=== PATIENT | male | born 1955 | race Caucasian/White ===

== ENCOUNTER → 2023-12-21 09:35 | Outpatient (REF) | payer MEDICARE, OTHER, SELFPAY ==
[2023-12-21 10:53] LABS: Blood Urea Nitrogen 24 mg/dl (9-20); Calcium 9.3 mg/dl (8.4-10.2); Carbon Dioxide 26 mmol/L (22-30); Chloride 97 mmol/L (98-107); Glucose 142 mg/dl (70-99); Potassium 4.5 mmol/L (3.5-5.1); Sodium 134 mmol/L (135-145); eGFR > 60.00
== END ==
LOC: REG 09:35
PROVIDERS: ATTENDING PHYSICIAN Physician Assistant; FAMILY PHYSICIAN Family Medicine
DX: I71.40 Abdominal aortic aneurysm, without rupture, unspecified (principal)
CPT/HCPCS: 36415; 80048

== ENCOUNTER → 2024-01-17 07:45 | Outpatient (REF) | payer MEDICARE, OTHER, SELFPAY | LOC: RAD 07:45 | PROVIDERS: ATTENDING PHYSICIAN Physician Assistant; FAMILY PHYSICIAN Family Medicine | DX: I71.40 Abdominal aortic aneurysm, without rupture, unspecified (principal) | CPT/HCPCS: 74174; Q9967 ==

== ENCOUNTER → 2025-02-13 10:25 | Outpatient (REF) | payer MEDICARE, OTHER, SELFPAY ==
[2025-02-13 11:44] LABS: Blood Urea Nitrogen 31 mg/dl (9-20); Calcium 9.3 mg/dl (8.4-10.2); Carbon Dioxide 24 mmol/L (22-30); Chloride 104 mmol/L (98-107); Glucose 151 mg/dl (70-99); Potassium 4.5 mmol/L (3.5-5.1); Sodium 139 mmol/L (135-145); eGFR > 60.00
== END ==
LOC: REG 10:25
PROVIDERS: ATTENDING PHYSICIAN Surgery Vascular Surgery; FAMILY PHYSICIAN Family Medicine
DX: I71.40 Abdominal aortic aneurysm, without rupture, unspecified (principal)
CPT/HCPCS: 36415; 80048

== ENCOUNTER → 2025-02-17 12:52 | Outpatient (REF) | payer MEDICARE, OTHER, SELFPAY | LOC: RAD 12:52 | PROVIDERS: ATTENDING PHYSICIAN Surgery Vascular Surgery; FAMILY PHYSICIAN Family Medicine | DX: I71.43 Infrarenal abdominal aortic aneurysm, without rupture (principal); I71.40 Abdominal aortic aneurysm, without rupture, unspecified | CPT/HCPCS: 74174; Q9967 ==

== ENCOUNTER 2025-02-18 22:55 | Inpatient (IN) | payer MEDICARE, OTHER, SELFPAY ==
[2025-02-18 19:53] VITALS: BMI 24.2
[2025-02-18 19:54] VITALS: BP 126/42
--- NOTE | 2025-02-18 20:24 | ED.GENMED ---
History of Present Illness
General
Chief Complaint: Breathing Problem
Source: patient and ambulance crew
Exam Limitations: none
Time Seen by Provider: 02/18/25 20:01
Nursing documentation reviewed up to this point in time: agreed with
History of Present Illness
History of Present Illness:
70-year-old male presents to the emergency department complaining of shortness of breath that is chronic, but he is concerned it may get worse when he goes to sleep. He denies any chest pain. He had a CAT scan at [facility] today for a AAA.
Past History
Past History
ED Past Medical History: Arrthythmia, CAD, NIDDM and Other (AAA, anemia, cancer of larynx)
ED Past Surgical History: Cardiac (Cardiac stent) and Other (Aorta repair)
Social History
Tobacco: Former smoker
Alcohol: None
Drug: None
Review of Systems
Review of Systems
Allergies reviewed?: Yes
All Other Systems: Not applicable
Constitutional: Reports no symptoms
EENT: Reports no symptoms
Respiratory: Reports cough and trouble breathing
Cardiac: Reports no symptoms
ABD/GI: Reports no symptoms
: Reports no symptoms
Musculoskeletal: Reports no symptoms
Skin: Reports no symptoms
Neurological: Reports no symptoms
Endocrine: Reports no symptoms
Hematologic/Lymphatic: Reports no symptoms
Psychiatric: Reports no symptoms
Phy Exam
Physical Exam
Physical Exam:
Physical Exam
General: no apparent distress, not acutely ill
Neck: supple. no meningeal signs. normal posterior pharynx
Heart: s1/s2 regular rate and rhythm, no murmur. equal radial
pulses.
HEENT: Pupils equal round reactive to light, EOMI
Lungs: no acute respiratory distress. clear bilaterally
Abdomen: normal bowel sounds. not tender. no CVAT
Neuro: alert and oriented. no focal neurological deficits cranial nerves II through XII intact
Skin: no rash
Psychiatric: well kept. interactive and cooperative
Extremities: no edema. no calf tenderness. negative homans. good distal pulses
Scores
Heart Failure Risk
Heart Failure Risk Score: Yes
History of Stroke or TIA: No
History of intubation for respiratory distress: No
Heart rate on ED arrival >/= 110: No
SaO2 <90% on arrival on room air: No
HR >/=110 during 3min walk test (or too ill to perform test): Yes
ECG has acute ischemic changes: No
Urea >/=12mmol/L (BUN 33.6mg/dL): Yes
Serum CO2>/=35mmol/L: No
Troponin I or T elevated to [place] Level (0.4mg/dL): No
NT-proBNP >/=5,000ng/L (5,000pg/ml): Yes
HF Risk Score: 4
Admission Status: HIGH RISK 26.1% Consider SNF treatment or admission to hospital
Course
Orders/Labs/Results
Orders:
Orders
02/18/25 20:06
EKG [Electrocardiogram (*1)] Urgent
Reason for Study: Shortness of Breath
EKG- Treatment ONCE
02/18/25 20:23
Cardiac Monitoring- Treatment ONCE
IV Insert/Care/Rem.- Treatment PRN
CR Chest - 2 Views Urgent
Comment:
Reason For Exam: shortness of breath
Pulse Ox/cont/shift [RESP] Stat
Quantity: 1
02/18/25 20:27
Complete Blood Count/With Diff Urgent
Prothrombin Time Urgent
02/18/25 20:59
Comprehensive Metabolic Panel Urgent
NT-proBNP Urgent
Troponin I Urgent
02/18/25 21:40
Furosemide [Lasix] 40 mg IV NOW STA
Abnormal Lab Results
02/18/25 02/18/25
20:27 20:59
WBC 4.3 L 10^3/uL
(4.8-10.8)
RBC 2.85 L 10^6/uL
(4.70-6.10)
Hgb 9.4 L g/dL
(13.0-18.0)
Hct 29.7 L %
(39.0-52.0)
MCV 104.2 H fL
(80.0-94.0)
MCH 33.0 H pg
(27.0-31.0)
MCHC 31.6 L g/dL
(33.0-37.0)
RDW 15.7 H %
(11.5-14.5)
MPV 10.5 H fL
(7.4-10.4)
Absolute Lymphs (auto) 0.8 L 10^3/uL
(1.2-3.4)
Absolute Monos (auto) 0.7 H 10^3/uL
(0.1-0.6)
Lymphocytes % 18.8 L %
(20.5-51.1)
Monocytes % 15.3 H %
(1.7-9.3)
Eosinophils % 6.1 H %
(0-6)
PT 20.7 H Sec
(11.4-14.6)
BUN 38 H mg/dl
(9-20)
Glucose 120 H mg/dl
(70-99)
Total Bilirubin 1.9 H mg/dl
(0.2-1.3)
Troponin I 0.069 H* ng/ml
Total Protein 6.1 L g/dl
(6.3-8.2)
02/18/25 20:27
02/18/25 20:59
Vital Signs
Initial and Last Documented VS:
Initial Vital Signs
Temp Pulse Resp BP Pulse Ox
98.2 F 82 18 126/42 98
02/18/25 19:54 02/18/25 19:54 02/18/25 19:54 02/18/25 19:54 02/18/25 19:54
Last Documented Vital Signs
Temp Pulse Resp BP Pulse Ox
98.2 F 71 23 128/47 98
02/18/25 19:54 02/18/25 21:30 02/18/25 21:30 02/18/25 21:00 02/18/25 21:30
MDM/Problems Addressed
Differential Diagnosis Includes:
Pneumonia, CHF exacerbation
MDM/Problems Addressed:
70-year-old male with CHF exacerbation, difficulty walking without shortness of breath. Admit for diuresis and further evaluation.
Chronic conditions affecting care: Cardiomyopathy and Arrhythmia
Acute Exacerbation and/or Progression of Chronic Illness: Cardiomyopathy and Arrhythmia
*Radiology
Radiology exam reviewed: radiology read reviewed (Chest x-ray shows bilateral pulm edema)
*Pulse Oximetry
Patient hypoxic: no
*EKG
Interpreted by ED Provider?: Yes
EKG Intrepretation Date: 02/18/25
EKG Intrepretation Time: 20:11
Interpretation: abnormal
Comparison EKG: no changes
Heart Rate: 65
Rate: normal
Rhythm: a-fib
[place]: normal axis
Interval: normal interval
QRS Pattern: normal QRS
Ischemia: no ischemia
*Plasterer Rough Interpretation
Rate: normal
Interpretation: abnormal
Heart Rate: 76
Rhythm: a-fib
*Critical Care Note
Total Time (30-74mins, 75-104mins- exclusive of procedures): Not Applicable
Data Reviewed
Review of Other/Old Records Reveals: Testing (Echocardiogram from 12/04/2023 shows EF 60 to 65% with mild concentric left ventricular hypertrophy)
Source: records
Patient Management
Social determinants of health affecting care: Living situation and Strong social support
Discussion with other providers: Hospitalist
Escalation/DeEscalation of care consider admission/obs:
Admission indicated
ED Attending Note
-
Portions of this chart may have been created with voice recognition software.� Occasional wrong word or��sound alike� substitutions may have occurred due to the inherent limitations of voice recognition software.
Discharge Plan
Departure
Patient Disposition: Admit
Date of Disposition: 02/18/25
Time of Disposition: 21:41
Admit to: Telemetry
Presentation/result/management discussed w/ accepting MD/DO: Hospitalist
Patient with high blood pressure during this ER visit?: Yes
Condition: Fair
Discharge Problem:
Acute exacerbation of CHF (congestive heart failure), AAA (abdominal aortic aneurysm)
Prescriptions:
No Action
atorvastatin 20 mg Tablet
20 mg PO HS
allopurinol 100 mg Tablet
100 mg PO BID
tramadol 50 mg Tablet
50 mg PO BID PRN (Reason: pain)
alprazolam 0.5 mg Tablet
0.5 mg PO PRN PRN (Reason: anxiety)
lisinopril 10 mg Tablet
10 mg PO DAILY
magnesium oxide 500 mg Tablet
500 mg PO HS
furosemide 20 mg Tablet
40 mg PO DAILY
metoprolol succinate 25 mg Capsule,Sprinkle,Er 24hr
25 mg PO DAILY
rivaroxaban 20 mg Tablet
20 mg PO DAILY
Medical Marijuana
1 dose PO PRN PRN (Reason: sleep)
Referrals:
oJsefina Nguyen MD [Family Provider] -
Interventions
Interventions:
*Risk Screen - Suicide Last Done: 02/18/25 19:54
*General Assessment Last Done: 02/18/25 19:54
*Neglect/Abuse Screening Last Done: 02/18/25 19:54
*ED- Fall Risk Assessment Last Done: 02/18/25 19:54
*ED COVID-19 Vaccine History Last Done: 02/18/25 19:54
ED- Cardiac Assessment Last Done: 02/18/25 20:20
ED- Pulmonary Assessment Last Done: 02/18/25 20:20
Discharge Date and Time
Print Language: ETHIOPIAN
[2025-02-18 20:42] LABS: INR 1.73; PT 20.7 Sec (11.4-14.6)
[2025-02-18 21:00] VITALS: BP 128/47
[2025-02-18 21:03] LABS: % Basophils 0.7 % (0-2); % Eosinophils 6.1 % (0-6); % Immature Granulocytes 0.2 % (0-0.5); % Lymphocytes 18.8 % (20.5-51.1); % Monocytes 15.3 % (1.7-9.3); % Neutrophils 58.9 % (42.2-75.2); Absolute Eosinophils 0.3 10^3/uL (0-0.7); Absolute Lymphocytes 0.8 10^3/uL (1.2-3.4); Absolute Monocytes 0.7 10^3/uL (0.1-0.6); Absolute Neutrophils 2.5 10^3/uL (1.4-6.5); Hematocrit 29.7 % (39.0-52.0); Hemoglobin 9.4 g/dL (13.0-18.0); Mean Corp Hgb Conc. 31.6 g/dL (33.0-37.0); Mean Corpuscular Volume 104.2 fL (80.0-94.0); Mean Platelet Volume 10.5 fL (7.4-10.4); Nucleated Red Blood Cells % 0 % (-); Platelet Count 173 10^3/uL (130-400); Red Blood Cell Count 2.85 10^6/uL (4.70-6.10); Red Cell Dist. Width 15.7 % (11.5-14.5); White Blood Cell Count 4.3 10^3/uL (4.8-10.8)
[2025-02-18 21:30] LABS: ALT (SGPT) 14 U/L (0-50); AST (SGOT) 20 U/L (17-59); Albumin 3.7 g/dl (3.5-5.0); Alkaline Phosphatase 125 U/L (38-126); Blood Urea Nitrogen 38 mg/dl (9-20); Calcium 9.2 mg/dl (8.4-10.2); Carbon Dioxide 25 mmol/L (22-30); Chloride 104 mmol/L (98-107); Estimated Creatinine Clearance 63 ml/min; Glucose 120 mg/dl (70-99); Potassium 4.6 mmol/L (3.5-5.1); Sodium 140 mmol/L (135-145); Total Bilirubin 1.9 mg/dl (0.2-1.3); Total Protein 6.1 g/dl (6.3-8.2); eGFR > 60.00
[2025-02-18 21:35] LABS: NT-proBNP 13200 pg/ml; Troponin I 0.069 ng/ml
[2025-02-18] MEDS: LASIX 40 MG IV (21:46)
[2025-02-18 22:00] VITALS: BP 89/74
[2025-02-18 22:01] VITALS: BP 124/51
--- NOTE | 2025-02-18 22:11 | HPS.HSE ---
Family Physician
-
Family Physician: Josefina Nguyen
Chief Complaint
-
Shortness of breath
History of Present Illness
This is a 70-year-old with complex medical history including history of CAD status post stenting in 2009, congestive heart failure, history of mitral regurgitation, history of laryngeal cancer status post resection, history of AAA status post
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
antibiotics and currently living at home who presents to the emergency department with approximately 2 days of dyspnea on exertion.
Patient stated that since his discharge from the hospital he has lost weight and his weight has not increased. He reports that his lower extremity history edema has remained low and it has not increased. He denies having any recent fevers or
chills. He denies having any chest pain. He reported that 2 days ago started having dyspnea on exertion. He is also unable to walk from his bed into his bathroom. He denies having palpitations. He denies feeling dizzy or lightheaded. He denies
any rash. He denies any abdominal pain. Patient reports compliant with his medications. Denies any cough
On arrival in the emergency department suction saturation was 98% on room air, he was afebrile with a temp of 98.2 blood pressure was stable at 130/50 with a pulse of 71. ECG shows a atrial fibrillation at a rate of 65. His troponin was 0.069, BNP
was elevated at 1300. Chest x-ray shows cardiomegaly with moderate pulmonary edema. CBC was unremarkable without leukocytosis hemoglobin 9 and platelet 133, electrolytes BUN/creatinine were stable and the abnormal glucose.
Medical History
Past Medical History
Past Medical History: Reports Other
Additional Past Medical History:
CHF
Permanent atrial fibrillation
AAA
CAD status post stenting
Hyperlipidemia
Gout
Mitral regurgitation
History of laryngeal cancer
Diabetes
Past Surgical History: Reports Other (EVAR 11/2023 )
Social History
Tobacco: Non-smoker
Alcohol: None
Drug: None
Personal:
Living: With Family
Employment: Retired
Family History
Family History: Not pertinent
Allergies / Home Medications
Allergies reflects when Allergies were last updated in [facility].
Home Medications with original date entered in [facility]
Allergy/Medication List:
Allergies
Allergy/AdvReac Type Severity Reaction Status Date / Time
No Known Allergies Allergy Unverified 11/26/23 09:34
Home Medications
allopurinol 100 mg tablet 100 mg PO BID Gout 11/26/23
alprazolam 0.5 mg tablet 0.5 mg PO HSPRN PRN anxiety 11/26/23
lisinopril 10 mg tablet 10 mg PO DAILY Blood Pressure 11/26/23
magnesium oxide 500 mg PO HS Electrolyte Repletion 11/26/23
rivaroxaban 20 mg tablet 20 mg PO HS Blood Clot Prevention/Tx 11/26/23
acetaminophen 325 mg tablet (Tylenol) 650 mg PO DAILY 02/18/25
amoxicillin 500 mg capsule 500 mg PO TID 02/18/25
atorvastatin 40 mg tablet 40 mg PO HS 02/18/25
benzonatate 100 mg capsule 100 mg PO TIDPRN PRN cough 02/18/25
cholecalciferol (vitamin D3) 50 mcg (2,000 unit) tablet (Vitamin D3) 50 mcg PO DAILY 02/18/25
cyanocobalamin (vitamin B-12) 1,000 mcg tablet 1,000 mcg PO DAILY 02/18/25
famotidine 20 mg tablet 20 mg PO DAILY 02/18/25
ferrous sulfate 325 mg (65 mg iron) tablet 325 mg PO DAILY 02/18/25
folic acid 1 mg tablet 1 mg PO DAILY 02/18/25
furosemide 40 mg tablet 40 mg PO BID 02/18/25
glycopyrrolate 1 mg tablet 1 mg PO BID 02/18/25
magnesium hydroxide 400 mg/5 mL oral suspension (Milk of Magnesia) 30 ml PO DAILYPRN PRN constipation 02/18/25
metoprolol succinate 50 mg tablet,extended release 24 hr 50 mg PO DAILY 02/18/25
vitamin B complex 1 tab PO DAILY 02/18/25
Review of Systems
-
History Source: Patient
Constitutional: Reports No Symptoms
EENT: Reports No Symptoms
Respiratory: Reports Trouble Breathing
Cardiac: Reports No Symptoms
Abdomen/GI: Reports No Symptoms
: Reports No Symptoms
Musculoskeletal: Reports No Symptoms
Skin: Reports No Symptoms
Neurological: Reports No Symptoms
Endocrine: Reports No Symptoms
Hematologic/Lymphatic: Reports No Symptoms
Psych: Reports No Symptoms
Physical Exam
Vital Signs
Vital Signs
Temp Pulse Resp BP Pulse Ox
98.2 F 71 23 128/47 98
02/18/25 19:54 02/18/25 21:30 02/18/25 21:30 02/18/25 21:00 02/18/25 21:30
Physical Exam
General: Well Developed, Well Nourished, No Apparent Distress and Comfortable
HEENT: NormoCephalic, Anicteric, Moist mucous membranes and Atraumatic
Respiratory: Clear
Cardiac: S1/S2, Irregular Rhythm, Murmur (Apical systolic murmur appreciated) and JVD; No Rub, Gallop or Peripheral Edema
Breast: Deferred by me
GI: Soft, Non Tender, Non Distended and Normal Bowel Sounds
Rectal: Deferred by Provider
Genito-urinary: Deferred by me
Musculoskeletal: No Clubbing, No Cyanosis and No Edema
Skin: Warm
Neuro: AO x 3 and Nonfocal/grossly intact
Hematologic/Lymphatic: No Lymphadenopathy
Psych: Calm
Laboratory Results
-
02/18/25 20:27
02/18/25 20:59
Laboratory Results
PT 20.7 Sec (11.4-14.6) H 02/18/25 20:27
INR 1.73 02/18/25 20:27
Total Bilirubin 1.9 mg/dl (0.2-1.3) H 02/18/25 20:59
AST 20 U/L (17-59) 02/18/25 20:59
ALT 14 U/L (0-50) 02/18/25 20:59
Alkaline Phosphatase 125 U/L (38-126) 02/18/25 20:59
Troponin I 0.069 ng/ml H* 02/18/25 20:59
Data Reviewed
-
Diagnostic Radiology: Image Personally Visualized and interpreted and Report Reviewed by me
Medical Tests (Nuc Med, Echo, EKG etc): Image Personally Visualized and interpreted
Lab Data: Labs Reviewed by me
Old Records: Reviewed
Impression/Plan
-
IMPRESSION:
70-year-old with past medical history significant for CHF, mitral regurgitation, subacute endocarditis status post antibiotics and now on suppressive amoxicillin, AAA status post endovascular repair, presents to the emergency department with mostly
subacute dyspnea on exertion over the last 3 days. He denies any chest pain. Found to have a troponin of 0.069 and a BNP of greater than 13,000. On examination he has very faint crackles bilaterally but no JVD and no lower extremity edema. He
denies having any chest pain. Been compliant with his medications including his anticoagulation and diuretic regimen and reports no weight gain and no recent increases in his edema. He denies any cough. He has not had any fevers or chills.
Picture is consistent with acute CHF exacerbation possibly triggered by a ischemic episode versus valve insufficiency. Patient was recently treated for influenza and he has completed the course and is currently asymptomatic from that perspective.
PLAN:
1. CHF exacerbation�appears to be acute and not due to noncompliance, or volume overload. Concern remains for ischemia or valvular insufficiency. No signs of acute infection.
-Admit to telemetry at this time
-Cycle cardiac enzymes, if troponin increases will start on heparin but otherwise we will continue Xarelto
-Will give aspirin 324 x 1
-Lasix 40 mg given IV in the ED, will continue Lasix 40 mg IV twice daily
-Echocardiogram to evaluate EF and valve
-Cardiology consultation
-Continue his metoprolol and lisinopril
�Check COVID
2. AFIB
- continue metoprolol
- continue AC, if flat trop will continue Xarelto, otherwise heparin gtt
3. subacute endocarditis
- continue suppressive amoxicillin indefinitely
- echo in am
DVT prophylaxis on anticoagulation
CODE STATUS full code
[2025-02-18 23:00] VITALS: BP 121/45
[2025-02-18] MEDS: LOW STRENGTH ASPIRIN 324 MG PO (23:03)
[2025-02-18 23:48] LABS: COVID-19 Antigen Negative (Negative)
[2025-02-19] VITALS (8 sets, daily range): BP systolic 109–136; BP diastolic 34–55; BMI 24.2; BMI 23.4
[2025-02-19] LABS: Troponin I 0.072 ng/ml
--- NOTE | 2025-02-19 01:58 | PTCARENOTE ---
Pt admitted into 2248- ambulated to the bedside as a x1 assist. On RA 100% SPO2. Afib on the monitor. plan of care discussed. call shaw within reach. Afib and chf booklet provided.
[2025-02-19 02:25] LABS: Blood Urea Nitrogen 38 mg/dl (9-20); Calcium 9.1 mg/dl (8.4-10.2); Carbon Dioxide 24 mmol/L (22-30); Chloride 106 mmol/L (98-107); Estimated Creatinine Clearance 63 ml/min; Glucose 127 mg/dl (70-99); HDL Cholesterol 37 mg/dl; LDL Cholesterol, Calculated 64 mg/dl; Potassium 4.4 mmol/L (3.5-5.1); Sodium 140 mmol/L (135-145); Total Cholesterol 116 mg/dl (50-199); Triglyceride 79 mg/dl (10-149); Very Low Density Lipoprotein 15 mg/dl (0-30); eGFR > 60.00
[2025-02-19 02:50] LABS: Troponin I 0.076 ng/ml
[2025-02-19 05:58] LABS: Troponin I 0.065 ng/ml
--- NOTE | 2025-02-19 06:45 | PTCARENOTE ---
Pt provided a printed med list that he states is the most current list he has been following at home but compared to our pharmacy updated list Meds and doses are very different. will pass on to day shift RN.
[2025-02-19] MEDS: TOPROL XL 50 MG PO (08:50)
[2025-02-19] MEDS: AMOXIL 500 MG PO (08:50)
[2025-02-19] MEDS: ROBINUL 1 MG PO ×2 (08:50→20:12)
[2025-02-19] MEDS: ZESTRIL 10 MG PO (08:50)
[2025-02-19] MEDS: LASIX 40 MG IV ×2 (08:51→16:05)
[2025-02-19] MEDS: FEOSOL 325 MG PO (08:51)
[2025-02-19] MEDS: FOLVITE 1 MG PO (08:51)
[2025-02-19] MEDS: ZYLOPRIM 100 MG PO ×2 (08:51→20:13)
[2025-02-19] MEDS: TYLENOL 650 MG PO (08:51)
--- NOTE | 2025-02-19 09:33 | W.PN.HOSP.TC ---
Today's Communication/Plan
-
Past medical history information is taken from cardiology service, appreciate input
Continue with diuretic therapy,
Will need repeat blood culture
Follow-up with echocardiogram
Assessment / Plan
Assessment / Plan
Physical Exam
General: Well Developed, Well Nourished, No Apparent Distress and Comfortable
HEENT: NormoCephalic, Anicteric, Moist mucous membranes and Atraumatic
Respiratory: Clear
Cardiac: S1/S2, Irregular Rhythm, Murmur (Apical systolic murmur appreciated) and JVD; No Rub, Gallop or Peripheral Edema
Breast: Deferred by me
GI: Soft, Non Tender, Non Distended and Normal Bowel Sounds
Rectal: Deferred by Provider
Genito-urinary: Deferred by me
Musculoskeletal: No Clubbing, No Cyanosis and No Edema
Skin: Warm
Neuro: AO x 3 and Nonfocal/grossly intact
Hematologic/Lymphatic: No Lymphadenopathy
Psych: Calm
# Acute on chronic HFrEF
LV dysfunction 38% (12/2024)
No sob at present
continue Lasix 40 mg IV twice daily
-Echocardiogram to evaluate EF and valve
-Continue his metoprolol and lisinopril
Negative COVID
#Positive troponin: non-ischemic myocardial injury in setting of CHF exacerbation
# Anemia of chronic disease
Check iron panel
# history of Infrarenal AAA s/p Stent on 11/[address] Alfred
No abdominal pain
#Permanent AFIB
- continue metoprolol
- On Xarelto, now on heparin gtt
#subacute endocarditis
E faecalis bacteremia
- continue suppressive amoxicillin indefinitely
Blood culture is ordered.
DVT prophylaxis on anticoagulation
CODE STATUS full code
Total time spent to see the patient, examine the patient, review data and lab results, discuss treatment plan with patient, nursing staff, consultants around 55 minutes
Anticipated Discharge: > 48 hours
Subjective/Interval History
-
Date of Service: February 19, 2025
No chest pain
Objective Data
-
Labs:
Laboratory Results
02/19/25
01:44
Sodium 140
Potassium 4.4
Chloride 106
Carbon Dioxide 24
BUN 38 H
Creatinine 1.2
Glucose 127 H
Calcium 9.1
Vital Signs:
Vital Signs
Temp Pulse Resp BP Pulse Ox
97.9 F 75 18 125/51 94
02/19/25 07:55 02/19/25 08:00 02/19/25 07:55 02/19/25 08:50 02/19/25 08:45
I&O
02/18/25 02/19/25 02/20/25
06:59 06:59 06:59
Intake Total 240 / 240
Output Total 550 / 550 200 / 200
Balance -310 / -310 -200 / -200
--- NOTE | 2025-02-19 09:55 | CON.CAR ---
Addendum entered and electronically signed by Sridhar Foreman MD 02/19/25 14:20:
70 yo male with diagnosis of endocarditis in Nov 2024 and has been treated medically, permanent A fib on xarelto, CAD s/p BMS OM2011, AAA repair is admitted with SOB. Exam with irregular rhythm, III/ systolic murmur at apex, no edema, elevated
JVP.
Echo shows EF 50%, vegetations on aortic, mitral, and likely tricuspid valves; with severe AR, severe MR, moderate TR. The AV vegetation is most significant.
Discussed with CT surgery. Will start surgical evaluation with LORETA tomorrow and CT cors. No cath at this time due to AV vegetation. He appears to be a high risk patient.
ID consult for Abx management.
Vascular surgery consult as recent CT suggested endoleak of AAA repair.
Will use heparin drip for AC for A fib.
Original Note:
Consultation
Consultation Request
Date/Time Consultation Requested: 02/19/253
Date/Time Consultation Performed: 02/19/25 0956
Requesting Provider: Dr. Del Toro
Performing Provider: Kyleigh MCCALL for Dr. Foreman
Reason for Consultation: CHF
Medical History
-
Chief Complaint: SOB
History of Present Illness:
70 y/o male (patient of Dr. Mckeon) with permanent AFIB (on Xarelto), CAD with BMS to OM2011, hx laryngeal cancer, severe MR, hx AAA repair (Dr. 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
dysfunction 38% (12/2024). 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 He had recent hospitalizations at [facility] including about a month ago for flu A and acute CHF.
He is here for two days of SOB and an episode of PND. He is in no distress at the time of my assessment.
Past Medical History
Past Medical History: Arrhythmias, CAD, Cancer and Valvular Disease
Social History
Tobacco: Non-Smoker
Drug: None
Family History
Family History: Other (thinks cardiac disease runs in family, but no more details than that)
Allergies / Home Medications
Allergy/AdvReac Type Severity Reaction Status Date / Time
No Known Allergies Allergy Unverified 11/26/23 09:34
�Medication �Instructions �Recorded �Confirmed �Type
allopurinol 100 mg tablet 100 mg PO BID Gout 11/26/23 02/18/25 History
alprazolam 0.5 mg tablet 0.5 mg PO HSPRN PRN anxiety 11/26/23 02/18/25 History
lisinopril 10 mg tablet 10 mg PO DAILY Blood Pressure 11/26/23 02/18/25 History
magnesium oxide 500 mg PO HS Electrolyte Repletion 11/26/23 02/18/25 History
rivaroxaban 20 mg tablet 20 mg PO HS Blood Clot 11/26/23 02/18/25 History
Prevention/Tx
acetaminophen 325 mg tablet 650 mg PO DAILY 02/18/25 02/18/25 History
(Tylenol)
amoxicillin 500 mg capsule 500 mg PO TID 02/18/25 02/18/25 History
atorvastatin 40 mg tablet 40 mg PO HS 02/18/25 02/18/25 History
benzonatate 100 mg capsule 100 mg PO TIDPRN PRN cough 02/18/25 02/18/25 History
cholecalciferol (vitamin D3) 50 50 mcg PO DAILY 02/18/25 02/18/25 History
mcg (2,000 unit) tablet (Vitamin
D3)
cyanocobalamin (vitamin B-12) 1,000 mcg PO DAILY 02/18/25 02/18/25 History
1,000 mcg tablet
famotidine 20 mg tablet 20 mg PO DAILY 02/18/25 02/18/25 History
ferrous sulfate 325 mg (65 mg 325 mg PO DAILY 02/18/25 02/18/25 History
iron) tablet
folic acid 1 mg tablet 1 mg PO DAILY 02/18/25 02/18/25 History
furosemide 40 mg tablet 40 mg PO BID 02/18/25 02/18/25 History
glycopyrrolate 1 mg tablet 1 mg PO BID 02/18/25 02/18/25 History
magnesium hydroxide 400 mg/5 mL 30 ml PO DAILYPRN PRN constipation 02/18/25 02/18/25 History
oral suspension (Milk of Magnesia)
metoprolol succinate 50 mg 50 mg PO DAILY 02/18/25 02/18/25 History
tablet,extended release 24 hr
vitamin B complex 1 tab PO DAILY 02/18/25 02/18/25 History
Review of Systems
-
History Source: Patient
All other systems: Negative unless noted
Respiratory: Trouble Breathing
Physical Exam
Vital Signs
Temp Pulse Resp BP Pulse Ox
97.9 F 75 18 125/51 94
02/19/25 07:55 02/19/25 08:00 02/19/25 07:55 02/19/25 08:50 02/19/25 08:45
Lab Results
02/18/25 20:27
02/19/25 01:44
Troponin I Cancelled 02/19/25 22:00
Hxl-Z-Fklngkbfifi Pept 94182 pg/ml 02/18/25 20:59
Physical Exam
General: Well Developed and No Apparent Distress
HEENT: Normocephalic and Anicteric
Respiratory: Crackles (left base)
Cardiac: Irregular Rhythm and Murmur (IV/ systolic and diastolic murmurs)
Musculoskeletal: Edema (mild BLE edema)
Skin: Warm and Dry
Neuro: AO x 3
Psych: Calm
Impression / Plan
-
Epcam-us-rleqwqk HF (reduced EF? based on last echo as below):
-BNP 61972, imaging with pulmonary edema, rales to L base, mild BLE edema
-updated echo is pending
-agree with IV lasix, which requires intensive monitoring
-on BB/ACEI- OP lasix dose is 40 mg PO BID
Endocarditis:
-Echo report summary 01/15/25: 0.75 mm mass attached to aortic valve, EF 38%, increased LV size, RV moderately dilated and with moderately decreased systolic function, severely dilated atria, severe AR, two areas of vegetation on anterior mitral
valve leaflet, severe MR, severe TR (aortic vegetation bigger from previous and now two areas on MV noted).
-this condition is threat to life
-updated echo pending
-OP notes reviewed and he was treated with IV abx, now on PO abx. He had E faecalis bacteremia. Septic knee back in Fall apparently.
-CTS consult, ID c/s
PAD:
-sounds to be extensive
-testing as below
-vascular consult
CAD with hx stenting:
-stable without CP
-on Xarelto, statin, BB
Abnormal troponin:
-acute, non-ischemic myocardial injury in setting of CHF exacerbation
-no angina or acute EKG changes
Permanent AFIB:
-stable, rate-controlled
-continue BB and Xarelto
Data:
Abd/pelv CT: AORTOBIILIAC ENDOGRAFT in place with interval enlargement of the shinnecock aneurysm sac around the endograft and a 1.9 cm focal outpouching of rim-enhancing fluid along the left posterolateral side of the proximal graft attachment
suggesting an ENDOLEAK (possibly a TYPE Ia PROXIMAL ENDOLEAK). 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 Severe stenosis (greater than 70% diameter) in the proximal right superficial femoral artery. Mild chronic
bilateral renal disease. Cholelithiasis. MODERATE ACUTE INTERSTITIAL and ALVEOLAR CARDIOGENIC PULMONARY EDEMA. Moderate to severe cardiomegaly with right heart dysfunction. Minimal bilateral pleural effusions. Severe multilevel lumbar discogenic
degenerative disease. Large right scrotal hydrocele.
Data Reviewed
-
EKG: Tracing Personally Visualized and interpreted (AFIB 80 BPM, nonspecific ST and T abnormalities)
Radiology: Report Reviewed by me (CXR: Cardiomegaly with moderate pulmonary edema. Likely trace bilateral pleural effusions.)
Medical Tests (Nuc Med, Echo etc): Report Reviewed by me (echo report summary as noted)
Labs: Labs Reviewed by me
--- NOTE | 2025-02-19 11:57 | CM ---
spoke to pt in room, he is prev indep, lives with his in a 2 story home with 3 steps to enter. he has a cane and a walker that he uses. he is for CT surgery eval today, dc plan undermined at this time. cm following.
[2025-02-19] MEDS: HEPARIN 4000 UNITS IV (12:46)
[2025-02-19] MEDS: HEPARIN 25000 UNITS/250 ML IV (12:56)
[2025-02-19 13:05] LABS: Hematocrit 26.9 % (39.0-52.0); Hemoglobin 8.8 g/dL (13.0-18.0); Mean Corp Hgb Conc. 32.7 g/dL (33.0-37.0); Mean Corpuscular Hgb 34.2 pg (27.0-31.0); Mean Corpuscular Volume 104.7 fL (80.0-94.0); Mean Platelet Volume 10.7 fL (7.4-10.4); Platelet Count 159 10^3/uL (130-400); Red Blood Cell Count 2.57 10^6/uL (4.70-6.10); Red Cell Dist. Width 15.5 % (11.5-14.5); White Blood Cell Count 3.1 10^3/uL (4.8-10.8)
[2025-02-19 13:19] LABS: APTT 41.5 Sec (23.4-35.0)
--- NOTE | 2025-02-19 13:31 | CON.VAS ---
Documented by User: STEFANY Santamaria 02/19/25 15:30
Consultation
Consultation Request
Date/Time Consultation Performed: 02/19/25
Requesting Provider: Hospitalist
Performing Provider: Melanie Aragon, CHUCK-C for Jn Bustamante MD
Reason for Consultation: EVAR stent graft endoleak
Medical History
-
Chief Complaint: Shortness of breath
History of Present Illness:
This is a 70-year-old male with significant past medical history for atrial fibrillation, CAD, laryngeal cancer, CHF, diabetes, mitral regurgitation, and gout who presented to outside hospital on 02/18/2025 with reports of roughly 2 days of worsening
malaise and dyspnea on exertion. He was recently hospitalized at [facility] for decompensated heart failure which led to diagnosis of subacute endocarditis, he was discharged on antibiotics.
Past Medical History
Past Medical History: Arrhythmias (From atrial fibrillation), CAD, Cancer (Laryngeal cancer), CHF, NIDDM, Valvular Disease (Mitral regurgitation) and Other (AAA, gout, left knee septic arthritis, idiopathic anemia, endocarditis, L2/L3 OM/discitis)
Past Surgical History: Other (EVAR 12/12)
Social History
Tobacco: Non-Smoker
Alcohol: None
Drug: None
Personal:
Living: With Family
Allergies / Home Medications
Allergy/AdvReac Type Severity Reaction Status Date / Time
No Known Allergies Allergy Unverified 11/26/23 09:34
�Medication �Instructions �Recorded �Confirmed �Type
allopurinol 100 mg tablet 100 mg PO BID Gout 11/26/23 02/18/25 History
alprazolam 0.5 mg tablet 0.5 mg PO HSPRN PRN anxiety 11/26/23 02/18/25 History
lisinopril 10 mg tablet 10 mg PO DAILY Blood Pressure 11/26/23 02/18/25 History
magnesium oxide 500 mg PO HS Electrolyte Repletion 11/26/23 02/18/25 History
rivaroxaban 20 mg tablet 20 mg PO HS Blood Clot 11/26/23 02/18/25 History
Prevention/Tx
acetaminophen 325 mg tablet 650 mg PO DAILY 02/18/25 02/18/25 History
(Tylenol)
amoxicillin 500 mg capsule 500 mg PO TID 02/18/25 02/18/25 History
atorvastatin 40 mg tablet 40 mg PO HS 02/18/25 02/18/25 History
benzonatate 100 mg capsule 100 mg PO TIDPRN PRN cough 02/18/25 02/18/25 History
cholecalciferol (vitamin D3) 50 50 mcg PO DAILY 02/18/25 02/18/25 History
mcg (2,000 unit) tablet (Vitamin
D3)
cyanocobalamin (vitamin B-12) 1,000 mcg PO DAILY 02/18/25 02/18/25 History
1,000 mcg tablet
famotidine 20 mg tablet 20 mg PO DAILY 02/18/25 02/18/25 History
ferrous sulfate 325 mg (65 mg 325 mg PO DAILY 02/18/25 02/18/25 History
iron) tablet
folic acid 1 mg tablet 1 mg PO DAILY 02/18/25 02/18/25 History
furosemide 40 mg tablet 40 mg PO BID 02/18/25 02/18/25 History
glycopyrrolate 1 mg tablet 1 mg PO BID 02/18/25 02/18/25 History
magnesium hydroxide 400 mg/5 mL 30 ml PO DAILYPRN PRN constipation 02/18/25 02/18/25 History
oral suspension (Milk of Magnesia)
metoprolol succinate 50 mg 50 mg PO DAILY 02/18/25 02/18/25 History
tablet,extended release 24 hr
vitamin B complex 1 tab PO DAILY 02/18/25 02/18/25 History
Physical Exam
Vital Signs
Temp Pulse Resp BP Pulse Ox
97.6 F 79 18 126/54 99
02/19/25 11:13 02/19/25 11:05 02/19/25 11:13 02/19/25 11:05 02/19/25 11:49
Lab Results
02/19/25 12:41
02/19/25 01:44
Troponin I Cancelled 02/19/25 22:00
Vxc-Q-Nwfflrcixlc Pept 10985 pg/ml 02/18/25 20:59

Documented by User: STEFANY Cole 02/19/25 16:55
Medical History
-
History of Present Illness:
This is a 70-year-old male with complex medical history including history of laryngeal cancer he notes he was taken to the operating room with [facility] and told that this was nonresectable. He underwent trach and PEG at that time.
Subsequently had endovascular repair of abdominal aortic aneurysm in November 2023 here at [place] ([facility]). Other PMH atrial fibrillation, CAD, laryngeal cancer, CHF, diabetes, mitral regurgitation, and gout who presented to outside hospital on
02/18/2025 with reports of roughly 2 days of worsening malaise and dyspnea on exertion. He was recently hospitalized at [facility] for decompensated heart failure which led to diagnosis of subacute endocarditis, he was discharged on
antibiotics. Patient notes that starting in February 2024 so he started to have generalized systemic type symptoms. Started to have some tiredness/weight loss. Per his sister at the bedside she notes that he is lost 60 pounds since August 2024. In
April 2024 he had a syncopal type episode. At some point along the way he was diagnosed with a left knee infection (no prosthetic in his knee but a primary infection) and had drainage of infected fluid. Now he presents here with continued malaise
and shortness of breath. He denies any abdominal pain. No pain in his back. He never had any of those symptoms.
On exam/he is in no acute distress. His breathing is unlabored. His abdomen is soft, nondistended, nontender. He does have a ventral hernia from his PEG site insertion. But it is easily reducible. He has no tenderness to deep palpation.
CT scan reviewed completed 02/17/2025. He has a CT scan from [place] dated 11/21/2024. I compared these to. I also reviewed his prior scan that he had in our system from December 2023. The aneurysm sac has increased in size slightly from the
December 2023 scan about 1 to 2 mm in both AP and transverse dimension. In addition the infrarenal neck of the aorta is slightly dilated compared to that time. I do not see a definitive type Ia endoleak as potentially suggested by the radiologist.
There is some contrast that can be seen posterior to one of the iliac limbs on the scan from 11/21/2024 (image 48 of series 4 on that scan). I do not see that is well on the current scan. He does however have some stranding around the aorta
especially on the prior scan it seems to be a little bit better on the more recent scan but there is also a collection posterior left side of the aorta. It appears to be distinct from the aorta in the retroperitoneum (not a site of rupture). But
appears rim-enhancing on the current scan.
Review of Systems
-
History Source: Patient and Family
All other systems: Negative unless noted
Constitutional: Reports Weight Loss and Fatigue
Respiratory: Reports Other (SOB)
Vascular: Denies Leg Pain / Claudication
Abdomen/GI: Reports No Symptoms (Denies pain)
: Reports No Symptoms
Musculoskeletal: Reports No Symptoms
Skin: Reports No Symptoms
Neurological: Reports No Symptoms
Physical Exam
Physical Exam
General: No Apparent Distress
Respiratory: Clear and Non Labored Respirations
Cardiac: Negative JVD
GI: Soft, Non Tender and Non Distended
Musculoskeletal: No Clubbing, No Cyanosis and Edema
Skin: Warm
Neuro: Awake, Alert and Oriented
Psych: Calm
Assessment / Plan
-
Plan/infective endocarditis with valvular vegetations. Possible infected aortic endograft. I am not 100% sure the endograft is definitively infected. I am not even 100% certain that he is a type Ia endoleak. The proximal neck does appear to be
sealed. However there is this atypical rim-enhancing collection seen on the more recent scans from 2 days ago and also from November of this year 3 months ago. However overall this has not changed much since November of this year and therefore that
would suggest that this is a relatively or somewhat less immediately concerning process. I cannot say with definitive certainty that the aorta is not infected, but I think his vegetative issues and the heart valves and endocarditis would take
precedence at this point given stability over the course of the last 3 months in terms of the scans. Would continue IV antibiotics. Would continue with plan/workup for management of the infective endocarditis/vegetations of the valve. 1
consideration could be percutaneous drainage of the rim-enhancing collection to see if purulent drainage is noted. I think it would be reasonable to ask interventional radiology to sample this fluid. We will continue to follow along with you.
Data Reviewed
-
CT Scan: Discussed with Patient
Labs: Labs Reviewed by me
--- NOTE | 2025-02-19 13:43 | CONSULT.CT ---
Consultation
-
Date/Time Consultation Requested: 02/19/25
Date/Time Consultation Performed: 02/19/25
Requesting Provider: Sridhar Foreman
Performing Provider: Lucia Riddle for Dr. Sharma
Reason for Consultation: aortic, mitral and tricuspid valve endocarditis
Patient History
Physicians
Family Physician: Josefina Nguyen
Outpatient Bead Maker: Saba Mckeon
Inpatient Bead Maker: Sridhar Foreman
History of Present Illness
70 y/o male with complex medical history including permanent AFIB (on Xarelto), CAD with BMS to OM1 2011, hx laryngeal cancer (2015) s/p surgery, chemotherapy and radiation & requiring tracheostomy/feeding tube x 7 months, severe MR, hx
infra-renal AAA w/B/L iliac endovascular repair 2023 (Dr. Alfred), Diagnosed with left knee septic joint (per patient-[place] per aspirate) and tulalip AV endocarditis (diagnosed 11/2024-Dr. Fox ID) on IV antibiotic x 4 weeks, followed by oral
Amocicillin which is current. RUE PICC removed 12/2024. Recent hospitalization at [facility] for Influenza A/acute CHF. LV dysfunction 38% (12/2024). Presented to [facility] emergency room on 02/18/25 with SOB and an episode of PND. Negative COVID.
Elevated troponin I (max 0.076) consistent with non-ischemic myocardial injury in setting of CHF exacerbation. Treated with diuretics. TTE today reported vegetations on aortic, mitral and likely tricuspid valves. No fevers, chills reported. No
leukocytosis noted.
Pertinent negatives: Denies CVA/TIA, asthma/COPD, bowel/bladder issues, DVT/PE
Past Medical History
Past Medical History: Atrial Fib (Chronic, diagnosed 2011-on Xarelto), CAD ( nonischemic cardiomyopathy/HFrEF ), Cancer (Laryngeal status post surgery, chemotherapy, radiation (2015) with tracheostomy and feeding tube x 7 months), Valvular Disease
(mitral regurgitation; tulalip aortic valve endocarditis) and Other (Infrarenal AAA status post endovascular repair 2023 (Dr. Alfred); septic joint left knee; Lyme disease)
Past Surgical History
Past Surgical History: PCI/Stent (MARQUISE-OM1 2011)
Dental History
6 months ago
Family History
Mother: N/A
Father: N/A
Social History
Alcohol: None
Drug: None
Tobacco: Former Smoker (Quit in his 20s)
Personal:
Living: With Spouse
Employment: Retired ([employer])
Allergies
Allergy/AdvReac Type Severity Reaction Status Date / Time
No Known Allergies Allergy Unverified 11/26/23 09:34
Home Medications
�Medication �Instructions �Recorded �Confirmed �Type
allopurinol 100 mg tablet 100 mg PO BID Gout 11/26/23 02/18/25 History
alprazolam 0.5 mg tablet 0.5 mg PO HSPRN PRN anxiety 11/26/23 02/18/25 History
lisinopril 10 mg tablet 10 mg PO DAILY Blood Pressure 11/26/23 02/18/25 History
magnesium oxide 500 mg PO HS Electrolyte Repletion 11/26/23 02/18/25 History
rivaroxaban 20 mg tablet 20 mg PO HS Blood Clot 11/26/23 02/18/25 History
Prevention/Tx
acetaminophen 325 mg tablet 650 mg PO DAILY 02/18/25 02/18/25 History
(Tylenol)
amoxicillin 500 mg capsule 500 mg PO TID 02/18/25 02/18/25 History
atorvastatin 40 mg tablet 40 mg PO HS 02/18/25 02/18/25 History
benzonatate 100 mg capsule 100 mg PO TIDPRN PRN cough 02/18/25 02/18/25 History
cholecalciferol (vitamin D3) 50 50 mcg PO DAILY 02/18/25 02/18/25 History
mcg (2,000 unit) tablet (Vitamin
D3)
cyanocobalamin (vitamin B-12) 1,000 mcg PO DAILY 02/18/25 02/18/25 History
1,000 mcg tablet
famotidine 20 mg tablet 20 mg PO DAILY 02/18/25 02/18/25 History
ferrous sulfate 325 mg (65 mg 325 mg PO DAILY 02/18/25 02/18/25 History
iron) tablet
folic acid 1 mg tablet 1 mg PO DAILY 02/18/25 02/18/25 History
furosemide 40 mg tablet 40 mg PO BID 02/18/25 02/18/25 History
glycopyrrolate 1 mg tablet 1 mg PO BID 02/18/25 02/18/25 History
magnesium hydroxide 400 mg/5 mL 30 ml PO DAILYPRN PRN constipation 02/18/25 02/18/25 History
oral suspension (Milk of Magnesia)
metoprolol succinate 50 mg 50 mg PO DAILY 02/18/25 02/18/25 History
tablet,extended release 24 hr
vitamin B complex 1 tab PO DAILY 02/18/25 02/18/25 History
Review of Systems
-
History Source: Patient
General: Reports No Symptoms
HEENT: Reports Hoarseness (Chronic status post laryngeal cancer)
Respiratory: Reports SOB (On admission) and PND (On admission)
Cardiac: Reports No Symptoms
Abdomen/GI: Reports No Symptoms and Other (Prior feeding tube)
: Reports No Symptoms
Musculoskeletal: Reports No Symptoms
Skin: Reports No Symptoms
Neurological: Reports No Symptoms
Vascular: Reports No Symptoms
Physical Exam
Vital Signs
Temp 97.6 F 02/19/25 11:13
Temp route: Oral 02/19/25 11:13
Pulse 79 02/19/25 11:05
Rhythm: Atrial fibrillation 02/19/25 08:45
Resp Rate 18 02/19/25 11:13
Blood pressure 126/54 02/19/25 11:05
Blood pressure extremity used: Right upper arm 02/19/25 11:13
Position: Sitting 02/19/25 11:13
MAP (cuff-Tessa Monitor) 75 02/19/25 11:05
SaO2 99 02/19/25 11:49
Oxygen Mode of Delivery Room air 02/19/25 11:49
Acceptable pain level during hospitalization? 2 02/18/25 19:54
Can the patient verbally communicate their pain? Yes 02/19/25 08:45
Actual Weight 78.1 kg 02/19/25 04:45
Body Mass Index (BMI) 23.4 02/19/25 04:45
Labs
02/19/25 12:41
02/19/25 01:44
PT 20.7 Sec (11.4-14.6) H 02/18/25 20:27
APTT 41.5 Sec (23.4-35.0) H 02/19/25 12:41
Troponin I Cancelled 02/19/25 22:00
Gop-A-Vdarkwnalmv Pept 14654 pg/ml 02/18/25 20:59
Diagnostic Studies
TTE /:
LVEF 50-55%. Mitral valve with 1.5 cm x 0.7 cm echodensity on anterior leaflet. Severe, eccentric mitral regurgitation.
Trileaflet aortic valve. Highly mobile 2.5 cm x 0.6 cm echodensity visualized, dhara at [facility]. Severe eccentric aortic regurgitation.
Enlarged right ventricular size. Normal right ventricular systolic function.
Tricupsid valve: In limited view 59, there is evidence of mobile echodensity. Moderate tricuspid regurgitation.
Exam
General: Other (Chronically ill-appearing)
HEENT: Normocephalic, Moist Mucous Membranes, Atraumatic and PERRLA
Neck: Trachea Midline
Cardiac: S1/S2, Irregular Rhythm and Murmur (II/ HSM LSB 5th ICS>axillae; I/ LUANNE 2nd ICS RSB)
GI: Soft, Non Tender, Non Distended and Normal Bowel Sounds
Rectal: Deferred by Provider
Skin: Warm and Dry
Neuro: AO x 3 and Other (Chronic coarseness)
Extremities: Pulses (+2/4 DP pulses B/L)
Lymph: No Lymphadenopathy
Psych: Calm
Assessment / Plan
-
70 year old male with recently treated tulalip aortic valve endocarditis/left knee septic joint (11/2024) with IV antibiotics at [facility]. Now presents with shortness of breath and vegetations of mitral, aortic, and possible tricuspid valve
consistent with endocarditis. Endo leak of EVAR graft
-Case discussed with Drs. Foreman and Zachary
-Plan for LORETA and CT cors 02/20
-No cath at this time due to AV vegetation
-ID and vascular surgery consults pending
-Remainder of care per primary team
-STS risk score not applicable due to need for multi-valve surgery
-Transitioned today from Xarelto to IV heparin
Data Reviewed
-
EKG: Report Reviewed by me and Discussed with Physician
Echo: Report Reviewed by me and Discussed with Physician
Radiology: Report Reviewed by me and Discussed with Physician
Labs: Labs Reviewed by me and Discussed with Physician
--- NOTE | 2025-02-19 14:08 | CON.ID ---
Consultation
-
Date/Time Consultation Requested: 02/19/25 11:52
Date/Time Consultation Performed: 02/20/24 14:08
Requesting Provider: Carmel WOODS
Performing Provider: Dr Purcell
Reason for Consultation: endocarditis
Chief Complaint / Past History
Chief Complaint
Shortness of breath
History of Present Illness
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
the knee due to enterococcus. He completed a 6 week course of ampicillin/ceftriaxone (through 01/05) and then was maintained on suppressive amoxicillin. His Vascular Surgeon Dr Alfred (affilated here at ) and ID doctor Dr Fox ([facility]) repeatedly
counseled him to get CTA for further workup of the EVAR mass however he was not compliant with this recommendation. He has recently had idiopathic anemia being worked up at [facility], in this context repeat blood cultures were obtained 01/15, 01/16 and
which were all negative. When last seen by ID at [facility] in Dec 2024 his weight was stable. History also notable for CHF, laryngeal cancer s/p resection, DM2 not on treatment. Now presenting here for weight loss and a two day history of dyspnea
on exertion. No fevers, chills, palpitations, dizziness, abdominal pain, rash. No new joint pains. No pain in the L knee or lumbar spine. No pain over the SC joints or sacral joints. No changes in his vision. Reports compliance with
medications and tells me specifically that he was taking the amoxicillin TID.
Since arrival here he has been afebrile, bp stable, wbc coutn 4.3, hgb 9.4, plt 173, no L shift is noted, eosinophils are present without absolute eosinophilia, Na 140, cr 1.2 (baseline could be as low as 0.8), bnp [id number], CXR today: moderate
pulmonary edema, CTA 02/17: endograft with interval enlargement 1.9 cm of rim enhancing fluid suggesting endoleak, pulmonary edema, severe lumbar DJD, current on amoxicillin, blood cultures were obtained this afternoon and are in progress, TTE today:
MV leaflet 1.5 cm x 0.7 cm vegetation with severe MR, AV mobile 2.5 x 0.6 cm lesion with severe AR, TV with mobile echodensity and moderate TR. ID is consulted for assistance with management.
Past History
Additional Past Medical History:
CHF
Permanent atrial fibrillation
AAA
CAD status post stenting
Hyperlipidemia
Gout
Mitral regurgitation
History of laryngeal cancer
Diabetes
Additional Past Surgical History:
EVAR 11/2023
Allergy History:
No Known Allergies Allergy (Unverified 11/26/23 09:34)
Medications Reviewed: Yes
Social History
Tobacco: Non-Smoker
Alcohol: None
Drug: None
Family History
Family History: Not Pertinent
Review of Systems
Review of Systems
General: Negative Fever or Chills
All systems: All other systems were reviewed and were negative
Vital Signs
Temp Pulse Resp BP Pulse Ox
97.6 F 79 18 126/54 99
02/19/25 11:13 02/19/25 11:05 02/19/25 11:13 02/19/25 11:05 02/19/25 11:49
Physical Exam
Physical Exam
Constitutional: No Acute Distress and Chronically Ill
Cardiovascular: Regular Rate and S1/S2; Negative Murmur or Rub
Pulmonary: Clear and Symmetric; Negative Wheezes, Rales or Rhonchi
Gastrointestinal: Soft, Non Tender (throughout the abdomen), Non Distended and Normal Bowel Sounds
Extremities: Other (no osler nodes); Negative Splinter Hemorrhage or Janeway Lesions
Musculoskeletal: Other (SC joints without swelling or tenderness; L knee without swelling); Negative Spinal Tenderness (with firm percussion)
Skin: Warm and Dry; Negative Rash or Jaundice
Neurological: Awake
Lab / Diagnostic Study Results
02/19/25 12:41
02/19/25 01:44
Abs Immat Gran (auto) 0.0 10^3/uL (0-0.05) 02/18/25 20:27
Absolute Neuts (auto) 2.5 10^3/uL (1.4-6.5) 02/18/25 20:27
Absolute Lymphs (auto) 0.8 10^3/uL (1.2-3.4) L 02/18/25 20:27
Absolute Monos (auto) 0.7 10^3/uL (0.1-0.6) H 02/18/25 20:27
Absolute Basos (auto) 0.0 10^3/uL (0-0.2) 02/18/25 20:27
Immature Gran % 0.2 % (0-0.5) 02/18/25 20:27
Neutrophils % 58.9 % (42.2-75.2) 02/18/25 20:27
Lymphocytes % 18.8 % (20.5-51.1) L 02/18/25 20:27
Monocytes % 15.3 % (1.7-9.3) H 02/18/25 20:27
Eosinophils % 6.1 % (0-6) H 02/18/25 20:27
Basophils % 0.7 % (0-2) 02/18/25 20:27
PT 20.7 Sec (11.4-14.6) H 02/18/25 20:27
INR 1.73 02/18/25 20:27
Microbiology Results
Micro:
02/19/25 12:40 Blood Culture - Pending
Blood/Venous
02/19/25 13:22 Blood Culture - Pending
Blood/Venous
Assessment / Plan
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
H/o Septic arthritis of the Knee 07/2024 due to Enterococcus - completed course of treatment
DM2 not on treatment
H/o noncompliance with imaging studies, though reportedly compliant with medications
- blood cultures x2 from different draws are in progress
- if taken for valve replacement or endograft resection please send tissue cultures for aerobic and anaerobic culture
- check a1c, favor tight glucose control
- start daptomycin 10 mg/kg
- hold atorvastatin while on daptomycin
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
- anticipate a repeat course of IV antibiotics at home
- appreciate vascular surgery, CT surgery and cardiology input
- patient is known to Dr Raman Fox [facility] ID and is established with vascular surgery Dr Alfred here
Care Review
Plan reviewed with: Physician (Dr Sharma - history from [facility])
[2025-02-19] MEDS: CUBICIN 15.6 MG IV (16:05)
--- NOTE | 2025-02-19 16:49 | W.PN.UPDATE ---
Update Note
Progress Note Update
Seen and evaluated with UTILITY AIRCREWMAN's. Full consultation to follow. 70-year-old male with complex medical history including history of laryngeal cancer he notes he was taken to the operating room with [facility] and told that this was
nonresectable. He underwent trach and PEG at that time. Subsequently had endovascular repair of abdominal aortic aneurysm in November 2023 here at [facility] ([place]). Patient notes that starting in February 2024 so he started to have generalized
systemic type symptoms. Started to have some tiredness/weight loss. Per his sister at the bedside she notes that he is lost 60 pounds since August 2024. In April 2024 he had a syncopal type episode. At some point along the way he was diagnosed
with a left knee infection (no prosthetic in his knee but a primary infection) and had drainage of infected fluid. Now he presents here with continued malaise and shortness of breath. He denies any abdominal pain. No pain in his back. He never
had any of those symptoms.
On exam/he is in no acute distress. His breathing is unlabored. His abdomen is soft, nondistended, nontender. He does have a ventral hernia from his PEG site insertion. But it is easily reducible. He has no tenderness to deep palpation.
CT scan reviewed completed 02/17/2025. He has a CT scan from [place] dated 11/21/2024. I compared these to. I also reviewed his prior scan that he had in our system from December 2023. The aneurysm sac has increased in size slightly from the
December 2023 scan about 1 to 2 mm in both AP and transverse dimension. In addition the infrarenal neck of the aorta is slightly dilated compared to that time. I do not see a definitive type Ia endoleak as potentially suggested by the radiologist.
There is some contrast that can be seen posterior to one of the iliac limbs on the scan from 11/21/2024 (image 48 of series 4 on that scan). I do not see that is well on the current scan. He does however have some stranding around the aorta
especially on the prior scan it seems to be a little bit better on the more recent scan but there is also a collection posterior left side of the aorta. It appears to be distinct from the aorta in the retroperitoneum (not a site of rupture). But
appears rim-enhancing on the current scan.
Plan/infective endocarditis with valvular vegetations. Possible infected aortic endograft. I am not 100% sure the endograft is definitively infected. I am not even 100% certain that he is a type Ia endoleak. The proximal neck does appear to be
sealed. However there is this atypical rim-enhancing collection seen on the more recent scans from 2 days ago and also from November of this year 3 months ago. However overall this has not changed much since November of this year and therefore that
would suggest that this is a relatively or somewhat less immediately concerning process. I cannot say with definitive certainty that the aorta is not infected, but I think his vegetative issues and the heart valves and endocarditis would take
precedence at this point given stability over the course of the last 3 months in terms of the scans. Would continue IV antibiotics. Would continue with plan/workup for management of the infective endocarditis/vegetations of the valve. 1
consideration could be percutaneous drainage of the rim-enhancing collection to see if purulent drainage is noted. I think it would be reasonable to ask interventional radiology to sample this fluid. We will continue to follow along with you.
--- NOTE | 2025-02-19 19:34 | PTCARENOTE ---
Pt denied any discomfort. Telemetry shows atrial fib with occasional PVC's at rate of 60's when resting and up to 120's with activity. Pt had an Echo done and was seen by multiple Physicians consulting on his endocarditis. Pt states good
understanding of plan of care, he will be NPO for LORETA and CT angio of his chest on 02/20. Heparin infusion and IV antibiotics started.
--- NOTE | 2025-02-19 19:58 | PTCARENOTE ---
Pt noted to have a skin tear on his left wrist which pt stated occurred with removal of an ambulance IV site prior to admission. Wound cleaned with saline, adaptic , gauze and maritza wrap applied. WOC notified, will redress as needed.
[2025-02-19 20:38] LABS: APTT 56.8 Sec (23.4-35.0)
--- NOTE | 2025-02-19 23:15 | PTCARENOTE ---
Assumed care for patient overnight, received report from barbara RN. Pt AAOx3, very pleasant. Pt well educated and motivated about POC. Pt aware of NPO status at midnight for LORETA and CT Angio tomorrow. Pt A-fib on the monitor. Pt remains on RA SpO2
95%. Fine crackles at the bases of the lungs otherwise diminished. Heparin gtt cont titrating as per order. Pt voiding using the urinal. L wrist skin tear dressing clean dry and intact. Pt rings the call shaw appropriately, call shaw within reach.
[2025-02-20] VITALS (8 sets, daily range): BP systolic 100–128; BP diastolic 38–47; BMI 23.4
[2025-02-20 04:14] LABS: Blood Urea Nitrogen 37 mg/dl (9-20); Calcium 8.7 mg/dl (8.4-10.2); Carbon Dioxide 26 mmol/L (22-30); Chloride 105 mmol/L (98-107); Creatine Phosphokinase < 20 U/L (55-170); Estimated Creatinine Clearance 69 ml/min; Glucose 107 mg/dl (70-99); Iron 60 ug/dl (49-181); Potassium 4.1 mmol/L (3.5-5.1); Sodium 137 mmol/L (135-145); eGFR > 60.00
[2025-02-20 04:39] LABS: Hemoglobin 8.1 g/dL (13.0-18.0); Mean Corp Hgb Conc. 33.8 g/dL (33.0-37.0); Mean Corpuscular Hgb 34.3 pg (27.0-31.0); Mean Corpuscular Volume 101.7 fL (80.0-94.0); Mean Platelet Volume 10.7 fL (7.4-10.4); Platelet Count 145 10^3/uL (130-400); Red Blood Cell Count 2.36 10^6/uL (4.70-6.10); Red Cell Dist. Width 15.5 % (11.5-14.5); White Blood Cell Count 2.8 10^3/uL (4.8-10.8)
[2025-02-20 04:46] LABS: APTT 60.4 Sec (23.4-35.0)
[2025-02-20] MEDS: TOPROL XL 50 MG PO (07:51)
[2025-02-20] MEDS: LASIX IV (08:00)
--- NOTE | 2025-02-20 08:26 | W.PN.HOSP.TC ---
Addendum entered and electronically signed by Enrico Boateng MD 02/20/25 10:09:
Addendum
I spoke to Dr. Michele.
Patient was treated with remission of stage IV head and neck cancer. He had chemoradiation for extended time. Patient has had history of anemia requiring blood transfusions when he was treated in [facility]. Anemia was thought to be
related to the infection.
Oncology will follow and see.
End
Original Note:
Today's Communication/Plan
-
CTA
LORETA today
On IV Lasix
IV Daptomycin
Assessment / Plan
Assessment / Plan
Physical Exam
General: Well Developed, Well Nourished, No Apparent Distress and Comfortable
HEENT: Normocephalic, Anicteric, Moist mucous membranes and Atraumatic
Respiratory: Clear
Cardiac: S1/S2, + murmur
GI: Soft, Non Tender, Non Distended and Normal Bowel Sounds
Rectal: no bleeding
Genito-urinary: NO Alfred
Musculoskeletal: No Clubbing, No Cyanosis and No Edema
Skin: Warm
Neuro: AO x 3 and Nonfocal/grossly intact
Psych: Calm
#subacute endocarditis, multiple valves involve
E faecalis bacteremia per records.
Stopped oral amoxicillin
Now on Daptomycin
Blood culture is ordered.
Plan for CT evaluation. LORETA is planned. Pt is NPO
d/w cardiology.
# Acute on chronic HFrEF
LV dysfunction 38% (12/2024)
No sob at present
continue Lasix 40 mg IV twice daily
-Echocardiogram 02/19 showed LVEF 50 to 55%, stage II diastolic dysfunction, severe mitral regurgitation, severe aortic regurgitation, enlarged RV with normal function, moderate TR, severely elevated PASP, estimated 70 mmHg. Evidence of mobile
echodensities seen on tricuspid, aortic and mitral valves.
-Continue his metoprolol and lisinopril
Negative COVID
#Positive troponin: non-ischemic myocardial injury in setting of CHF exacerbation
# Anemia with leukopenia, seems chronic
Per OP records, known to have anemia. Related to previous chemo Tx?
His oncologist is Dr Michele, will d/w oncology
Will monitor Could be medication side effect, Now on Daptomycin
No black stool or GI problems.
Normal iron panel
# history of Infrarenal AAA s/p Stent on 11/[address] Alfred
No abdominal pain
Plan for CT angio
#Permanent AFIB
- continue metoprolol
- On Xarelto, now on heparin gtt
DVT prophylaxis on anticoagulation
CODE STATUS full code
Total time spent to see the patient, examine the patient, review data and lab results, discuss treatment plan with patient, nursing staff, consultants around 55 minutes
Anticipated Discharge: > 48 hours
Subjective/Interval History
-
Date of Service: February 20, 2025
No chest pain
No sob
No fevers
Objective Data
-
Labs:
Laboratory Results
02/19/25 02/20/25 02/20/25
20:08 03:38 11:20
WBC 2.8 L
Hgb 8.1 L
Hct 24.0 L
Plt Count 145
APTT 56.8 H 60.4 H Pending
Sodium 137
Potassium 4.1
Chloride 105
Carbon Dioxide 26
BUN 37 H
Creatinine 1.1
Glucose 107 H
Calcium 8.7
Vital Signs:
Vital Signs
Temp Pulse Resp BP Pulse Ox
98.3 F 72 24 128/47 97
02/20/25 07:49 02/20/25 07:46 02/20/25 07:49 02/20/25 07:46 02/20/25 07:55
I&O
02/19/25 02/20/25 02/21/25
06:59 06:59 06:59
Intake Total 240 / 240 960 / 960
Output Total 550 / 550 1080 / 1080
Balance -310 / -310 -120 / -120
[2025-02-20] MEDS: HEPARIN 25000 UNITS/250 ML IV (09:28)
[2025-02-20 09:30] LABS: Glycohemoglobin (HgbA1c) 5.1 % (4.0-5.6)
--- NOTE | 2025-02-20 10:04 | W.PN.ID1 ---
Date of Service
Date of Service: February 20, 2025
Today's Communication
Continue daptomycin.
Assessment / Plan
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
H/o Septic arthritis of the Knee 07/2024 due to Enterococcus - completed course of treatment
DM2 not on treatment
H/o noncompliance with imaging studies, though reportedly compliant with medications
- blood cultures x2 from different draws are in progress
- if taken for valve replacement or endograft resection please send tissue cultures for aerobic and anaerobic culture
- a1c 5.1
- Continue daptomycin 10 mg/kg
- Follow weekly CK while on daptomycin
- hold atorvastatin while on daptomycin
- hold REPAIR TECHNICIAN suppressive amoxicillin
- anticipate a repeat course of IV antibiotics at home
- appreciate vascular surgery, CT surgery and cardiology input
- patient is known to Dr Raman Fox [facility] ID and is established with vascular surgery Dr Alfred here
Chief Complaint
-: Other (endocarditis)
Subjective / Review of Systems
Feels OK. No knee pain. SOB better. No new complaints.
Vital Signs / Physical Exam
Vital Signs
Vital Signs
Temp Pulse Resp BP Pulse Ox
98.3 F 72 24 128/47 97
02/20/25 07:49 02/20/25 07:46 02/20/25 07:49 02/20/25 07:46 02/20/25 07:55
Physical Exam
Constitutional: No Acute Distress and Comfortable
Cardiovascular: Regular Rate, S1/S2 and Murmur (2/3 )
Pulmonary: Rales (bibase)
Gastrointestinal: Soft, Non Tender, Non Distended and Normal Bowel Sounds
Extremities: Edema
Musculoskeletal: Negative Joint Effusion (left knee)
Neurological: AO x 3
Objective Data
Lab Data
Lab Results
02/20/25 03:38
02/20/25 03:38
PT 20.7 Sec (11.4-14.6) H 02/18/25 20:27
INR 1.73 02/18/25 20:27
APTT 60.4 Sec (23.4-35.0) H 02/20/25 03:38
Estimated Creat Clear 69 ml/min 02/20/25 03:38
Total Bilirubin 1.9 mg/dl (0.2-1.3) H 02/18/25 20:59
AST 20 U/L (17-59) 02/18/25 20:59
ALT 14 U/L (0-50) 02/18/25 20:59
Alkaline Phosphatase 125 U/L (38-126) 02/18/25 20:59
Most recent labs reviewed.
Micro Results:
02/19/25 12:40 Blood Culture - Pending
Blood/Venous
02/19/25 13:22 Blood Culture - Pending
Blood/Venous
--- NOTE | 2025-02-20 10:48 | PN.CDI ---
Addendum entered and electronically signed by Enrico Boateng MD 02/20/25 11:07:
Acute on chronic combined diastolic/systolic CHF
Original Note:
CDI
- -
CDI:
Physician Documentation Request
Admit Date: 02/18/25 22:55
Dear Doctor Tasneem,
Please review the following and provide your response in the progress notes.
Clinical Indicators:
- / PN 'Acute on chronic HFrEF'
- 'LV dysfunction 38% (12/2024)'
- 'Echocardiogram 02/19 showed LVEF 50 to 55%'
Please provide further specificity regarding the most likely type and acuity of CHF you are evaluating, treating or monitoring.
Acute on chronic HFrecEF
Acute on chronic HFpEF
Acute on chronic combined diastolic/systolic CHF
Other (please specify)
Use of terms such as suspected, likely, concern for, or probable (associated with a specific diagnosis that is being evaluated, monitored, or treated as if it exists) are acceptable and can be coded in the inpatient setting, when documented at the
time of discharge.
Thank you,
Linda Hu RN
CDI Specialist
Please use your independent medical judgment in providing your response.
--- NOTE | 2025-02-20 11:11 | W.PN.CD ---
Today's Communication / Plan
-
LORETA with MV/AV/TV endocarditis
CT surgery consulted
Continue abx per ID
Continue Lasix for HFpEF
CTA today for coronary evaluation
Impression / Plan
-
Endocarditis of MV, AV, and TV:
-TTE 02/19/25: LVEF 50-55%, MV with 1.5 cm x 0.7 cm veg on anterior leaflet. Severe, eccentric mitral regurgitation. AV with highly mobile 2.5 cm x 0.6 cm veg on NCC. Severe eccentric aortic regurgitation. Possible TV veg with mod TR, PASP 72
-Echo report summary 01/15/25: 0.75 mm mass attached to aortic valve, EF 38%, increased LV size, RV moderately dilated and with moderately decreased systolic function, severely dilated atria, severe AR, two areas of vegetation on anterior mitral
valve leaflet, severe MR, severe TR (aortic vegetation bigger from previous and now two areas on MV noted).
-this condition is threat to life
-OP notes reviewed and he was treated with IV abx, now on PO abx. He had E faecalis bacteremia. Septic knee back in Fall apparently.
-Vascular thinks aortic endograft could be infected but it has been stable for at least 3 mos. Deal with endocarditis first. Possible sampling by IR.
-LORETA done today. Formal report pending
-CTS consult, ID c/s. Surgery would be complex given 3 valve involvement. Will need multidisciplinary discussion with CTS and ID
-CTA today for coronary evaluation
Hpyiq-[id number] HFpEF:
-BNP 72158, imaging with pulmonary edema, rales to L base, mild BLE edema
-agree with IV lasix, which requires intensive monitoring
-on BB/ACEI- OP lasix dose is 40 mg PO BID
PAD:
-sounds to be extensive
-vascular consult as above
CAD with hx stenting:
-stable without CP
-on Xarelto, statin, BB OP. Heparin here
Abnormal troponin:
-acute, non-ischemic myocardial injury in setting of CHF exacerbation
-no angina or acute EKG changes
Permanent AFIB:
-stable, rate-controlled
-continue BB and heparin drip
Subjective: Sleepy after LORETA. Spoke to Dr. Gamez. LORETA with large aortic and mitral vegetations.
Physical Exam
Vital Signs/Labs
Vital Signs
Temp Pulse Resp BP Pulse Ox
98.3 F 72 24 128/47 97
02/20/25 07:49 02/20/25 07:46 02/20/25 07:49 02/20/25 07:46 02/20/25 07:55
02/19/25 02/20/25 02/21/25
06:59 06:59 06:59
Actual Weight 78.1 kg 78.2 kg
02/20/25 03:38
02/20/25 03:38
PT 20.7 Sec (11.4-14.6) H 02/18/25 20:27
INR 1.73 02/18/25 20:27
APTT 60.4 Sec (23.4-35.0) H 02/20/25 03:38
Magnesium 2.0 mg/dl (1.6-2.3) 02/19/25 01:44
Triglycerides 79 mg/dl (10-149) 02/19/25 01:44
LDL Cholesterol, Calc 64 mg/dl 02/19/25 01:44
VLDL Cholesterol, Calc 15 mg/dl (0-30) 02/19/25 01:44
HDL Cholesterol 37 mg/dl 02/19/25 01:44
02/18/25 02/18/25
20:27 20:59
Jrg-D-Tiqjfpyzoev Pept Cancelled [id number]
LAB Results
02/18/25 02/18/25 02/18/25
20:27 20:59 23:06
Troponin I Cancelled 0.069 H* 0.072 H*
02/19/25 02/19/25 02/19/25
01:44 05:02 10:00
Troponin I 0.076 H* 0.065 H* Cancelled
02/19/25 02/19/25 02/19/25
14:00 18:00 22:00
Troponin I Cancelled Cancelled Cancelled
Physical Exam
Constitutional: No acute distress
Cardiovascular: Rhythm/rate is irregular, Pedal edema present, Systolic murmur present and Diastolic murmur present
Respiratory: Respiratory effort normal and Lungs clear to auscul.
Data Reviewed
-
Date of Service: February 20, 2025
Medical Decision Making: Reviewed Test Results, Independent Historian Assessment, Test Interpretation and Review of Case with other Provider
EKG: Tracing Personally Visualized and interpreted
Echo: Tracing Personally Visualized and interpreted
X-Ray/CT/US/MRI/NUC/PET: Report Reviewed by me
Labs: Labs Reviewed by me
--- NOTE | 2025-02-20 11:44 | PTCARENOTE ---
Pt went for LORETA at 09:54 returning at 11:23. Pt denies nay discomfort, vital signs at his baseline. Pt to CT angio of chest at 11:45.
[2025-02-20 11:50] LABS: APTT 95.2 Sec (23.4-35.0)
--- NOTE | 2025-02-20 13:08 | CON.ONC ---
Impression
Impression
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
afib
anemia
leukopenia
h/o head and neck cancer - tx
Plan
Plan
1. Anemia/ leukopenia - the patient has had variable cytopenias in the context of chronic bacteremia/ endocarditis on antibiotics for the past several months. WBC as outpt in December was normal at 5600 and hemoglobin had improved to the 8-9g/dl
range. In the context of active infection/ antibiotics earlier in 2024 and in fall 2023, his hemoglobin did intermittently drift into the 7g/dl range, requiring occasional transfusional support. Progression of acute infection w/ now tx w/ daptomycin
is likely adversely impacting blood counts.
Will check B12/folic acid and iron studies. Would continue to monitor CBCs and transfuse PRN.
Will continue to follow with you.
Patient History
History of Present Illness
70y/o male seen in consultation today regarding h/o head and neck cancer tx 2012 - 2018, currently w/ AGNIESZKA, and more recently anemia and leukopenia in the setting of endocarditis on antibiotics.
The patient was hospitalized at [facility] several times in 2023 and 2024 for issues w/ endocarditis - E faecalis, on multiple courses of antibiotics, now admitted to [facility] w/ endocarditis involving multiple valves - MV/AV/TV on LORETA,
was well as possible seeding of aortic vascular graft.
CBCs throughout the past few months, have demonstrated variable cytopenias in the context of chronic infection.
Clinically, today, he is feeling tired. No fevers or chills. No SOB at rest or chest pain.
Past-Medical/Surgical History
PMH:
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
afib
CAD
AAA - s/p repair - Dr. Alfred
endocarditis
septic knee
discitis
HTN
hyperlipidemia
gout
Social History
Tobacco: Non-Smoker
ETOH: denies significant ETOH use
Family History
Family History: non-contributory
Allergies: NKDA
Patient Medication
�Medication �Instructions �Recorded �Confirmed �Last Taken �Type
allopurinol 100 mg tablet 100 mg PO BID Gout 11/26/23 02/18/25 12/04/23 04:30 History
alprazolam 0.5 mg tablet 0.5 mg PO HSPRN PRN anxiety 11/26/23 02/18/25 11/27/23 History
lisinopril 10 mg tablet 10 mg PO DAILY Blood Pressure 11/26/23 02/18/25 12/03/23 08:00 History
magnesium oxide 500 mg PO HS Electrolyte Repletion 11/26/23 02/18/25 12/03/23 08:00 History
rivaroxaban 20 mg tablet 20 mg PO HS Blood Clot 11/26/23 02/18/25 12/02/23 12:00 History
Prevention/Tx
acetaminophen 325 mg tablet 650 mg PO DAILY 02/18/25 02/18/25 Unknown History
(Tylenol)
amoxicillin 500 mg capsule 500 mg PO TID 02/18/25 02/18/25 Unknown History
atorvastatin 40 mg tablet 40 mg PO HS 02/18/25 02/18/25 Unknown History
benzonatate 100 mg capsule 100 mg PO TIDPRN PRN cough 02/18/25 02/18/25 Unknown History
cholecalciferol (vitamin D3) 50 50 mcg PO DAILY 02/18/25 02/18/25 Unknown History
mcg (2,000 unit) tablet (Vitamin
D3)
cyanocobalamin (vitamin B-12) 1,000 mcg PO DAILY 02/18/25 02/18/25 Unknown History
1,000 mcg tablet
famotidine 20 mg tablet 20 mg PO DAILY 02/18/25 02/18/25 Unknown History
ferrous sulfate 325 mg (65 mg 325 mg PO DAILY 02/18/25 02/18/25 Unknown History
iron) tablet
folic acid 1 mg tablet 1 mg PO DAILY 02/18/25 02/18/25 Unknown History
furosemide 40 mg tablet 40 mg PO BID 02/18/25 02/18/25 Unknown History
glycopyrrolate 1 mg tablet 1 mg PO BID 02/18/25 02/18/25 Unknown History
magnesium hydroxide 400 mg/5 mL 30 ml PO DAILYPRN PRN constipation 02/18/25 02/18/25 Unknown History
oral suspension (Milk of Magnesia)
metoprolol succinate 50 mg 50 mg PO DAILY 02/18/25 02/18/25 Unknown History
tablet,extended release 24 hr
vitamin B complex 1 tab PO DAILY 02/18/25 02/18/25 Unknown History
Active Medications
Generic Name Dose Route Start Last Admin
Trade Name Freq PRN Reason Stop Dose Admin
Acetaminophen 650 mg 02/19/25 08:00 02/19/25 08:51
Acetaminophen 325 Mg Tablet PO 03/19/25 07:59 650 mg
DAILY FANNY Administration
Allopurinol 100 mg 02/19/25 08:00 02/19/25 20:13
Allopurinol 100 Mg Tablet PO 03/19/25 07:59 100 mg
BID FANNY Administration
Alprazolam 0.5 mg 02/19/25 01:23
Alprazolam 0.5 Mg Tablet PO 03/19/25 01:22
HSPRN PRN
anxiety
Benzonatate 100 mg 02/19/25 01:23
Benzonatate 100 Mg Capsule PO 03/19/25 01:22
TIDPRN PRN
cough
Ferrous Sulfate 325 mg 02/19/25 08:00 02/19/25 08:51
Ferrous Sulfate 325 Mg Tablet PO 03/19/25 07:59 325 mg
DAILY FANNY Administration
Folic Acid 1 mg 02/19/25 08:00 02/19/25 08:51
Folic Acid 1 Mg Tablet PO 03/19/25 07:59 1 mg
DAILY FANNY Administration
Furosemide 40 mg 02/19/25 08:00 02/19/25 16:05
Furosemide 40 Mg (10 Mg/Ml) 4 Ml Vial IV 03/19/25 07:59 40 mg
BID AT 0800,1600 FANNY Administration
Glycopyrrolate 1 mg 02/19/25 08:00 02/19/25 20:12
Glycopyrrolate 1 Mg Tablet PO 03/19/25 07:59 1 mg
BID FANNY Administration
Heparin Sodium 25,000 units in 250 mls @ 0 mls/hr 02/19/25 12:15 02/20/25 09:28
Heparin 77336 Units/250 Ml IV 250 mls
PER PROTOCOL FANNY Administration
Protocol
Per Protocol
Daptomycin 780 mg/ Device 15.6 mls @ 0 mls/hr 02/19/25 15:00 02/19/25 16:05
IV 15.6 mls
Q24H FANNY Administration
As Directed
Lisinopril 10 mg 02/19/25 08:00 02/19/25 08:50
Lisinopril 10 Mg Tablet PO 03/19/25 07:59 10 mg
DAILY FANNY Administration
Magnesium Hydroxide 30 ml 02/19/25 01:23
Milk Of Magnesia 30 Ml Cup PO 03/19/25 01:22
DAILYPRN PRN
constipation
Metoprolol Succinate 50 mg 02/19/25 08:00 02/20/25 07:51
Metoprolol 50 Mg Extended Release Tablet PO 03/19/25 07:59 50 mg
DAILY FANNY Administration
Ondansetron HCl 4 mg 02/19/25 01:23
Ondansetron 4 Mg/2 Ml Vial IV 03/19/25 01:22
Q6HPRN PRN
NAUSEA/VOMITING
Sodium Chloride 0 flush 02/19/25 03:00
Sodium Chloride 0.9% (Flush) Syringe IV 03/19/25 02:59
PER PROTOCOL FANNY
Review of Systems
-
A ROS was performed w/ pertinent findings as per HPI.
Physical Exam
-
General: Well Developed and No Apparent Distress
Cardiology: Murmur
Pulmonary: Clear
GI: Soft and Normal Bowel Sounds
Neurology: Non Focal
Labs
Lab Results
WBC 2.8 10^3/uL (4.8-10.8) L 02/20/25 03:38
RBC 2.36 10^6/uL (4.70-6.10) L 02/20/25 03:38
Hgb 8.1 g/dL (13.0-18.0) L 02/20/25 03:38
Hct 24.0 % (39.0-52.0) L 02/20/25 03:38
MCV 101.7 fL (80.0-94.0) H 02/20/25 03:38
MCH 34.3 pg (27.0-31.0) H 02/20/25 03:38
MCHC 33.8 g/dL (33.0-37.0) 02/20/25 03:38
RDW 15.5 % (11.5-14.5) H 02/20/25 03:38
Plt Count 145 10^3/uL (130-400) 02/20/25 03:38
MPV 10.7 fL (7.4-10.4) H 02/20/25 03:38
Abs Immat Gran (auto) 0.0 10^3/uL (0-0.05) 02/18/25 20:27
Absolute Neuts (auto) 2.5 10^3/uL (1.4-6.5) 02/18/25 20:27
Absolute Lymphs (auto) 0.8 10^3/uL (1.2-3.4) L 02/18/25 20:27
Absolute Monos (auto) 0.7 10^3/uL (0.1-0.6) H 02/18/25 20:27
Absolute Eos (auto) 0.3 10^3/uL (0-0.7) 02/18/25 20:27
Absolute Basos (auto) 0.0 10^3/uL (0-0.2) 02/18/25 20:27
Immature Gran % 0.2 % (0-0.5) 02/18/25 20:27
Neutrophils % 58.9 % (42.2-75.2) 02/18/25 20:
Lymphocytes % 18.8 % (20.5-51.1) L 02/18/25 20:27
Monocytes % 15.3 % (1.7-9.3) H 02/18/25 20:27
Eosinophils % 6.1 % (0-6) H 02/18/25 20:
Basophils % 0.7 % (0-2) 02/18/25 20:27
Creatinine 1.1 mg/dL (0.7-1.3) 02/20/25 03:38
Vital Signs
Vital Signs
Temp Pulse Resp BP Pulse Ox
97.4 F 60 18 111/44 93
02/20/25 11:23 02/20/25 11:23 02/20/25 11:23 02/20/25 11:23 02/20/25 11:23
[2025-02-20] MEDS: FEOSOL 325 MG PO (15:14)
[2025-02-20] MEDS: FOLVITE 1 MG PO (15:14)
[2025-02-20] MEDS: ZYLOPRIM 100 MG PO ×2 (15:15→20:49)
[2025-02-20] MEDS: TYLENOL 650 MG PO (15:16)
[2025-02-20] MEDS: LASIX 40 MG IV (15:16)
[2025-02-20] MEDS: ROBINUL 1 MG PO ×2 (15:16→20:50)
[2025-02-20] MEDS: CUBICIN 15.6 MG IV (15:17)
[2025-02-20] MEDS: ZESTRIL PO (15:17)
[2025-02-20] MEDS: ANESTHETIC LOZENGE 1 LOZENGE PO ×2 (15:35→21:06)
--- NOTE | 2025-02-20 18:06 | PTCARENOTE ---
Pt had LORETA and Coronary angio CT. Pt recovered from both procedures without problem except for a mild sore throat relieved with benzocaine lozenge.
Pt denied any discomfort. Small skin tear now present on left arm after tape was removed, wound dressed with adaptic and gauze , trying to avoid tape on his fragile dry skin. Heparin infusion continues. Telemetry shows atrial fib with rates of 60-70
at rest and briefly up to 150's with activity , pt states feeling SOB with high rate.
[2025-02-20 18:18] LABS: APTT 87.6 Sec (23.4-35.0)
[2025-02-20 20:39] LABS: Folate 19.2 ng/ml (2.76-20); Vitamin B12 > 1000 pg/ml (239-931)
--- NOTE | 2025-02-20 22:11 | PTCARENOTE ---
Rec'd pt at change of shift. Pt AAO*3, VSS, and Afib on TELE monitor with HR in the 60's. Pt denies any pain or discomfort. Wound care complete. Plan of care updated with pt. Heparin infusing as ordered. Pt resting with call shaw in reach and
plan of care ongoing. See MAR and flowchart for full pt care and assessment.
[2025-02-20] MEDS: XANAX 0.5 MG PO (22:18)
[2025-02-21] VITALS (9 sets, daily range): BP systolic 93–117; BP diastolic 36–65; BMI 23.7
[2025-02-21] MEDS: HEPARIN 25000 UNITS/250 ML IV ×2 (03:55→23:05)
[2025-02-21 04:15] LABS: Hematocrit 25.8 % (39.0-52.0); Hemoglobin 8.4 g/dL (13.0-18.0); Mean Corp Hgb Conc. 32.6 g/dL (33.0-37.0); Mean Corpuscular Hgb 33.5 pg (27.0-31.0); Mean Corpuscular Volume 102.8 fL (80.0-94.0); Mean Platelet Volume 10.1 fL (7.4-10.4); Platelet Count 148 10^3/uL (130-400); Red Blood Cell Count 2.51 10^6/uL (4.70-6.10); Red Cell Dist. Width 15.9 % (11.5-14.5)
[2025-02-21 04:30] LABS: APTT 85.4 Sec (23.4-35.0)
[2025-02-21 04:39] LABS: Blood Urea Nitrogen 37 mg/dl (9-20); Calcium 8.8 mg/dl (8.4-10.2); Carbon Dioxide 23 mmol/L (22-30); Chloride 104 mmol/L (98-107); Estimated Creatinine Clearance 63 ml/min; Glucose 104 mg/dl (70-99); Potassium 4.3 mmol/L (3.5-5.1); Sodium 137 mmol/L (135-145); eGFR > 60.00
--- NOTE | 2025-02-21 09:11 | W.PN.HOSP.TC ---
Today's Communication/Plan
-
Exertional arrhythmias noted
c/w BB, MT, Lasix
Goal of HGB >8
Assessment / Plan
Assessment / Plan
Physical Exam
General: Well Developed, Well Nourished, No Apparent Distress and Comfortable
HEENT: Normocephalic, Anicteric, Moist mucous membranes and Atraumatic
Respiratory: Clear
Cardiac: S1/S2, + murmur
GI: Soft, Non Tender, Non Distended and Normal Bowel Sounds
Rectal: no bleeding
Genito-urinary: NO Alfred
Musculoskeletal: No Clubbing, No Cyanosis and No Edema
Skin: Warm
Neuro: AO x 3 and Nonfocal/grossly intact
Psych: Calm
#subacute endocarditis, multiple valves involve
E faecalis bacteremia per records.
Stopped oral amoxicillin
Now on Daptomycin
Blood culture is nGTD
Coronary angiography, result pending. LORETA as noted and confirmed endocarditis
d/w cardiology.
# Exertional arrhythmias
He seems to go into sinus tachycardia/ Atrial tachycardia on exertion
# Acute on chronic HFrEF
LV dysfunction 38% (12/2024)
No sob at present
continue Lasix 40 mg IV twice daily
-Echocardiogram 02/19 showed LVEF 50 to 55%, stage II diastolic dysfunction, severe mitral regurgitation, severe aortic regurgitation, enlarged RV with normal function, moderate TR, severely elevated PASP, estimated 70 mmHg. Evidence of mobile
echodensities seen on tricuspid, aortic and mitral valves.
-Continue metoprolol and lisinopril
Negative COVID
#Positive troponin: non-ischemic myocardial injury in setting of CHF exacerbation
# Anemia with leukopenia, seems chronic
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
Discussed with the primary oncologist is Dr Michele,
Transfuse as needed. Pancytopenia/anemia thought to be secondary to ongoing infection
No black stool or GI problems.
Normal iron panel
# history of Infrarenal AAA s/p Stent on 11/[address] Alfred
No abdominal pain
#Permanent AFIB
- continue metoprolol
- On Xarelto, now on heparin gtt
# gout
On allopurinol
DVT prophylaxis on anticoagulation
CODE STATUS full code
Total time spent to see the patient, examine the patient, review data and lab results, discuss treatment plan with patient, nursing staff, consultants around 55 minutes
Anticipated Discharge: > 48 hours
Subjective/Interval History
-
Date of Service: February 21, 2025
No chest pain
Less sore throat
Objective Data
-
Labs:
Laboratory Results
02/21/25
03:51
WBC 3.0 L
Hgb 8.4 L
Hct 25.8 L
Plt Count 148
APTT 85.4 H
Sodium 137
Potassium 4.3
Chloride 104
Carbon Dioxide 23
BUN 37 H
Creatinine 1.2
Glucose 104 H
Calcium 8.8
Vital Signs:
Vital Signs
Temp Pulse Resp BP Pulse Ox
97.8 F 71 16 112/52 97
02/21/25 07:57 02/21/25 03:44 02/21/25 07:57 02/21/25 03:44 02/21/25 07:57
I&O
02/20/25 02/21/25 02/22/25
06:59 06:59 06:59
Intake Total 960 / 960 480 / 480
Output Total 1080 / 1080 700 / 700
Balance -120 / -120 -220 / -220
--- NOTE | 2025-02-21 09:16 | W.PN.UPDATE ---
Update Note
Progress Note Update
Brief CTS Note
Patient seen and evaluated alongside Dr. Llanos
Patient has significant aortic insufficiency, mitral valve insufficiency and tricuspid insufficiency secondary to endocarditis.
Given his congestive heart failure he will require valve replacements.
Plan for medical optimization and Bio AVR, Bio MVR, Tricuspid repair on Sunday, Dr. Sharma.
Perioperative expectations discussed, risk-benefit described, questions answered.
Patient will think about his options and discuss with his family. He seemed amenable to operative intervention at this time.
Vascular following and evaluating whether or not eventual intervention on his endograft will be required. Valve replacement & recovery would precede any intervention regardless.
Antibiotics per ID.
Continue medical management/optimization per primary team and cardiology. Will follow.
[2025-02-21] MEDS: FEOSOL 325 MG PO (09:50)
[2025-02-21] MEDS: LASIX 40 MG IV (09:51)
[2025-02-21] MEDS: TYLENOL 650 MG PO ×2 (09:51→23:04)
[2025-02-21] MEDS: FOLVITE 1 MG PO (09:51)
[2025-02-21] MEDS: ZYLOPRIM 100 MG PO ×2 (09:51→19:51)
[2025-02-21] MEDS: ROBINUL 1 MG PO ×2 (09:52→19:51)
[2025-02-21] MEDS: ZESTRIL PO (09:52)
[2025-02-21] MEDS: TOPROL XL 50 MG PO (09:52)
--- NOTE | 2025-02-21 10:31 | W.PN.ID1 ---
Date of Service
Date of Service: February 21, 2025
Today's Communication
Continue abx.
Assessment / Plan
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
H/o Septic arthritis of the Knee 07/2024 due to Enterococcus - completed course of treatment
DM2; not on treatment
H/o noncompliance with imaging studies, though reportedly compliant with medications
- blood cultures x2 from different draws are in progress
- if taken for valve replacement or endograft resection please send tissue cultures for aerobic and anaerobic culture
- a1c 5.1
- Continue daptomycin
- Follow weekly CK while on daptomycin
- hold atorvastatin while on daptomycin
- hold [employer]IVET[employer] suppressive amoxicillin
- anticipate a repeat course of IV antibiotics at home
- await potential CT surgery
- patient is known to Dr Raman Fox [facility] and is established with vascular surgery Dr Alfred here
Chief Complaint
-: Other (endocarditis)
Subjective / Review of Systems
Review of Systems: No Fever and No Chills
Vital Signs / Physical Exam
Vital Signs
Vital Signs
Temp Pulse Resp BP Pulse Ox
97.8 F 77 16 106/60 97
02/21/25 07:57 02/21/25 09:51 02/21/25 07:57 02/21/25 09:52 02/21/25 07:57
Physical Exam
Constitutional: No Acute Distress and Comfortable
Cardiovascular: Regular Rate, S1/S2 and Murmur (III/); Negative S3/S4
Pulmonary: Rales (bibase) and Non Labored
Gastrointestinal: Soft, Non Tender, Non Distended and Normal Bowel Sounds
Extremities: Edema; Negative Splinter Hemorrhage
Musculoskeletal: Negative Joint Effusion (left knee)
Neurological: AO x 3
Objective Data
Lab Data
Lab Results
02/21/25 03:51
02/21/25 03:51
PT 20.7 Sec (11.4-14.6) H 02/18/25 20:27
INR 1.73 02/18/25 20:27
APTT 85.4 Sec (23.4-35.0) H 02/21/25 03:51
Estimated Creat Clear 63 ml/min 02/21/25 03:51
Total Bilirubin 1.9 mg/dl (0.2-1.3) H 02/18/25 20:59
AST 20 U/L (17-59) 02/18/25 20:59
ALT 14 U/L (0-50) 02/18/25 20:59
Alkaline Phosphatase 125 U/L (38-126) 02/18/25 20:59
Most recent labs reviewed.
Micro Results:
02/19/25 13:22 Blood Culture - Preliminary
Blood/Venous No Growth in 24 hours- Final report to follow
02/19/25 12:40 Blood Culture - Preliminary
Blood/Venous No Growth in 24 hours- Final report to follow
[2025-02-21] MEDS: CUBICIN 15.6 MG IV (15:33)
[2025-02-21] MEDS: LASIX IV (17:03)
--- NOTE | 2025-02-21 21:15 | PTCARENOTE ---
Pt rec'd at change of shift awake,alert sitting on side of bed eating 'not much appetite' per pt.
Lungs diminished, no cough or sob per pt. Afib on telemetry, rates in 70's.
[2025-02-21] MEDS: XANAX 0.5 MG PO (23:05)
--- NOTE | 2025-02-21 23:29 | PTCARENOTE ---
Pt medicated with Tylenol for knee pain and Xanax for anxiety. Left arm elbow tear bleeding small amt. area cleansed with nss and new adaptic and 4x4 placed-wrapped with maritza
[2025-02-22 04:20] VITALS: BP 111/43
[2025-02-22 05:28] LABS: APTT 121.8 Sec (23.4-35.0)
[2025-02-22 08:07] VITALS: BP 117/47
[2025-02-22 08:51] VITALS: BMI 23.9
[2025-02-22] MEDS: TOPROL XL 50 MG PO (08:52)
[2025-02-22] MEDS: ROBINUL 1 MG PO ×2 (08:52→19:40)
[2025-02-22] MEDS: FEOSOL 325 MG PO (08:52)
[2025-02-22] MEDS: FOLVITE 1 MG PO (08:52)
[2025-02-22] MEDS: ZYLOPRIM 100 MG PO ×2 (08:53→19:40)
[2025-02-22] MEDS: ZESTRIL 10 MG PO (08:53)
[2025-02-22] MEDS: TYLENOL 650 MG PO ×2 (08:53→23:17)
[2025-02-22] MEDS: LASIX 40 MG IV ×2 (08:54→15:01)
[2025-02-22] MEDS: FLUSH (NSS) 1 FLUSH IV (08:54)
--- NOTE | 2025-02-22 10:15 | PTCARENOTE ---
Received patient this morning resting in bed. Assisted to the bathroom with the rolling walker. Patient denies any TRINH, crackles auscultated bilaterally, given IV lasix as ordered and reminded to use the urinal for accurate I&O. IV heparin infusing
at 1250 units/hr as per protocol. Call shaw in reach.
--- NOTE | 2025-02-22 10:41 | W.PN.ID1 ---
Date of Service
Date of Service: February 22, 2025
Today's Communication
Continue daptomycin.
Assessment / Plan
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
H/o Septic arthritis of the Knee 07/2024 due to Enterococcus - completed course of treatment
DM2; not on treatment
H/o noncompliance with imaging studies, though reportedly compliant with medications
- blood cultures x2 from different draws are in progress; no growth to date.
- if taken for valve replacement or endograft resection please send tissue cultures for aerobic and anaerobic culture
- HbA1c = 5.1
- Continue daptomycin
- Follow weekly CK while on daptomycin
- hold atorvastatin while on daptomycin
- hold RN TRANSITIONAL suppressive amoxicillin
- anticipate a repeat course of IV antibiotics at home
- await potential CT surgery
- patient is known to Dr Raman Fox [facility] and is established with vascular surgery Dr Alfred here
����������������������������������������������������������
Chief Complaint
-: Other (endocarditis)
Subjective / Review of Systems
Patient seen and examined. Reports no difficulty with antibiotics.
Review of Systems: No Fever and No Chills
Vital Signs / Physical Exam
Vital Signs
Vital Signs
Temp Pulse Resp BP Pulse Ox
97.5 F 68 16 117/47 98
02/22/25 08:07 02/22/25 08:53 02/22/25 08:07 02/22/25 08:53 02/22/25 08:07
Physical Exam
Constitutional: No Acute Distress, Comfortable and Non-toxic
Eyes: No Conjunctival Hemorrhage and Sclera Anicteric
Cardiovascular: S1/S2; Negative S3/S4
Pulmonary: Non Labored
Extremities: Negative Splinter Hemorrhage or [place]ay Lesions
Neurological: Awake and Alert
Psychological: Calm
Objective Data
Lab Data
Lab Results
02/21/25 03:51
02/21/25 03:51
PT 20.7 Sec (11.4-14.6) H 02/18/25 20:27
INR 1.73 02/18/25 20:27
APTT 121.8 Sec (23.4-35.0) H 02/22/25 04:56
Estimated Creat Clear 63 ml/min 02/21/25 03:51
Total Bilirubin 1.9 mg/dl (0.2-1.3) H 02/18/25 20:59
AST 20 U/L (17-59) 02/18/25 20:59
ALT 14 U/L (0-50) 02/18/25 20:59
Alkaline Phosphatase 125 U/L (38-126) 02/18/25 20:59
Most recent labs reviewed.
Micro Results:
02/19/25 13:22 Blood Culture - Preliminary
Blood/Venous No Growth in 48 hours- Final report to follow
02/19/25 12:40 Blood Culture - Preliminary
Blood/Venous No Growth in 48 hours- Final report to follow
[2025-02-22 11:14] VITALS: BP 101/38
--- NOTE | 2025-02-22 11:34 | W.PN.HOSP.TC ---
Today's Communication/Plan
-
BMP in AM
On IV Lasix
IV daptomycin
Assessment / Plan
Assessment / Plan
Physical Exam
General: Well Developed, Well Nourished, No Apparent Distress and Comfortable
HEENT: Normocephalic, Anicteric, Moist mucous membranes and Atraumatic
Respiratory: Clear
Cardiac: S1/S2, + murmur
GI: Soft, Non Tender, Non Distended and Normal Bowel Sounds
Rectal: no bleeding
Genito-urinary: NO Alfred
Musculoskeletal: No Clubbing, No Cyanosis and No Edema
Skin: Warm
Neuro: AO x 3 and Nonfocal/grossly intact
Psych: Calm
#subacute endocarditis, multiple valves involve
E faecalis bacteremia per records.
Stopped oral amoxicillin
Now on Daptomycin, hold statin, monitor CPK while on TX.
Blood culture is NGTD
Coronary angiography, result pending. LORETA as noted and confirmed endocarditis
d/w cardiology.
# Exertional arrhythmias
He seems to go into sinus tachycardia/ Atrial tachycardia on exertion
# Acute on chronic HFrEF
LV dysfunction 38% (12/2024)
No sob at present
continue Lasix 40 mg IV twice daily
-Echocardiogram 02/19 showed LVEF 50 to 55%, stage II diastolic dysfunction, severe mitral regurgitation, severe aortic regurgitation, enlarged RV with normal function, moderate TR, severely elevated PASP, estimated 70 mmHg. Evidence of mobile
echodensities seen on tricuspid, aortic and mitral valves.
-Continue metoprolol and lisinopril
Negative COVID
#Positive troponin: non-ischemic myocardial injury in setting of CHF exacerbation
# Anemia with leukopenia, seems chronic
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
Discussed with the primary oncologist is Dr Michele,
Transfuse as needed. Pancytopenia/anemia thought to be secondary to ongoing infection
No black stool or GI problems.
Normal iron panel
# history of Infrarenal AAA s/p Stent on 11/[address] Alfred
No abdominal pain
#Permanent AFIB
- continue metoprolol
- On Xarelto, now on heparin gtt
# gout
On allopurinol
DVT prophylaxis on anticoagulation
CODE STATUS full code
Total time spent to see the patient, examine the patient, review data and lab results, discuss treatment plan with patient, nursing staff, consultants around 55 minutes
Anticipated Discharge: > 48 hours
Subjective/Interval History
-
Date of Service: February 22, 2025
No chest pain
No sob
Objective Data
-
Labs:
Laboratory Results
02/22/25 02/22/25
04:56 11:45
APTT 121.8 H Pending
Vital Signs:
Vital Signs
Temp Pulse Resp BP Pulse Ox
97.4 F 66 18 101/38 98
02/22/25 11:17 02/22/25 11:14 02/22/25 11:17 02/22/25 11:14 02/22/25 11:17
I&O
02/21/25 02/22/25 02/23/25
06:59 06:59 06:59
Intake Total 480 / 480 720 / 720
Output Total 700 / 700 150 / 150 225 / 225
Balance -220 / -220 -150 / -150 495 / 495
[2025-02-22 12:15] LABS: APTT 77.6 Sec (23.4-35.0)
[2025-02-22] MEDS: CUBICIN 15.6 MG IV (14:57)
[2025-02-22 15:00] VITALS: BP 108/41
[2025-02-22] MEDS: ANESTHETIC LOZENGE 1 LOZENGE PO (15:00)
[2025-02-22 18:32] LABS: APTT 47.8 Sec (23.4-35.0)
[2025-02-22 18:51] VITALS: BP 103/56
[2025-02-22] MEDS: HEPARIN 25000 UNITS/250 ML IV (19:11)
[2025-02-22 22:58] VITALS: BP 104/53
[2025-02-22] MEDS: XANAX 0.5 MG PO (23:04)
[2025-02-23] VITALS (14 sets, daily range): BP systolic 102–120; BP diastolic 36–95; BMI 24.2
[2025-02-23 01:39] LABS: APTT 83.3 Sec (23.4-35.0)
[2025-02-23 07:16] LABS: Hematocrit 22.6 % (39.0-52.0); Hemoglobin 7.5 g/dL (13.0-18.0); Mean Corp Hgb Conc. 33.2 g/dL (33.0-37.0); Mean Corpuscular Hgb 34.2 pg (27.0-31.0); Mean Corpuscular Volume 103.2 fL (80.0-94.0); Platelet Count 132 10^3/uL (130-400); Red Blood Cell Count 2.19 10^6/uL (4.70-6.10); Red Cell Dist. Width 15.9 % (11.5-14.5); White Blood Cell Count 2.5 10^3/uL (4.8-10.8)
[2025-02-23] MEDS: FOLVITE 1 MG PO (08:23)
[2025-02-23] MEDS: ROBINUL 1 MG PO ×2 (08:24→21:49)
[2025-02-23] MEDS: ZYLOPRIM 100 MG PO ×2 (08:24→21:49)
[2025-02-23] MEDS: FEOSOL 325 MG PO (08:24)
[2025-02-23] MEDS: LASIX 40 MG IV (08:25)
[2025-02-23 08:26] LABS: Blood Urea Nitrogen 44 mg/dl (9-20); Calcium 8.6 mg/dl (8.4-10.2); Carbon Dioxide 25 mmol/L (22-30); Chloride 105 mmol/L (98-107); Estimated Creatinine Clearance 47 ml/min; Glucose 103 mg/dl (70-99); Potassium 4.4 mmol/L (3.5-5.1); Sodium 134 mmol/L (135-145); eGFR 46.06
[2025-02-23] MEDS: ZESTRIL PO (08:29)
--- NOTE | 2025-02-23 10:17 | W.PN.CD ---
Today's Communication / Plan
-
Transfusion for hemoglobin 7.7
Hold Lasix
CT surgery on Sunday
Continue antibiotics
Impression / Plan
-
Endocarditis of MV, AV, and TV:
-LORETA 02/20/2025: L the EF 55-60%, biatrial enlargement, MV echodensity with severe MR, AV echodensity with mod/severe AR, TV echodensity with mod TR
-TTE 02/19/25: LVEF 50-55%, MV with 1.5 cm x 0.7 cm veg on anterior leaflet. Severe, eccentric mitral regurgitation. AV with highly mobile 2.5 cm x 0.6 cm veg on NCC. Severe eccentric aortic regurgitation. Possible TV veg with mod TR, PASP 72
-Echo report summary 01/15/25: 0.75 mm mass attached to aortic valve, EF 38%, increased LV size, RV moderately dilated and with moderately decreased systolic function, severely dilated atria, severe AR, two areas of vegetation on anterior mitral
valve leaflet, severe MR, severe TR (aortic vegetation bigger from previous and now two areas on MV noted).
-this condition is threat to life
-OP notes reviewed and he was treated with IV abx, now on PO abx. He had E faecalis bacteremia. Septic knee back in Fall apparently.
-Vascular thinks aortic endograft could be infected but it has been stable for at least 3 mos. Deal with endocarditis first. Possible sampling by IR.
-Continue antibiotics per ID
-Tentative plan for CT surgery on Sunday
-Follow-up CTA for coronary evaluation
Anemia
-No signs/symptoms of acute bleeding
-He tells me this has been worked up over the past�3 months with colonoscopy, EGD and no etiology found
-Recommend PRBCs today which may help with CHELA
[id number] HFpEF:
-BNP 88734, imaging with pulmonary edema, rales to L base, mild BLE edema. Now improving
-Hold Lasix for CHELA
-on BB/ACEI- OP lasix dose is 40 mg PO BID
PAD:
-sounds to be extensive
-vascular consult as above
CAD with hx stenting:
-stable without CP
-on Xarelto, statin, BB OP. Heparin here
Abnormal troponin:
-acute, non-ischemic myocardial injury in setting of CHF exacerbation
-no angina or acute EKG changes
Permanent AFIB:
-stable, rate-controlled
-continue BB and heparin drip
Subjective: Feels well. Swelling is best it has been in awhile. No signs/symptoms of bleeding
Physical Exam
Vital Signs/Labs
Vital Signs
Temp Pulse Resp BP Pulse Ox
97.7 F 74 20 104/41 97
02/23/25 07:47 02/23/25 08:29 02/23/25 07:47 02/23/25 08:29 02/23/25 07:47
02/22/25 02/23/25 02/24/25
06:59 06:59 06:59
Actual Weight 178 lb 2.136 oz
02/23/25 07:06
02/23/25 07:06
PT 20.7 Sec (11.4-14.6) H 02/18/25 20:27
INR 1.73 02/18/25 20:27
APTT 121.0 Sec (23.4-35.0) H 02/23/25 07:06
Magnesium 2.0 mg/dl (1.6-2.3) 02/19/25 01:44
Triglycerides 79 mg/dl (10-149) 02/19/25 01:44
LDL Cholesterol, Calc 64 mg/dl 02/19/25 01:44
VLDL Cholesterol, Calc 15 mg/dl (0-30) 02/19/25 01:44
HDL Cholesterol 37 mg/dl 02/19/25 01:44
02/18/25 02/18/25
20:27 20:59
[id number] Pept Cancelled [id number]
Physical Exam
Constitutional: No acute distress and Comfortable
Cardiovascular: Rhythm/rate is irregular and Pedal edema present (trace)
Respiratory: Respiratory effort normal and Lungs clear to auscul.
Neuro/Psych: AO x 3
Data Reviewed
-
Date of Service: February 23, 2025
Medical Decision Making: Reviewed Test Results, Independent Historian Assessment, Test Interpretation and Review of Case with other Provider
EKG: Tracing Personally Visualized and interpreted
Echo: Report Reviewed by me
Labs: Labs Reviewed by me
--- NOTE | 2025-02-23 10:20 | W.PN.ID1 ---
Date of Service
Date of Service: February 23, 2025
Today's Communication
c/w daptomycin
inquired if sampling of fluid around endograft is possible with IR
tentatively for the OR for valve replacements sunday
Assessment / Plan
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
H/o Septic arthritis of the Knee 07/2024 due to Enterococcus - completed course of treatment
DM2; not on treatment
Leukopenia - present on arrival, possibly related to chronic infection
H/o noncompliance with imaging studies, though reportedly compliant with medications
- blood cultures x2 from different draws are in progress; no growth to date.
- if taken for valve replacement or endograft resection please send tissue cultures for aerobic and anaerobic culture
- Continue daptomycin
- Follow weekly CK while on daptomycin - next draw tomorrow
- hold atorvastatin while on daptomycin
- hold IMMUNOCHEMIST suppressive amoxicillin
- anticipate a repeat course of IV antibiotics at home
- await potential CT surgery
- message sent via tiger text to Dr Estrada to inquire if sampling of the fluid around the endograft is feasible
- patient is known to Dr Raman Fox [facility] and is established with vascular surgery Dr Alfred here
����������������������������������������������������������
Chief Complaint
-: Other (endocarditis)
Subjective / Review of Systems
afebrile
bp stable
no events reported overnight
less shortness of breath
Vital Signs / Physical Exam
Vital Signs
Vital Signs
Temp Pulse Resp BP Pulse Ox
97.7 F 74 20 104/41 97
02/23/25 07:47 02/23/25 08:29 02/23/25 07:47 02/23/25 08:29 02/23/25 07:47
Physical Exam
Constitutional: No Acute Distress and Chronically Ill
Cardiovascular: Regular Rate and S1/S2; Negative Murmur or Rub
Pulmonary: Clear and Symmetric; Negative Wheezes or Rales
Gastrointestinal: Soft, Non Tender, Non Distended and Normal Bowel Sounds
Skin: Warm and Dry; Negative Rash or Jaundice
Objective Data
Lab Data
Lab Results
02/23/25 07:06
02/23/25 07:06
PT 20.7 Sec (11.4-14.6) H 02/18/25 20:27
INR 1.73 02/18/25 20:27
APTT 121.0 Sec (23.4-35.0) H 02/23/25 07:06
Estimated Creat Clear 47 ml/min 02/23/25 07:06
Total Bilirubin 1.9 mg/dl (0.2-1.3) H 02/18/25 20:59
AST 20 U/L (17-59) 02/18/25 20:59
ALT 14 U/L (0-50) 02/18/25 20:59
Alkaline Phosphatase 125 U/L (38-126) 02/18/25 20:59
Most recent labs reviewed.
Micro Results:
02/19/25 13:22 Blood Culture - Preliminary
Blood/Venous No Growth in 72 hours- Final report to follow
02/19/25 12:40 Blood Culture - Preliminary
Blood/Venous No Growth in 72 hours- Final report to follow
[2025-02-23] MEDS: TOPROL XL PO (10:27)
--- NOTE | 2025-02-23 12:55 | W.PN.HOSP.TC ---
Today's Communication/Plan
-
Monitor vitals
see plan
Monitor renal function
Give 1 unit PRBC
Monitor hemoglobin
Iron studies
Check CK
Assessment / Plan
Assessment / Plan
Physical Exam
General: Well Developed, Well Nourished, No Apparent Distress and Comfortable
HEENT: Normocephalic, Anicteric, Moist mucous membranes and Atraumatic
Respiratory: Clear
Cardiac: S1/S2, + murmur
GI: Soft, Non Tender, Non Distended and Normal Bowel Sounds
Genito-urinary: NO Alfred
Musculoskeletal: No Edema
Neuro: AO x 3 and Nonfocal/grossly intact
Psych: Calm
#subacute endocarditis, multiple valves involve
E faecalis bacteremia per records.
Stopped oral amoxicillin
Now on Daptomycin, hold statin, monitor CPK while on TX.
Blood culture is NGTD
Coronary angiography, result pending. LORETA as noted and confirmed endocarditis
d/w cardiology.
Await potential CT surgery
ID been talking to IR possible sampling of the fluid around the endograft, if feasible
# Exertional arrhythmias
He seems to go into sinus tachycardia/ Atrial tachycardia on exertion
# Acute on chronic HFrEF
LV dysfunction 38% (12/2024)
No sob at present
continue Lasix 40 mg IV twice daily
-Echocardiogram 02/19 showed LVEF 50 to 55%, stage II diastolic dysfunction, severe mitral regurgitation, severe aortic regurgitation, enlarged RV with normal function, moderate TR, severely elevated PASP, estimated 70 mmHg. Evidence of mobile
echodensities seen on tricuspid, aortic and mitral valves.
-Continue metoprolol and lisinopril
Negative COVID
CHELA
hold lasix
check CK
#Positive troponin: non-ischemic myocardial injury in setting of CHF exacerbation
# Anemia with leukopenia, seems chronic
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
Discussed with the primary oncologist is Dr Michele,
Transfuse as needed. Pancytopenia/anemia thought to be secondary to ongoing infection
No black stool or GI problems.
Hemoglobin now 7.5, discussed with cardiology. Will transfuse 1 unit PRBC 02/23
# history of Infrarenal AAA s/p Stent on 11/[address] Alfred
No abdominal pain
#Permanent AFIB
- continue metoprolol
- On Xarelto, now on heparin gtt
# gout
On allopurinol
DVT prophylaxis on anticoagulation
CODE STATUS full code
Total time spent to see the patient, examine the patient, review data and lab results, discuss treatment plan with patient, nursing staff, consultants around 52 minutes
Anticipated Discharge: > 48 hours
Subjective/Interval History
-
Date of Service: February 23, 2025
denies pain
Objective Data
-
Labs:
Laboratory Results
02/23/25 02/23/25 02/23/25
01:11 07:06 13:45
WBC 2.5 L
Hgb 7.5 L
Hct 22.6 L
Plt Count 132
APTT 83.3 H 121.0 H Pending
Sodium 134 L
Potassium 4.4
Chloride 105
Carbon Dioxide 25
BUN 44 H
Creatinine 1.6 H
Glucose 103 H
Calcium 8.6
Vital Signs:
Vital Signs
Temp Pulse Resp BP Pulse Ox
97.9 F 75 20 111/45 100
02/23/25 11:21 02/23/25 11:21 02/23/25 11:21 02/23/25 11:21 02/23/25 11:21
I&O
02/22/25 02/23/25 02/24/25
06:59 06:59 06:59
Intake Total 1585 / 1585 180 / 180
Output Total 150 / 150 675 / 675
Balance -150 / -150 910 / 910 180 / 180
[2025-02-23 13:14] LABS: Iron 45 ug/dl (49-181)
[2025-02-23 13:23] LABS: Percent Saturation 18 % (20-50); Total Iron Binding Capacity 242 ug/dl (261-462)
--- NOTE | 2025-02-23 13:28 | PTCARENOTE ---
Patient OOb with supervision and walker. Patient washed self and washed hair this am. Patient sitting in chair during the day. Patient has no c/o pain. Blood and heparin infusing. Sister at bedside.
[2025-02-23] MEDS: HEPARIN 25000 UNITS/250 ML IV (13:50)
[2025-02-23 15:11] LABS: APTT 62.8 Sec (23.4-35.0)
[2025-02-23 15:22] LABS: Creatine Phosphokinase < 20 U/L (55-170)
--- NOTE | 2025-02-23 15:31 | W.PN.ONC ---
Today's Communication / Plan
-
Receiving additional unit of blood today. My sense is that he may have a slow GI ooze. Continue to monitor. Will send off hemolysis labs.
Impression
Impression
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
afib
anemia
leukopenia
h/o head and neck cancer - tx
Plan
Plan
1. Anemia/ leukopenia - the patient has had variable cytopenias in the context of chronic bacteremia/ endocarditis on antibiotics for the past several months. WBC as outpt in December was normal at 5600 and hemoglobin had improved to the 8-9g/dl
range. In the context of active infection/ antibiotics earlier in 2024 and in fall 2023, his hemoglobin did intermittently drift into the 7g/dl range, requiring occasional transfusional support. Progression of acute infection w/ now tx w/ daptomycin
is likely adversely impacting blood counts.
Will check B12/folic acid and iron studies. Would continue to monitor CBCs and transfuse PRN.
Will continue to follow with you.
Subjective/Objective
Subjective/Objective
He is feeling about the same. He offers no new complaints. Examination is unchanged.
Vital Signs:
Vital Signs
Temp Pulse Resp BP Pulse Ox
97.7 F 73 18 109/36 100
02/23/25 14:25 02/23/25 14:25 02/23/25 14:25 02/23/25 14:25 02/23/25 11:21
Lab Results:
Laboratory Data
WBC 2.5 10^3/uL (4.8-10.8) L 02/23/25 07:06
Hgb 7.5 g/dL (13.0-18.0) L 02/23/25 07:06
Plt Count 132 10^3/uL (130-400) 02/23/25 07:06
PT 20.7 Sec (11.4-14.6) H 02/18/25 20:27
INR 1.73 02/18/25 20:27
APTT 62.8 Sec (23.4-35.0) H 02/23/25 14:33
eGFR 46.06 02/23/25 07:06
[2025-02-23 16:22] LABS: Folate 14.5 ng/ml (2.76-20); Vitamin B12 > 1000 pg/ml (239-931)
[2025-02-23] MEDS: CUBICIN 15.6 MG IV (16:27)
[2025-02-23 23:06] LABS: APTT 128.8 Sec (23.4-35.0)
[2025-02-23] MEDS: XANAX 0.5 MG PO (23:06)
[2025-02-24] VITALS (11 sets, daily range): BP systolic 105–118; BP diastolic 35–67; PULSE 75–76; O2SAT 100; BMI 24.2
[2025-02-24] MEDS: HEPARIN 25000 UNITS/250 ML IV ×2 (05:57→23:12)
[2025-02-24 06:25] LABS: APTT 44.7 Sec (23.4-35.0)
[2025-02-24 06:31] LABS: Creatine Phosphokinase < 20 U/L (55-170); LDH 253 U/L (120-246)
--- NOTE | 2025-02-24 07:03 | W.PN.CT ---
Today's Communication / Plan
-
Plan:
-Cont. current medical therapy per primary team
-Ongoing medical optimization
-Cont. Abx per ID
-Received 1u prbc yesterday 02/23 for h/h 7.5/22.6, f/u h/h, Hematology following
-For AVR, MVR, /+/- TV repair, +/- IVONE clip by Dr. Sharma tomorrow, 02/25/25
-Will cont. to closely monitor
Assessment / Plan
-
Assessment:
-AV endocarditis (E faecalis)/Mod-severe AI
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
-Moderate TR
-LVEF 55-60%
-Atrial Fib (Chronic, diagnosed 2011-on Xarelto)
-CAD (nonischemic cardiomyopathy/HFrEF )
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
-Anemia
-AAA S/P endovascular repair [address] Alfred; suspected break through infection despite suppressive amoxicillin
-Septic arthritis of the Knee 07/2024 due to Enterococcus - completed course of treatment
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
-Lyme disease
-S/P PCI/Stent (MARQUISE-OM1 2011)
-T2DM (A1C 5.1, currently on no tx)
-Hx noncompliance with imaging studies, though reportedly compliant with medications
Discussed patient care with: Cardiology, Nursing, Respiratory Therapy and Pharmacy
Subjective
-
Date of Service: February 24, 2025
No issues overnight
Objective Data
-
Lab Results
02/23/25 07:06
02/23/25 07:06
PT 20.7 Sec (11.4-14.6) H 02/18/25 20:27
INR 1.73 02/18/25 20:27
APTT 44.7 Sec (23.4-35.0) H 02/24/25 05:39
Vital Signs
Vital Signs
Temp Pulse Resp BP Pulse Ox
98.6 F 85 20 118/35 94
02/24/25 05:25 02/24/25 05:25 02/24/25 05:25 02/24/25 05:25 02/24/25 05:25
CT Intake/Output/Weight
02/23/25 02/24/25 02/24/25
18:59 06:59 18:59
Intake Total 1040 / 1280 240 / 1280
Output Total 600 / 1100 500 / 1100
Balance 440 / 180 -260 / 180
SaO2: 94 (RA)
Physical Exam
-
General: Awake, Oriented and AOx3
Cardiovascular: Regular rate & rhythm, Murmur (4/6 systolic), No Rub and No Gallop
Sternum: Stable
Incision: Clean, Dry, Intact and Dressing Intact
Extremities: Other (+trace edema)
Data Reviewed
-
Lab Results: Results Reviewed
Medications: Active Meds Reviewed
Chest X-Ray: Report Reviewed and Image Reviewed
ECG: Report Reviewed and Image Reviewed
[2025-02-24] MEDS: FEOSOL 325 MG PO (08:14)
[2025-02-24] MEDS: ZYLOPRIM 100 MG PO ×2 (08:14→20:37)
[2025-02-24] MEDS: ROBINUL 1 MG PO ×2 (08:14→20:36)
[2025-02-24] MEDS: FOLVITE 1 MG PO (08:14)
[2025-02-24] MEDS: TOPROL XL 50 MG PO (08:14)
--- NOTE | 2025-02-24 08:49 | W.PN.CD ---
Today's Communication / Plan
-
-CT Surgery tomorrow.
-Transfused blood as per Hematology/Oncology.
-On Xarelto as OP; currently on heparin drip.
Impression / Plan
-
Endocarditis of MV, AV, and TV:
-LORETA 02/20/2025: L the EF 55-60%, biatrial enlargement, MV echodensity with severe MR, AV echodensity with mod/severe AR, TV echodensity with mod TR
-TTE 02/19/25: LVEF 50-55%, MV with 1.5 cm x 0.7 cm veg on anterior leaflet. Severe, eccentric mitral regurgitation. AV with highly mobile 2.5 cm x 0.6 cm veg on NCC. Severe eccentric aortic regurgitation. Possible TV veg with mod TR, PASP 72
-Echo report summary 01/15/25: 0.75 mm mass attached to aortic valve, EF 38%, increased LV size, RV moderately dilated and with moderately decreased systolic function, severely dilated atria, severe AR, two areas of vegetation on anterior mitral
valve leaflet, severe MR, severe TR (aortic vegetation bigger from previous and now two areas on MV noted).
-this condition is threat to life
-OP notes reviewed and he was treated with IV abx, now on PO abx. He had E faecalis bacteremia. Septic knee back in Fall apparently.
-Vascular thinks aortic endograft could be infected but it has been stable for at least 3 mos. Deal with endocarditis first. Possible sampling by IR.
-Continue antibiotics per ID
-CT Surgery tomorrow.
Anemia
-No signs/symptoms of acute bleeding
-Worked up over the past�3 months with colonoscopy, EGD and no etiology found.
-Transfused blood as per Hematology/Oncology.
Mpywr-cf-qsaysgw HFpEF:
-BNP 66976, imaging with pulmonary edema, rales to L base, mild BLE edema. Now improving
-Continue to hold Lasix and ACEi for CHELA.
-Continue Toprol-XL.
PAD:
-sounds to be extensive
- Recommendations as per Vascular Surgery.
CAD with hx stenting:
-stable without CP
-On Xarelto as OP; currently on heparin drip.
Abnormal troponin:
-acute, non-ischemic myocardial injury in setting of CHF exacerbation
-no angina or acute EKG changes
Permanent AFIB:
-stable, rate-controlled
-continue BB and heparin drip
Physical Exam
Vital Signs/Labs
Vital Signs
Temp Pulse Resp BP Pulse Ox
98.2 F 80 20 117/53 96
02/24/25 07:41 02/24/25 07:41 02/24/25 07:41 02/24/25 07:41 02/24/25 07:41
02/23/25 02/24/25 02/25/25
06:59 06:59 06:59
Actual Weight 80.8 kg 81 kg
PT 20.7 Sec (11.4-14.6) H 02/18/25 20:27
INR 1.73 02/18/25 20:27
APTT 44.7 Sec (23.4-35.0) H 02/24/25 05:39
Magnesium 2.0 mg/dl (1.6-2.3) 02/19/25 01:44
Triglycerides 79 mg/dl (10-149) 02/19/25 01:44
LDL Cholesterol, Calc 64 mg/dl 02/19/25 01:44
VLDL Cholesterol, Calc 15 mg/dl (0-30) 02/19/25 01:44
HDL Cholesterol 37 mg/dl 02/19/25 01:44
02/18/25 02/18/25
20:27 20:59
Kzc-G-Uignlrydvmr Pept Cancelled [id number]
Physical Exam
Constitutional: No acute distress and Comfortable
EENT: Anicteric
Cardiovascular: Rhythm/rate is irregular, Pedal edema present (trace), Systolic murmur present (11/24) and S1S2 is normal
Respiratory: Respiratory effort normal and Lungs clear to auscul.
GI: Soft and Non tender
Neuro/Psych: AO x 3
Other: Skin (warm, dry)
Data Reviewed
-
Date of Service: February 24, 2025
EKG: Tracing Personally Visualized and interpreted (Telemetry: A-fib)
Labs: Labs Reviewed by me
--- NOTE | 2025-02-24 09:00 | W.PN.ID1 ---
Date of Service
Date of Service: February 24, 2025
Today's Communication
- if taken for valve replacement or endograft resection please send tissue cultures for aerobic and anaerobic culture
- Continue daptomycin
- possible sampling of fluid around endograft with IR today
Assessment / Plan
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
H/o Septic arthritis of the Knee 07/2024 due to Enterococcus - completed course of treatment
DM2; not on treatment
Leukopenia - present on arrival, possibly related to chronic infection
H/o noncompliance with imaging studies, though reportedly compliant with medications
- blood cultures x2 from different draws are in progress; no growth to date.
- if taken for valve replacement or endograft resection please send tissue cultures for aerobic and anaerobic culture
- Continue daptomycin
- Follow weekly CK while on daptomycin - WNL this week, repeat on mondays
- hold atorvastatin while on daptomycin
- anticipate a repeat course of 6 weeks of IV antibiotics at home, followed by suppression
- await potential CT surgery
- possible sampling of fluid around endograft with IR today
- patient is known to Dr Raman Fox [facility] and is established with vascular surgery Dr Alfred here
����������������������������������������������������������
Chief Complaint
-: Other (endocarditis)
Subjective / Review of Systems
remains afebrile
bp stable
labs pending today
for CT surgery tomorrow
Vital Signs / Physical Exam
Vital Signs
Vital Signs
Temp Pulse Resp BP Pulse Ox
98.2 F 80 20 117/53 96
02/24/25 07:41 02/24/25 07:41 02/24/25 07:41 02/24/25 07:41 02/24/25 07:41
Physical Exam
Constitutional: No Acute Distress and Chronically Ill
Cardiovascular: Regular Rate and S1/S2; Negative Murmur or Rub
Pulmonary: Clear and Symmetric; Negative Wheezes or Rales
Gastrointestinal: Soft, Non Tender, Non Distended and Normal Bowel Sounds
Skin: Warm and Dry; Negative Rash or Jaundice
Objective Data
Lab Data
PT 20.7 Sec (11.4-14.6) H 02/18/25 20:27
INR 1.73 02/18/25 20:27
APTT 44.7 Sec (23.4-35.0) H 02/24/25 05:39
Estimated Creat Clear 47 ml/min 02/23/25 07:06
Total Bilirubin 1.9 mg/dl (0.2-1.3) H 02/18/25 20:59
AST 20 U/L (17-59) 02/18/25 20:59
ALT 14 U/L (0-50) 02/18/25 20:59
Alkaline Phosphatase 125 U/L (38-126) 02/18/25 20:59
Most recent labs reviewed.
Micro Results:
02/19/25 13:22 Blood Culture - Preliminary
Blood/Venous No Growth in 4 days- Final report to follow
02/19/25 12:40 Blood Culture - Preliminary
Blood/Venous No Growth in 4 days- Final report to follow
[2025-02-24 12:47] LABS: Hematocrit 30.3 % (39.0-52.0); Hemoglobin 9.6 g/dL (13.0-18.0); Mean Corp Hgb Conc. 31.7 g/dL (33.0-37.0); Mean Corpuscular Hgb 33.3 pg (27.0-31.0); Mean Corpuscular Volume 105.2 fL (80.0-94.0); Platelet Count 144 10^3/uL (130-400); Red Blood Cell Count 2.88 10^6/uL (4.70-6.10); Red Cell Dist. Width 17.2 % (11.5-14.5); White Blood Cell Count 3.2 10^3/uL (4.8-10.8)
[2025-02-24 12:50] LABS: APTT 144.9 Sec (23.4-35.0)
[2025-02-24 12:59] LABS: % Basophils 0.9 % (0-2); % Eosinophils 5.7 % (0-6); % Immature Granulocytes 0.3 % (0-0.5); % Lymphocytes 14.5 % (20.5-51.1); % Monocytes 13.8 % (1.7-9.3); % Neutrophils 64.8 % (42.2-75.2); Absolute Eosinophils 0.2 10^3/uL (0-0.7); Absolute Lymphocytes 0.5 10^3/uL (1.2-3.4); Absolute Monocytes 0.4 10^3/uL (0.1-0.6); Absolute Neutrophils 2.1 10^3/uL (1.4-6.5); Nucleated Red Blood Cells % 0 % (-)
--- NOTE | 2025-02-24 13:07 | W.PN.HOSP.TC ---
Today's Communication/Plan
-
Monitor vital signs see plan
Monitor hemoglobin
Monitor renal function
Plan for CT surgery tomorrow
Assessment / Plan
Assessment / Plan
Physical Exam
General: Well Developed, Well Nourished, No Apparent Distress and Comfortable
HEENT: Normocephalic, Anicteric, Moist mucous membranes and Atraumatic
Respiratory: Clear
Cardiac: S1/S2, + murmur
GI: Soft, Non Tender, Non Distended and Normal Bowel Sounds
Genito-urinary: NO Alfred
Musculoskeletal: No Edema
Neuro: AO x 3 and Nonfocal/grossly intact
Psych: Calm
#subacute endocarditis, multiple valves involve
E faecalis bacteremia per records.
Stopped oral amoxicillin
Now on Daptomycin, hold statin, monitor CPK while on TX.
Blood culture is NGTD
Coronary angiography, result pending. LORETA as noted and confirmed endocarditis
d/w cardiology.
CT surgery 02/25
ID been talking to IR possible sampling of the fluid around the endograft, if feasible
# Exertional arrhythmias
He seems to go into sinus tachycardia/ Atrial tachycardia on exertion
# Acute on chronic HFrEF
LV dysfunction 38% (12/2024)
No sob at present
Lasix now on hold given CHELA
-Echocardiogram 02/19 showed LVEF 50 to 55%, stage II diastolic dysfunction, severe mitral regurgitation, severe aortic regurgitation, enlarged RV with normal function, moderate TR, severely elevated PASP, estimated 70 mmHg. Evidence of mobile
echodensities seen on tricuspid, aortic and mitral valves.
-Continue metoprolol and lisinopril
Negative COVID
CHELA
hold lasix
CK wnl
repeat BMP pending today
#Positive troponin: non-ischemic myocardial injury in setting of CHF exacerbation
# Anemia with leukopenia, seems chronic
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
Discussed with the primary oncologist is Dr Michele,
Transfuse as needed. Pancytopenia/anemia thought to be secondary to ongoing infection
No black stool or GI problems.
Hemoglobin 7.5 on 4.7, s/p 1 unit prbc; now improving
# history of Infrarenal AAA s/p Stent on 11/[address] Alfred
No abdominal pain
#Permanent AFIB
- continue metoprolol
- On Xarelto, now on heparin gtt
# gout
On allopurinol
DVT prophylaxis on anticoagulation
CODE STATUS full code
Total time spent to see the patient, examine the patient, review data and lab results, discuss treatment plan with patient, nursing staff, consultants around 51 minutes
Anticipated Discharge: > 48 hours
Subjective/Interval History
-
Date of Service: February 24, 2025
denies pain
Objective Data
-
Labs:
Laboratory Results
02/24/25 02/24/25
05:39 12:26
WBC 3.2 L
Hgb 9.6 L D
Hct 30.3 L
Plt Count 144
APTT 44.7 H 144.9 H
Sodium Pending
Potassium Pending
Chloride Pending
Carbon Dioxide Pending
BUN Pending
Creatinine Pending
Glucose Pending
Calcium Pending
Vital Signs:
Vital Signs
Temp Pulse Resp BP Pulse Ox
98 F 74 20 113/41 98
02/24/25 12:18 02/24/25 12:19 02/24/25 12:18 02/24/25 12:19 02/24/25 12:18
I&O
02/23/25 02/24/25 02/25/25
06:59 06:59 06:59
Intake Total 1585 / 1585 1280 / 1280
Output Total 675 / 675 1100 / 1100
Balance 910 / 910 180 / 180
[2025-02-24 13:20] LABS: Blood Urea Nitrogen 39 mg/dl (9-20); Calcium 9.7 mg/dl (8.4-10.2); Carbon Dioxide 25 mmol/L (22-30); Chloride 103 mmol/L (98-107); Estimated Creatinine Clearance 50 ml/min; Glucose 128 mg/dl (70-99); Sodium 137 mmol/L (135-145); eGFR 49.77
[2025-02-24] MEDS: CUBICIN 15.6 MG IV (15:48)
--- NOTE | 2025-02-24 16:54 | CM ---
spoke to pt , and sister in room, we discussed preop teaching including sternal and driving restrictions. he is prev indep, lives with his in a 2 story home with 3 steps to enter. he asked that his sister Kyleigh Newsome (RN at [employer]) be
his point person. he denies any dme's. he is open to rehab should he need it (1- [facility], 2- [facility], 3- [facility]) he has the ct surgery educ book. he is agreeable to a f/u appt with the ct transitional care nurses after dc. plan is for ct
surgery tomorrow. cm to follow.
[2025-02-24 21:38] LABS: APTT 78.6 Sec (23.4-35.0)
--- NOTE | 2025-02-24 23:00 | PTCARENOTE ---
Assumed care of pt from prev nsg shift; pt AAOx3 w/no c/o CP or SOB. Pt's VSS w/HR in the 80's & BP 117/58 at beginning of shift. Pt is Afib on telemetry monitoring. Pt w/IV Heparin infusing through patent IV line as ordered. Surgical prep completed
w/pt including clip, complete bed bath, & complete bed CHG bath. Emotional support provided to pt re: upcoming surgery. Pt requesting PRN Xanax before bed; administered as ordered. Pt w/call shaw within reach.
[2025-02-24] MEDS: XANAX 0.5 MG PO (23:15)
[2025-02-25] VITALS (12 sets, daily range): BP systolic 87–120; BP diastolic 43–76; BMI 24.2
--- NOTE | 2025-02-25 00:17 | W.PN.CT ---
Today's Communication / Plan
-
Valve replacement or endograft resection please send tissue cultures for aerobic and anaerobic culture�
Cont. daptomycin�per ID�
AVR, MVR, /+/- TV repair, +/- IVONE clip by Dr. Sharma today 02/25/25�
Assessment / Plan
-
Assessment:
-AV endocarditis (E faecalis)/Mod-severe AI
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
-Moderate TR
-LVEF 55-60%
-Atrial Fib (Chronic, diagnosed 2011-on Xarelto)
-CAD (nonischemic cardiomyopathy/HFrEF )
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
-Anemia
-AAA S/P endovascular repair [address] Alfred; suspected break through infection despite suppressive amoxicillin
-Septic arthritis of the Knee 07/2024 due to Enterococcus - completed course of treatment
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
-Lyme disease
-S/P PCI/Stent (MARQUISE-OM1 2011)
-T2DM (A1C 5.1, currently on no tx)
-Hx noncompliance with imaging studies, though reportedly compliant with medications
Subjective
-
Date of Service: February 25, 2025
Objective Data
-
PT 20.7 Sec (11.4-14.6) H 02/18/25 20:27
INR 1.73 02/18/25 20:27
APTT 78.6 Sec (23.4-35.0) H 02/24/25 20:35
Vital Signs
Vital Signs
Temp Pulse Resp BP Pulse Ox
97.8 F 95 16 105/67 100
02/24/25 23:16 02/24/25 23:18 02/24/25 23:16 02/24/25 23:18 02/24/25 23:16
CT Intake/Output/Weight
02/24/25 02/24/25 02/25/25
06:59 18:59 06:59
Intake Total 240 / 1280
Output Total 500 / 1100
Balance -260 / 180
SaO2: 100
Physical Exam
-
General: AOx3
Cardiovascular: Regular rate & rhythm
Respiratory: Clear
Extremities: No Edema
[2025-02-25 03:39] LABS: Hematocrit 25.3 % (39.0-52.0); Hemoglobin 8.4 g/dL (13.0-18.0); Mean Corp Hgb Conc. 33.2 g/dL (33.0-37.0); Mean Corpuscular Hgb 34.3 pg (27.0-31.0); Mean Corpuscular Volume 103.3 fL (80.0-94.0); Mean Platelet Volume 10.1 fL (7.4-10.4); Platelet Count 133 10^3/uL (130-400); Red Blood Cell Count 2.45 10^6/uL (4.70-6.10); Red Cell Dist. Width 16.9 % (11.5-14.5); White Blood Cell Count 3.2 10^3/uL (4.8-10.8)
[2025-02-25 03:50] LABS: APTT 76.9 Sec (23.4-35.0)
[2025-02-25 03:58] LABS: Blood Urea Nitrogen 36 mg/dl (9-20); Carbon Dioxide 22 mmol/L (22-30); Chloride 106 mmol/L (98-107); Estimated Creatinine Clearance 63 ml/min; Glucose 116 mg/dl (70-99); Potassium 4.6 mmol/L (3.5-5.1); Sodium 134 mmol/L (135-145); eGFR > 60.00
[2025-02-25] MEDS: BACTROBAN 2% OINTMENT 1 APPLIC NASAL ×2 (06:01→20:42)
[2025-02-25] MEDS: PROTONIX 40 MG PO (06:02)
[2025-02-25] MEDS: LOPRESSOR 25 MG PO (06:02)
[2025-02-25] MEDS: MAGNESIUM OXIDE 500 MG PO (06:02)
--- NOTE | 2025-02-25 06:17 | W.CVOR.SURPR ---
CVOR Surgeon Immed Pre Op
-
I have examined this patient prior to performance of the scheduled procedure.
The patient's condition is unchanged from the time of the dictated/written History and
Physical and the patient is able to undergo the scheduled procedure.
It is my pleasure to meet with Mr. Weston Taylor on numerous occasions. He is an extremely pleasant 70-year-old gentleman with multivalve endocarditis resulting in severe aortic insufficiency, severe mitral insufficiency and moderate to severe
tricuspid insufficiency. He has profoundly calcified coronary arteries on CT assessment, but formal cath is not possible given his highly mobile, large aortic valve vegetation. In addition his prior aortobifem endovascular graft is likely
infected. Despite the high risk nature of surgical intervention, this patient requires intervention on his aortic, mitral, and tricuspid valves.
I have reviewed the planned operative interventions, discussed the periprocedural risks (including, but not limited to, , stroke, TN, arrhythmia, PPM requirement, PNA, CHELA/F, bleeding, infection, and potential early prosthetic valve
reinfection), discussed the expected in-hospital postprocedural course, and reviewed the outpatient recovery with Mr. Taylor and his family. All questions were answered to the best of my ability. The patient is agreeable to proceed, and informed
consent has been obtained.
I will proceed to the operating room today.
--- NOTE | 2025-02-25 07:00 | PTCARENOTE ---
2nd CHG bed bath completed & CHG wipes done shortly after. Pre-meds administered as ordered. Pt & sister in to see pt. Pt transported to OR at 0650. Heparin IV drip stopped prior to transport.
[2025-02-25 08:02] LABS: ACT+ - POC 90 Seconds (82-134)
[2025-02-25 08:14] LABS: Urine Albumin 2+ (Neg - Trace); Urine Bilirubin Negative (Negative); Urine Character Clear (Clear); Urine Color Yellow; Urine Glucose Negative (Negative); Urine Ketone Negative (Negative); Urine Leukocyte Negative (Negative); Urine Nitrite Negative (Negative); Urine Occult Blood Negative (Negative); Urine Urobilinogen Negative (Neg - 1+); Urine pH 6.5 (5.0-9.0)
[2025-02-25 09:09] LABS: Urine Amorphous Seen
[2025-02-25 09:10] LABS: Urine Red Blood Cell 0-2 /HPF (0-2); Urine White Cell 0-2 /HPF (0-5)
[2025-02-25 09:21] LABS: ACT+ - POC 444 Seconds (82-134)
[2025-02-25 09:32] LABS: ACT+ - POC 492 Seconds (82-134)
[2025-02-25 10:04] LABS: Glucose - POC 83 mg/dl (70-99); HCO3 - POC 23 mmol/L (21-28); Hematocrit - POC 26 % PCV (42-52); Hemodilution- POC No; Hemoglobin Calculated - POC 8.7; Ionized Calcium - POC 1.19 mmol/L (1.15-1.33); Lactate - POC 0.41 mmol/L (0.36-0.75); O2 Saturation %Calculated-POC 99.8 % (94-98); PCO2 - POC 36 mmHg (35-48); PO2 - POC 227 mmHg (83-108); POC Comment PRE; Potassium - POC 4.2 mmol/L (3.5-5.1); Sodium - POC 139 mmol/L (136-145); Specimen Type - POC Arterial
[2025-02-25 10:18] LABS: ACT+ - POC 597 Seconds (82-134)
[2025-02-25 10:51] LABS: ACT+ - POC 514 Seconds (82-134)
[2025-02-25 11:07] LABS: ACT+ - POC 660 Seconds (82-134)
--- NOTE | 2025-02-25 11:14 | W.PN.UPDATE ---
Update Note
Progress Note Update
Patient currently in the OR
Chart reviewed
No events overnight and labs only notable in that renal function has been improving - no dose adjustment indicated.
Acknowledge CM note that daptomycin out of pocket cost is high for patient.
Was initially planned for drainage with IR yesterday 02/24 per conversation on tiger text with Dr Estrada on 02/23.
I was not notified that the procedure was canceled, in conversation with Dr Philip () he was not notified either.
Will re-attempt IR consultation when feasible - doubt he will be stable for the procedure for several days.
Will follow up cultures from the OR today.
AW
--- NOTE | 2025-02-25 11:16 | CM ---
CM following for DC planning needs.
Patient in OR today for CT Surgery.
Reviewed initial assessment. Pt. resides w/ spouse in a private, 2 st home w/ 3 ZANA.
Functionally, patient is indep. prior to admission w/ ADLs, mobility without the use of any assisted device. He resides w/ spouse.
Goal is for DC to home versus SNF placement (preference is [facility], [facility]).
Will follow.
[2025-02-25 11:17] LABS: B.E. - POC -0.8 mmol/L; Glucose - POC 182 mg/dl (70-99); HCO3 - POC 24 mmol/L (21-28); Hematocrit - POC 27 % PCV (42-52); Hemodilution- POC Yes; Hemoglobin Calculated - POC 9.2; Ionized Calcium - POC 1.12 mmol/L (1.15-1.33); Lactate - POC 0.55 mmol/L (0.36-0.75); PCO2 - POC 38 mmHg (35-48); PO2 - POC 454 mmHg (83-108); POC Comment CPB; Potassium - POC 5.2 mmol/L (3.5-5.1); Sodium - POC 136 mmol/L (136-145); Specimen Type - POC Arterial; pH - POC 7.41 (7.35-7.45)
[2025-02-25 11:31] LABS: ACT+ - POC 633 Seconds (82-134)
[2025-02-25 11:52] LABS: B.E. - POC -2.2 mmol/L; Glucose - POC 179 mg/dl (70-99); HCO3 - POC 25 mmol/L (21-28); Hematocrit - POC 31 % PCV (42-52); Hemodilution- POC Yes; Hemoglobin Calculated - POC 10.6; Ionized Calcium - POC 1.14 mmol/L (1.15-1.33); Lactate - POC 1.82 mmol/L (0.36-0.75); O2 Saturation %Calculated-POC 99.9 % (94-98); PCO2 - POC 50 mmHg (35-48); PO2 - POC 317 mmHg (83-108); POC Comment CPB; Potassium - POC 5.1 mmol/L (3.5-5.1); Sodium - POC 136 mmol/L (136-145); Specimen Type - POC Arterial
[2025-02-25 12:07] LABS: ACT+ - POC 538 Seconds (82-134)
[2025-02-25 12:25] LABS: ACT+ - POC 517 Seconds (82-134)
[2025-02-25 12:37] LABS: B.E. - POC -2.7 mmol/L; Glucose - POC 164 mg/dl (70-99); HCO3 - POC 23 mmol/L (21-28); Hematocrit - POC 27 % PCV (42-52); Hemodilution- POC Yes; Hemoglobin Calculated - POC 9.2; Ionized Calcium - POC 1.14 mmol/L (1.15-1.33); Lactate - POC 2.78 mmol/L (0.36-0.75); PCO2 - POC 40 mmHg (35-48); PO2 - POC 401 mmHg (83-108); POC Comment CPB; Potassium - POC 4.9 mmol/L (3.5-5.1); Sodium - POC 136 mmol/L (136-145); Specimen Type - POC Arterial; pH - POC 7.36 (7.35-7.45)
[2025-02-25 12:51] LABS: ACT+ - POC 559 Seconds (82-134)
[2025-02-25 12:54] LABS: B.E. - POC -3.4 mmol/L; Glucose - POC 152 mg/dl (70-99); HCO3 - POC 24 mmol/L (21-28); Hematocrit - POC 27 % PCV (42-52); Hemodilution- POC Yes; Hemoglobin Calculated - POC 9.1; Ionized Calcium - POC 1.16 mmol/L (1.15-1.33); Lactate - POC 4.27 mmol/L (0.36-0.75); O2 Saturation %Calculated-POC 99.8 % (94-98); PCO2 - POC 52 mmHg (35-48); PO2 - POC 259 mmHg (83-108); POC Comment WARM; Sodium - POC 138 mmol/L (136-145); Specimen Type - POC Arterial; pH - POC 7.27 (7.35-7.45)
[2025-02-25 13:10] LABS: B.E. - POC -0.7 mmol/L; Glucose - POC 152 mg/dl (70-99); HCO3 - POC 24 mmol/L (21-28); Hematocrit - POC 29 % PCV (42-52); Hemodilution- POC Yes; Hemoglobin Calculated - POC 9.9; Ionized Calcium - POC 1.08 mmol/L (1.15-1.33); Lactate - POC < 0.30 mmol/L (0.36-0.75); PCO2 - POC 41 mmHg (35-48); PO2 - POC 546 mmHg (83-108); POC Comment CPB; Sodium - POC 136 mmol/L (136-145); Specimen Type - POC Arterial; pH - POC 7.39 (7.35-7.45)
[2025-02-25 13:17] LABS: ACT+ - POC 511 Seconds (82-134)
--- NOTE | 2025-02-25 13:19 | W.PN.UPDATE ---
Update Note
Progress Note Update
Patient has been in OR. Discussed with CT surgery and patient will be on their service postop. Medicine will sign off. Please call us if any questions.
[2025-02-25 13:59] LABS: ACT+ - POC 134 Seconds (82-134)
--- NOTE | 2025-02-25 14:32 | W.IMMPOSTOP ---
Addendum entered and electronically signed by Josiah Sharma MD 02/25/25 15:55:
[id number]
Original Note:
Surgical Immed Post Op Note
-
CARDIAC SURGERY OPERATIVE NOTE:
Preoperative Dx:
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
Chronic atrial fibrillation
L knee septic arthritis following lymes disease
Hx of AAA s/p aortobiiliac endovascular repair (2023) w likely infected endovascular stent graft
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
Postoperative Dx:
Same
Procedures:
1) Median sternotomy
2) AVR (#27 Inspiris RESILIA)
3) MVR (#31 Mitris RESILIA)
4) TVRp w/ 34mm Conner Tricuspid Band
5) ELAA w/ 50mm AtriClip
Surgeon:
Josiah Sharma M.D.
Assistants:
Jorgito Frias P.A.-C.; personalized living assistant throughout
Erasmo Ortiz P.A.-C.; [id number] closure
Anesthesia:
Conrad Delgadillo M.D. and Maggi Jones.N.A.
Perfusion:
Jorge AdlerC.P.; CPB: 222min, XC: 178min
Findings:
Trileaflet AV w/ large vegetation attached to the ventricular surface fo the NCC near the NCC-RCC junction. This vegetation was highly mobile and moved from the LVOT into the aorta w/ each ejection. It was attached w/ an extremely thin band of
tissue. There was also a leaflet perforation of the RCC. There were no significant valvular calcifications. AVR w/ #27 secured w/ 17 interrupted, pledgetted german sutures and CorKnots - well seated AVR w/o PVL/AI, mean gradient 8mmHg
Anterior leaflet of MV w/ smaller vegetations at A1/A2 more adherent to leaflet. Large LA (10cm). Anterior leaflet and subvalvular chordae resected down to the anterolateral papillary muscle. Neochord x 1 placed to head of papillary muscle and
secured at level of annulus. MVR w/ #31 secured w/ 16 interrupted, pledgetted valve sutures and CorKnots - well seated MVR w/o PVL or MR, mean gradient 2mmHg - mobile/attached chordae visible on LORETA.
TV annulus was profoundly dilated w/ a huge RA. TV leaflet tissue was normal in appearance w/o evidence of endocarditis/vegetation. #34 TV annuloplasty band placed w/ 10 interrupted sutures, hand-tied. Resolution of TR w/ mean gradient 1mmHg
Large IVONE w/ windsock morphology - secured at base w/ 50mm AtriClip - confirmed excluded on postoperative LORETA.
Post-LORETA: LVEF 50-55% pre/post, mildly dilated LV
Implants:
[employer]; MITRIS RESILIA, 31mm, Model [id number]; SN: [id number]
[employer]; INSPIRIS RESILIA, 27mm, Model [id number], SN: [id number]
Medtronic Tri-Ad 2.0 Conner Tricuspid Band, 34mm, SN: [id number]
AtriCure AtriClip, ACHV50, LOT: [id number]
Epicardial Bipolar V-wires x 2
CT x 4 (B/L pleural, inferior mediastinal, superior mediastinal)
Sternal wires x 10
Condition:
GTTS: levophed 10, dobutamine 8, precedex 0.5, insulin 1
86 AF (-0.7/-0.5), 102/44, 49/18, CVP 16; CO/CI: 5.2/2.5, 95%
Guarded to CVICU
--- NOTE | 2025-02-25 14:48 | CON.INTV ---
Consultation
Consultation Request
Date/Time Consultation Requested: 02/25/25
Date/Time Consultation Performed: 02/25/25
Performing Provider: Keegan
Reason for Consultation: CVICU
Medical History
-
History of Present Illness:
Patient is a 70-year-old male with previous history of CAD status post stent, heart failure, mitral regurgitation, history of laryngeal cancer, AAA presenting to ER with 2 days of dyspnea on exertion. Admitted to [facility] on 02/18/25, chest
x-ray demonstrating moderate pulmonary edema. 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
preceding left knee septic arthritis due to Enterococcus. Underwent repeat CT TA demonstrating endograft with interval enlargement of 1.9 cm rim-enhancing fluid suggesting endoleak, pulmonary edema; repeat TTE demonstrating 1.5 cm x 0.7 cm
vegetation with severe MR, AV mobile 2.5 x 0.6 lesion with severe AR, TV with mobile echodensity and moderate TR. CTS consulted for multivalve intervention. Underwent AVR/MVR/TVR 02/25/25 and postoperatively transferred to CVICU. He is currently
satting 92% on 100% FiO2 and PEEP of 10. CXR showing new L sided infiltrate.
Past Medical History
Past Medical History: Other (see list below)
Social History
Tobacco: Former Smoker
Alcohol: None
Drug: None
Family History
Family History: Unable to Obtain
Allergies / Home Medications
Allergies
Allergy/AdvReac Type Severity Reaction Status Date / Time
No Known Allergies Allergy Unverified 11/26/23 09:34
Home Medications
�Medication �Instructions �Recorded �Confirmed �Last Taken �Type
allopurinol 100 mg tablet 100 mg PO BID Gout 11/26/23 02/18/25 12/04/23 04:30 History
alprazolam 0.5 mg tablet 0.5 mg PO HSPRN PRN anxiety 11/26/23 02/18/25 11/27/23 History
lisinopril 10 mg tablet 10 mg PO DAILY Blood Pressure 11/26/23 02/18/25 12/03/23 08:00 History
magnesium oxide 500 mg PO HS Electrolyte Repletion 11/26/23 02/18/25 12/03/23 08:00 History
rivaroxaban 20 mg tablet 20 mg PO HS Blood Clot 11/26/23 02/18/25 12/02/23 12:00 History
Prevention/Tx
acetaminophen 325 mg tablet 650 mg PO DAILY Pain 02/18/25 02/18/25 Unknown History
(Tylenol)
amoxicillin 500 mg capsule 500 mg PO TID Mitral valve 02/18/25 02/18/25 Unknown History
vegetation
atorvastatin 40 mg tablet 40 mg PO HS cholesterol 02/18/25 02/18/25 Unknown History
benzonatate 100 mg capsule 100 mg PO TIDPRN PRN cough 02/18/25 02/18/25 Unknown History
cholecalciferol (vitamin D3) 50 50 mcg PO DAILY Supplement 02/18/25 02/18/25 Unknown History
mcg (2,000 unit) tablet (Vitamin
D3)
cyanocobalamin (vitamin B-12) 1,000 mcg PO DAILY Supplement 02/18/25 02/18/25 Unknown History
1,000 mcg tablet
famotidine 20 mg tablet 20 mg PO DAILY Gastrointestinal 02/18/25 02/18/25 Unknown History
Issue
ferrous sulfate 325 mg (65 mg 325 mg PO DAILY Supplement 02/18/25 02/18/25 Unknown History
iron) tablet
folic acid 1 mg tablet 1 mg PO DAILY Supplement 02/18/25 02/18/25 Unknown History
furosemide 40 mg tablet 40 mg PO BID Fluid 02/18/25 02/18/25 Unknown History
Retention/Swelling
glycopyrrolate 1 mg tablet 1 mg PO BID 02/18/25 02/18/25 Unknown History
magnesium hydroxide 400 mg/5 mL 30 ml PO DAILYPRN PRN constipation 02/18/25 02/18/25 Unknown History
oral suspension (Milk of [place]i)
metoprolol succinate 50 mg 50 mg PO DAILY Abnormal Heart Rate 02/18/25 02/18/25 Unknown History
tablet,extended release 24 hr
vitamin B complex 1 tab PO DAILY Supplement 02/18/25 02/18/25 Unknown History
Review of Systems
-
Unable to Obtain full review of systems at this time due to: Patient Intubation
Vitals / Labs / Diagnostic Testing
Vital Signs
Temp Pulse Resp BP Pulse Ox
98.2 F 75 18 119/44 95
02/25/25 07:32 02/25/25 06:00 02/25/25 07:32 02/25/25 05:31 02/25/25 07:32
Laboratory Results
02/24/25 02/25/25
20:35 03:08
APTT 78.6 H 76.9 H
Microbiology
02/19/25 13:22 Blood/Venous Blood Culture - Final
No Growth - Final Report
02/19/25 12:40 Blood/Venous Blood Culture - Final
No Growth - Final Report
Diagnostic Testing:
Physical Exam
-
HEENT: Normocephalic, Anicteric, Other (temporal wasting) and Other (dry MM, poor dentition)
Cardiovascular: S1/S2 and Regular Rhythm
Respiratory: Rales (L > R), Non-Labored Respirations and Other (ETT/chest tube)
GI: Soft, Non Distended and Non Tender
Neurology: Other (sedated/intubated)
Skin: Warm, Dry and Other (Bony protrusions on LEs)
General: Other (chronically ill appearing, intubated)
Assessment
-
Patient is a 70-year-old male with previous history of CAD status post stent, heart failure, mitral regurgitation, history of laryngeal cancer, AAA presenting to ER with 2 days of dyspnea on exertion. Admitted to [facility] on 02/18/25, chest
x-ray demonstrating moderate pulmonary edema. 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
preceding left knee septic arthritis due to Enterococcus. Underwent repeat CT TA demonstrating endograft with interval enlargement of 1.9 cm rim-enhancing fluid suggesting endoleak, pulmonary edema; repeat TTE demonstrating 1.5 cm x 0.7 cm
vegetation with severe MR, AV mobile 2.5 x 0.6 lesion with severe AR, TV with mobile echodensity and moderate TR. CTS consulted for multivalve intervention. Underwent AVR/MVR/TVR 02/25/25 and postoperatively transferred to CVICU. He is currently
satting 92% on 100% FiO2 and PEEP of 10. CXR showing new L sided infiltrate.
Subacute multivalvular endocarditis, c/b severe multi-VHD -- recently adm to [facility] for IV abx
Maintained on suppressive Amox, failure of medical treatment
s/p Median sternotomy/AVR/MVR/TVR, ELAA 02/25/25
Perioperative MV
Acute hypoxemic respiratory failure, unknown if on O2 at baseline
Suspect new ARDS, possible related to transfusion/overload/sepsis
Hx of AAA s/p aortobiiliac endovascular repair with suspected infected endovascular stent graft (enlarging rim-enhancing fluid on CT)
Conditions present prior admission:
[facility]-history of endocarditis due to E faecalis 08/2024 complicated by L2/L3 OM/discitis and a mass 2x3 cm (suspected infection) next to EVAR
completed a 6 week course of ampicillin/ceftriaxone (through 01/05); maintained on suppressive amoxicillin
History of L knee septic arthritis of the knee due to enterococcus
Abdominal aortic aneurysm status post endovascular repair of infrarenal abdominal aortic aneurysm by Dr. Alfred 12/04/2023
Severe calcific CAD w/o angina or ACS, Hx of BMS to OM1 in 2011
Hx of laryngeal cancer in 2016 s/p resection, chemoradiation - required tracheostomy & feeding tube x 7 months
History of atrial fibrillation on Xarelto
Prior history of obstructive sleep apnea, likely resolved with weight loss
Peripheral neuropathy due to chemotherapy
Anxiety
Hypertension
CHF
Gout
Hyperlipidemia
Type 2 diabetes
Anemia
Former smoker, quit reportedly in his 20s
Plan
S/p multi-valvular intervention POD #0
Titrate off pressors per protocol--dobutamine/levophed
ECHO reviewed with low-normal function EF 50-55%, severe VHD
PA catheter readings reviewed
Management of chest tubes per primary service
Intubated/sedated, initiate SAT when able
Pain control
RASS goal of 0 to -1
Intubated for procedure, recommend SBT trials on hold today
Current vent settings: SIMV 600/14/100/10+
ABG(s) reviewed-paO2 69 (meets severe lung injury, PF ratio <100)
CXR with L sided patchy opacity throughout, ETT in good position
Repeat testing to re-evaluate, trial diuresis reviewed
If remains present, worsening-can consider diagnostic evaluation
Would hold off extubation x 24 hours, until able to wean O2 requirements down
Maintain supplement oxygen as needed, repeat ABGs as indicated
No prior history of pulmonary disease, but was a former smoker, did not carry diagnosis of COPD, not known to be on home O2
Had trach in past, history of laryngeal cancer
No prior PFTs for review
CT reviewed showing possible underlying chronic ILD, traction bronchiectasis
Aspiration precautions
Keep NPO
DHT placement if prolonged on vent
GI prophylaxis if indicated for mechanical ventilation >48 hours
Monitor critical I/O's
Alfred/chest tube output
Hb/platelets postoperatively stable
Trend CBC for now
Can transfuse if indicated for Hb <7, plt <50 in surgical patients
DVT prophylaxis including SCDs
Insulin protocol initiated and ongoing
Transition to SQ/off as indicated per team
Critically ill, prognosis guarded---he is full code
Patient may have had poor functional status prior to case
He is full code, reviewed case with care team
We will follow
Diagnostic Data
Chest X-Ray: 02/18/25- Cardiomegaly with moderate pulmonary edema. Likely trace bilateral pleural effusions.
12/04/23- No active cardiopulmonary disease.
CT Scan: Angio 02/20/25- Small bilateral pleural effusions are present. Increased interstitial and ground-glass opacities throughout both lungs with Kyle B lines, findings suggesting a pulmonary edema pattern.
There are enlarged mediastinal lymph nodes, most likely reactive lymph nodes, often seen in association with congestive heart failure. Calcification of the thoracic aorta with no thoracic aortic aneurysm.
Dense coronary artery calcifications are present. Mild aortic valvular calcification. No significant abnormality in the visualized upper abdomen. In the thoracic spine, endplate irregularity suggestive of sequela of previous mild to moderate
Scheuermann's disease. The visualized vertebral bodies have maintained their height with no evidence for fracture.
AP 02/17/25- 1. AORTOBIILIAC ENDOGRAFT in place with interval enlargement of the [place] aneurysm sac around the endograft and a 1.9 cm focal outpouching of rim-enhancing fluid along the left posterolateral side of the proximal graft attachment
suggesting an ENDOLEAK (possibly a TYPE Ia PROXIMAL ENDOLEAK).
2. 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
3. Severe stenosis (greater than 70% diameter) in the proximal right superficial femoral artery.
4. Mild chronic bilateral renal disease.
5. Cholelithiasis.
6. MODERATE ACUTE INTERSTITIAL and ALVEOLAR CARDIOGENIC PULMONARY EDEMA.
7. Moderate to severe cardiomegaly with right heart dysfunction.
8. Minimal bilateral pleural effusions.
9. Severe multilevel lumbar discogenic degenerative disease.
10. Large right scrotal hydrocele.
Echo: 02/19/25- Left ventricle is moderately dilated. Normal left ventricular systolic function. Left ventricular ejection fraction is 50-55%. Thickened mitral valve leaflets. 1.5 cm x 0.7 cm echodensity associated with anterior leaflet. Severe,
eccentric mitral regurgitation. Trileaflet aortic valve. Highly mobile 2.5 cm x 0.6 cm echodensity visualized, likely at NCC. Severe eccentric aortic regurgitation. Enlarged right ventricular size. Normal right ventricular systolic function.
Tricuspid valve: In limited view 59, there is evidence of mobile echodensity. Moderate tricuspid regurgitation. Severely elevated PASP. Estimated pulmonary artery pressure of 72 mmHg. Assuming a right atrial pressure of 15 mmHg. Findings
consistent with endocarditis. No prior study available for comparison.
PFT's:
Reports and relevant images were personally reviewed.
Critical Care time 75 mins -- The patient is admitted for acute critical illness for the treatment of vital organ failure and/or prevention of further life-threatening conditions. Total care includes time spent in review of history, physical exam,
medications, hemodynamic/ventilator parameters, laboratory data, imaging and discussion with house staff, pharmacy, respiratory therapy, data examination clerk, and nursing. Extensive review of records.
[2025-02-25 15:17] LABS: Glucose - Point of Care 133 mg/dl (70-99)
[2025-02-25 15:20] LABS: B.E. - POC -4.1 mmol/L; Glucose - POC 154 mg/dl (70-99); HCO3 - POC 21 mmol/L (21-28); Hematocrit - POC 29 % PCV (42-52); Hemodilution- POC Yes; Hemoglobin Calculated - POC 9.8; Ionized Calcium - POC 1.07 mmol/L (1.15-1.33); Lactate - POC 3.87 mmol/L (0.36-0.75); O2 Saturation %Calculated-POC 99.9 % (94-98); PCO2 - POC 37 mmHg (35-48); PO2 - POC 348 mmHg (83-108); POC Comment WARM; Potassium - POC 5.4 mmol/L (3.5-5.1); Sodium - POC 137 mmol/L (136-145); Specimen Type - POC Arterial; pH - POC 7.36 (7.35-7.45)
[2025-02-25 15:20] LABS: B.E. - POC -3.8 mmol/L; Glucose - POC 130 mg/dl (70-99); HCO3 - POC 23 mmol/L (21-28); Hematocrit - POC 27 % PCV (42-52); Hemodilution- POC Yes; Hemoglobin Calculated - POC 9.2; Ionized Calcium - POC 1.21 mmol/L (1.15-1.33); Lactate - POC 3.94 mmol/L (0.36-0.75); O2 Saturation %Calculated-POC 89.3 % (94-98); PCO2 - POC 47 mmHg (35-48); PO2 - POC 64 mmHg (83-108); Potassium - POC 4.1 mmol/L (3.5-5.1); Sodium - POC 140 mmol/L (136-145); Specimen Type - POC Arterial; pH - POC 7.29 (7.35-7.45)
[2025-02-25 15:23] LABS: B.E. -2.2 mmol/L; HCO3 24.2 mmol/L (21-28); Ionized Calcium 1.18 mMOL/L (1.15-1.33); O2 Saturation % 96.4 % (94-98); PCO2 48 mmHg (35-48); PO2 69 mmHg (83-108); Potassium 4.5 mMOL/L (3.5-5.1); Sodium 134 mMOL/L (136-145); pH 7.31 (7.35-7.45)
[2025-02-25 15:25] LABS: Mixed Venous O2 Saturation 73.5 %
[2025-02-25] MEDS: LR 250 ML IV ×4 (15:30→19:05)
[2025-02-25 15:35] LABS: INR 1.72; PT 20.7 Sec (11.4-14.6)
[2025-02-25 15:37] LABS: APTT 45.1 Sec (23.4-35.0)
[2025-02-25 15:45] LABS: Blood Urea Nitrogen 32 mg/dl (9-20); Estimated Creatinine Clearance 69 ml/min; Glucose 128 mg/dl (70-99); Magnesium 2.9 mg/dl (1.6-2.3)
[2025-02-25] MEDS: NSS 500 IV (15:45)
[2025-02-25] MEDS: ZYLOPRIM PO (15:46)
[2025-02-25] MEDS: FEOSOL PO (15:46)
[2025-02-25] MEDS: FOLVITE PO (15:46)
[2025-02-25] MEDS: ANCEF 10 IV ×2 (15:46)
[2025-02-25] MEDS: ROBINUL PO ×2 (15:46→20:42)
[2025-02-25] MEDS: TOPROL XL PO (15:49)
[2025-02-25 15:53] LABS: Hematocrit 27.9 % (39.0-52.0); Hemoglobin 9.3 g/dL (13.0-18.0); Platelet Count 84 10^3/uL (130-400)
[2025-02-25 16:04] LABS: Glucose - Point of Care 134 mg/dl (70-99)
--- NOTE | 2025-02-25 16:04 | W.PN.ID1 ---
Date of Service
Date of Service: February 25, 2025
Today's Communication
- Continue daptomycin
- Follow weekly CK while on daptomycin - WNL this week, repeat on mondays
- hold atorvastatin while on daptomycin
- anticipate a repeat course of 6 weeks of IV antibiotics at home, followed by suppression
Assessment / Plan
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
H/o Septic arthritis of the Knee 07/2024 due to Enterococcus - completed course of treatment
DM2; not on treatment
Leukopenia - present on arrival, possibly related to chronic infection
H/o noncompliance with imaging studies, though reportedly compliant with medications
- blood cultures x2 from different draws are in progress; no growth to date.
- will follow up valve cultures
- will reconsult IR when patient stabilized
- Continue daptomycin
- Follow weekly CK while on daptomycin - WNL this week, repeat on mondays
- hold atorvastatin while on daptomycin
- anticipate a repeat course of 6 weeks of IV antibiotics at home, followed by suppression
- patient is known to Dr Raman Fox [facility] and is established with vascular surgery Dr Medina here
patient is critically ill, ventilated on pressors
����������������������������������������������������������
Chief Complaint
-: Other (endocarditis)
Subjective / Review of Systems
afebrile
hypotensive on pressors post operatively
intubated and sedated
Vital Signs / Physical Exam
Vital Signs
Vital Signs
Temp Pulse Resp BP Pulse Ox
98.3 F 88 16 92/53 92
02/25/25 16:00 02/25/25 15:30 02/25/25 16:00 02/25/25 15:24 02/25/25 16:00
Physical Exam
Constitutional: No Acute Distress
Cardiovascular: Regular Rate and S1/S2; Negative Murmur or Rub
Pulmonary: Clear and Symmetric; Negative Wheezes or Rales
Gastrointestinal: Soft, Non Tender, Non Distended and Normal Bowel Sounds
Skin: Warm and Dry; Negative Rash or Jaundice
Lines: Other (Cordis, swan, azucena, chest tubes x4, PIVs, medina - clean, dry, intact)
Objective Data
Lab Data
Lab Results
02/25/25 15:14
PT 20.7 Sec (11.4-14.6) H 02/25/25 15:14
INR 1.72 02/25/25 15:14
APTT 45.1 Sec (23.4-35.0) H 02/25/25 15:14
Estimated Creat Clear 69 ml/min 02/25/25 15:14
Total Bilirubin 1.9 mg/dl (0.2-1.3) H 02/18/25 20:59
AST 20 U/L (17-59) 02/18/25 20:59
ALT 14 U/L (0-50) 02/18/25 20:59
Alkaline Phosphatase 125 U/L (38-126) 02/18/25 20:59
Most recent labs reviewed.
Micro Results:
02/25/25 10:34 Fungal Culture - Preliminary
Valve Culture in progress.
Positive cultures are reported as soon as detected.
Final report to follow in four to five weeks.
02/25/25 10:09 Fungal Culture - Preliminary
Valve Culture in progress.
Positive cultures are reported as soon as detected.
Final report to follow in four to five weeks.
02/25/25 10:34 Anaerobic Culture - Pending
Valve
02/25/25 10:34 Tissue Culture - Pending
Valve Gram Stain - Pending
02/25/25 10:09 Anaerobic Culture - Pending
Valve
02/25/25 10:09 Tissue Culture - Pending
Valve Gram Stain - Pending
02/19/25 13:22 Blood Culture - Final
Blood/Venous No Growth - Final Report
02/19/25 12:40 Blood Culture - Final
Blood/Venous No Growth - Final Report
[2025-02-25] MEDS: LEVOPHED 258 MG IV (16:15)
--- NOTE | 2025-02-25 16:15 | PTCARENOTE ---
pt received from [facility] @~1515, sedated on Precedex gtt, RASS -5. pt core temp 95.3F, bear hugger applied. Afib w/ PVCs on the monitor, HR 60-90s. V wires(x2) in place, VVI 30/10. SBP 80-90s, Levophed gtt titrated as ordered. LR IVF given as ordered.
PAP 30s/10s, CVP ~8, CI >2. Dobutamine gtt running as ordered. weakly palpable pulses. pt mechanically ventilated, ETT #7.3, 23cm@lip. SIMV 14, TV 600, PEEP 8, FIO2 70%. POX 90%. lungs coarse, suctioned for thick secretions. POX dropped to 70s,
manually bagged briefly and Albuterol tx given by respiratory therapist. RADIO INTERFERENCE SUPERVISOR Molly at bedside. Vent settings adjusted per RADIO INTERFERENCE SUPERVISOR. CTx4, no air leak or crepitus, RADIO INTERFERENCE SUPERVISOR aware of CT output. pt abdomen soft, hypoactive BS. Alfred in place, clear yellow urine.
sternal aquacel intact. chest tube site c/d/i. R groin puncture intact. RIJ cordis/swan maintained. L brachial Renu flushed, zeroed, and calibrated. PIV x2. insulin gtt running as ordered. lab work drawn, EKG performed, CXR completed. see worklist
for VS, I&O, and assessment.
[2025-02-25] MEDS: PITRESSIN 100 IV (16:30)
[2025-02-25 16:50] LABS: B.E. - POC -3.7 mmol/L; Blood Urea Nitrogen - POC 37 mg/dl (3-120); Chloride - POC 105 mmol/L (96-111); Creatinine - POC 1.17 mg/dl (0.3-1.0); Glucose - POC 134 mg/dl (70-99); HCO3 - POC 22 mmol/L (21-28); Hematocrit - POC 31 % PCV (42-52); Hemodilution- POC Yes; Hemoglobin Calculated - POC 10.6; Lactate - POC 2.63 mmol/L (0.36-0.75); O2 Saturation %Calculated-POC 85.6 % (94-98); PCO2 - POC 39 mmHg (35-48); PO2 - POC 53 mmHg (83-108); Potassium - POC 4.6 mmol/L (3.5-5.1); Sodium - POC 141 mmol/L (136-145); Specimen Type - POC Arterial; pH - POC 7.35 (7.35-7.45)
--- NOTE | 2025-02-25 17:10 | W.PN.UPDATE ---
Update Note
Progress Note Update
Re-eval Note
Called by CTS team for possible diagnostic bronchoscopy at bedside, sats 85% on 100% on 10+. High risk procedure given tenuous respiratory status. Would wait to bronch if sats improve in next 12 hours, repeat CXR in AM.
Can trial Veletri for now to improve oxygenation.
On 3 pressors, too unstable to diurese
Will re-eval if clinical condition changes, reviewed with care team at bedside
[2025-02-25 17:13] LABS: Glucose - Point of Care 135 mg/dl (70-99)
[2025-02-25 17:25] LABS: Transferrin 173 mg/dL (200-360)
[2025-02-25] MEDS: VELETRI 50 MCG INH ×2 (17:26→22:30)
[2025-02-25] MEDS: VELETRI 50 ML INH ×2 (17:26→22:30)
[2025-02-25 17:31] LABS: B.E. -2.9 mmol/L; HCO3 22.7 mmol/L (21-28); Ionized Calcium 1.17 mMOL/L (1.15-1.33); O2 Saturation % 95.1 % (94-98); PCO2 42 mmHg (35-48); PO2 65 mmHg (83-108); Potassium 4.2 mMOL/L (3.5-5.1); pH 7.34 (7.35-7.45)
--- NOTE | 2025-02-25 17:44 | W.PN.CD ---
Today's Communication / Plan
-
trial of Veletri
continue maximal supportive measures
critically ill
Care at the bedside with Dr Allsion and Dr Sharma
[id number]
Impression / Plan
-
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
AVR (#27 Inspiris RESILIA)
MVR (#31 Mitris RESILIA)
TVRp w/ 34mm Conner Tricuspid Band
ELAA w/ 50mm AtriClip
Currently hd unstable requiring 3 vasopressors for support and MAP is ~62
ABX with ID following
Acute hypoxic Respiratory failure:
Immediately post op he is requiring 100% Fi02 with PEEP 12 and oxygen still low, plateau pressures high plan is for a trial of Veletri Dr Allison following.
May need diuresis but bp will not support currently
Intraop LORETA with normal RV size and function, severe biatrial enlargement, ALVEF 50-55%
Anemia
-No signs/symptoms of acute bleeding
-Worked up over the past�3 months with colonoscopy, EGD and no etiology found.
-Transfused blood as per Hematology/Oncology.
-in OR 1 unit prbc and plt.
Oreun-lo-sgqngdh HFpEF:
-will likely need diuresis once stablizes
-GDMT when indicated
PAD:
-sounds to be extensive
- Recommendations as per Vascular Surgery.
CAD with hx stenting:
-stable without CP
-On Xarelto as OP; currently on hold due to post op/thrombocytopenia.
A
Permanent AFIB:
-stable, rate-controlled
-continue BB and heparin drip
Data:
-LORETA 02/20/2025: L the EF 55-60%, biatrial enlargement, MV echodensity with severe MR, AV echodensity with mod/severe AR, TV echodensity with mod TR
-TTE 02/19/25: LVEF 50-55%, MV with 1.5 cm x 0.7 cm veg on anterior leaflet. Severe, eccentric mitral regurgitation. AV with highly mobile 2.5 cm x 0.6 cm veg on NCC. Severe eccentric aortic regurgitation. Possible TV veg with mod TR, PASP 72
-Echo report summary 01/15/25: 0.75 mm mass attached to aortic valve, EF 38%, increased LV size, RV moderately dilated and with moderately decreased systolic function, severely dilated atria, severe AR, two areas of vegetation on anterior mitral
valve leaflet, severe MR, severe TR (aortic vegetation bigger from previous and now two areas on MV noted).
Physical Exam
Vital Signs/Labs
Vital Signs
Temp Pulse Resp BP Pulse Ox
96 F L 97 28 103/60 88
02/25/25 17:00 02/25/25 17:15 02/25/25 17:15 02/25/25 17:00 02/25/25 17:15
02/24/25 02/25/25 02/26/25
06:59 06:59 06:59
Actual Weight 81 kg 80.7 kg
02/25/25 15:14
PT 20.7 Sec (11.4-14.6) H 02/25/25 15:14
INR 1.72 02/25/25 15:14
APTT 45.1 Sec (23.4-35.0) H 02/25/25 15:14
Magnesium 2.9 mg/dl (1.6-2.3) H 02/25/25 15:14
Triglycerides 79 mg/dl (10-149) 02/19/25 01:44
LDL Cholesterol, Calc 64 mg/dl 02/19/25 01:44
VLDL Cholesterol, Calc 15 mg/dl (0-30) 02/19/25 01:44
HDL Cholesterol 37 mg/dl 02/19/25 01:44
02/18/25 02/18/25
20:27 20:59
Zwb-Y-Slrxgjdqvkh Pept Cancelled [id number]
Physical Exam
Constitutional: Other (sedated)
Cardiovascular: Systolic murmur absent, Diastolic murmur absent and Rhythm/rate is irregular
Respiratory: Respiratory effort normal and Other (ventilator )
Neuro/Psych: AO x 3
Data Reviewed
-
Date of Service: February 25, 2025
Medical Decision Making: Review of Case with other Provider (Dr Allison and Zachary at the bedside)
EKG: Tracing Personally Visualized and interpreted (af with ns stwave changes)
[2025-02-25] MEDS: DIPRIVAN 100 IV (18:00)
--- NOTE | 2025-02-25 18:05 | PTCARENOTE ---
POX sustaining in 80s, Dr. Sharma at bedside. vent settings adjusted per MD. SBP 80s, LR bolus given. Vasopressin gtt started, double concentrated Levophed gtt running as ordered. Plt transfused as ordered. FFP x2 transfused as ordered. CXR
completed. ABG drawn. Flolan started by respiratory therapist. pt able to nod head and move b/l toes, Dr. Sharma at bedside and aware. Precedex off, propofol gtt started as ordered.
[2025-02-25] MEDS: CALCIUM GLUCONATE 100 IV (18:13)
[2025-02-25 18:28] LABS: Glucose - Point of Care 116 mg/dl (70-99)
[2025-02-25 18:49] LABS: B.E. 0 mmol/L; HCO3 24.8 mmol/L (21-28); Ionized Calcium 1.21 mMOL/L (1.15-1.33); O2 Saturation % 98.9 % (94-98); PCO2 40 mmHg (35-48); PO2 92 mmHg (83-108); Potassium 4.4 mMOL/L (3.5-5.1); Sodium 135 mMOL/L (136-145)
[2025-02-25 19:01] LABS: INR 1.37; PT 17.4 Sec (11.4-14.6)
--- NOTE | 2025-02-25 19:10 | PTCARENOTE ---
Addendum entered by Salty Gleason RN 02/25/25 20:40:
2 sets of V-wires. 1 plugged in set to /08/20.
Original Note:
Patient received from RN @1900. Patient lying in bed intubated and sedated. On Propofol 20, Vaso 0.02, Levo 12, Dobut 7, Insulin 0.4, and Flolan managed by respiratory. Neuro Intact. PERRLA. Chronic A. Fib BP 98/44 HR 90. Radial and pedal
pulses present but weak on palpation. No edema noted. ETT 7.5 and 26 @ the lip. Ventilator settings 550/16/10/100. POX 98%. Lungs course anterior bilaterally. Thick clear secretions upon oral suction. CT x4 - 2x mediastinal and R/L pleural
set to0 -20 wall suction draining red fluid WNL. No crepitus, tidaling or air leaks noted. CT clotting noted. Bowel sounds hypoactive w/ round soft belly. Alfred draining clear yellow urine WNL. Sternal dressing dry and intact. R groin dressing
dry and intact. RIJ cordis w/ swan @ 59 PAP 38/20 CVP 9. Left brachial A-line intact. All lines zeroed and leveled. Right AC PIV patent and intact. Right forearm PIV patent and intact. [address] [facility] Molly.
[2025-02-25 19:15] LABS: Glucose - Point of Care 85 mg/dl (70-99)
[2025-02-25 19:15] LABS: Blood Urea Nitrogen 32 mg/dl (9-20); Calcium 8.7 mg/dl (8.4-10.2); Carbon Dioxide 24 mmol/L (22-30); Chloride 105 mmol/L (98-107); Estimated Creatinine Clearance 69 ml/min; Glucose 89 mg/dl (70-99); Potassium 4.5 mmol/L (3.5-5.1); Sodium 138 mmol/L (135-145); Triglycerides 51 mg/dl (10-149); eGFR > 60.00
[2025-02-25 19:27] LABS: Hematocrit 26.1 % (39.0-52.0); Hemoglobin 8.7 g/dL (13.0-18.0); Mean Corp Hgb Conc. 33.3 g/dL (33.0-37.0); Mean Corpuscular Hgb 32.6 pg (27.0-31.0); Mean Corpuscular Volume 97.8 fL (80.0-94.0); Platelet Count 95 10^3/uL (130-400); Red Blood Cell Count 2.67 10^6/uL (4.70-6.10); Red Cell Dist. Width 18.9 % (11.5-14.5); White Blood Cell Count 7.5 10^3/uL (4.8-10.8)
[2025-02-25] MEDS: SUBLIMAZE 100 IV (19:27)
[2025-02-25] MEDS: CUBICIN 15.6 MG IV (19:31)
--- NOTE | 2025-02-25 20:15 | PTCARENOTE ---
Fentanyl Drip ordered and started. CI 2.67 CO 5.42
--- NOTE | 2025-02-25 20:22 | PTCARENOTE ---
Patient received from RN @1900. Patient lying in bed intubated and sedated. On Propofol 20, Vaso 0.02, Levo 12, Dobut 7, Insulin 0.4, and Flolan managed by respiratory. Neuro Intact. PERRLA. Chronic A. Fib BP 98/44 HR 90. Radial and pedal
pulses present but weak on palpation. No edema noted. ETT 7.5 and 26 @ the lip. Ventilator settings 550/16/10/100. POX 98%. Lungs course anterior bilaterally. Thick clear secretions upon oral suction. CT x4 - 2x mediastinal and R/L pleural
set to0 -20 wall suction draining red fluid WNL. No crepitus, tidaling or air leaks noted. CT clotting noted. Bowel sounds hypoactive w/ round soft belly. Alfred draining clear yellow urine WNL. Sternal dressing dry and intact. R groin dressing
dry and intact. RIJ cordis w/ swan @ 59 PAP 38/20 CVP 9. Left brachial A-line intact. All lines zeroed and leveled. Right AC PIV patent and intact. Right forearm PIV patent and intact. [address] PEDIATRIC OPHTHALMOLOGIST Molly.
[2025-02-25] MEDS: SENOKOT-S PO (20:42)
[2025-02-25] MEDS: ASPIRIN 300 MG RECTAL (20:45)
[2025-02-25 21:06] LABS: Glucose - Point of Care 93 mg/dl (70-99)
[2025-02-25] MEDS: ANCEF 5 IV (22:39)
[2025-02-25] MEDS: SUBLIMAZE 50 MCG IV (22:39)
[2025-02-25 23:01] LABS: Glucose - Point of Care 123 mg/dl (70-99)
--- NOTE | 2025-02-25 23:02 | PTCARENOTE ---
RASS score of 0. Fentanyl bolus given and fentanyl drip increased per protocol. See MAR and worklist for details.
[2025-02-26] VITALS (31 sets, daily range): BP systolic 84–124; BP diastolic 47–84; BMI 25.3
--- NOTE | 2025-02-26 | PTCARENOTE ---
Assessment unchanged. A-Fib BP 106/49 HR 93. CI 2.23 CO 4.53. POX 100% SIMV. Labs drawn.
[2025-02-26 00:20] LABS: B.E. 0.4 mmol/L; HCO3 24.6 mmol/L (21-28); Ionized Calcium 1.24 mMOL/L (1.15-1.33); PCO2 37 mmHg (35-48); PO2 214 mmHg (83-108); Potassium 4.8 mMOL/L (3.5-5.1); Sodium 132 mMOL/L (136-145); pH 7.43 (7.35-7.45)
[2025-02-26 00:37] LABS: Hematocrit 27.4 % (39.0-52.0); Hemoglobin 9.2 g/dL (13.0-18.0); Mean Corp Hgb Conc. 33.6 g/dL (33.0-37.0); Mean Corpuscular Hgb 32.7 pg (27.0-31.0); Mean Corpuscular Volume 97.5 fL (80.0-94.0); Mean Platelet Volume 10.6 fL (7.4-10.4); Platelet Count 112 10^3/uL (130-400); Red Blood Cell Count 2.81 10^6/uL (4.70-6.10); Red Cell Dist. Width 18.7 % (11.5-14.5); White Blood Cell Count 9.9 10^3/uL (4.8-10.8)
[2025-02-26] MEDS: DIPRIVAN 100 IV ×5 (00:38→22:55)
[2025-02-26 00:56] LABS: Blood Urea Nitrogen 34 mg/dl (9-20); Calcium 8.9 mg/dl (8.4-10.2); Carbon Dioxide 25 mmol/L (22-30); Chloride 108 mmol/L (98-107); Estimated Creatinine Clearance 69 ml/min; Glucose 87 mg/dl (70-99); Potassium 4.8 mmol/L (3.5-5.1); Sodium 139 mmol/L (135-145); eGFR > 60.00
[2025-02-26 01:20] LABS: Glucose - Point of Care 78 mg/dl (70-99)
--- NOTE | 2025-02-26 01:21 | PTCARENOTE ---
Labs resulted. CT LARS Baker notified. FIO2 changed to 90% by Respiratory Therapist. 500 LR given.
[2025-02-26] MEDS: LR 500 IV ×2 (01:23→03:50)
[2025-02-26 02:09] LABS: Glucose - Point of Care 90 mg/dl (70-99)
[2025-02-26] MEDS: LEVOPHED 258 MG IV ×2 (02:25→12:32)
[2025-02-26] MEDS: SUBLIMAZE 50 MCG IV ×3 (02:56→14:10)
[2025-02-26 03:18] LABS: Glucose - Point of Care 100 mg/dl (70-99)
--- NOTE | 2025-02-26 03:23 | PTCARENOTE ---
Patient turned and repositioned. Patient RASS score 3. Fentanyl bolus given. Fentanyl drip titrated per protocol. Urine output 25 for hour. SOMMER Baker notified.
[2025-02-26] MEDS: VELETRI 50 ML INH ×2 (03:36→09:53)
[2025-02-26] MEDS: VELETRI 50 MCG INH ×2 (03:36→09:53)
[2025-02-26 04:00] LABS: Glucose - Point of Care 110 mg/dl (70-99)
--- NOTE | 2025-02-26 04:08 | PTCARENOTE ---
assumed care of patient @ 0300. pt waking up in pain, very restless and agitated. prop and fent increased see mar . UO trending down, CTPA ordered additional 500 LR bolus. restraints ordered and applied .
[2025-02-26 05:02] LABS: Glucose - Point of Care 125 mg/dl (70-99)
[2025-02-26 05:21] LABS: B.E. -1.6 mmol/L; HCO3 22.8 mmol/L (21-28); Ionized Calcium 1.21 mMOL/L (1.15-1.33); O2 Saturation % 99.7 % (94-98); PCO2 36 mmHg (35-48); PO2 194 mmHg (83-108); Sodium 135 mMOL/L (136-145); pH 7.41 (7.35-7.45)
[2025-02-26 05:43] LABS: PT 16.7 Sec (11.4-14.6)
[2025-02-26] MEDS: DOBUTREX 500 MG 250 IV (05:52)
[2025-02-26 05:53] LABS: Hematocrit 24.7 % (39.0-52.0); Hemoglobin 8.3 g/dL (13.0-18.0); Mean Corp Hgb Conc. 33.6 g/dL (33.0-37.0); Mean Corpuscular Hgb 32.5 pg (27.0-31.0); Mean Corpuscular Volume 96.9 fL (80.0-94.0); Mean Platelet Volume 9.9 fL (7.4-10.4); Platelet Count 96 10^3/uL (130-400); Red Blood Cell Count 2.55 10^6/uL (4.70-6.10); Red Cell Dist. Width 18.6 % (11.5-14.5); White Blood Cell Count 11.2 10^3/uL (4.8-10.8)
[2025-02-26] MEDS: PITRESSIN 100 IV ×2 (05:53→21:00)
[2025-02-26] MEDS: ANCEF 5 IV ×2 (05:53→14:20)
[2025-02-26 05:55] LABS: ALT (SGPT) 19 U/L (0-50); AST (SGOT) 91 U/L (17-59); Albumin 2.4 g/dl (3.5-5.0); Alkaline Phosphatase 106 U/L (38-126); Blood Urea Nitrogen 33 mg/dl (9-20); Calcium 8.5 mg/dl (8.4-10.2); Carbon Dioxide 23 mmol/L (22-30); Chloride 108 mmol/L (98-107); Direct Bilirubin 0.8 mg/dl (0.0-0.4); Estimated Creatinine Clearance 69 ml/min; Glucose 116 mg/dl (70-99); Magnesium 2.5 mg/dl (1.6-2.3); Sodium 138 mmol/L (135-145); Total Bilirubin 1.4 mg/dl (0.2-1.3); Total Protein 4.6 g/dl (6.3-8.2); eGFR > 60.00
--- NOTE | 2025-02-26 06:19 | W.PN.CT ---
Today's Communication / Plan
-
Plan:
-hemodynamically stable: CI 2.58 on 7, levo 12, vaso 0.02
-consider wean today for goal CI >[address] Sharma
-UOP: 500ml 12hrs, 800ml 24hrs
-CT output: Med 165ml 12hrs, 295ml 24hrs, Pl 115ml 12hrs, 410ml 24hrs
-continue intubation, continue flolan - consider weaning once euvolemic
-standing duonebs
-hyperK 5 - trend
-consider gentle diuresis as tolerates
-PT/OT when appropriate
-appreciate all input
Assessment / Plan
-
s/p AVR (27mm Soliman inspiris Bio valve), MVR (31mm Soliman Mitris Bio valve), TVr (34mm romero band), ELAA 50mm atriclip on 02/25/[address] Sharma - POD #1
-AV endocarditis (E faecalis)/Mod-severe AI
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
-Moderate TR
-LVEF 55-60%
-Atrial Fib (Chronic, diagnosed 2011-on Xarelto)
-CAD (nonischemic cardiomyopathy/HFrEF )
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
-Anemia
-AAA S/P endovascular repair [address] Alfred; suspected break through infection despite suppressive amoxicillin
-Septic arthritis of the Knee 07/2024 due to Enterococcus - completed course of treatment
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
-Lyme disease
-S/P PCI/Stent (MARQUISE-OM1 2011)
-T2DM (A1C 5.1, currently on no tx)
-Hx noncompliance with imaging studies, though reportedly compliant with medications
- acute hypoxic respiratory failure requiring delayed extubation & flolan nebulization
Discussed patient care with: Care Team
Subjective
Procedure
s/p AVR (27mm Soliman inspiris Bio valve), MVR (31mm Soliman Mitris Bio valve), TVr (34mm romero band), ELAA 50mm atriclip on 02/25/[address] Sharma
-
Date of Service: February 26, 2025
Objective Data
-
Lab Results
02/25/25 18:43
02/25/25 18:43
PT 17.4 Sec (11.4-14.6) H 02/25/25 18:43
INR 1.37 02/25/25 18:43
APTT 45.1 Sec (23.4-35.0) H 02/25/25 15:14
Vital Signs
Vital Signs
Temp Pulse Resp BP Pulse Ox
98.6 F 100 16 104/76 100
02/25/25 22:08 02/25/25 22:05 02/25/25 22:08 02/25/25 22:00 02/25/25 22:08
CT Intake/Output/Weight
02/25/25 02/25/25 02/26/25
06:59 18:59 06:59
Intake Total 720 / 720 1292.4 / 1631.5 339.1 / 1631.5
Output Total 400 / 400 725 / 1075 350 / 1075
Balance 320 / 320 567.4 / 556.5 -10.9 / 556.5
SaO2: 100
Physical Exam
-
General: Other (intubated, sedated)
Cardiovascular: Irregular rate & rhythm (rate controlled A fib)
Respiratory: Clear and Equal
Sternum: Stable
Incision: Clean, Dry and Intact
Extremities: Edema +1
Data Reviewed
-
Lab Results: Results Reviewed
Medications: Active Meds Reviewed
Chest X-Ray: Image Reviewed
Vital Signs / Labs
-
Vital Signs and Labs:
Temp Pulse Resp BP Pulse Ox
97.8 F 94 16 119/59 100
02/26/25 05:18 02/26/25 04:05 02/26/25 05:18 02/26/25 04:00 02/26/25 05:18
02/23/25 02/23/25 02/25/25
07:06 11:45 07:30
WBC
RBC
Hgb
Hct
MCV
MCH
RDW
Plt Count
MPV
PT
APTT
pH
pO2
ABG O2 Sat (Measured)
POC ABG O2 Sat (Calc)
Sodium
Chloride
BUN
Glucose
Magnesium
Transferrin 173 L
Total Bilirubin
Direct Bilirubin
AST
Total Protein
Albumin
Urine Albumin (Reflex) 2+ A
POC pH
POC pO2
POC pCO2
POC Glucose
POC Potassium
POC Ionized Calcium
POC Lactate
POC Creatinine
POC ACT+
POC Hematocrit
Crossmatch IS Only See Detail
02/25/25 02/25/25 02/25/25
08:00 09:11 09:24
WBC
RBC
Hgb
Hct
MCV
MCH
RDW
Plt Count
MPV
PT
APTT
pH
pO2
ABG O2 Sat (Measured)
POC ABG O2 Sat (Calc) 99.8 H
Sodium
Chloride
BUN
Glucose
Magnesium
Transferrin
Total Bilirubin
Direct Bilirubin
AST
Total Protein
Albumin
Urine Albumin (Reflex)
POC pH
POC pO2 227 H
POC pCO2
POC Glucose
POC Potassium
POC Ionized Calcium
POC Lactate
POC Creatinine
POC ACT+ 444 H 492 H
POC Hematocrit 26 L
Crossmatch IS Only
02/25/25 02/25/25 02/25/25
10:03 10:09 10:38
WBC
RBC
Hgb
Hct
MCV
MCH
RDW
Plt Count
MPV
PT
APTT
pH
pO2
ABG O2 Sat (Measured)
POC ABG O2 Sat (Calc) 100.0 H 100.0 H
Sodium
Chloride
BUN
Glucose
Magnesium
Transferrin
Total Bilirubin
Direct Bilirubin
AST
Total Protein
Albumin
Urine Albumin (Reflex)
POC pH
POC pO2 546 H 454 H
POC pCO2
POC Glucose 152 H 182 H
POC Potassium 5.2 H
POC Ionized Calcium 1.08 L 1.12 L
POC Lactate < 0.30 L
POC Creatinine
POC ACT+ 597 H
POC Hematocrit 29 L 27 L
Crossmatch IS Only
02/25/25 02/25/25 02/25/25
10:39 10:52 11:16
WBC
RBC
Hgb
Hct
MCV
MCH
RDW
Plt Count
MPV
PT
APTT
pH
pO2
ABG O2 Sat (Measured)
POC ABG O2 Sat (Calc)
Sodium
Chloride
BUN
Glucose
Magnesium
Transferrin
Total Bilirubin
Direct Bilirubin
AST
Total Protein
Albumin
Urine Albumin (Reflex)
POC pH
POC pO2
POC pCO2
POC Glucose
POC Potassium
POC Ionized Calcium
POC Lactate
POC Creatinine
POC ACT+ 514 H 660 H 633 H
POC Hematocrit
Crossmatch IS Only
02/25/25 02/25/25 02/25/25
11:21 11:56 11:57
WBC
RBC
Hgb
Hct
MCV
MCH
RDW
Plt Count
MPV
PT
APTT
pH
pO2
ABG O2 Sat (Measured)
POC ABG O2 Sat (Calc) 99.9 H 100.0 H
Sodium
Chloride
BUN
Glucose
Magnesium
Transferrin
Total Bilirubin
Direct Bilirubin
AST
Total Protein
Albumin
Urine Albumin (Reflex)
POC pH 7.30 L
POC pO2 317 H 401 H
POC pCO2 50 H
POC Glucose 179 H 164 H
POC Potassium
POC Ionized Calcium 1.14 L 1.14 L
POC Lactate 1.82 H 2.78 H
POC Creatinine
POC ACT+ 538 H
POC Hematocrit 31 L 27 L
Crossmatch IS Only
02/25/25 02/25/25 02/25/25
12:15 12:39 12:43
WBC
RBC
Hgb
Hct
MCV
MCH
RDW
Plt Count
MPV
PT
APTT
pH
pO2
ABG O2 Sat (Measured)
POC ABG O2 Sat (Calc) 99.8 H
Sodium
Chloride
BUN
Glucose
Magnesium
Transferrin
Total Bilirubin
Direct Bilirubin
AST
Total Protein
Albumin
Urine Albumin (Reflex)
POC pH 7.27 L
POC pO2 259 H
POC pCO2 52 H
POC Glucose 152 H
POC Potassium
POC Ionized Calcium
POC Lactate 4.27 H
POC Creatinine
POC ACT+ 517 H 559 H
POC Hematocrit 27 L
Crossmatch IS Only
02/25/25 02/25/25 02/25/25
13:06 13:08 13:57
WBC
RBC
Hgb
Hct
MCV
MCH
RDW
Plt Count
MPV
PT
APTT
pH
pO2
ABG O2 Sat (Measured)
POC ABG O2 Sat (Calc) 99.9 H 89.3 L
Sodium
Chloride
BUN
Glucose
Magnesium
Transferrin
Total Bilirubin
Direct Bilirubin
AST
Total Protein
Albumin
Urine Albumin (Reflex)
POC pH 7.29 L
POC pO2 348 H 64 L
POC pCO2
POC Glucose 154 H 130 H
POC Potassium 5.4 H
POC Ionized Calcium 1.07 L
POC Lactate 3.87 H 3.94 H
POC Creatinine
POC ACT+ 511 H
POC Hematocrit 29 L 27 L
Crossmatch IS Only
02/25/25 02/25/25 02/25/25
15:14 16:02 16:35
WBC
RBC
Hgb 9.3 L
Hct 27.9 L
MCV
MCH
RDW
Plt Count 84 L D
MPV
PT 20.7 H
APTT 45.1 H
pH 7.31 L
pO2 69 L
ABG O2 Sat (Measured)
POC ABG O2 Sat (Calc) 85.6 L
Sodium 134 L
Chloride
BUN 32 H
Glucose 128 H
Magnesium 2.9 H
Transferrin
Total Bilirubin
Direct Bilirubin
AST
Total Protein
Albumin
Urine Albumin (Reflex)
POC pH
POC pO2 53 L
POC pCO2
POC Glucose 133 H 134 H 134 H
POC Potassium
POC Ionized Calcium
POC Lactate 2.63 H
POC Creatinine 1.17 H
POC ACT+
POC Hematocrit 31 L
Crossmatch IS Only
02/25/25 02/25/25 02/25/25
17:12 17:25 18:26
WBC
RBC
Hgb
Hct
MCV
MCH
RDW
Plt Count
MPV
PT
APTT
pH 7.34 L
pO2 65 L
ABG O2 Sat (Measured)
POC ABG O2 Sat (Calc)
Sodium
Chloride
BUN
Glucose
Magnesium
Transferrin
Total Bilirubin
Direct Bilirubin
AST
Total Protein
Albumin
Urine Albumin (Reflex)
POC pH
POC pO2
POC pCO2
POC Glucose 135 H 116 H
POC Potassium
POC Ionized Calcium
POC Lactate
POC Creatinine
POC ACT+
POC Hematocrit
Crossmatch IS Only
02/25/25 02/25/25 02/26/25
18:43 22:59 00:14
WBC
RBC 2.67 L 2.81 L
Hgb 8.7 L 9.2 L
Hct 26.1 L 27.4 L
MCV 97.8 H 97.5 H
MCH 32.6 H 32.7 H
RDW 18.9 H 18.7 H
Plt Count 95 L 112 L
MPV 10.6 H
PT 17.4 H
APTT
pH
pO2 214 H
ABG O2 Sat (Measured) 98.9 H 100.0 H
POC ABG O2 Sat (Calc)
Sodium 135 L 132 L
Chloride 108 H
BUN 32 H 34 H
Glucose
Magnesium
Transferrin
Total Bilirubin
Direct Bilirubin
AST
Total Protein
Albumin
Urine Albumin (Reflex)
POC pH
POC pO2
POC pCO2
POC Glucose 123 H
POC Potassium
POC Ionized Calcium
POC Lactate
POC Creatinine
POC ACT+
POC Hematocrit
Crossmatch IS Only
02/26/25 02/26/25 02/26/25
03:17 03:59 05:00
WBC
RBC
Hgb
Hct
MCV
MCH
RDW
Plt Count
MPV
PT
APTT
pH
pO2
ABG O2 Sat (Measured)
POC ABG O2 Sat (Calc)
Sodium
Chloride
BUN
Glucose
Magnesium
Transferrin
Total Bilirubin
Direct Bilirubin
AST
Total Protein
Albumin
Urine Albumin (Reflex)
POC pH
POC pO2
POC pCO2
POC Glucose 100 H 110 H 125 H
POC Potassium
POC Ionized Calcium
POC Lactate
POC Creatinine
POC ACT+
POC Hematocrit
Crossmatch IS Only
02/26/25
05:09
WBC 11.2 H
RBC 2.55 L
Hgb 8.3 L
Hct 24.7 L
MCV 96.9 H
MCH 32.5 H
RDW 18.6 H
Plt Count 96 L
MPV
PT 16.7 H
APTT
pH
pO2 194 H
ABG O2 Sat (Measured) 99.7 H
POC ABG O2 Sat (Calc)
Sodium 135 L
Chloride 108 H
BUN 33 H
Glucose 116 H
Magnesium 2.5 H
Transferrin
Total Bilirubin 1.4 H
Direct Bilirubin 0.8 H
AST 91 H
Total Protein 4.6 L
Albumin 2.4 L
Urine Albumin (Reflex)
POC pH
POC pO2
POC pCO2
POC Glucose
POC Potassium
POC Ionized Calcium
POC Lactate
POC Creatinine
POC ACT+
POC Hematocrit
Crossmatch IS Only
--- NOTE | 2025-02-26 06:19 | PTCARENOTE ---
CTPA notified of AM labs. Dobut dropped from 7 to 6 per CTPA, Fi02 weaned from 80 to 70.
--- NOTE | 2025-02-26 06:56 | W.PN.CD ---
Today's Communication / Plan
-
Continue to wean pressors/inotropes to keep MAP > 65 mmHg, CI > 1.8.
Slow wean of oxygen/epoprostenol. Not ready for extubation this morning.
CXR reviewed. Consider advancing the PA catheter.
Avoid further fluid for BP support if possible as the patient is already up nearly 4 kg.
My not be ready for diuresis.
ABX per ID.
Follow up Cx data from valves.
No role for rate control at this time as HR appears to be controlled. If rate control needed, consider amiodarone vs. digoxin (to avoid myocardial depressive effect).
Impression / Plan
-
Impression/Plan: 70 y/o male with a history of permanent atrial fibrillation, acute on chronic HFpEF, PAD, AAA s/p EVAR (12/04/2023), prior diskitis and septic arthritis and CAD s/p PCI admitted progression of initially medically managed infectious
endocarditis, likely also involving his EVAR graft.
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
-S/P three valve replacement/repair on 02/25/25.
-AVR (#27 INSPIRIS RESILIA Model 25722E, SN: [id number])
-MVR (MITRIS RESILIA, 31mm, Model 31824F; SN: [id number])
-TVrp (#34 Medtronic Tri-Ad 2.0 Conner Tricuspid Band, SN: [id number])
-Post op, the patient was hypoxic on maximum support, now improved on epoprostenol 0.05 mcg/kg/min.
-Maintain pressors/inotropes for a MAP > 65, CI > 1.8 L/min/m2.
-Dobutamine @ 5 mcg/kg/min.
-Norepinephrine @ 14 mcg/kg/min.
-Vasopressin @ 0.02 mcg/kg/min.
-Wean oxygen slowly to extubate.
-ABX management with ID (daptomycin).
-F/U cultures from valve.
#Hypoxic Respiratory failure
-Acute.
-Immediately post op he required 100% Fi02 with PEEP 12.
-Epoprostenol started with improvement of SaO2, FiO2 down to 80%.
-Needs diuresis but bp may not support currently. Caution with any reduction in preload. He is tolerating wean of epoprostenol so no need to apple.
-Intraop LORETA with normal RV size and function, severe biatrial enlargement, LVEF 50-55%.
#AAA
-Chronic.
-S/P EVAR.
-Possibly infected (rim enhancing portion).
-Vascular surgery involved. Possible IR drainage?
#Anemia
-No signs/symptoms of acute bleeding
-Worked up over the past�3 months with colonoscopy, EGD and no etiology found.
#HFpEF
-Acute on chronic.
-Will need diuresis as he stabilizes.
-GDMT when indicated.
#PAD
-Chronic.
-Reportedly extensive.
-Recommendations as per Vascular Surgery.
#CAD with hx or PCI
-Stable without CP.
-On rivaroxaban as OP; currently on hold due to post op/thrombocytopenia.
#Permanent AFIB:
-Chronic, stable.
-Rate controlled without medications at the moment.
-CHADS2-Vasc = 3 (CHF, Age x1, vascular disease).
-S/P LAAE (#50 AtriClip) with Dr. Sharma, 02/25/2025.
-Heparin gtt.
-Transition to DOAC when clinically appropriate.
Critical Care Time = 60 minutes.
Subjective/Interval History:
OR yesterday.
Hypoxic post op, improved on epoprostenol.
Mild hypotension, improved with a bolus of LR.
Weight increased by 3.8 kg.
CI now > 3. Dobutamine decreased to 6 mcg/kg/min.
PADP hovering around 20 mmHg.
SaO2 100% on FiO2 70%, PEEP 8, epoprostenol 0.05 mcg/kg/min.
Data:
-LORETA 02/20/2025: L the EF 55-60%, biatrial enlargement, MV echodensity with severe MR, AV echodensity with mod/severe AR, TV echodensity with mod TR
-TTE 02/19/25: LVEF 50-55%, MV with 1.5 cm x 0.7 cm veg on anterior leaflet. Severe, eccentric mitral regurgitation. AV with highly mobile 2.5 cm x 0.6 cm veg on NCC. Severe eccentric aortic regurgitation. Possible TV veg with mod TR, PASP 72
-Echo report summary 01/15/25: 0.75 mm mass attached to aortic valve, EF 38%, increased LV size, RV moderately dilated and with moderately decreased systolic function, severely dilated atria, severe AR, two areas of vegetation on anterior mitral
valve leaflet, severe MR, severe TR (aortic vegetation bigger from previous and now two areas on MV noted).
Physical Exam
Vital Signs/Labs
Vital Signs
Temp Pulse Resp BP Pulse Ox
36.6 C 84 16 114/67 100
02/26/25 06:09 02/26/25 06:10 02/26/25 06:10 02/26/25 06:00 02/26/25 06:10
02/24/25 02/25/25 02/26/25
11:59 11:59 11:59
Actual Weight 81 kg 80.7 kg 84.5 kg
PT 16.7 Sec (11.4-14.6) H 02/26/25 05:09
INR 1.30 02/26/25 05:09
APTT 45.1 Sec (23.4-35.0) H 02/25/25 15:14
Magnesium 2.5 mg/dl (1.6-2.3) H 02/26/25 05:09
Triglycerides 51 mg/dl (10-149) 02/25/25 18:43
LDL Cholesterol, Calc 64 mg/dl 02/19/25 01:44
VLDL Cholesterol, Calc 15 mg/dl (0-30) 02/19/25 01:44
HDL Cholesterol 37 mg/dl 02/19/25 01:44
02/18/25 02/18/25
20:27 20:59
Bol-N-Npiehxlinzh Pept Cancelled [id number]
Physical Exam
Constitutional: No acute distress and Comfortable
EENT: Anicteric and Moist mucous membranes
Cardiovascular: Rhythm/rate is irregular, Pedal edema present, S1S2 is normal and Murmur/rub/gallop absent
Respiratory: Respiratory effort normal, Wheeze Absent, Crackles Absent and Rhonchi Present (Mild.)
GI: Soft, Distention absent, Flat, Non tender and Normal bowel sounds
Neuro/Psych: Other (Intubated/sedated.)
Other: Cath Site
Data Reviewed
-
Date of Service: February 26, 2025
Medical Decision Making: Reviewed Test Results, Independent Historian Assessment, Test Interpretation and Review of Case with other Provider
EKG: Tracing Personally Visualized and interpreted and Report Reviewed by me
Echo: Report Reviewed by me
X-Ray/CT/US/MRI/NUC/PET: Image Personally Visualized and interpreted and Report Reviewed by me
Medical Tests (PFT, Pathology etc): Report Reviewed by me
Labs: Labs Reviewed by me
Old Records: Reviewed
[2025-02-26 07:05] LABS: Glucose - Point of Care 113 mg/dl (70-99)
--- NOTE | 2025-02-26 07:19 | W.PN.INTV ---
Addendum entered and electronically signed by Fabby Allison, 02/26/25 16:06:
Reviewed results of sputum culture sent
Thus far: Many WBC, No Squamous Epithelial Cells, Rare Gram Positive Cocci, Rare Gram Positive Rods
Likely to be normal ania, await final
Addendum entered and electronically signed by Fabby Allison, 02/26/25 13:50:
Bronchoscopy performed today. See other note.
Additional critical care time 30 mins.
Original Note:
Today's Communication / Plan
Recommendations
Better this AM, vent requirements weaned to 70%/10+
Veletri continued, can likely wean off today
CXR remains the same, trial diuresis today
Diag bronch can be done if needed today (can hold off with diuresis trial as well)
Weaning pressors
Further postop management per team
Assessment
-
Patient is a 70-year-old male with previous history of CAD status post stent, heart failure, mitral regurgitation, history of laryngeal cancer, AAA presenting to ER with 2 days of dyspnea on exertion. Admitted to [place] on 02/18/25, chest
x-ray demonstrating moderate pulmonary edema. He was recently admitted to 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
preceding left knee septic arthritis due to Enterococcus. Underwent repeat CT TA demonstrating endograft with interval enlargement of 1.9 cm rim-enhancing fluid suggesting endoleak, pulmonary edema; repeat TTE demonstrating 1.5 cm x 0.7 cm
vegetation with severe MR, AV mobile 2.5 x 0.6 lesion with severe AR, TV with mobile echodensity and moderate TR. CTS consulted for multivalve intervention. Underwent AVR/MVR/TVR 02/25/25 and postoperatively transferred to CVICU. He is currently
satting 92% on 100% FiO2 and PEEP of 10. CXR showing new L sided infiltrate.
Subacute multivalvular endocarditis, c/b severe multi-VHD -- recently adm to [facility] for IV abx
Maintained on suppressive Amox, failure of medical treatment
s/p Median sternotomy/AVR/MVR/TVR, ELAA 02/25/25
Perioperative MV
Acute hypoxemic respiratory failure, unknown if on O2 at baseline
Suspect new ARDS, possible related to transfusion/overload/sepsis
Hx of AAA s/p aortobiiliac endovascular repair with suspected infected endovascular stent graft (enlarging rim-enhancing fluid on CT)
Conditions present prior admission:
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
completed a 6 week course of ampicillin/ceftriaxone (through 01/05); maintained on suppressive amoxicillin
History of L knee septic arthritis of the knee due to enterococcus
Abdominal aortic aneurysm status post endovascular repair of infrarenal abdominal aortic aneurysm by Dr. Alfrde 12/04/2023
Severe calcific CAD w/o angina or ACS, Hx of BMS to OM1 in 2011
Hx of laryngeal cancer in 2016 s/p resection, chemoradiation - required tracheostomy & feeding tube x 7 months
History of atrial fibrillation on Xarelto
Prior history of obstructive sleep apnea, likely resolved with weight loss
Peripheral neuropathy due to chemotherapy
Anxiety
Hypertension
CHF
Gout
Hyperlipidemia
Type 2 diabetes
Anemia
Former smoker, quit reportedly in his 20s
Plan
S/p multi-valvular intervention POD #1
Titrate off pressors per protocol--dobutamine/levophed--weaning down
ECHO reviewed with low-normal function EF 50-55%, severe VHD
PA catheter readings reviewed
Management of chest tubes per primary service
Intubated/sedated, initiate SAT when able
Pain control
RASS goal of 0 to -1
Intubated for procedure, recommend SBT trials on hold today
Current vent settings: SIMV 600/14/100/10+ doing better today--now on 70%/10+
Veletri added, sats are improved--can consider weaning off today
Agree with diuresis
ABG(s) reviewed-paO2 69 (meets severe lung injury, PF ratio <100)
CXR with L sided patchy opacity throughout, ETT in good position
Repeat testing to re-evaluate, trial diuresis reviewed
If remains present, worsening-can consider diagnostic evaluation--repeat CXR seems persistent but sats are recovering
Would hold off extubation x 24 hours, until able to wean O2 requirements down
Maintain supplement oxygen as needed, repeat ABGs as indicated
No prior history of pulmonary disease, but was a former smoker, did not carry diagnosis of COPD, not known to be on home O2
Had trach in past, history of laryngeal cancer
No prior PFTs for review
CT reviewed showing possible underlying chronic ILD, traction bronchiectasis
Aspiration precautions
Keep NPO
DHT placement if prolonged on vent
GI prophylaxis if indicated for mechanical ventilation >48 hours
Monitor critical I/O's
Alfred/chest tube output
Hb/platelets postoperatively stable
Trend CBC for now
Can transfuse if indicated for Hb <7, plt <50 in surgical patients
DVT prophylaxis including SCDs
Insulin protocol initiated and ongoing
Transition to SQ/off as indicated per team
Critically ill, prognosis guarded---he is full code
Patient may have had poor functional status prior to case
He is full code, reviewed case with care team
We will follow
Diagnostic Data
Chest X-Ray: 02/18/25- Cardiomegaly with moderate pulmonary edema. Likely trace bilateral pleural effusions.
12/04/23- No active cardiopulmonary disease.
CT Scan: Angio 02/20/25- Small bilateral pleural effusions are present. Increased interstitial and ground-glass opacities throughout both lungs with Kyle B lines, findings suggesting a pulmonary edema pattern.
There are enlarged mediastinal lymph nodes, most likely reactive lymph nodes, often seen in association with congestive heart failure. Calcification of the thoracic aorta with no thoracic aortic aneurysm.
Dense coronary artery calcifications are present. Mild aortic valvular calcification. No significant abnormality in the visualized upper abdomen. In the thoracic spine, endplate irregularity suggestive of sequela of previous mild to moderate
Scheuermann's disease. The visualized vertebral bodies have maintained their height with no evidence for fracture.
AP 02/17/25- 1. AORTOBIILIAC ENDOGRAFT in place with interval enlargement of the chehalis aneurysm sac around the endograft and a 1.9 cm focal outpouching of rim-enhancing fluid along the left posterolateral side of the proximal graft attachment
suggesting an ENDOLEAK (possibly a TYPE Ia PROXIMAL ENDOLEAK).
2. 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
3. Severe stenosis (greater than 70% diameter) in the proximal right superficial femoral artery.
4. Mild chronic bilateral renal disease.
5. Cholelithiasis.
6. MODERATE ACUTE INTERSTITIAL and ALVEOLAR CARDIOGENIC PULMONARY EDEMA.
7. Moderate to severe cardiomegaly with right heart dysfunction.
8. Minimal bilateral pleural effusions.
9. Severe multilevel lumbar discogenic degenerative disease.
10. Large right scrotal hydrocele.
Echo: 02/19/25- Left ventricle is moderately dilated. Normal left ventricular systolic function. Left ventricular ejection fraction is 50-55%. Thickened mitral valve leaflets. 1.5 cm x 0.7 cm echodensity associated with anterior leaflet. Severe,
eccentric mitral regurgitation. Trileaflet aortic valve. Highly mobile 2.5 cm x 0.6 cm echodensity visualized, likely at [facility]. Severe eccentric aortic regurgitation. Enlarged right ventricular size. Normal right ventricular systolic function.
Tricuspid valve: In limited view 59, there is evidence of mobile echodensity. Moderate tricuspid regurgitation. Severely elevated PASP. Estimated pulmonary artery pressure of 72 mmHg. Assuming a right atrial pressure of 15 mmHg. Findings
consistent with endocarditis. No prior study available for comparison.
PFT's:
Reports and relevant images were personally reviewed.
Critical Care time 45 mins -- The patient is admitted for acute critical illness for the treatment of vital organ failure and/or prevention of further life-threatening conditions. Total care includes time spent in review of history, physical exam,
medications, hemodynamic/ventilator parameters, laboratory data, imaging and discussion with house staff, pharmacy, respiratory therapy, laborer beam house, and nursing. Extensive review of records.
Subjective Dataa
Subjective Data
Date of Service:
Date of Service: February 26, 2025
Chief Complaint: Chair Upholsterer Follow Up
Subjective:
Doing better today, remains intubated on pressors
Veletri running, sats are improved-vent now weaned to 70%/10+
Objective Data
Data Reviewed
Vital Signs / I&O / Oxygen:
Vital Signs
Temp Pulse Resp BP Pulse Ox
97.9 F 84 16 114/67 100
02/26/25 06:09 02/26/25 06:10 02/26/25 06:10 02/26/25 06:00 02/26/25 06:10
Intake and Output
02/25/25 02/26/25 02/27/25
06:59 06:59 06:59
Intake Total 720 / 720 3444.4 / 3444.4
Output Total 400 / 400 1590 / 1590
Balance 320 / 320 1854.4 / 1854.4
SaO2 [SIMV] 100
SaO2 100
Physical Exam
General: Respiratory Distress (agonal appearing at times) and Other (chronically ill appearing)
HEENT: Normocephalic, Anicteric and Other (dry MM, poor dentition)
Cardiovascular: S1-S2 and Regular Rhythm
Respiratory: Crackles, Non-Labored Respirations, ET Tube and Chest Tube
GI: Soft, Non Distended and Non Tender
Neurology: Lethargic and Non Verbal (sedated/intubated)
Skin: Warm and Dry
Labs/Micro/Reports
Laboratory Results
02/25/25 02/25/25 02/25/25
15:14 17:25 18:43
PT 20.7 H 17.4 H
INR 1.72 1.37
APTT 45.1 H
pH 7.31 L 7.34 L 7.40
pCO2 48 42 40
pO2 69 L 65 L 92
HCO3 24.2 22.7 24.8
O2 Delivery Level
02/26/25 02/26/25
00:14 05:09
PT 16.7 H
INR 1.30
APTT
pH 7.43 7.41
pCO2 37 36
pO2 214 H 194 H
HCO3 24.6 22.8
O2 Delivery Level
Microbiology
02/25/25 10:34 Valve Gram Stain - Preliminary
02/25/25 10:09 Valve Gram Stain - Preliminary
02/25/25 10:34 Valve Fungal Culture - Preliminary
Culture in progress.
Positive cultures are reported as soon as detected.
Final report to follow in four to five weeks.
02/25/25 10:09 Valve Fungal Culture - Preliminary
Culture in progress.
Positive cultures are reported as soon as detected.
Final report to follow in four to five weeks.
02/19/25 13:22 Blood/Venous Blood Culture - Final
No Growth - Final Report
02/19/25 12:40 Blood/Venous Blood Culture - Final
No Growth - Final Report
[2025-02-26] MEDS: DUONEB 3 ML INH ×4 (07:38→19:12)
--- NOTE | 2025-02-26 07:39 | PTCARENOTE ---
Received pt from warehouse supervisor 3rd shift RN; pt intubate and sedated; Puiple 2mm and reactive; A-fib on monitor and VSS; Epicardial V wires x2, V wire set to back up VVI 30//2 and no pacing noted; Second set of V wires insulated; Deven Andrade floated to
59, Left Brachial A-line and PIV x2 all lines leveled and zeroed; Dobutamine, Levo, Insulin, Vaso, Fentanyl and Propofol infusing see flow sheet for details; Lungs diminished and coarse throughout; Vent settings SIMV 16/550/510/60%; Floland infusing
through ventilator; ETT 7.5/ 26 @ lip; CT x4 to -20 wall suction, no air leak and no crepitus noted; hypoactive bowel sounds; Alfred catheter draining yellow urine; Doppler lower extremity pulses present; Positive radial pulses; no edema noted; all
surgical sites C/D/I; see nursing documentation for further details.
R Simba CT EVENTS AND PROMOTIONS ASSISTANT at bedside and Dobutamine decreased to 5 mcg/kg/min
Levo 14 mcg/min
Vaso 0.02 units/min
Fentanyl 75 mcg/hr
Propofol 30 mcg/kg/min
Dobutamine 5 mcg/kg/min
Insulin per Glycemic protocol see flow sheet for details.
[2025-02-26] MEDS: FOLVITE PO (07:57)
[2025-02-26] MEDS: FEOSOL PO (07:57)
[2025-02-26] MEDS: LIDOCAINE 4% PATCH TOPICAL (07:57)
[2025-02-26] MEDS: MIRALAX TUBE (07:58)
[2025-02-26] MEDS: MAGNESIUM OXIDE PO ×2 (07:58→20:45)
[2025-02-26] MEDS: ROBINUL PO ×2 (07:58→20:45)
[2025-02-26] MEDS: SENOKOT-S PO ×2 (07:58→20:45)
[2025-02-26] MEDS: ASPIRIN 300 MG RECTAL (08:04)
[2025-02-26] MEDS: FLEXBUMIN 100 IV (08:04)
[2025-02-26] MEDS: PROTONIX IV 40 MG IV (08:05)
[2025-02-26] MEDS: NSS (PRESERVATIVE FREE) 10 ML IV (08:05)
[2025-02-26] MEDS: LASIX 40 MG IV ×2 (08:05→14:24)
[2025-02-26] MEDS: BACTROBAN 2% OINTMENT 1 APPLIC NASAL ×2 (08:05→20:45)
[2025-02-26 09:04] LABS: Glucose - Point of Care 124 mg/dl (70-99)
--- NOTE | 2025-02-26 09:09 | W.PN.ONC2 ---
Today's Communication / Plan
-
.
Impression
Impression
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
s/p Median sternotomy/AVR/MVR/TVR, ELAA 02/25/25
ARDS
afib
anemia
leukopenia
h/o head and neck cancer - tx
Plan
Plan
1. Anemia/ leukopenia - the patient has had variable cytopenias in the context of chronic bacteremia/ endocarditis on antibiotics for the past several months. WBC as outpt in December was normal at 5600 and hemoglobin had improved to the 8-9g/dl
range. In the context of active infection/ antibiotics earlier in 2024 and in fall 2023, his hemoglobin did intermittently drift into the 7g/dl range, requiring occasional transfusional support. Progression of acute infection w/ now tx w/ daptomycin
is likely adversely impacting blood counts.
Would continue to monitor CBCs and transfuse PRN.
Will continue to follow with you.
Subjective/Objective
Subjective
critically ill
VDRF/sedated
on pressors
Vital Signs:
Vital Signs
Temp Pulse Resp BP Pulse Ox
97.6 F 95 16 117/64 97
02/26/25 08:00 02/26/25 09:00 02/26/25 09:00 02/26/25 09:00 02/26/25 08:55
Lab Results:
Laboratory Data
WBC 11.2 10^3/uL (4.8-10.8) H 02/26/25 05:09
Hgb 8.3 g/dL (13.0-18.0) L 02/26/25 05:09
Plt Count 96 10^3/uL (130-400) L 02/26/25 05:09
PT 16.7 Sec (11.4-14.6) H 02/26/25 05:09
INR 1.30 02/26/25 05:09
APTT 45.1 Sec (23.4-35.0) H 02/25/25 15:14
eGFR > 60.00 02/26/25 05:09
[2025-02-26 09:16] LABS: NT-proBNP 6760 pg/ml
--- NOTE | 2025-02-26 09:17 | W.PN.ID1 ---
Date of Service
Date of Service: February 26, 2025
Today's Communication
- will follow up valve cultures - no growth to date, gram stains not revealing
- will reconsult IR when patient stabilized
- Continue daptomycin - anticipate a transition to vancomcyin when patient stabilizing
Assessment / Plan
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
H/o Septic arthritis of the Knee 07/2024 due to Enterococcus - completed course of treatment
DM2; not on treatment
Leukopenia - present on arrival, possibly related to chronic infection
H/o noncompliance with imaging studies, though reportedly compliant with medications
- blood cultures x2 from different draws are in progress; no growth to date.
- will follow up valve cultures - no growth to date, gram stains not revealing
- will reconsult IR when patient stabilized
- Continue daptomycin - anticipate a transition to vancomcyin when patient stabilizing
- Follow weekly CK while on daptomycin - WNL this week, repeat on mondays
- hold atorvastatin while on daptomycin
- anticipate a repeat course of 6 weeks of IV antibiotics at home, followed by suppression
- patient is known to Dr aRman Fox [facility] and is established with vascular surgery Dr Alfred here
patient is critically ill, ventilated on pressors
����������������������������������������������������������
Chief Complaint
-: Other (endocarditis)
Subjective / Review of Systems
afebrile
remains on 3 pressors
sedated
reviewed course with at the bedside
Vital Signs / Physical Exam
Vital Signs
Vital Signs
Temp Pulse Resp BP Pulse Ox
97.6 F 95 16 117/64 99
02/26/25 08:00 02/26/25 09:00 02/26/25 09:00 02/26/25 09:00 02/26/25 09:10
Physical Exam
Constitutional: No Acute Distress and Chronically Ill
Cardiovascular: Regular Rate and S1/S2; Negative Murmur or Rub
Pulmonary: Clear and Symmetric; Negative Wheezes or Rales
Gastrointestinal: Soft, Non Tender, Non Distended and Normal Bowel Sounds
Skin: Warm and Dry; Negative Rash or Jaundice
Objective Data
Lab Data
PT 16.7 Sec (11.4-14.6) H 02/26/25 05:09
INR 1.30 02/26/25 05:09
APTT 45.1 Sec (23.4-35.0) H 02/25/25 15:14
Estimated Creat Clear 69 ml/min 02/26/25 05:09
Total Bilirubin 1.4 mg/dl (0.2-1.3) H 02/26/25 05:09
AST 91 U/L (17-59) H 02/26/25 05:09
ALT 19 U/L (0-50) 02/26/25 05:09
Alkaline Phosphatase 106 U/L (38-126) 02/26/25 05:09
Most recent labs reviewed.
Micro Results:
02/25/25 10:34 Tissue Culture - Pending
Valve Gram Stain - Preliminary
02/25/25 10:09 Tissue Culture - Pending
Valve Gram Stain - Preliminary
02/25/25 10:34 Fungal Culture - Preliminary
Valve Culture in progress.
Positive cultures are reported as soon as detected.
Final report to follow in four to five weeks.
02/25/25 10:09 Fungal Culture - Preliminary
Valve Culture in progress.
Positive cultures are reported as soon as detected.
Final report to follow in four to five weeks.
02/25/25 10:34 Anaerobic Culture - Pending
Valve
02/25/25 10:09 Anaerobic Culture - Pending
Valve
02/19/25 13:22 Blood Culture - Final
Blood/Venous No Growth - Final Report
02/19/25 12:40 Blood Culture - Final
Blood/Venous No Growth - Final Report
--- NOTE | 2025-02-26 09:49 | PTCARENOTE ---
Respiratory at bedside and Floland starting to wean per respiratory.
[2025-02-26] MEDS: SUBLIMAZE 100 IV (10:20)
[2025-02-26 10:59] LABS: Glucose - Point of Care 117 mg/dl (70-99)
--- NOTE | 2025-02-26 11:49 | PTCARENOTE ---
Assessment unchanged; A-fib on monitor and VSS; Shandra titrated by respiratory; SIMV 16/550/8/50%; Dobutamine, Levo, Insulin, Propofol, Fentanyl and Vaso infusing see flow sheet for details; family at bedside and updated on today's plan; per
[facility] pulmonary will bronch patient around 1300.
[2025-02-26 11:53] LABS: B.E. -0.3 mmol/L; HCO3 23.9 mmol/L (21-28); Hemoglobin 8.1 g/dL (13.0-18.0); Mean Corp Hgb Conc. 33.8 g/dL (33.0-37.0); Mean Corpuscular Hgb 32.9 pg (27.0-31.0); Mean Corpuscular Volume 97.6 fL (80.0-94.0); Mean Platelet Volume 9.9 fL (7.4-10.4); O2 Saturation % 99.7 % (94-98); PCO2 36 mmHg (35-48); PO2 171 mmHg (83-108); Platelet Count 94 10^3/uL (130-400); Red Blood Cell Count 2.46 10^6/uL (4.70-6.10); Red Cell Dist. Width 18.8 % (11.5-14.5); Sodium 134 mMOL/L (136-145); White Blood Cell Count 13.8 10^3/uL (4.8-10.8); pH 7.43 (7.35-7.45)
[2025-02-26 12:08] LABS: O2 Therapy vent
[2025-02-26 12:40] LABS: Blood Urea Nitrogen 35 mg/dl (9-20); Calcium 8.5 mg/dl (8.4-10.2); Carbon Dioxide 23 mmol/L (22-30); Chloride 106 mmol/L (98-107); Estimated Creatinine Clearance 63 ml/min; Glucose 97 mg/dl (70-99); Potassium 5.1 mmol/L (3.5-5.1); Sodium 138 mmol/L (135-145); eGFR > 60.00
--- NOTE | 2025-02-26 12:55 | PTCARENOTE ---
Shandra discontinued at 1230; respiratory and Dr Lunsford at bedside for bronch; A-fib on monitor and VSS.
[2025-02-26 13:13] LABS: Glucose - Point of Care 88 mg/dl (70-99)
--- NOTE | 2025-02-26 13:23 | W.PN.UPDATE ---
Update Note
Progress Note Update
Update
Procedure Note
Procedure: Diagnostic Bronchoscopy
Indication (s): Abnormal CXR, hypoxemia, postop
Postoperative Diagnosis: Mild erythema, mucus
Time In: 13:00PM
Time Out: 13:15PM
Anesthesia: gtts per team
Informed consent obtained and placed in chart. Risks for procedure discussed. consented via telephone.
Findings, Complications, and Other Information: Diagnostic scope placed into ETT, delmar visualized at end of tube. Mild erythema noted throughout on airway inspection. L main stem clear, upper and lower lobe bifurcation clear. R main stem with
blood tinged mucus, non-obstructing. This was irrigated and suctioned with normal saline. Specimen collected for micro. After suctioning, R sided visualization was largely clear as well.
Samples taken: Bronch washing of R main stem
Estimated Blood Loss: None
Patient disposition: Remains in CVICU
Will send for micro. Patient tolerated procedure well. Team updated on results.
--- NOTE | 2025-02-26 14:11 | PTCARENOTE ---
Spontaneous awaken trial completed; R Simba CT PRINTING AND STAMPING SUPERVISOR in room, pt moving all extremities and moving toes on command; Propofol restarted and a Fentanyl bolus given; A-fib on monitor and VSS.
[2025-02-26] MEDS: NSS IV (14:19)
[2025-02-26] MEDS: CUBICIN 15.6 MG IV (14:22)
[2025-02-26 14:56] LABS: Glucose - Point of Care 121 mg/dl (70-99)
--- NOTE | 2025-02-26 15:09 | CM ---
Reviewed chart. Will need to see his functional level when he is able to go for therapy. Awaiting final decision regarding ABX for LT ABX. He will need a PICC. Prior to admission he resides with his spouse in a two story home with three steps to
enter. Prior to admission he was independent with ambulation and adls. Medical work-up in progress. The discharge plan is to return home with IV ABX verses some level of inpatient rehab. when medically stable.
[2025-02-26 16:58] LABS: Glucose - Point of Care 108 mg/dl (70-99)
[2025-02-26] MEDS: NOVOLIN R INSULIN INFUSION 100 IV (17:25)
--- NOTE | 2025-02-26 17:28 | PTCARENOTE ---
Assessment unchanged; A-fib on monitor and VSS; Dobut, Insulin, Levo, Vaso, Propofol and Fentanyl infusing see flow sheet for details; pt turned and repositioned; updated via phone.
[2025-02-26 17:45] LABS: B.E. 1.6 mmol/L; HCO3 25.8 mmol/L (21-28); Ionized Calcium 1.18 mMOL/L (1.15-1.33); PCO2 38 mmHg (35-48); PO2 141 mmHg (83-108); Potassium 5.1 mMOL/L (3.5-5.1); Sodium 135 mMOL/L (136-145); pH 7.44 (7.35-7.45)
[2025-02-26 17:46] LABS: Hematocrit 22.9 % (39.0-52.0); Hemoglobin 7.7 g/dL (13.0-18.0); Mean Corp Hgb Conc. 33.6 g/dL (33.0-37.0); Mean Corpuscular Hgb 32.8 pg (27.0-31.0); Mean Corpuscular Volume 97.4 fL (80.0-94.0); Mean Platelet Volume 10.1 fL (7.4-10.4); Platelet Count 91 10^3/uL (130-400); Red Blood Cell Count 2.35 10^6/uL (4.70-6.10); Red Cell Dist. Width 18.8 % (11.5-14.5); White Blood Cell Count 12.8 10^3/uL (4.8-10.8)
[2025-02-26 17:49] LABS: O2 Therapy 40% FiO2
[2025-02-26 18:01] LABS: Blood Urea Nitrogen 35 mg/dl (9-20); Calcium 8.5 mg/dl (8.4-10.2); Carbon Dioxide 26 mmol/L (22-30); Chloride 106 mmol/L (98-107); Estimated Creatinine Clearance 58 ml/min; Glucose 89 mg/dl (70-99); Potassium 5.2 mmol/L (3.5-5.1); Sodium 138 mmol/L (135-145)
--- NOTE | 2025-02-26 18:49 | PTCARENOTE ---
1 unit of PRBC infusing per CT NEUROPSYCHIATRIST order; A-fib on monitor and VSS.
--- NOTE | 2025-02-26 18:51 | W.PN.ANS.POP ---
Anesthesia Post Operative
- Anesthesia Post Op Note
Vital Signs Stable-See Nursing Note: Yes
Airway Patent: Yes (intubated)
Adequate Pain Control: Yes
Change in Mental Status: No (sedated)
Current Postoperative Nausea & Vomiting: No
Anesthesia Complications: No
General Anesthetic Recall: No
Unplanned Admission: No
Post Op Hydration Adequate: Yes
[2025-02-26 19:02] LABS: Glucose - Point of Care 97 mg/dl (70-99)
--- NOTE | 2025-02-26 20:00 | PTCARENOTE ---
Patient received Intubated/Ventilator/Sedated. Patient became briefly agitated and began attempting to move around in bed. Difficult to calm. Did not follow verbal commands. Heart rate decreased to 40's and Blood pressure decreased SBP 80's. PA
for CT Surgery at bedside - Paced patient - V-Wire 80/10/2.0. Patient now 100% V-Paced. SBP >90. Patient calm. Back to sleep. Assessment as documented.
--- NOTE | 2025-02-26 20:30 | PTCARENOTE ---
Patient received Intubated/Ventilator. Patient arouses to tactile stimulation. Pupils size 3 with sluggish reaction. Does not tract. Moves extremities briefly. Does not follow verbal commands. Fentanyl gtt and Propofol gtt. #7.5 ETT 26cm
Center lip. Ventilator settings: (S)CMV Rate 16 TV 550 PEEP 5 FiO2 40%. SpO2 99%. No s/s of respiratory distress. Four chest tubes - Mediastinal x2 and Right and Left Pleural - Intact and patent - 5-10ml red drainage - No air leak -
Dressing intact. 100% V-Paced - Epicardial - 80/10/2.0. Heart rate 80. Patient continues on Dobutamine, Vasopressin and Levophed gtts. No s/s of chest pain, pressure or discomfort. Abdomen soft, round, nontender. Hypoactive bowel sounds. No
BM. No vomiting. Alfred catheter - Temperature sensing - Light giselle, yellow urine - Outputs as documented. Right [place]. Left brachial arterial line. A-Line, PAP, CVP - Pressure bag/Saline flush - Flush without difficulty - Zeroed and
calibrated - Waveforms within normal limits. C.O. 5.52 C.I. 2.72 SVR 753 PAP 51/23 (33) CVP 13. Sternal dressing intact. Right groin dressing intact. Assessment as documented.
[2025-02-26] MEDS: LASIX 20 MG IV (20:59)
[2025-02-26 21:20] LABS: Glucose - Point of Care 115 mg/dl (70-99)
[2025-02-26 22:25] LABS: B.E. -0.3 mmol/L; Ionized Calcium 1.17 mMOL/L (1.15-1.33); O2 Saturation % 99.1 % (94-98); PCO2 37 mmHg (35-48); PO2 124 mmHg (83-108); pH 7.42 (7.35-7.45)
[2025-02-26 22:29] LABS: Hematocrit 26.1 % (39.0-52.0); Hemoglobin 8.8 g/dL (13.0-18.0); Mean Corp Hgb Conc. 33.7 g/dL (33.0-37.0); Mean Corpuscular Hgb 32.5 pg (27.0-31.0); Mean Corpuscular Volume 96.3 fL (80.0-94.0); Mean Platelet Volume 10.5 fL (7.4-10.4); Platelet Count 90 10^3/uL (130-400); Red Blood Cell Count 2.71 10^6/uL (4.70-6.10); Red Cell Dist. Width 18.7 % (11.5-14.5); White Blood Cell Count 11.7 10^3/uL (4.8-10.8)
[2025-02-26 22:41] LABS: Blood Urea Nitrogen 38 mg/dl (9-20); Calcium 8.3 mg/dl (8.4-10.2); Carbon Dioxide 22 mmol/L (22-30); Chloride 106 mmol/L (98-107); Estimated Creatinine Clearance 54 ml/min; Glucose 105 mg/dl (70-99); Sodium 138 mmol/L (135-145); eGFR 54.07
[2025-02-26] MEDS: CALCIUM GLUCONATE 100 IV (22:50)
--- NOTE | 2025-02-26 23:00 | PTCARENOTE ---
One unit of PRBC's infused without difficulty - No transfusional reaction noted. IV Lasix 20 mg given. Labs ordered, collected and sent. C.O. 5.84 C.I. 2.87 SVR 767 PAP 44/19 (28). CVP 11. Ionized Calcium result 1.17 - Calcium Gluconate
2,000mg/100ml IV over 1hr. clinical transplant coordinator - Atrial Fibrillation - Heart rate 80's - V-Wire reset to 50/10/2.0. Assessment as documented.
[2025-02-26 23:11] LABS: Glucose - Point of Care 104 mg/dl (70-99)
[2025-02-27] VITALS (30 sets, daily range): BP systolic 76–128; BP diastolic 41–67; BMI 25.1
[2025-02-27 01:26] LABS: Glucose - Point of Care 83 mg/dl (70-99)
--- NOTE | 2025-02-27 01:45 | PTCARENOTE ---
Precedex gtt started. Titrate Fentanyl and Propofol. Levophed gtt titrated. Patient began opening eyes and attempting to move around in bed. Patient will open eyes to verbal commands. Encouraged to rest. Briefly agitated now calm. Back to
sleep. Assessment/Interventions as documented.
--- NOTE | 2025-02-27 02:23 | W.PN.CT ---
Today's Communication / Plan
-
-hemodynamically stable: CI 2.85 on 2, levo 3, vaso 0.02 (required VVI pacing at 80 due to transient bradycardia (50's) last evening)
-wean today
-UOP: 840ml 12hrs, 2350ml 24hrs, Cr stable at 1.4
-CT output: Med 100ml 12hrs, 195ml 24hrs, Pl 25ml 12hrs, 60ml 24hrs
-wean propofol, initiate precidex, CPAP trial for possible extubation
-standing duonebs
-continue diuretics as tolerated
-PT/OT when appropriate
Assessment / Plan
-
s/p AVR (27mm Soliman inspiris Bio valve), MVR (31mm Soliman Mitris Bio valve), TVr (34mm romero band), ELAA 50mm atriclip on 02/25/[address] Sharma - POD #2
-AV endocarditis (E faecalis)/Mod-severe AI
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
-Moderate TR
-LVEF 55-60%
-Atrial Fib (Chronic, diagnosed 2011-on Xarelto)
-CAD (nonischemic cardiomyopathy/HFrEF )
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
-Acute on chronic Anemia
-AAA S/P endovascular repair [address] Alfred; suspected break through infection despite suppressive amoxicillin
-Septic arthritis of the Knee 07/2024 due to Enterococcus - completed course of treatment
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
-Lyme disease
-S/P PCI/Stent (MARQUISE-OM1 2011)
-T2DM (A1C 5.1, currently on no tx)
-Hx noncompliance with imaging studies, though reportedly compliant with medications
- acute hypoxic respiratory failure requiring delayed extubation & flolan nebulization
Subjective
Procedure
s/p AVR (27mm Soliman inspiris Bio valve), MVR (31mm Soliman Mitris Bio valve), TVr (34mm romero band), ELAA 50mm atriclip on 02/25/[address] Sharma
-
Date of Service: February 27, 2025
Objective Data
-
Lab Results
02/27/25 04:06
02/27/25 04:06
PT 17.2 Sec (11.4-14.6) H 02/27/25 04:06
INR 1.35 02/27/25 04:06
APTT 45.1 Sec (23.4-35.0) H 02/25/25 15:14
Vital Signs
Vital Signs
Temp Pulse Resp BP Pulse Ox
98.1 F 74 16 107/67 99
02/27/25 01:00 02/27/25 02:12 02/27/25 02:12 02/27/25 02:00 02/27/25 02:12
CT Intake/Output/Weight
02/26/25 02/26/25 02/27/25
06:59 18:59 06:59
Intake Total 2152.0 / 3561.9 1220.3 / 2001.0 780.7 / 2001.0
Output Total 865 / 1670 1640 / 2075 435 / 2074
Balance 1287.0 / 1891.9 -419.7 / -74.0 345.7 / -74.0
SaO2: 99
Physical Exam
-
General: Other (intubated, sedated)
Cardiovascular: Irregular rate & rhythm
Respiratory: Other (coarse BS)
Sternum: Stable
Incision: Dressing Intact
Extremities: No Edema
--- NOTE | 2025-02-27 02:30 | PTCARENOTE ---
C.O. 5.78 C.I. 2.85 SVR 955 PAP 45/19 (28) CVP 10. Patient will open eyes to verbal and tactile stimulation. Will follow simple verbal commands. Assessment/Interventions as documented.
[2025-02-27 03:12] LABS: Glucose - Point of Care 104 mg/dl (70-99)
[2025-02-27] MEDS: DOBUTREX 500 MG 250 IV (03:34)
[2025-02-27] MEDS: LEVOPHED 258 MG IV (03:38)
[2025-02-27] MEDS: NSS 500 IV (03:45)
[2025-02-27 04:24] LABS: Hematocrit 23.3 % (39.0-52.0); Hemoglobin 8.1 g/dL (13.0-18.0); Mean Corp Hgb Conc. 34.8 g/dL (33.0-37.0); Mean Corpuscular Hgb 32.9 pg (27.0-31.0); Mean Corpuscular Volume 94.7 fL (80.0-94.0); Mean Platelet Volume 11.2 fL (7.4-10.4); Platelet Count 72 10^3/uL (130-400); Red Blood Cell Count 2.46 10^6/uL (4.70-6.10)
[2025-02-27 04:28] LABS: INR 1.35; PT 17.2 Sec (11.4-14.6)
--- NOTE | 2025-02-27 04:30 | PTCARENOTE ---
Patient given CHG bath and linens changed. Mouth care provided. Face washed. AM labs collected and sent. Fentanyl and Propofol titrate to off. Precedex gtt 0.8 mcq/kg/hr (16.1 ml/hr). C.O. 5.41 C.I. 2.66 SVR 975 PAP 40/18 (26) CVP 10.
Assessment/Interventions as documented.
[2025-02-27 04:48] LABS: ALT (SGPT) 15 U/L (0-50); AST (SGOT) 61 U/L (17-59); Albumin 2.6 g/dl (3.5-5.0); Alkaline Phosphatase 95 U/L (38-126); Blood Urea Nitrogen 41 mg/dl (9-20); Calcium 8.8 mg/dl (8.4-10.2); Carbon Dioxide 24 mmol/L (22-30); Chloride 107 mmol/L (98-107); Direct Bilirubin 0.7 mg/dl (0.0-0.4); Estimated Creatinine Clearance 54 ml/min; Glucose 78 mg/dl (70-99); Magnesium 2.4 mg/dl (1.6-2.3); Potassium 4.9 mmol/L (3.5-5.1); Sodium 138 mmol/L (135-145); Total Bilirubin 1.3 mg/dl (0.2-1.3); Total Protein 4.8 g/dl (6.3-8.2); eGFR 54.07
[2025-02-27 05:12] LABS: Glucose - Point of Care 72 mg/dl (70-99)
[2025-02-27] MEDS: PRECEDEX 100 IV ×3 (05:45→09:34)
[2025-02-27] MEDS: SUBLIMAZE 50 MCG IV (06:00)
[2025-02-27 06:49] LABS: Glucose - Point of Care 89 mg/dl (70-99)
--- NOTE | 2025-02-27 07:15 | PTCARENOTE ---
Received pt from biogeographer RN; Pt intubated and sedated; pt following commands and moving all extremities; A-fib on monitor and VSS; Epicardial V wire checked new settings VVI 50/7/2 and no pacing noted; Second Epicardial V wire insulated; RIJ
AnderDeven green floated to 59, Left Brachial A-line and PIV x2; all lines leveled and zeroed; Levo, Insulin, Precedex, Dobutamine and Vaso infusing see flow sheet for details; Lungs diminished; Vent settings SIMV 16/550/5/40%; ETT 8 26 @lip; CT x4 to
-20 wall suction no air leak and no crepitus noted; hypoactive bowel sounds; Alfred catheter draining clear yellow urine; palpable pulses throughout; trace lower extremity edema noted; all surgical sites C/D/I; see nursing documentation for further
details.
[2025-02-27] MEDS: DUONEB 3 ML INH (07:22)
--- NOTE | 2025-02-27 07:24 | PTCARENOTE ---
Respiratory at bedside and pt placed on CPAP trial; Precedex titrated per protocol.
[2025-02-27] MEDS: MAGNESIUM OXIDE PO ×2 (07:40→20:18)
[2025-02-27] MEDS: ROBINUL PO ×2 (07:40→20:19)
[2025-02-27] MEDS: FOLVITE PO (07:40)
[2025-02-27] MEDS: MIRALAX TUBE (07:40)
[2025-02-27] MEDS: LIDOCAINE 4% PATCH TOPICAL (07:40)
[2025-02-27] MEDS: SENOKOT-S PO ×2 (07:40→20:19)
[2025-02-27] MEDS: FEOSOL PO (07:40)
[2025-02-27] MEDS: OFIRMEV 100 IV ×3 (07:47→20:25)
--- NOTE | 2025-02-27 07:48 | W.PN.CD ---
Today's Communication / Plan
-
Wean pressors/inotropes.
Maintain pacemaker.
Hold further diuresis.
Impression / Plan
-
Impression/Plan: 70 y/o male with a history of permanent atrial fibrillation, acute on chronic HFpEF, PAD, AAA s/p EVAR (12/04/2023), prior diskitis and septic arthritis and CAD s/p PCI admitted progression of initially medically managed infectious
endocarditis, likely also involving his EVAR graft.
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
-S/P three valve replacement/repair on 02/25/25.
-AVR (#27 INSPIRIS RESILIA Model 61056J, SN: [id number])
-MVR (MITRIS RESILIA, 31mm, Model 95253M; SN: [id number])
-TVrp (#34 Medtronic Tri-Ad 2.0 Conner Tricuspid Band, SN: [id number])
-Post op, the patient was hypoxic on maximum support, improved on epoprostenol 0.05 mcg/kg/min, now off of epo and extubated.
-Maintain pressors/inotropes for a MAP > 65.
-Dobutamine off.
-Norepinephrine @ 2 mcg/kg/min.
-Vasopressin off.
-ABX management with ID (daptomycin, plan to transition to vancomycin).
-F/U cultures from valve.
#Hypoxic Respiratory failure/HFpEF
-Acute.
-Immediately post op he required 100% Fi02 with PEEP 12.
-Intraop LORETA with normal RV size and function, severe biatrial enlargement, LVEF 50-55%.
-Hemodynamics and oxygenation improved with diuresis, epoprostenol.
-Hold further diuresis.
-GDMT when hemodynamics will tolerate.
#AAA
-Chronic.
-S/P EVAR.
-Possibly infected (rim enhancing portion).
-Vascular surgery involved. Possible IR drainage?
#Anemia
-No signs/symptoms of acute bleeding
-Worked up over the past�3 months with colonoscopy, EGD and no etiology found.
#PAD
-Chronic.
-Reportedly extensive.
-Recommendations as per Vascular Surgery.
#CAD with hx or PCI
-Stable without CP.
-On rivaroxaban as OP; currently on hold due to post op/thrombocytopenia.
#Permanent AFIB:
-Chronic, stable.
-Rate controlled without medications at the moment.
-CHADS2-Vasc = 3 (CHF, Age x1, vascular disease).
-S/P LAAE (#50 AtriClip) with Dr. Sharma, 02/25/2025.
-Heparin gtt.
-Transition to DOAC when clinically appropriate.
Critical Care Time = 44 minutes.
Subjective/Interval History:
Bronchoscopy yesterday without obvious mucous plugging.
Responding to furosemide.
Weight down 0.5 kg.
Intermittent hypotension, but generally stable.
FiO2 down to 40%.
Delined.
The patient has lapsed back into AF. Occasional bradycardia with drop in BP with reduction in dobutamine. Now back on norepinephine.
Data:
-LORETA 02/20/2025: L the EF 55-60%, biatrial enlargement, MV echodensity with severe MR, AV echodensity with mod/severe AR, TV echodensity with mod TR
-TTE 02/19/25: LVEF 50-55%, MV with 1.5 cm x 0.7 cm veg on anterior leaflet. Severe, eccentric mitral regurgitation. AV with highly mobile 2.5 cm x 0.6 cm veg on NCC. Severe eccentric aortic regurgitation. Possible TV veg with mod TR, PASP 72
-Echo report summary 01/15/25: 0.75 mm mass attached to aortic valve, EF 38%, increased LV size, RV moderately dilated and with moderately decreased systolic function, severely dilated atria, severe AR, two areas of vegetation on anterior mitral
valve leaflet, severe MR, severe TR (aortic vegetation bigger from previous and now two areas on MV noted).
Physical Exam
Vital Signs/Labs
Vital Signs
Temp Pulse Resp BP Pulse Ox
36.8 C 72 19 119/67 96
02/27/25 07:07 02/27/25 07:27 02/27/25 07:27 02/27/25 07:00 02/27/25 07:27
02/25/25 02/26/25 02/27/25
11:59 11:59 11:59
Actual Weight 80.7 kg 84.5 kg 84 kg
02/27/25 04:06
02/27/25 04:06
PT 17.2 Sec (11.4-14.6) H 02/27/25 04:06
INR 1.35 02/27/25 04:06
APTT 45.1 Sec (23.4-35.0) H 02/25/25 15:14
Magnesium 2.4 mg/dl (1.6-2.3) H 02/27/25 04:06
Triglycerides 51 mg/dl (10-149) 02/25/25 18:43
LDL Cholesterol, Calc 64 mg/dl 02/19/25 01:44
VLDL Cholesterol, Calc 15 mg/dl (0-30) 02/19/25 01:44
HDL Cholesterol 37 mg/dl 02/19/25 01:44
02/18/25 02/18/25 02/26/25
20:27 20:59 00:14
Khu-G-Vnfeqsteexy Pept Cancelled [id number]
Physical Exam
Constitutional: No acute distress and Comfortable
EENT: Anicteric and Moist mucous membranes
Cardiovascular: Rhythm & rate is regular, Pedal edema present, S1S2 is normal and Murmur/rub/gallop absent
Respiratory: Respiratory effort normal, Lungs clear to auscul., Wheeze Absent, Crackles Absent and Rhonchi Absent
GI: Soft, Distention absent, Flat, Non tender and Normal bowel sounds
Neuro/Psych: AO x 3 and Other
Data Reviewed
-
Date of Service: February 27, 2025
Medical Decision Making: Reviewed Test Results, Independent Historian Assessment, Test Interpretation and Review of Case with other Provider
EKG: Tracing Personally Visualized and interpreted and Report Reviewed by me
Echo: Tracing Personally Visualized and interpreted and Report Reviewed by me
X-Ray/CT/US/MRI/NUC/PET: Image Personally Visualized and interpreted and Report Reviewed by me
Medical Tests (PFT, Pathology etc): Report Reviewed by me
Labs: Labs Reviewed by me
Old Records: Reviewed
[2025-02-27] MEDS: LASIX 40 MG IV (07:51)
[2025-02-27 08:29] LABS: B.E. -0.2 mmol/L; HCO3 23.6 mmol/L (21-28); Ionized Calcium 1.21 mMOL/L (1.15-1.33); O2 Saturation % 99.6 % (94-98); PCO2 34 mmHg (35-48); PO2 115 mmHg (83-108); Sodium 136 mMOL/L (136-145); pH 7.45 (7.35-7.45)
--- NOTE | 2025-02-27 08:44 | PTCARENOTE ---
ABGs reviewed with CT PROPERTY ADJUSTER; CT PROPERTY ADJUSTER, RN and respiratory at bedside, Pt extubated at 0840; 6L NC 100%; A-fib on monitor and VSS.; pt resting comfortably, pt turned and repositioned.
[2025-02-27] MEDS: NSS (PRESERVATIVE FREE) 10 ML IV (08:57)
[2025-02-27] MEDS: PROTONIX IV 40 MG IV (08:57)
[2025-02-27] MEDS: BACTROBAN 2% OINTMENT 1 APPLIC NASAL ×2 (08:58→20:21)
[2025-02-27] MEDS: ASPIRIN 300 MG RECTAL (08:58)
[2025-02-27 09:12] LABS: Glucose - Point of Care 107 mg/dl (70-99)
[2025-02-27 11:00] LABS: Glucose - Point of Care 107 mg/dl (70-99)
--- NOTE | 2025-02-27 11:00 | CM ---
Reviewed chart. Met with Mr. Taylor and his sister and nephew regarding discharge plans. Prior to admission he resides with his spouse in a two story home with three steps to enter. Prior to admission he was independent with ambulation and adls.
Will need to see his functional level to see if he will have any skilled care needs. Will also need to brewster his ABX once it is determined what drug and dose. Medical work-up in progress. The discharge plan is to go to some level of inpatient
rehab. Acute verses SNF when medically stable.
--- NOTE | 2025-02-27 11:03 | PTCARENOTE ---
Assessment unchanged; A-fib on monitor and VSS; pt resting comfortably in bed with family at bedside; updates given.
--- NOTE | 2025-02-27 11:07 | W.PN.ID1 ---
Date of Service
Date of Service: February 27, 2025
Today's Communication
- will follow up valve cultures - no growth to date, gram stains not revealing
- pathology with scant area of necrosis/exudate, giant cells are noted - discussed with pathology and will test for Q fever (phase I and phase II serology) however my overall impression remains a partially treated infection due to enterococcus given
his prolonged course
- will reconsult IR when patient stabilized
- transition to vancomycin
Assessment / Plan
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
H/o Septic arthritis of the Knee 07/2024 due to Enterococcus - completed course of treatment
DM2; not on treatment
Leukopenia - present on arrival, possibly related to chronic infection
H/o noncompliance with imaging studies, though reportedly compliant with medications
- blood cultures x2 from different draws are in progress; no growth to date.
- will follow up valve cultures - no growth to date, gram stains not revealing
- pathology with scant area of necrosis/exudate, giant cells are noted - discussed with pathology and will test for Q fever (phase I and phase II serology) however my overall impression remains a partially treated infection due to enterococcus given
his prolonged course
- will reconsult IR when patient stabilized
- transition to vancomycin
- restart atorvastatin
- anticipate a repeat course of 6 weeks of IV antibiotics at home, followed by suppression
- patient is known to Dr Raman Fox [facility] ID and is established with vascular surgery Dr Alfred here
patient is critically ill, on pressors
Required multidisciplinary discussion with pathology, additional serologies based on pathology results, and antibiotic adjustments today
����������������������������������������������������������
Chief Complaint
-: Other (endocarditis)
Subjective / Review of Systems
afebrile
bp stable
extubated
remains on multiple pressors
Vital Signs / Physical Exam
Vital Signs
Vital Signs
Temp Pulse Resp BP Pulse Ox
97.3 F 68 18 104/48 98
02/27/25 10:59 02/27/25 10:55 02/27/25 10:59 02/27/25 10:07 02/27/25 10:59
Physical Exam
Constitutional: No Acute Distress and Chronically Ill
Cardiovascular: Regular Rate and S1/S2; Negative Murmur or Rub
Pulmonary: Clear and Symmetric; Negative Wheezes or Rales
Gastrointestinal: Soft, Non Tender, Non Distended and Normal Bowel Sounds
Skin: Warm and Dry; Negative Rash or Jaundice
Objective Data
Lab Data
Lab Results
02/27/25 04:06
02/27/25 04:06
PT 17.2 Sec (11.4-14.6) H 02/27/25 04:06
INR 1.35 02/27/25 04:06
APTT 45.1 Sec (23.4-35.0) H 02/25/25 15:14
Estimated Creat Clear 54 ml/min 02/27/25 04:06
Total Bilirubin 1.3 mg/dl (0.2-1.3) 02/27/25 04:06
AST 61 U/L (17-59) H 02/27/25 04:06
ALT 15 U/L (0-50) 02/27/25 04:06
Alkaline Phosphatase 95 U/L (38-126) 02/27/25 04:06
Most recent labs reviewed.
Micro Results:
02/26/25 13:07 Respiratory Culture - Preliminary
Bronch Washing Usual Respiratory Brunilda
Gram Stain - Preliminary
02/25/25 10:09 Anaerobic Culture - Preliminary
Valve Culture pending. Anaerobic cultures are examined after 3
days incubation. Additional information to follow.
02/25/25 10:09 Tissue Culture - Preliminary
Valve No Growth After 48 Hours
Gram Stain - Preliminary
02/25/25 10:34 Anaerobic Culture - Preliminary
Valve Culture pending. Anaerobic cultures are examined after 3
days incubation. Additional information to follow.
02/25/25 10:34 Tissue Culture - Preliminary
Valve No Growth After 48 Hours
Gram Stain - Preliminary
02/25/25 10:34 Fungal Culture - Preliminary
Valve Culture in progress.
Positive cultures are reported as soon as detected.
Final report to follow in four to five weeks.
02/25/25 10:09 Fungal Culture - Preliminary
Valve Culture in progress.
Positive cultures are reported as soon as detected.
Final report to follow in four to five weeks.
02/19/25 13:22 Blood Culture - Final
Blood/Venous No Growth - Final Report
02/19/25 12:40 Blood Culture - Final
Blood/Venous No Growth - Final Report
[2025-02-27] MEDS: VANCOCIN 540 MG IV (11:31)
--- NOTE | 2025-02-27 12:20 | PHA.VAN.IN ---
Assessment
- Assessment
Renal Function: Appears elevated from baseline (1.4 (baseline ~1.1))
Concomitant Antimicrobials: Cefazolin, Daptomycin
Plan
- Plan
Initial / Loading Dose: Vanco 2000mg loading administered 02/27/25 1131
Maintenance Regimen: Dose by level
Monitoring: R lvl 02/28/25 0600
Pharmacokinetics Vancomycin I
- -
Patient Age: 70
Patient Sex: Male
Vancomycin Day #: 1
Indication: Endocarditis
Requesting Provider: Jazzy
Pertinent Antimicrobial Allergies:
No Known Drug Allergies
Height / Weight:
Height 6 ft
Actual Weight 84 kg
Pertinent Past Medical History: T2DM, Valve replacement
- Vital Signs / Lab Results
Temp Pulse Resp BP Pulse Ox
97 F 69 21 103/58 98
02/27/25 11:57 02/27/25 11:55 02/27/25 11:57 02/27/25 11:00 02/27/25 11:57
Lab Results - Hematology
02/24/25 02/25/25 02/25/25
12:26 03:08 18:43
WBC 3.2 L 3.2 L 7.5
02/26/25 02/26/25 02/26/25
00:14 05:09 06:01
WBC 9.9 11.2 H Cancelled
02/26/25 02/26/25 02/26/25
11:44 17:36 22:17
WBC 13.8 H 12.8 H 11.7 H
02/27/25
04:06
WBC 9.0
Lab Results - Chemistry
02/24/25 02/25/25 02/25/25
12:26 03:08 15:14
BUN 39 H 36 H 32 H
Creatinine 1.5 H 1.2 1.1
Estimated Creat Clear 50 63 69
Albumin
02/25/25 02/26/25 02/26/25
18:43 00:14 05:09
BUN 32 H 34 H 33 H
Creatinine 1.1 1.1 1.1
Estimated Creat Clear 69 69 69
Albumin 2.4 L
02/26/25 02/26/25 02/26/25
11:44 17:36 22:17
BUN 35 H 35 H 38 H
Creatinine 1.2 1.3 1.4 H
Estimated Creat Clear 63 58 54
Albumin
02/27/25
04:06
BUN 41 H
Creatinine 1.4 H
Estimated Creat Clear 54
Albumin 2.6 L
Lab Results - Urine
02/25/25
07:30
Urine Nitrite (Reflex) Negative
Leukocyte Esterase Rfl Negative
Urine WBC (Reflex) 0-2
Ur Squamous Epith Cells 6-10
Microbiology Results
02/26/25 13:07 Respiratory Culture - Preliminary
Bronch Washing Usual Respiratory Brunilda
Gram Stain - Preliminary
02/25/25 10:09 Anaerobic Culture - Preliminary
Valve Culture pending. Anaerobic cultures are examined after 3
days incubation. Additional information to follow.
02/25/25 10:09 Tissue Culture - Preliminary
Valve No Growth After 48 Hours
Gram Stain - Preliminary
02/25/25 10:34 Anaerobic Culture - Preliminary
Valve Culture pending. Anaerobic cultures are examined after 3
days incubation. Additional information to follow.
02/25/25 10:34 Tissue Culture - Preliminary
Valve No Growth After 48 Hours
Gram Stain - Preliminary
02/25/25 10:34 Fungal Culture - Preliminary
Valve Culture in progress.
Positive cultures are reported as soon as detected.
Final report to follow in four to five weeks.
02/25/25 10:09 Fungal Culture - Preliminary
Valve Culture in progress.
Positive cultures are reported as soon as detected.
Final report to follow in four to five weeks.
--- NOTE | 2025-02-27 12:51 | W.PN.INTV ---
Today's Communication / Plan
Recommendations
Doing relatively well, extubated and tolerated it
Denies history of lung disease, but we will arrange OP FU
Further postop management per team
Assessment
-
Patient is a 70-year-old male with previous history of CAD status post stent, heart failure, mitral regurgitation, history of laryngeal cancer, AAA presenting to ER with 2 days of dyspnea on exertion. Admitted to [place] on 02/18/25, chest
x-ray demonstrating moderate pulmonary edema. 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
preceding left knee septic arthritis due to Enterococcus. Underwent repeat CT TA demonstrating endograft with interval enlargement of 1.9 cm rim-enhancing fluid suggesting endoleak, pulmonary edema; repeat TTE demonstrating 1.5 cm x 0.7 cm
vegetation with severe MR, AV mobile 2.5 x 0.6 lesion with severe AR, TV with mobile echodensity and moderate TR. CTS consulted for multivalve intervention. Underwent AVR/MVR/TVR 02/25/25 and postoperatively transferred to CVICU. He is currently
satting 92% on 100% FiO2 and PEEP of 10. CXR showing new L sided infiltrate.
Subacute multivalvular endocarditis, c/b severe multi-VHD -- recently adm to [facility] for IV abx
Maintained on suppressive Amox, failure of medical treatment
s/p Median sternotomy/AVR/MVR/TVR, ELAA 02/25/25
Perioperative MV
Acute hypoxemic respiratory failure, unknown if on O2 at baseline
Suspect new ARDS, possible related to transfusion/overload/sepsis
Hx of AAA s/p aortobiiliac endovascular repair with suspected infected endovascular stent graft (enlarging rim-enhancing fluid on CT)
Conditions present prior admission:
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
completed a 6 week course of ampicillin/ceftriaxone (through 01/05); maintained on suppressive amoxicillin
History of L knee septic arthritis of the knee due to enterococcus
Abdominal aortic aneurysm status post endovascular repair of infrarenal abdominal aortic aneurysm by Dr. Alfred 12/04/2023
Severe calcific CAD w/o angina or ACS, Hx of BMS to OM1 in 2011
Hx of laryngeal cancer in 2016 s/p resection, chemoradiation - required tracheostomy & feeding tube x 7 months
History of atrial fibrillation on Xarelto
Prior history of obstructive sleep apnea, likely resolved with weight loss
Peripheral neuropathy due to chemotherapy
Anxiety
Hypertension
CHF
Gout
Hyperlipidemia
Type 2 diabetes
Anemia
Former smoker, quit reportedly in his 20s
Plan
S/p multi-valvular intervention POD #2
Titrate off pressors per protocol--dobutamine/levophed--weaning down
ECHO reviewed with low-normal function EF 50-55%, severe VHD
PA catheter readings reviewed
Management of chest tubes per primary service
Pain control
RASS goal of 0 to -1
Intubated for procedure, extubated on day 3
ABG(s) reviewed-paO2 69 (meets severe lung injury, PF ratio <100)
CXR with L sided patchy opacity throughout, ETT in good position
s/p bronch 4/10-normal ania
Maintain supplement oxygen as needed, repeat ABGs as indicated
Denies history of lung disease
No prior history of pulmonary disease, but was a former smoker, did not carry diagnosis of COPD, not known to be on home O2
Had trach in past, history of laryngeal cancer
No prior PFTs for review
We discussed OP FU at discharge
CT reviewed showing possible underlying chronic ILD, traction bronchiectasis
Aspiration precautions
Keep NPO
DHT placement if prolonged on vent
GI prophylaxis if indicated for mechanical ventilation >48 hours
Monitor critical I/O's
Alfred/chest tube output
Hb/platelets postoperatively stable
Trend CBC for now
Can transfuse if indicated for Hb <7, plt <50 in surgical patients
DVT prophylaxis including SCDs
Insulin protocol initiated and ongoing
Transition to SQ/off as indicated per team
Diagnostic Data
Chest X-Ray: 02/18/25- Cardiomegaly with moderate pulmonary edema. Likely trace bilateral pleural effusions.
12/04/23- No active cardiopulmonary disease.
CT Scan: Angio 02/20/25- Small bilateral pleural effusions are present. Increased interstitial and ground-glass opacities throughout both lungs with Kyle B lines, findings suggesting a pulmonary edema pattern.
There are enlarged mediastinal lymph nodes, most likely reactive lymph nodes, often seen in association with congestive heart failure. Calcification of the thoracic aorta with no thoracic aortic aneurysm.
Dense coronary artery calcifications are present. Mild aortic valvular calcification. No significant abnormality in the visualized upper abdomen. In the thoracic spine, endplate irregularity suggestive of sequela of previous mild to moderate
Scheuermann's disease. The visualized vertebral bodies have maintained their height with no evidence for fracture.
AP 02/17/25- 1. AORTOBIILIAC ENDOGRAFT in place with interval enlargement of the pala aneurysm sac around the endograft and a 1.9 cm focal outpouching of rim-enhancing fluid along the left posterolateral side of the proximal graft attachment
suggesting an ENDOLEAK (possibly a TYPE Ia PROXIMAL ENDOLEAK).
2. 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
3. Severe stenosis (greater than 70% diameter) in the proximal right superficial femoral artery.
4. Mild chronic bilateral renal disease.
5. Cholelithiasis.
6. MODERATE ACUTE INTERSTITIAL and ALVEOLAR CARDIOGENIC PULMONARY EDEMA.
7. Moderate to severe cardiomegaly with right heart dysfunction.
8. Minimal bilateral pleural effusions.
9. Severe multilevel lumbar discogenic degenerative disease.
10. Large right scrotal hydrocele.
Echo: 02/19/25- Left ventricle is moderately dilated. Normal left ventricular systolic function. Left ventricular ejection fraction is 50-55%. Thickened mitral valve leaflets. 1.5 cm x 0.7 cm echodensity associated with anterior leaflet. Severe,
eccentric mitral regurgitation. Trileaflet aortic valve. Highly mobile 2.5 cm x 0.6 cm echodensity visualized, likely at NCC. Severe eccentric aortic regurgitation. Enlarged right ventricular size. Normal right ventricular systolic function.
Tricuspid valve: In limited view 59, there is evidence of mobile echodensity. Moderate tricuspid regurgitation. Severely elevated PASP. Estimated pulmonary artery pressure of 72 mmHg. Assuming a right atrial pressure of 15 mmHg. Findings
consistent with endocarditis. No prior study available for comparison.
PFT's:
Reports and relevant images were personally reviewed.
Critical Care time 45 mins -- The patient is admitted for acute critical illness for the treatment of vital organ failure and/or prevention of further life-threatening conditions. Total care includes time spent in review of history, physical exam,
medications, hemodynamic/ventilator parameters, laboratory data, imaging and discussion with house staff, pharmacy, respiratory therapy, spray mixer, and nursing. Extensive review of records.
Subjective Dataa
Subjective Data
Date of Service:
Date of Service: February 27, 2025
Chief Complaint: Language Path Follow Up
Subjective:
Doing well today, extubated and tolerated it
Denies SOB
Denies history of lung disease in past
Objective Data
Data Reviewed
Vital Signs / I&O / Oxygen:
Vital Signs
Temp Pulse Resp BP Pulse Ox
97 F 69 21 103/58 98
02/27/25 11:57 02/27/25 11:55 02/27/25 11:57 02/27/25 11:00 02/27/25 11:57
Intake and Output
02/26/25 02/27/25 02/28/25
06:59 06:59 06:59
Intake Total 3444.4 / 3561.9 2363.3 / 2363.3 965.9 / 965.9
Output Total 1590 / 1670 2995 / 2995 715 / 715
Balance 1854.4 / 1891.9 -631.7 / -631.7 250.9 / 250.9
SaO2 [CPAP] 98
SaO2 [A/C] 97
SaO2 [SIMV] 99
SaO2 98
Nasal Cannula flow liters per 6
minute
Physical Exam
General: Respiratory Distress (agonal appearing at times) and Other (chronically ill appearing, thin)
HEENT: Normocephalic, Anicteric and Other (dry MM, poor dentition)
Cardiovascular: S1-S2 and Regular Rhythm
Respiratory: Clear, Non-Labored Respirations and Chest Tube
GI: Soft, Non Distended and Non Tender
Neurology: Awake, Alert, Oriented, Lethargic and Other (whispers)
Skin: Warm and Dry
Labs/Micro/Reports
Lab Data
02/27/25 04:06
02/27/25 04:06
Laboratory Results
02/26/25 02/26/25 02/27/25
17:36 22:17 04:06
PT 17.2 H
INR 1.35
pH 7.44 7.42
pCO2 38 37
pO2 141 H 124 H
HCO3 25.8 24.0
O2 Delivery Level 40% fio2
02/27/25
08:14
PT
INR
pH 7.45
pCO2 34 L
pO2 115 H
HCO3 23.6
O2 Delivery Level
Microbiology
02/26/25 13:07 Bronch Washing Respiratory Culture - Preliminary
Usual Respiratory Ania
02/26/25 13:07 Bronch Washing Gram Stain - Preliminary
02/25/25 10:09 Valve Anaerobic Culture - Preliminary
Culture pending. Anaerobic cultures are examined after 3
days incubation. Additional information to follow.
02/25/25 10:09 Valve Tissue Culture - Preliminary
No Growth After 48 Hours
02/25/25 10:09 Valve Gram Stain - Preliminary
02/25/25 10:34 Valve Anaerobic Culture - Preliminary
Culture pending. Anaerobic cultures are examined after 3
days incubation. Additional information to follow.
02/25/25 10:34 Valve Tissue Culture - Preliminary
No Growth After 48 Hours
02/25/25 10:34 Valve Gram Stain - Preliminary
02/25/25 10:34 Valve Fungal Culture - Preliminary
Culture in progress.
Positive cultures are reported as soon as detected.
Final report to follow in four to five weeks.
02/25/25 10:09 Valve Fungal Culture - Preliminary
Culture in progress.
Positive cultures are reported as soon as detected.
Final report to follow in four to five weeks.
02/19/25 13:22 Blood/Venous Blood Culture - Final
No Growth - Final Report
02/19/25 12:40 Blood/Venous Blood Culture - Final
No Growth - Final Report
--- NOTE | 2025-02-27 12:52 | PTOTSP ---
Dysphagia Evaluation
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
XRT). Silent aspiration risk elevated and cannot be ruled out bedside.
Instrumental swallowing assessment will be required but unable to be completed at this time given current medical status/lines.
Recommend:
1. NPO
2. Medications - crushed in puree if medically cleared
3. Aspiration Risk Hydration Protocol - sparing ice chips after oral care, with nurse supervision; D/C if any worsened signs of dysphagia/aspiration/respiratory comprise
4. Oral care 3-5x daily with suction toothbrush
5. ACCOUNTS RECEIVABLE EXECUTIVE to f/u to re-evaluate swallowing and determine if/when instrumental swallowing assessment is appropriate
[2025-02-27] MEDS: DEXTROSE 50% SYRINGE 12.5 GRAMS IV (13:07)
[2025-02-27 13:09] LABS: Glucose - Point of Care 65 mg/dl (70-99)
[2025-02-27 13:20] LABS: Glucose - Point of Care 118 mg/dl (70-99)
[2025-02-27 14:11] LABS: Glucose - Point of Care 94 mg/dl (70-99)
[2025-02-27] MEDS: LR 250 ML IV (15:16)
--- NOTE | 2025-02-27 15:24 | PTCARENOTE ---
[place] catheter removed per CT POULTRY HUSBANDMAN order; Dobutamine decreased to2 mcg/kg/min, pt became HR in 30s and hypotensive; CT POULTRY HUSBANDMAN at bedside; Epicardial V wires set to VVI 60/7/2; LR 250 ml bolus infusing; Levo titrated up to 5; pt responding to IVF and
Levo decreased back to 1; HR 60 V-paced on monitor and BP 113/46.
[2025-02-27 15:43] LABS: Glucose - Point of Care 85 mg/dl (70-99)
--- NOTE | 2025-02-27 16:45 | PTCARENOTE ---
A-fib/Paced on monitor and VSS; Levo, Dobutamine and Vaso infusing see flow sheet for details; assessment unchanged and pt resting comfortably.
[2025-02-27] MEDS: PITRESSIN 100 IV (18:04)
[2025-02-27 19:04] LABS: Glucose - Point of Care 101 mg/dl (70-99)
--- NOTE | 2025-02-27 20:30 | PTCARENOTE ---
Patient received resting in bed watching television. Patient A+A+Ox3. No neurological deficits noted. No c/o pain or discomfort. No c/o headache, dizziness or lightheadedness. O2 at 2L via NC. SpO2 98%. Frequent moist cough - Thick tannish
secretions. Patient able to suction secretions. Four chest tubes - Mediastinal x2 and Right and Left Pleural - Intact and patent - 20ml red drainage - No air leak. Chest tube dressing intact. Atrial Fibrillation. Heart rate 50-60's. V-Wire
50// Occasional pacing. Occasional PVC. Patient with no c/o chest pain, pressure or discomfort. Abdomen soft, nontender. Hypoactive to normoactive bowel sounds. No BM. No c/o nausea. No vomiting. Alfred catheter - Temperature sensing -
Light giselle urine - Outputs as documented. Bilateral lower extremity edema. Positive, palpable pulses. Patient with no c/o back or flank pain. Right I.J. Cordis. Patient continues on Dobutamine. Levophed gtt and Vasopressin gtt off. Sternal
dressing intact. Right groin dressing intact. Assessment as documented.
[2025-02-27 21:30] LABS: Mixed Venous O2 Saturation 73.7 %
[2025-02-27 21:33] LABS: Hematocrit 23.6 % (39.0-52.0); Hemoglobin 7.9 g/dL (13.0-18.0); Mean Corp Hgb Conc. 33.5 g/dL (33.0-37.0); Mean Corpuscular Hgb 32.5 pg (27.0-31.0); Mean Corpuscular Volume 97.1 fL (80.0-94.0); Mean Platelet Volume 11.3 fL (7.4-10.4); Platelet Count 62 10^3/uL (130-400); Red Blood Cell Count 2.43 10^6/uL (4.70-6.10); Red Cell Dist. Width 18.6 % (11.5-14.5); White Blood Cell Count 9.2 10^3/uL (4.8-10.8)
[2025-02-27 21:34] LABS: Ionized Calcium 1.19 mMOL/L (1.15-1.33)
[2025-02-27 21:48] LABS: Blood Urea Nitrogen 43 mg/dl (9-20); Calcium 8.4 mg/dl (8.4-10.2); Carbon Dioxide 22 mmol/L (22-30); Chloride 106 mmol/L (98-107); Estimated Creatinine Clearance 50 ml/min; Glucose 94 mg/dl (70-99); Magnesium 2.3 mg/dl (1.6-2.3); Potassium 4.7 mmol/L (3.5-5.1); Sodium 137 mmol/L (135-145); eGFR 49.77
[2025-02-27] MEDS: LIPITOR 40 MG PO (22:56)
[2025-02-27 23:05] LABS: Glucose - Point of Care 112 mg/dl (70-99)
[2025-02-28] VITALS (27 sets, daily range): BP systolic 116–160; BP diastolic 50–94; PULSE 64–67; O2SAT 98–99; BMI 24.7
[2025-02-28] MEDS: LASIX 20 MG IV ×2 (01:10→21:49)
--- NOTE | 2025-02-28 01:15 | PTCARENOTE ---
Patient resting in bed watching movie. Labs sent. One unit PRBC's ordered and infused without difficulty. No transfusional reaction noted. IV Lasix 20mg ordered and given. Dobutamine gtt. Levophed gtt and Vasopressin gtt remain off.
Assessment as documented.
[2025-02-28] MEDS: SODIUM BICARBONATE 50 MEQ IV (01:40)
[2025-02-28] MEDS: DILAUDID 0.25 MG IV ×4 (02:42→18:18)
[2025-02-28 03:07] LABS: Glucose - Point of Care 113 mg/dl (70-99)
[2025-02-28] MEDS: DOBUTREX 500 MG 250 IV (03:10)
--- NOTE | 2025-02-28 03:43 | W.PN.CT ---
Addendum entered and electronically signed by Josiah Sharma MD 02/28/25 09:27:
I saw and examined the patient.
The PA's note was reviewed and I agree with the note.
Comment:
POD#3 s/p AVR, MVR, TVRp, ELAA
No major overnight issues. OFF levophed and vasopressin. Continue dobutamine @ 2
Continue bradycardia into 50s w/ pacing - EP consulted yesterday - pt. w/ perm AF - holding BB; temp pacer to 40 this AM
Hold ASA given thrombocytopenia (PLT 59)
Creat OK at 1.4 - UO ok
Will require PICC for IV ABX
ADAT - w/ 1:1 feeding assistance only eating OOB in chair - if patient coughing etc w/ PO will place DHT as consider TF - will D/W speech.
D/C CTs
Original Note:
Today's Communication / Plan
-
Plan:
-No major issues overnight. Hemodynamically and neurologically intact
-Successfully extubated yesterday 02/27/25 @ 0900
-Weaned of Vasopressin and Levophed overnight. On Dobutamine @ 2 mcg/kg/min, apparently became aristeo off dobutamine
-Currently in a-fib 60's but did require v-pacing with temporary pacer frequently overnight in the 50's
-EP evaluating for possible PPM placement
-Will discuss Heparin gtt with cardiology given a-fib, of note pt did receive a IVONE clip
-Amiodarone and BB on hold
-Placed ASA on hold given thrombocytopenia, 90-> 72-> 62-> 59
-Speech recommend ice chips and crush meds until able to obtain video swallow evaluation given hx of laryngeal ca S/P chemo/XRT/tracheostomy/feeding tube x 7 months
-Consider d/c of chest tubes: 2meds 90/185, R/L pleurals 100/245
-Cont. abx per ID currently on Vancomycin, cultures are without growth thus far
-Encourage use of IS
-OOB into chair/PT/OT/SP f/u
Assessment / Plan
-
s/p AVR (27mm Soliman inspiris Bio valve), MVR (31mm Soliman Mitris Bio valve), TVr (34mm romero band), ELAA 50mm atriclip on 02/25/[address] Sharma - POD #3
-AV endocarditis (E faecalis)/Mod-severe AI
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
-Moderate TR
-LVEF 55-60%
-Atrial Fib (Chronic, diagnosed 2011-on Xarelto)
-CAD (nonischemic cardiomyopathy/HFrEF )
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
-Acute on chronic Anemia
-AAA S/P endovascular repair [address] Alfred; suspected break through infection despite suppressive amoxicillin
-Septic arthritis of the Knee 07/2024 due to Enterococcus - completed course of treatment
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
-Lyme disease
-S/P PCI/Stent (MARQUISE-OM1 2011)
-T2DM (A1C 5.1, currently on no tx)
-Hx noncompliance with imaging studies, though reportedly compliant with medications
- acute hypoxic respiratory failure requiring delayed extubation & flolan nebulization
Discussed patient care with: Cardiology, Nursing, Respiratory Therapy, Pharmacy and Care Team
Subjective
Procedure
s/p AVR (27mm Soliman inspiris Bio valve), MVR (31mm Soliman Mitris Bio valve), TVr (34mm romero band), ELAA 50mm atriclip on 02/25/[address] Sharma
-
Date of Service: February 28, 2025
Pt c/o mild incisional pain, otherwise feels well
Objective Data
-
PT 17.2 Sec (11.4-14.6) H 02/27/25 04:06
INR 1.35 02/27/25 04:06
APTT 45.1 Sec (23.4-35.0) H 02/25/25 15:14
Vital Signs
Vital Signs
Temp Pulse Resp BP Pulse Ox
97.6 F 53 21 123/50 97
02/28/25 00:05 02/28/25 03:10 02/28/25 03:10 02/28/25 03:00 02/28/25 03:10
CT Intake/Output/Weight
02/27/25 02/27/25 02/28/25
06:59 18:59 06:59
Intake Total 1143.0 / 2363.3 1490.2 / 1996.0 505.8 / 1996.0
Output Total 1355 / 2995 1305 / 2320 1015 / 2320
Balance -212.0 / -631.7 185.2 / -324.0 -509.2 / -324.0
SaO2: 97 (2L)
Physical Exam
-
General: Awake, Oriented and AOx3
Cardiovascular: Regular rate & rhythm, No Murmurs, No Rub and No Gallop
Respiratory: Decreased Breath Sounds (at bases, otherwise clear)
Sternum: Stable
Incision: Clean, Dry, Intact and Dressing Intact
Extremities: Other (+trace edema)
Data Reviewed
-
Lab Results: Results Reviewed
Medications: Active Meds Reviewed
Chest X-Ray: Report Reviewed and Image Reviewed
ECG: Report Reviewed and Image Reviewed
[2025-02-28 05:12] LABS: Mixed Venous O2 Saturation 81.9 %
[2025-02-28 05:30] LABS: INR 1.32; PT 16.6 Sec (11.4-14.6)
[2025-02-28 05:32] LABS: Hematocrit 26.9 % (39.0-52.0); Hemoglobin 8.9 g/dL (13.0-18.0); Mean Corp Hgb Conc. 33.1 g/dL (33.0-37.0); Mean Corpuscular Hgb 32.2 pg (27.0-31.0); Mean Corpuscular Volume 97.5 fL (80.0-94.0); Mean Platelet Volume 11.7 fL (7.4-10.4); Platelet Count 59 10^3/uL (130-400); Red Blood Cell Count 2.76 10^6/uL (4.70-6.10); Red Cell Dist. Width 18.2 % (11.5-14.5)
[2025-02-28 05:41] LABS: ALT (SGPT) 13 U/L (0-50); AST (SGOT) 36 U/L (17-59); Albumin 2.7 g/dl (3.5-5.0); Alkaline Phosphatase 98 U/L (38-126); Blood Urea Nitrogen 43 mg/dl (9-20); Calcium 8.7 mg/dl (8.4-10.2); Carbon Dioxide 25 mmol/L (22-30); Chloride 107 mmol/L (98-107); Direct Bilirubin 0.8 mg/dl (0.0-0.4); Estimated Creatinine Clearance 54 ml/min; Glucose 100 mg/dl (70-99); Magnesium 2.3 mg/dl (1.6-2.3); Potassium 4.4 mmol/L (3.5-5.1); Sodium 140 mmol/L (135-145); Total Bilirubin 1.7 mg/dl (0.2-1.3); Total Protein 4.7 g/dl (6.3-8.2); Triglycerides 93 mg/dl (10-149); eGFR 54.07
[2025-02-28 05:44] LABS: Vancomycin Random 14.4 ug/ml
[2025-02-28] MEDS: LEVOPHED 258 MG IV (06:00)
--- NOTE | 2025-02-28 06:15 | PTCARENOTE ---
Patient A+A+Ox3. No neurological deficits noted. Patient given IV Dilaudid 0.25 mg for c/o left shoulder, left upper and left middle back pain - 5-6/10 - Positive relief provided. AM labs collected and sent. Portable CXR completed. Patient given
CHG bath and linens changed. Mouth care provided. Patient tolerating ice chips. Chest tube dressing changed. Dobutamine at 2 mcq/kg/min (4.8 ml/hr). Levophed gtt and Vasopressin gtt remain off. Assessment/Interventions as documented.
--- NOTE | 2025-02-28 07:37 | W.PN.INTV ---
Today's Communication / Plan
Recommendations
Doing well now, stable on RA
Still weaning low dose dobutamine gtt
Sitting in chair, likely to need aggressive rehab
Can likely transfer to [facility] once off pressors/gtts
Assessment
-
Patient is a 70-year-old male with previous history of CAD status post stent, heart failure, mitral regurgitation, history of laryngeal cancer, AAA presenting to ER with 2 days of dyspnea on exertion. Admitted to [place] on 02/18/25, chest
x-ray demonstrating moderate pulmonary edema. 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
preceding left knee septic arthritis due to Enterococcus. Underwent repeat CT TA demonstrating endograft with interval enlargement of 1.9 cm rim-enhancing fluid suggesting endoleak, pulmonary edema; repeat TTE demonstrating 1.5 cm x 0.7 cm
vegetation with severe MR, AV mobile 2.5 x 0.6 lesion with severe AR, TV with mobile echodensity and moderate TR. CTS consulted for multivalve intervention. Underwent AVR/MVR/TVR 02/25/25 and postoperatively transferred to CVICU. He is currently
satting 92% on 100% FiO2 and PEEP of 10. CXR showing new L sided infiltrate.
Subacute multivalvular endocarditis, c/b severe multi-VHD -- recently adm to [facility] for IV abx
Maintained on suppressive Amox, failure of medical treatment
s/p Median sternotomy/AVR/MVR/TVR, ELAA 02/25/25
Perioperative MV
Acute hypoxemic respiratory failure, unknown if on O2 at baseline
Suspect new ARDS, possible related to transfusion/overload/sepsis
Hx of AAA s/p aortobiiliac endovascular repair with suspected infected endovascular stent graft (enlarging rim-enhancing fluid on CT)
Conditions present prior admission:
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
completed a 6 week course of ampicillin/ceftriaxone (through 01/05); maintained on suppressive amoxicillin
History of L knee septic arthritis of the knee due to enterococcus
Abdominal aortic aneurysm status post endovascular repair of infrarenal abdominal aortic aneurysm by Dr. Alfred 12/04/2023
Severe calcific CAD w/o angina or ACS, Hx of BMS to OM1 in 2011
Hx of laryngeal cancer in 2016 s/p resection, chemoradiation - required tracheostomy & feeding tube x 7 months
History of atrial fibrillation on Xarelto
Prior history of obstructive sleep apnea, likely resolved with weight loss
Peripheral neuropathy due to chemotherapy
Anxiety
Hypertension
CHF
Gout
Hyperlipidemia
Type 2 diabetes
Anemia
Former smoker, quit reportedly in his 20s
Plan
S/p multi-valvular intervention POD #3
Titrate off pressors per protocol--dobutamine@2/levophed and vaso off
ECHO reviewed with low-normal function EF 50-55%, severe VHD
PA catheter discontinued
Management of chest tubes per primary service
Pain control
RASS goal of 0 to -1
Intubated for procedure, extubated on day 3
ABG(s) reviewed-paO2 69 (meets severe lung injury, PF ratio <100)
CXR with L sided patchy opacity throughout, ETT in good position
s/p bronch /10-normal ania
Maintain supplement oxygen as needed, repeat ABGs as indicated
Denies history of lung disease
No prior history of pulmonary disease, but was a former smoker, did not carry diagnosis of COPD, not known to be on home O2
Had trach in past, history of laryngeal cancer
No prior PFTs for review
We discussed OP FU at discharge
CT reviewed showing possible underlying chronic ILD, traction bronchiectasis
Aspiration precautions
Keep NPO
DHT placement if prolonged on vent
GI prophylaxis if indicated for mechanical ventilation >48 hours
Monitor critical I/O's
Tima/chest tube output
Hb/platelets postoperatively stable
Trend CBC for now
Can transfuse if indicated for Hb <7, plt <50 in surgical patients
DVT prophylaxis including SCDs
Insulin protocol initiated
Transitioned to SQ/off as indicated per team
Diagnostic Data
Chest X-Ray: 02/18/25- Cardiomegaly with moderate pulmonary edema. Likely trace bilateral pleural effusions.
12/04/23- No active cardiopulmonary disease.
CT Scan: Angio 02/20/25- Small bilateral pleural effusions are present. Increased interstitial and ground-glass opacities throughout both lungs with Kyle B lines, findings suggesting a pulmonary edema pattern.
There are enlarged mediastinal lymph nodes, most likely reactive lymph nodes, often seen in association with congestive heart failure. Calcification of the thoracic aorta with no thoracic aortic aneurysm.
Dense coronary artery calcifications are present. Mild aortic valvular calcification. No significant abnormality in the visualized upper abdomen. In the thoracic spine, endplate irregularity suggestive of sequela of previous mild to moderate
Scheuermann's disease. The visualized vertebral bodies have maintained their height with no evidence for fracture.
AP 02/17/25- 1. AORTOBIILIAC ENDOGRAFT in place with interval enlargement of the [place] aneurysm sac around the endograft and a 1.9 cm focal outpouching of rim-enhancing fluid along the left posterolateral side of the proximal graft attachment
suggesting an ENDOLEAK (possibly a TYPE Ia PROXIMAL ENDOLEAK).
2. 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
3. Severe stenosis (greater than 70% diameter) in the proximal right superficial femoral artery.
4. Mild chronic bilateral renal disease.
5. Cholelithiasis.
6. MODERATE ACUTE INTERSTITIAL and ALVEOLAR CARDIOGENIC PULMONARY EDEMA.
7. Moderate to severe cardiomegaly with right heart dysfunction.
8. Minimal bilateral pleural effusions.
9. Severe multilevel lumbar discogenic degenerative disease.
10. Large right scrotal hydrocele.
Echo: 02/19/25- Left ventricle is moderately dilated. Normal left ventricular systolic function. Left ventricular ejection fraction is 50-55%. Thickened mitral valve leaflets. 1.5 cm x 0.7 cm echodensity associated with anterior leaflet. Severe,
eccentric mitral regurgitation. Trileaflet aortic valve. Highly mobile 2.5 cm x 0.6 cm echodensity visualized, likely at NCC. Severe eccentric aortic regurgitation. Enlarged right ventricular size. Normal right ventricular systolic function.
Tricuspid valve: In limited view 59, there is evidence of mobile echodensity. Moderate tricuspid regurgitation. Severely elevated PASP. Estimated pulmonary artery pressure of 72 mmHg. Assuming a right atrial pressure of 15 mmHg. Findings
consistent with endocarditis. No prior study available for comparison.
PFT's:
Reports and relevant images were personally reviewed.
Critical Care time 35 mins -- The patient is admitted for acute critical illness for the treatment of vital organ failure and/or prevention of further life-threatening conditions. Total care includes time spent in review of history, physical exam,
medications, hemodynamic/ventilator parameters, laboratory data, imaging and discussion with house staff, pharmacy, respiratory therapy, diesel mechanic, and nursing. Extensive review of records.
Subjective Dataa
Subjective Data
Date of Service:
Date of Service: February 28, 2025
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
Subjective:
Doing well, stable on RA
Weaning down on pressors
Feels tired
Objective Data
Data Reviewed
Vital Signs / I&O / Oxygen:
Vital Signs
Temp Pulse Resp BP Pulse Ox
97.8 F 58 18 126/51 99
02/28/25 04:00 02/28/25 06:15 02/28/25 06:15 02/28/25 06:15 02/28/25 06:15
Intake and Output
02/27/25 02/28/25 03/01/25
06:59 06:59 06:59
Intake Total 2363.3 / 2363.3 2040.4 / 2040.4
Output Total 2995 / 2995 2795 / 2795
Balance -631.7 / -631.7 -754.6 / -754.6
SaO2 [CPAP] 98
SaO2 [A/C] 97
SaO2 [SIMV] 99
SaO2 99
Nasal Cannula flow liters per 2
minute
Physical Exam
General: Poor Appetite and Other (chronically ill appearing, thin)
HEENT: Normocephalic, Anicteric and Other (dry MM, poor dentition)
Cardiovascular: S1-S2 and Regular Rhythm
Respiratory: Clear, Non-Labored Respirations and Chest Tube
GI: Soft, Non Distended and Non Tender
Neurology: Awake, Alert, Oriented, Lethargic and Other (whispers)
Skin: Warm and Dry
Labs/Micro/Reports
Lab Data
02/28/25 04:53
02/28/25 04:53
Laboratory Results
02/27/25 02/28/25
08:14 04:53
PT 16.6 H
INR 1.32
pH 7.45
pCO2 34 L
pO2 115 H
HCO3 23.6
O2 Delivery Level
Microbiology
02/26/25 13:07 Bronch Washing Respiratory Culture - Preliminary
Usual Respiratory Ania
02/26/25 13:07 Bronch Washing Gram Stain - Preliminary
02/25/25 10:09 Valve Anaerobic Culture - Preliminary
Culture pending. Anaerobic cultures are examined after 3
days incubation. Additional information to follow.
02/25/25 10:09 Valve Tissue Culture - Preliminary
No Growth After 48 Hours
02/25/25 10:09 Valve Gram Stain - Preliminary
02/25/25 10:34 Valve Anaerobic Culture - Preliminary
Culture pending. Anaerobic cultures are examined after 3
days incubation. Additional information to follow.
02/25/25 10:34 Valve Tissue Culture - Preliminary
No Growth After 48 Hours
02/25/25 10:34 Valve Gram Stain - Preliminary
02/25/25 10:34 Valve Fungal Culture - Preliminary
Culture in progress.
Positive cultures are reported as soon as detected.
Final report to follow in four to five weeks.
02/25/25 10:09 Valve Fungal Culture - Preliminary
Culture in progress.
Positive cultures are reported as soon as detected.
Final report to follow in four to five weeks.
--- NOTE | 2025-02-28 08:15 | W.PN.CD ---
Today's Communication / Plan
-
Check HIT panel.
Wean dobutamine.
Maintain epicardial pacer wires and allow local edema from valve surgery/IE to resolve over the next 24-48 hours.
While the AF with normal HR in the absence of rate control medications implies underlying conduction disease, I would like to avoid implanting more prosthetic material if possible.
If needed, he would be a good candidate for a Micra leadless PPM.
Hold anticoagulation.
Check UA.
Consider transitioning off of daptomycin given dose dependent myelosuppression.
Impression / Plan
-
Impression/Plan: 70 y/o male with a history of permanent atrial fibrillation, acute on chronic HFpEF, PAD, AAA s/p EVAR (12/04/2023), prior diskitis and septic arthritis and CAD s/p PCI admitted progression of initially medically managed infectious
endocarditis, likely also involving his EVAR graft.
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
-S/P three valve replacement/repair on 02/25/25.
-AVR (#27 INSPIRIS RESILIA Model 81979K, SN: [id number])
-MVR (MITRIS RESILIA, 31mm, Model 23515E; SN: [id number])
-TVrp (#34 Medtronic Tri-Ad 2.0 Conner Tricuspid Band, SN: [id number])
-Maintain pressors/inotropes for a MAP > 65.
-Dobutamine @ 2 mcg/kg/min.
-Norepinephrine off.
-Vasopressin off.
-ABX management with ID (daptomycin, plan to transition to vancomycin).
-F/U cultures from valve.
#Hypoxic Respiratory failure/HFpEF
-Acute.
-Immediately post op he required 100% Fi02 with PEEP 12.
-Intraop LORETA with normal RV size and function, severe biatrial enlargement, LVEF 50-55%.
-Hemodynamics and oxygenation improved with diuresis, epoprostenol.
-Hold further diuresis.
-GDMT when hemodynamics will tolerate.
#CHELA
-Acute.
-Cr up to 1.4 (baseline 1.0).
-Multifactorial (hypotension/hypoperfusion, medication, sepsis, IE).
-Recheck UA.
-Alfred catheter in place with good UOP, unlikely obstruction.
-Monitor with diuresis.
#AAA
-Chronic.
-S/P EVAR.
-Possibly infected (rim enhancing portion).
-Vascular surgery involved. Possible IR drainage?
#Heme
-Acute on chronic.
-No signs/symptoms of acute bleeding
-Worked up over the past�3 months with colonoscopy, EGD and no etiology found.
-Thrombocytopenia (144 on 02/24/2025, 59 today).
-Heparin has been off since 02/24/2025.
-DDx includes marrow suppression from sepsis/IE, HIT, medication (daptomycin, cefazolin, allopurinol - not since 02/24).
-Check anti-platelet antibodies and monitor for signs of bleeding.
#PAD
-Chronic.
-Reportedly extensive.
-Recommendations as per Vascular Surgery.
#CAD with hx or PCI
-Stable without CP.
-On rivaroxaban as OP; currently on hold due to post op/thrombocytopenia.
#Permanent AFIB/Bradycardia:
-Chronic, stable.
-HR 50-70 BPM, occasional requiring pacemaker support.
-CHADS2-Vasc = 3 (CHF, Age x1, vascular disease).
-S/P LAAE (#50 AtriClip) with Dr. Sharma, 02/25/2025.
-AF with normal HR in the absence of rate control medications implies underlying conduction disease.
-I would allow the edema of the valve implantations to resolve for the next 24-48 hours before committing to another piece of implantable material (PPM).
-Avoid anticoagulation in the setting of thrombocytopenia, knowing that we have some protection with the LAAE.
Critical Care Time = 48 minutes.
Subjective/Interval History:
Returned to AF yesterday.
Occasional bradycardia with associated hypotension in the setting of removal of dobutamine.
PPM reset to a minimum heart rate to 50 and dobutamine restarted at 2 mcg/kg/min.
No longer requiring norepinephrine/vasopressin.
Furosemide 20 mg IV given overnight.
Weight down 1.5 kg.
HR is 50-70.
SaO2 97% on 2LNC.
Hbg increased to 8.9 <-- 7.9.
Platelets 59k.
Creatinine 1.4 (baseline 1.0).
Data:
-LORETA 02/20/2025: L the EF 55-60%, biatrial enlargement, MV echodensity with severe MR, AV echodensity with mod/severe AR, TV echodensity with mod TR
-TTE 02/19/25: LVEF 50-55%, MV with 1.5 cm x 0.7 cm veg on anterior leaflet. Severe, eccentric mitral regurgitation. AV with highly mobile 2.5 cm x 0.6 cm veg on NCC. Severe eccentric aortic regurgitation. Possible TV veg with mod TR, PASP 72
-Echo report summary 01/15/25: 0.75 mm mass attached to aortic valve, EF 38%, increased LV size, RV moderately dilated and with moderately decreased systolic function, severely dilated atria, severe AR, two areas of vegetation on anterior mitral
valve leaflet, severe MR, severe TR (aortic vegetation bigger from previous and now two areas on MV noted).
Physical Exam
Vital Signs/Labs
Vital Signs
Temp Pulse Resp BP Pulse Ox
36.6 C 61 19 141/58 97
02/28/25 04:00 02/28/25 08:00 02/28/25 08:00 02/28/25 08:00 02/28/25 08:00
02/26/25 02/27/25 02/28/25
11:59 11:59 11:59
Actual Weight 84.5 kg 84 kg 82.5 kg
02/28/25 04:53
02/28/25 04:53
PT 16.6 Sec (11.4-14.6) H 02/28/25 04:53
INR 1.32 02/28/25 04:53
APTT 45.1 Sec (23.4-35.0) H 02/25/25 15:14
Magnesium 2.3 mg/dl (1.6-2.3) 02/28/25 04:53
Triglycerides 93 mg/dl (10-149) 02/28/25 04:53
LDL Cholesterol, Calc 64 mg/dl 02/19/25 01:44
VLDL Cholesterol, Calc 15 mg/dl (0-30) 02/19/25 01:44
HDL Cholesterol 37 mg/dl 02/19/25 01:44
02/18/25 02/18/25 02/26/25
20:27 20:59 00:14
Axi-L-Tnwtetqeslp Pept Cancelled [id number]
Physical Exam
Constitutional: No acute distress and Comfortable
EENT: Anicteric and Moist mucous membranes
Cardiovascular: JVD pressure is normal, Rhythm/rate is irregular, Pedal edema present, S1S2 is normal and Murmur/rub/gallop absent
Respiratory: Respiratory effort normal, Lungs clear to auscul., Wheeze Absent, Crackles Absent and Rhonchi Absent
GI: Soft, Distention absent, Flat, Non tender and Normal bowel sounds
Neuro/Psych: AO x 3
Data Reviewed
-
Date of Service: February 28, 2025
Medical Decision Making: Reviewed Test Results, Independent Historian Assessment and Test Interpretation
EKG: Tracing Personally Visualized and interpreted and Report Reviewed by me
Echo: Report Reviewed by me
X-Ray/CT/US/MRI/NUC/PET: Image Personally Visualized and interpreted and Report Reviewed by me
Medical Tests (PFT, Pathology etc): Report Reviewed by me
Labs: Labs Reviewed by me
--- NOTE | 2025-02-28 08:30 | PTCARENOTE ---
Assumed care of patient at 0700. Pt is awake, alert, and oriented. Pt remains Afib HR 50's-60's. BP 135/46 MAP 75. Epicardial V wire in place set to 50/7/2. Pulses palpable. Pt with +1 LE edema. Pulse oximetry 99% on 2L nasal cannula. Pt continues
to have weak productive cough with thick fraser mucus. Mediastinal chest tubes x 2 and left/right pleural chest tubes in place, no sign of air leak or crepitus, drainage serosanguineous in color. Pt ordered to be NPO. Alfred catheter in place, draining
yellow urine. Alfred care completed. Midsternal incision with post-op dressing in place. Right groin puncture with dressing in place. Right IJ cordis intact with KVO. Left brachial Clive in place. Pt remains on dobutamine at 2mcg/kg/min.
[2025-02-28 08:33] LABS: Glucose - Point of Care 117 mg/dl (70-99)
[2025-02-28] MEDS: LIDOCAINE 4% PATCH 1 PATCH TOPICAL (08:41)
[2025-02-28] MEDS: NSS (PRESERVATIVE FREE) 10 ML IV (08:41)
[2025-02-28] MEDS: PROTONIX IV 40 MG IV (08:42)
[2025-02-28] MEDS: SENOKOT-S 1 TABLET PO ×2 (08:47→21:09)
[2025-02-28] MEDS: FOLVITE 1 MG PO (08:47)
[2025-02-28] MEDS: MIRALAX TUBE (08:47)
[2025-02-28] MEDS: ROBINUL 1 MG PO ×2 (08:47→21:09)
[2025-02-28] MEDS: MAGNESIUM OXIDE 500 MG PO ×2 (08:48→21:08)
[2025-02-28] MEDS: FEOSOL 325 MG PO (08:48)
--- NOTE | 2025-02-28 08:53 | PHA.VAN.FU ---
Vancomycin Assessment / Plan
- Assessment
Renal Function: Stable (INCREASED FROM BASELINE 1.1 MG/DL)
WBC's are: Stable
In the past 24 hrs, patient has been: Afebrile
- Assessment - Therapeutic Drug Monitoring
Random Level: 14.4 DRAWN ~18HR AFTER PREVIOUS DOSE 02/27 VANCO 2000MG @1131
- Dosing Plan
Dosing by Level: Re-dose today (VANCO 1250MG X1)
- Monitoring Plan
Random Level: 03/01 @0600
- Follow Up
Pharmacy will continue to follow.
Vancomycin Follow UP
- -
Patient Age: 70
Patient Sex: Male
Vancomycin Day #: 2
Indication: Endocarditis
Requesting Provider: Jazzy
Pertinent Antimicrobial Allergies:
No Known Drug Allergies
Height / Weight:
Height 6 ft
Actual Weight 82.5 kg
Pertinent Past Medical History: T2DM, Valve replacement
- Vital Signs / Lab Results
Temp Pulse Resp BP Pulse Ox
97 F 61 19 141/58 99
02/28/25 08:00 02/28/25 08:00 02/28/25 08:00 02/28/25 08:00 02/28/25 08:19
Lab Results - Hematology
02/25/25 02/26/25 02/26/25
18:43 00:14 05:09
WBC 7.5 9.9 11.2 H
02/26/25 02/26/25 02/26/25
06:01 11:44 17:36
WBC Cancelled 13.8 H 12.8 H
02/26/25 02/27/25 02/27/25
22:17 04:06 21:04
WBC 11.7 H 9.0 9.2
02/28/25
04:53
WBC 9.0
Lab Results - Chemistry
04/08/1302/25/25 02/26/25
15:14 18:43 00:14
BUN 32 H 32 H 34 H
Creatinine 1.1 1.1 1.1
Estimated Creat Clear 69 69 69
Albumin
02/26/25 02/26/25 02/26/25
05:09 11:44 17:36
BUN 33 H 35 H 35 H
Creatinine 1.1 1.2 1.3
Estimated Creat Clear 69 63 58
Albumin 2.4 L
02/26/25 02/27/25 02/27/25
22:17 04:06 21:04
BUN 38 H 41 H 43 H
Creatinine 1.4 H 1.4 H 1.5 H
Estimated Creat Clear 54 54 50
Albumin 2.6 L
02/28/25
04:53
BUN 43 H
Creatinine 1.4 H
Estimated Creat Clear 54
Albumin 2.7 L
Microbiology Results
02/26/25 13:07 Respiratory Culture - Preliminary
Bronch Washing Usual Respiratory Brunilda
Gram Stain - Preliminary
02/25/25 10:09 Anaerobic Culture - Preliminary
Valve Culture pending. Anaerobic cultures are examined after 3
days incubation. Additional information to follow.
02/25/25 10:09 Tissue Culture - Preliminary
Valve No Growth After 48 Hours
Gram Stain - Preliminary
02/25/25 10:34 Anaerobic Culture - Preliminary
Valve Culture pending. Anaerobic cultures are examined after 3
days incubation. Additional information to follow.
02/25/25 10:34 Tissue Culture - Preliminary
Valve No Growth After 48 Hours
Gram Stain - Preliminary
Therapeutic Drug Monitoring
Random Vancomycin 14.4 ug/ml 02/28/25 04:53
[2025-02-28] MEDS: BACTROBAN 2% OINTMENT 1 APPLIC NASAL ×2 (08:59→21:08)
[2025-02-28] MEDS: VANCOCIN 275 MG IV (09:48)
--- NOTE | 2025-02-28 10:06 | W.PN.ID1 ---
Date of Service
Date of Service: February 28, 2025
Today's Communication
- will reconsult IR when patient stabilized for possible culture/drainage of fluid around the stent
- transitioned to vancomycin 02/27
- restart atorvastatin
- anticipate a repeat course of 6 weeks of IV antibiotics at home, followed by suppression
Assessment / Plan
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
H/o Septic arthritis of the Knee 07/2024 due to Enterococcus - completed course of treatment
DM2; not on treatment
Leukopenia - present on arrival, possibly related to chronic infection
H/o noncompliance with imaging studies, though reportedly compliant with medications
- blood cultures x2 from different draws are in progress; no growth to date.
- will follow up valve cultures - no growth to date, gram stains not revealing
- pathology with scant area of necrosis/exudate, giant cells are noted - discussed with pathology and will test for Q fever (phase I and phase II serology) however my overall impression remains a partially treated infection due to enterococcus given
his prolonged course
- vancomycin level this AM 14.4
- will reconsult IR when patient stabilized for possible culture/drainage of fluid around the stent
- transitioned to vancomycin 02/27
- restart atorvastatin
- anticipate a repeat course of 6 weeks of IV antibiotics at home, followed by suppression
- patient is known to Dr Raman Fox [facility] and is established with vascular surgery Dr Alfred here
patient is critically ill, on pressors
Required close monitoring of antibiotic levels and redosing of vancomycin, review of multiple cultures
����������������������������������������������������������
Chief Complaint
-: Other (endocarditis)
Subjective / Review of Systems
afebrile
bp stable
requiring pacing this AM
leadless pacemaker being considered
Vital Signs / Physical Exam
Vital Signs
Vital Signs
Temp Pulse Resp BP Pulse Ox
97 F 67 22 143/64 97
02/28/25 08:00 02/28/25 09:00 02/28/25 09:00 02/28/25 09:00 02/28/25 09:00
Physical Exam
Constitutional: No Acute Distress
Cardiovascular: Regular Rate and S1/S2; Negative Murmur or Rub
Pulmonary: Clear and Symmetric; Negative Wheezes or Rales
Gastrointestinal: Soft, Non Tender, Non Distended and Normal Bowel Sounds
Skin: Warm and Dry; Negative Rash or Jaundice
Wound: Other (dressing clean, dry, intact)
Objective Data
Lab Data
Lab Results
02/28/25 04:53
02/28/25 04:53
PT 16.6 Sec (11.4-14.6) H 02/28/25 04:53
INR 1.32 02/28/25 04:53
APTT 45.1 Sec (23.4-35.0) H 02/25/25 15:14
Estimated Creat Clear 54 ml/min 02/28/25 04:53
Total Bilirubin 1.7 mg/dl (0.2-1.3) H 02/28/25 04:53
AST 36 U/L (17-59) 02/28/25 04:53
ALT 13 U/L (0-50) 02/28/25 04:53
Alkaline Phosphatase 98 U/L (38-126) 02/28/25 04:53
Most recent labs reviewed.
Micro Results:
02/26/25 13:07 Respiratory Culture - Preliminary
Bronch Washing Usual Respiratory Brunilda
Gram Stain - Preliminary
02/25/25 10:09 Anaerobic Culture - Preliminary
Valve Culture pending. Anaerobic cultures are examined after 3
days incubation. Additional information to follow.
02/25/25 10:09 Tissue Culture - Preliminary
Valve No Growth After 48 Hours
Gram Stain - Preliminary
02/25/25 10:34 Anaerobic Culture - Preliminary
Valve Culture pending. Anaerobic cultures are examined after 3
days incubation. Additional information to follow.
02/25/25 10:34 Tissue Culture - Preliminary
Valve No Growth After 48 Hours
Gram Stain - Preliminary
02/25/25 10:34 Fungal Culture - Preliminary
Valve Culture in progress.
Positive cultures are reported as soon as detected.
Final report to follow in four to five weeks.
02/25/25 10:09 Fungal Culture - Preliminary
Valve Culture in progress.
Positive cultures are reported as soon as detected.
Final report to follow in four to five weeks.
02/19/25 13:22 Blood Culture - Final
Blood/Venous No Growth - Final Report
02/19/25 12:40 Blood Culture - Final
Blood/Venous No Growth - Final Report
[2025-02-28 11:31] LABS: Glucose - Point of Care 133 mg/dl (70-99)
[2025-02-28 11:33] LABS: Urine Albumin 2+ (Neg - Trace); Urine Bilirubin Negative (Negative); Urine Character Clear (Clear); Urine Color Yellow; Urine Glucose Negative (Negative); Urine Ketone Negative (Negative); Urine Leukocyte Negative (Negative); Urine Nitrite Negative (Negative); Urine Occult Blood 1+ (Negative); Urine Urobilinogen Negative (Neg - 1+)
[2025-02-28 11:57] LABS: Urine Squamous Cell 0-2 /LPF (Few)
[2025-02-28 11:58] LABS: Urine Bacteria Moderate (Negative)
--- NOTE | 2025-02-28 12:36 | PTCARENOTE ---
Physical therapy to bedside, pt tolerated well and is now OOB in chair. Pt remains Afib, with occasional V pacing. Epicardial V wire now set to 40/7/2. HR 60's-70's. BP 157/73 MAP 97. Pulse oximetry 99% on room air. Pt ordered cholesterol lowering
diet and nectar thick liquids. Continues to have cough and thick secretions. Alfred catheter remains in place. UA collected and sent to lab. Remains on Dobutamine at 2mcg/kg/min.
[2025-02-28] MEDS: ANESTHETIC LOZENGE 1 LOZENGE PO (14:29)
[2025-02-28] MEDS: NSS IV (15:26)
--- NOTE | 2025-02-28 16:00 | PTCARENOTE ---
Pt OOB in chair for most of the day. Assisted pt back to bed. Chest tubes x4 d/c'd per order without issue. Pt remains Afib with occasional V-pacing and PVCs. HR 68. BP 150/68 MAP 92. Pulse oximetry 100% on room air. Remains on Dobutamine at
2mcg/kg/min.
--- NOTE | 2025-02-28 17:49 | PTCARENOTE ---
Pt OOB in chair eating dinner. Pt reports more difficulty with chopped turkey, having increase in coughing. Tolerating pudding and mashed potatoes. CT CARROLL, Lucia at bedside when assessing tolerance of PO diet.
[2025-02-28] MEDS: ZESTRIL 5 MG PO (18:11)
--- NOTE | 2025-02-28 20:15 | PTCARENOTE ---
Report received from MARGE Kaur. Waking rounds done. Pt drowsy, arouses easily,. Oriented x 4. Speech soft, hoarse. Pt on room iar. Sats 97%. Aspiration precuations followed with intake. Pt is coughing at times after intake. Yet states he feels he
is not aspirating. Also denies dyspnea. Breath sounds with few scattered rhonchi. Decreased to B bases. IS 1000 mls. Flutter valve done. Pt in AF. Controlled rate. Occasional PVCs, vent bigeminy, occasional V paced beats. PA aware. BP elevated.
150-160's systolic. L brachial A-line with pulsatile waveform. Dobut at 2 mcg/kg/min. Lasix 20 mg IV given per order. Pt helped back to bed with heavy 2 RN assist. For pulse and wound assessments, see flowsheets. Belly soft, round, nontender.
Hypoactive bs x 4. Alfred draining nclear, yellow urine. Hourly UO recorded. Ongoing plan of care.
[2025-02-28] MEDS: LIPITOR 40 MG PO (21:09)
[2025-02-28] MEDS: KCL ELIXIR 20 MEQ PO (21:50)
--- NOTE | 2025-02-28 22:30 | PTCARENOTE ---
Pt given CHG bath, face washed, brushed teeth. Remains in AF, frequent PVCs, runs of vent bigeminy, occ V paced beats. BP 140-150's systolic. No c/o pain. Aspiration precautions continued to be followed. Sats 100% on 2L/NC.
[2025-03-01] VITALS (29 sets, daily range): BP systolic 123–166; BP diastolic 44–72; PULSE 40–71; BMI 24.5
--- NOTE | 2025-03-01 02:30 | PTCARENOTE ---
Hourly UO. Ice chips sparingly with HOB elevated. No change incardiac rhtyhm. Sats 100% on 2L/NC.
--- NOTE | 2025-03-01 04:57 | W.PN.CT ---
Addendum entered and electronically signed by Josiah Sharma MD 03/01/25 10:03:
I saw and examined the patient.
The PA's note was reviewed and I agree with the note.
Comment:
POD#4 s/p AVR, MVR, TVRp, ELAA
N: intact; standard pain mgmt plans
P: 2L O2 via NC, minor pulmonary edema, no sig effusions; SpO2 99%
CV: Rate-controlled AF in 40-70s; intermittent bigeminy in 70s; minor pacing overnight; temp set at 40. May require PPM; EP following; Micra ? Sunday; Continue dobutamine at 2 today, no wean; HD stable -
GI: Transition back to NPO, pt. coughing w/ PO attempts. Will check video swallow on Sunday and place DHT/initiate TF if patient fails. OK for ice-chips.
: UO 30-60/hr, creat 1.3 (down from peak of 1.5). Will remove medina tomorrow, continue diuresis today
HEME: Hgb 8.9 (stable), PLT down to 52 this AM - no need for HIT assay - continue to trend
ID: ID following, currently on Vancomycin (dosed by pharmacy) - check vanco level; will require PICC line. D/W IR and vascular surgery ideal mgmt of endovascular stent graft
ENDO: BS controlled (100s-130s)
FEN: Check prealb tomorrow; lytes ok
PROPH: SCDs while in bed, protonix IV
DISPO: ICU, full code
Original Note:
Today's Communication / Plan
-
Plan:
-No major issues overnight. Hemodynamically and neurologically intact
-On dobutamine @ 2 mcg/kg/min
-MVO2 74.6%
-Rate controlled a-fib 40's-70's overnight. Temporary pacer at back up 40 bpm per Cards, paced overnight. Appears to be leaning towards PPM placement
-EP evaluating for possible PPM placement
-Did receive a unit of blood on 02/27/25, h/h stable @ 8.9/26.7
-Placed ASA on hold given thrombocytopenia, 90-> 72-> 62-> 59->52. May consider sending off HIT assay
-Amiodarone and BB on hold
-Speech recommend ice chips and crush meds until able to obtain video swallow evaluation given hx of laryngeal ca S/P chemo/XRT/tracheostomy/feeding tube x 7 months
-Tolerated feeds yesterday
-Cont. abx per ID currently on Vancomycin, cultures are without growth thus far
-Encourage use of IS
-OOB into chair/PT/OT/SP f/u
Assessment / Plan
-
s/p AVR (27mm Soliman inspiris Bio valve), MVR (31mm Soliman Mitris Bio valve), TVr (34mm romero band), ELAA 50mm atriclip on 02/25/[address] Sharma - POD #4
-AV endocarditis (E faecalis)/Mod-severe AI
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
-Moderate TR
-LVEF 55-60%
-Atrial Fib (Chronic, diagnosed 2011-on Xarelto)
-CAD (nonischemic cardiomyopathy/HFrEF )
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
-Acute on chronic Anemia
-AAA S/P endovascular repair [address] Medina; suspected break through infection despite suppressive amoxicillin
-Septic arthritis of the Knee 07/2024 due to Enterococcus - completed course of treatment
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
-Lyme disease
-S/P PCI/Stent (MARQUISE-OM1 2011)
-T2DM (A1C 5.1, currently on no tx)
-Hx noncompliance with imaging studies, though reportedly compliant with medications
- acute hypoxic respiratory failure requiring delayed extubation & flolan nebulization
Discussed patient care with: Cardiology, Nursing, Respiratory Therapy, Pharmacy and Care Team
Subjective
Procedure
s/p AVR (27mm Soliman inspiris Bio valve), MVR (31mm Soliman Mitris Bio valve), TVr (34mm romero band), ELAA 50mm atriclip on 02/25/[address] Sharma
-
Date of Service: March 01, 2025
Pt c/o mild incisional pain, otherwise feels well
Objective Data
-
PT 16.6 Sec (11.4-14.6) H 02/28/25 04:53
INR 1.32 02/28/25 04:53
APTT 45.1 Sec (23.4-35.0) H 02/25/25 15:14
Vital Signs
Vital Signs
Temp Pulse Resp BP Pulse Ox
97.7 F 61 21 141/63 98
03/01/25 00:00 03/01/25 03:00 03/01/25 03:00 03/01/25 03:00 03/01/25 02:45
CT Intake/Output/Weight
02/28/25 02/28/25 03/01/25
06:59 18:59 06:59
Intake Total 550.2 / 2055.2 177.6 / 296.0 118.4 / 296.0
Output Total 1490 / 2920 805 / 1355 550 / 1355
Balance -939.8 / -864.8 -627.4 / -1059.0 -431.6 / -1059.0
SaO2: 98 (2L)
Physical Exam
-
General: Awake, Oriented and AOx3
Cardiovascular: Irregular rate & rhythm, No Murmurs, No Rub and No Gallop
Respiratory: Decreased Breath Sounds (at bases, otherwise clear)
Sternum: Stable
Incision: Clean, Dry, Intact and Dressing Intact
Extremities: Edema +1
Data Reviewed
-
Lab Results: Results Reviewed
Medications: Active Meds Reviewed
Chest X-Ray: Report Reviewed and Image Reviewed
ECG: Report Reviewed and Image Reviewed
[2025-03-01 05:51] LABS: Mixed Venous O2 Saturation 74.6 %
[2025-03-01 06:02] LABS: Hematocrit 26.7 % (39.0-52.0); Hemoglobin 8.9 g/dL (13.0-18.0); Mean Corp Hgb Conc. 33.3 g/dL (33.0-37.0); Mean Corpuscular Hgb 32.5 pg (27.0-31.0); Mean Corpuscular Volume 97.4 fL (80.0-94.0); Mean Platelet Volume 11.5 fL (7.4-10.4); Platelet Count 52 10^3/uL (130-400); Red Blood Cell Count 2.74 10^6/uL (4.70-6.10); Red Cell Dist. Width 17.7 % (11.5-14.5); White Blood Cell Count 9.1 10^3/uL (4.8-10.8)
[2025-03-01 06:06] LABS: Vancomycin Random 17.1 ug/ml
[2025-03-01 06:12] LABS: Blood Urea Nitrogen 41 mg/dl (9-20); Carbon Dioxide 24 mmol/L (22-30); Chloride 111 mmol/L (98-107); Estimated Creatinine Clearance 58 ml/min; Glucose 151 mg/dl (70-99); Magnesium 2.3 mg/dl (1.6-2.3); Sodium 144 mmol/L (135-145)
--- NOTE | 2025-03-01 06:40 | PTCARENOTE ---
Labs drawn and sent. CXR done. Pt helped to chair with 2 RNs. Bed weight done prior to getting OOB to chair.
--- NOTE | 2025-03-01 07:45 | W.PN.INTV ---
Today's Communication / Plan
Recommendations
Dobutamine remains for bradycardia, planning for pacer on 03/03
NPO, speech following-VSE in AM
Encouraged OOB to chair, IS
Doing well otherwise, denies pain
Further postop management per team
Assessment
-
Patient is a 70-year-old male with previous history of CAD status post stent, heart failure, mitral regurgitation, history of laryngeal cancer, AAA presenting to ER with 2 days of dyspnea on exertion. Admitted to [place] on 02/18/25, chest
x-ray demonstrating moderate pulmonary edema. He was recently admitted to [facility] for decompensated heart failure/subacute endocarditis due to E faecalis complicated by L2-L3 OM discitis and a mass 2 x 3 cm next to EVAR and history of
preceding left knee septic arthritis due to Enterococcus. Underwent repeat CT TA demonstrating endograft with interval enlargement of 1.9 cm rim-enhancing fluid suggesting endoleak, pulmonary edema; repeat TTE demonstrating 1.5 cm x 0.7 cm
vegetation with severe MR, AV mobile 2.5 x 0.6 lesion with severe AR, TV with mobile echodensity and moderate TR. CTS consulted for multivalve intervention. Underwent AVR/MVR/TVR 02/25/25 and postoperatively transferred to CVICU. He is currently
satting 92% on 100% FiO2 and PEEP of 10. CXR showing new L sided infiltrate.
Subacute multivalvular endocarditis, c/b severe multi-VHD -- recently adm to [facility] for IV abx
Maintained on suppressive Amox, failure of medical treatment
s/p Median sternotomy/AVR/MVR/TVR, ELAA 02/25/25
Perioperative MV
Acute hypoxemic respiratory failure, unknown if on O2 at baseline
Suspect new ARDS, possible related to transfusion/overload/sepsis
Hx of AAA s/p aortobiiliac endovascular repair with suspected infected endovascular stent graft (enlarging rim-enhancing fluid on CT)
Conditions present prior admission:
[facility]-history of endocarditis due to E faecalis 08/2024 complicated by L2/L3 OM/discitis and a mass 2x3 cm (suspected infection) next to EVAR
completed a 6 week course of ampicillin/ceftriaxone (through 01/05); maintained on suppressive amoxicillin
History of L knee septic arthritis of the knee due to enterococcus
Abdominal aortic aneurysm status post endovascular repair of infrarenal abdominal aortic aneurysm by Dr. Alfred 12/04/2023
Severe calcific CAD w/o angina or ACS, Hx of BMS to OM1 in 2011
Hx of laryngeal cancer in 2016 s/p resection, chemoradiation - required tracheostomy & feeding tube x 7 months
History of atrial fibrillation on Xarelto
Prior history of obstructive sleep apnea, likely resolved with weight loss
Peripheral neuropathy due to chemotherapy
Anxiety
Hypertension
CHF
Gout
Hyperlipidemia
Type 2 diabetes
Anemia
Former smoker, quit reportedly in his 20s
Plan
S/p multi-valvular intervention POD #4
Titrate off pressors per protocol--dobutamine@2 due to bradycardia, planning for pacer Tu03/03
ECHO reviewed with low-normal function EF 50-55%, severe VHD
PA catheter discontinued
Management of chest tubes per primary service
Pain control
RASS goal of 0 to -1
Intubated for procedure, extubated on day 3
ABG(s) reviewed-paO2 69 (meets severe lung injury, PF ratio <100)
CXR with L sided patchy opacity throughout, ETT in good position
s/p bronch 02/26-normal ania
Maintain supplement oxygen as needed, repeat ABGs as indicated
Denies history of lung disease
No prior history of pulmonary disease, but was a former smoker, did not carry diagnosis of COPD, not known to be on home O2
Had trach in past, history of laryngeal cancer
No prior PFTs for review
We discussed OP FU at discharge
CT reviewed showing possible underlying chronic ILD, traction bronchiectasis
Aspiration precautions
Keep NPO, VSE planning Sunday
Speech following, high risk
GI prophylaxis if indicated for mechanical ventilation >48 hours
Monitor critical I/O's
Alfred/chest tube output
Hb/platelets postoperatively stable
Trend CBC for now
Can transfuse if indicated for Hb <7, plt <50 in surgical patients
DVT prophylaxis including SCDs
Insulin protocol initiated
Transitioned to SQ/off as indicated per team
Diagnostic Data
Chest X-Ray: 02/18/25- Cardiomegaly with moderate pulmonary edema. Likely trace bilateral pleural effusions.
12/04/23- No active cardiopulmonary disease.
CT Scan: Angio 02/20/25- Small bilateral pleural effusions are present. Increased interstitial and ground-glass opacities throughout both lungs with Kyle B lines, findings suggesting a pulmonary edema pattern.
There are enlarged mediastinal lymph nodes, most likely reactive lymph nodes, often seen in association with congestive heart failure. Calcification of the thoracic aorta with no thoracic aortic aneurysm.
Dense coronary artery calcifications are present. Mild aortic valvular calcification. No significant abnormality in the visualized upper abdomen. In the thoracic spine, endplate irregularity suggestive of sequela of previous mild to moderate
Scheuermann's disease. The visualized vertebral bodies have maintained their height with no evidence for fracture.
AP 02/17/25- 1. AORTOBIILIAC ENDOGRAFT in place with interval enlargement of the [place] aneurysm sac around the endograft and a 1.9 cm focal outpouching of rim-enhancing fluid along the left posterolateral side of the proximal graft attachment
suggesting an ENDOLEAK (possibly a TYPE Ia PROXIMAL ENDOLEAK).
2. 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
3. Severe stenosis (greater than 70% diameter) in the proximal right superficial femoral artery.
4. Mild chronic bilateral renal disease.
5. Cholelithiasis.
6. MODERATE ACUTE INTERSTITIAL and ALVEOLAR CARDIOGENIC PULMONARY EDEMA.
7. Moderate to severe cardiomegaly with right heart dysfunction.
8. Minimal bilateral pleural effusions.
9. Severe multilevel lumbar discogenic degenerative disease.
10. Large right scrotal hydrocele.
Echo: 02/19/25- Left ventricle is moderately dilated. Normal left ventricular systolic function. Left ventricular ejection fraction is 50-55%. Thickened mitral valve leaflets. 1.5 cm x 0.7 cm echodensity associated with anterior leaflet. Severe,
eccentric mitral regurgitation. Trileaflet aortic valve. Highly mobile 2.5 cm x 0.6 cm echodensity visualized, likely at NCC. Severe eccentric aortic regurgitation. Enlarged right ventricular size. Normal right ventricular systolic function.
Tricuspid valve: In limited view 59, there is evidence of mobile echodensity. Moderate tricuspid regurgitation. Severely elevated PASP. Estimated pulmonary artery pressure of 72 mmHg. Assuming a right atrial pressure of 15 mmHg. Findings
consistent with endocarditis. No prior study available for comparison.
PFT's:
Reports and relevant images were personally reviewed.
Critical Care time 35 mins -- The patient is admitted for acute critical illness for the treatment of vital organ failure and/or prevention of further life-threatening conditions. Total care includes time spent in review of history, physical exam,
medications, hemodynamic/ventilator parameters, laboratory data, imaging and discussion with house staff, pharmacy, respiratory therapy, certified alcohol drug counselor, and nursing. Extensive review of records.
Subjective Dataa
Subjective Data
Date of Service:
Date of Service: March 01, 2025
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
Subjective:
Remains on low dose dobut due to bradycardia
No new complaints
NPO still
Objective Data
Data Reviewed
Vital Signs / I&O / Oxygen:
Vital Signs
Temp Pulse Resp BP Pulse Ox
97.7 F 63 22 150/54 98
03/01/25 04:00 03/01/25 06:15 03/01/25 06:15 03/01/25 06:00 03/01/25 07:02
Intake and Output
02/28/25 03/01/25 03/02/25
06:59 06:59 06:59
Intake Total 2039.4 / 2054.2 355.2 / 355.2
Output Total 2795 / 2920 1580 / 1580
Balance -754.6 / -864.8 -1224.8 / -1224.8
SaO2 [CPAP] 98
SaO2 [A/C] 97
SaO2 [SIMV] 99
SaO2 98
Nasal Cannula flow liters per 2
minute
Physical Exam
General: Poor Appetite and Other (chronically ill appearing, thin)
HEENT: Normocephalic, Anicteric and Other (dry MM, poor dentition)
Cardiovascular: S1-S2 and Regular Rhythm
Respiratory: Clear, Non-Labored Respirations and Chest Tube
GI: Soft, Non Distended and Non Tender
Neurology: Awake, Alert, Oriented, Lethargic and Other (whispers)
Skin: Warm and Dry
Labs/Micro/Reports
Lab Data
03/01/25 05:17
03/01/25 05:17
Microbiology
02/25/25 10:09 Valve Anaerobic Culture - Preliminary
NO ANAEROBES ISOLATED
02/25/25 10:34 Valve Anaerobic Culture - Preliminary
NO ANAEROBES ISOLATED
02/25/25 10:34 Valve Tissue Culture - Preliminary
No Growth After 72 Hours
02/25/25 10:34 Valve Gram Stain - Preliminary
02/25/25 10:09 Valve Tissue Culture - Preliminary
No Growth After 72 Hours
02/25/25 10:09 Valve Gram Stain - Preliminary
02/26/25 13:07 Bronch Washing Respiratory Culture - Final
Usual Respiratory Ania
02/26/25 13:07 Bronch Washing Gram Stain - Final
[2025-03-01] MEDS: MIRALAX TUBE (08:03)
--- NOTE | 2025-03-01 08:09 | PHA.VAN.FU ---
Vancomycin Assessment / Plan
- Assessment
Renal Function: SCR Decreasing
WBC's are: Stable
In the past 24 hrs, patient has been: Afebrile
- Assessment - Therapeutic Drug Monitoring
Random Level: 17.1 DRAWN ~20 HOURS AFTER PREVIOUS DOSE 02/28 @0948 VANCO 1250MG
- Dosing Plan
Dosing by Level: Re-dose today (VANCO 1250MG X1, CONSIDER SCHEDULING DOSE SCR CONTINUES TO TREND DOWN)
- Follow Up
Pharmacy will continue to follow.
Vancomycin Follow UP
- -
Patient Age: 70
Patient Sex: Male
Vancomycin Day #: 3
Indication: Endocarditis
Requesting Provider: Jazzy
Pertinent Antimicrobial Allergies:
No Known Drug Allergies
Height / Weight:
Height 6 ft
Actual Weight 82 kg
Pertinent Past Medical History: T2DM, Valve replacement
- Vital Signs / Lab Results
Temp Pulse Resp BP Pulse Ox
97.7 F 64 21 158/49 98
03/01/25 04:00 03/01/25 08:00 03/01/25 08:00 03/01/25 08:00 03/01/25 07:02
Lab Results - Hematology
02/26/25 02/26/25 02/26/25
06:01 11:44 17:36
WBC Cancelled 13.8 H 12.8 H
02/26/25 02/27/25 02/27/25
22:17 04:06 21:04
WBC 11.7 H 9.0 9.2
02/28/25 03/01/25
04:53 05:17
WBC 9.0 9.1
Lab Results - Chemistry
02/26/25 02/26/25 02/26/25
11:44 17:36 22:17
BUN 35 H 35 H 38 H
Creatinine 1.2 1.3 1.4 H
Estimated Creat Clear 63 58 54
Albumin
02/27/25 02/27/25 02/28/25
04:06 21:04 04:53
BUN 41 H 43 H 43 H
Creatinine 1.4 H 1.5 H 1.4 H
Estimated Creat Clear 54 50 54
Albumin 2.6 L 2.7 L
03/01/25
05:17
BUN 41 H
Creatinine 1.3
Estimated Creat Clear 58
Albumin
Lab Results - Urine
02/28/25
11:22
Urine Nitrite Negative
Ur Leukocyte Esterase Negative
Urine WBC 3-5
Ur Squamous Epith Cells 0-2
Urine Bacteria Moderate A
Microbiology Results
02/25/25 10:09 Anaerobic Culture - Preliminary
Valve NO ANAEROBES ISOLATED
02/25/25 10:34 Anaerobic Culture - Preliminary
Valve NO ANAEROBES ISOLATED
02/25/25 10:34 Tissue Culture - Preliminary
Valve No Growth After 72 Hours
Gram Stain - Preliminary
02/25/25 10:09 Tissue Culture - Preliminary
Valve No Growth After 72 Hours
Gram Stain - Preliminary
02/26/25 13:07 Respiratory Culture - Final
Bronch Washing Usual Respiratory Brunilda
Gram Stain - Final
Therapeutic Drug Monitoring
Random Vancomycin 17.1 ug/ml 03/01/25 05:17
[2025-03-01] MEDS: LIDOCAINE 4% PATCH 1 PATCH TOPICAL (08:19)
[2025-03-01] MEDS: ROBINUL 1 MG PO ×2 (08:19→21:52)
[2025-03-01] MEDS: VANCOCIN 275 MG IV (08:19)
[2025-03-01] MEDS: MAGNESIUM OXIDE 500 MG PO ×2 (08:19→21:50)
[2025-03-01] MEDS: NSS (PRESERVATIVE FREE) 10 ML IV (08:20)
[2025-03-01] MEDS: BUMEX 1 MG IV (08:20)
[2025-03-01] MEDS: FEOSOL 325 MG PO (08:20)
[2025-03-01] MEDS: PROTONIX IV 40 MG IV (08:20)
[2025-03-01] MEDS: ZESTRIL 5 MG PO (08:20)
[2025-03-01] MEDS: SENOKOT-S 1 TABLET PO ×2 (08:20→21:52)
[2025-03-01] MEDS: FOLVITE 1 MG PO (08:20)
[2025-03-01] MEDS: BACTROBAN 2% OINTMENT 1 APPLIC NASAL (08:21)
--- NOTE | 2025-03-01 08:30 | PTCARENOTE ---
Assumed care of patient at 0700. Pt is awake, alert, and oriented. Pt continues to have soft hoarse voice. Pt Afib with PVCs, occasionally V paced. HR 60's-70's. BP 158/49 MAP 79. Epicardial V wire set to 40/7/0.8, pt with secondary epicardial V
wire insulated. Pt with +1 LE edema. Pulse oximetry 99% on room air. Pt with weak productive cough with thick mucus. Pt ordered low cholesterol diet and nectar thick liquids, pt with continued coughing with oral intake. Alfred catheter remains in
place, yellow urine. Midsternal incision with post-op dressing intact. Right IJ cordis in place. Remains on Dobutamine 2mcg/kg/min.
--- NOTE | 2025-03-01 09:38 | W.PN.ID1 ---
Date of Service
Date of Service: March 01, 2025
Today's Communication
- Discussed with Dr Sharma, at this point risks of biopsy of perivascular fluid likely outwiegh benefit
- transitioned to vancomycin 02/27
- anticipate a repeat course of 6 weeks of IV antibiotics at home from the procedure, followed by suppression - possibly empiric
Assessment / Plan
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
H/o Septic arthritis of the Knee 07/2024 due to Enterococcus - completed course of treatment
DM2; not on treatment
Leukopenia - present on arrival, possibly related to chronic infection
H/o noncompliance with imaging studies, though reportedly compliant with medications
- blood cultures x2 from different draws are in progress; no growth to date.
- will follow up valve cultures - asked lab to hold the aerobic cultures to two weeks
- await Q fever serologies phase I and phase II serology) however my overall impression remains a partially treated infection due to enterococcus given his prolonged course
- pending possible leadless pacemaker placement
- Discussed with Dr Sharma, at this point risks of biopsy of perivascular fluid likely outwiegh benefit
- transitioned to vancomycin 02/27
- anticipate a repeat course of 6 weeks of IV antibiotics at home from the procedure, followed by suppression - possibly empiric
- patient is known to Dr Raman Fox [facility] and is established with vascular surgery Dr Alfred here
patient is critically ill, on pressors
Required close monitoring of antibiotic levels and redosing of vancomycin, review of multiple cultures
����������������������������������������������������������
Chief Complaint
-: Other (endocarditis)
Subjective / Review of Systems
afebrile
remains on dobutamine alone for heart rate
chest tubes out
no complaints
Vital Signs / Physical Exam
Vital Signs
Vital Signs
Temp Pulse Resp BP Pulse Ox
97.7 F 76 16 158/49 99
03/01/25 04:00 03/01/25 08:00 03/01/25 08:00 03/01/25 08:00 03/01/25 08:00
Physical Exam
Constitutional: No Acute Distress
Cardiovascular: Regular Rate and S1/S2; Negative Murmur or Rub
Pulmonary: Clear and Symmetric; Negative Wheezes or Rales
Gastrointestinal: Soft, Non Tender, Non Distended and Normal Bowel Sounds
Skin: Warm and Dry; Negative Rash or Jaundice
Objective Data
Lab Data
Lab Results
03/01/25 05:17
03/01/25 05:17
PT 16.6 Sec (11.4-14.6) H 02/28/25 04:53
INR 1.32 02/28/25 04:53
APTT 45.1 Sec (23.4-35.0) H 02/25/25 15:14
Estimated Creat Clear 58 ml/min 03/01/25 05:17
Total Bilirubin 1.7 mg/dl (0.2-1.3) H 02/28/25 04:53
AST 36 U/L (17-59) 02/28/25 04:53
ALT 13 U/L (0-50) 02/28/25 04:53
Alkaline Phosphatase 98 U/L (38-126) 02/28/25 04:53
Most recent labs reviewed.
Micro Results:
02/25/25 10:09 Anaerobic Culture - Preliminary
Valve NO ANAEROBES ISOLATED
02/25/25 10:34 Anaerobic Culture - Preliminary
Valve NO ANAEROBES ISOLATED
02/25/25 10:34 Tissue Culture - Preliminary
Valve No Growth After 72 Hours
Gram Stain - Preliminary
02/25/25 10:09 Tissue Culture - Preliminary
Valve No Growth After 72 Hours
Gram Stain - Preliminary
02/26/25 13:07 Respiratory Culture - Final
Bronch Washing Usual Respiratory Brunilda
Gram Stain - Final
02/25/25 10:34 Fungal Culture - Preliminary
Valve Culture in progress.
Positive cultures are reported as soon as detected.
Final report to follow in four to five weeks.
02/25/25 10:09 Fungal Culture - Preliminary
Valve Culture in progress.
Positive cultures are reported as soon as detected.
Final report to follow in four to five weeks.
02/19/25 13:22 Blood Culture - Final
Blood/Venous No Growth - Final Report
02/19/25 12:40 Blood Culture - Final
Blood/Venous No Growth - Final Report
--- NOTE | 2025-03-01 11:10 | PTOTSP ---
Speech therapy
Per 02/27 CARRIAGE OPERATOR note, patient is extremely high risk for silent and audible aspiration given clinical presentation and extensive medical hx. CARRIAGE OPERATOR recommended NPO with ARHP of ice chips sparingly and VSE when clinically appropriate.
Per chart review, patient was placed on cholesterol lowering diet with nectar thick liquids (02/28) due to patient's request for PO and concern for nutrition. Since, patient has been demonstrating coughing and was placed back on NPO.
Swallowing Function: Patient was seen sitting upright in his chair with a wet cough. Patient was observed with several ice chip presentations in which patient appeared to tolerate but did continue to demonstrate intermittent coughing throughout the
session. CARRIAGE OPERATOR spent time counseling patient on recommendations and the reasoning for NPO at this time given his clinical presentation and extensive hx. Patient verbalized an understanding and agreeed to plan. CARRIAGE OPERATOR will plan for VSE 02/20; order placed.
Recommend:
NPO with VSE and ARHP (ice chips sparingly with supervision)
Plan: CARRIAGE OPERATOR will continue to follow for VSE and clinical monitoring.
--- NOTE | 2025-03-01 11:36 | W.PN.CD ---
Today's Communication / Plan
-
no lasix today
continue to monitor rhythm, tentative plan for MICRA Sunday, will review with Dr Nelson tomorrow.
Evaluate swallowing, supsect aspiration
continue low dose DB gtt for now.
Impression / Plan
-
Impression/Plan: 70 y/o male with a history of permanent atrial fibrillation, acute on chronic HFpEF, PAD, AAA s/p EVAR (12/04/2023), prior diskitis and septic arthritis and CAD s/p PCI admitted progression of initially medically managed infectious
endocarditis, likely also involving his EVAR graft.
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
-S/P three valve replacement/repair on 02/25/25.
-AVR (#27 INSPIRIS RESILIA Model 13742K, SN: [id number])
-MVR (MITRIS RESILIA, 31mm, Model 65758E; SN: [id number])
-TVrp (#34 Medtronic Tri-Ad 2.0 Conner Tricuspid Band, SN: [id number])
-Maintain pressors/inotropes for a MAP > 65.
-Dobutamine @ 2 mcg/kg/min.
-ABX management with ID (daptomycin, plan to transition to vancomycin).
-F/U cultures from valve.
#Permanent AFIB/Bradycardia:
-Chronic, stable.
-HR 50-70 BPM, occasional requiring pacemaker support while on Db gtt, when DB gtt reduced will pace
-will need ppm, given clinical scenario, Micra likely best plan. Will discuss with Dr Nelson tomorrow for tentative placement Sunday.
-CHADS2-Vasc = 3 (CHF, Age x1, vascular disease). On Xaretlo as op.
-S/P LAAE (#50 AtriClip) with Dr. Sharma, 02/25/2025.
-Avoid anticoagulation in the setting of thrombocytopenia, knowing that we have some protection with the LAAE. Can reconsider as clinically improves
#Hypoxic Respiratory failure/HFpEF
-improving
-Immediately post op he required 100% Fi02 with PEEP 12.
-Intraop LORETA with normal RV size and function, severe biatrial enlargement, LVEF 50-55%.
-Hemodynamics and oxygenation improved with diuresis, epoprostenol.
-holding diuretics today as weight down
-holding GDMT as on Db
-currently with diffuse rhonchi b/l and may be aspirating, coughing with any intake--NPO VSE needed
#CHELA
-Acute.
-Cr up to 1.5 now back to 1.3 (baseline 1.0).
-Multifactorial (hypotension/hypoperfusion, medication, sepsis, IE).
-Recheck UA.
-Alfred catheter in place with good UOP, unlikely obstruction.
#AAA
-Chronic.
-S/P EVAR.
-Possibly infected (rim enhancing portion).
-Vascular surgery involved. Possible IR drainage?
#Heme
-Acute on chronic.
-No signs/symptoms of acute bleeding
-Worked up over the past�3 months with colonoscopy, EGD and no etiology found.
-Thrombocytopenia (144 on 02/24/2025, 52 today).
-Heparin has been off since 02/24/2025.
-DDx includes marrow suppression from sepsis/IE, HIT, medication (daptomycin, cefazolin, allopurinol - not since 02/24).
-Check anti-platelet antibodies and monitor for signs of bleeding.
#PAD
-Chronic.
-Reportedly extensive.
-Recommendations as per Vascular Surgery.
#CAD with hx or PCI
-Stable without CP.
-On rivaroxaban as OP; currently on hold due to post op/thrombocytopenia.
Critical Care Time = 35 minutes.
Subjective/Interval History:
Returned to AF yesterday, stil af with PVCs
d/w Dr Sharma and Ruby Ovalle ([facility]) any stopping of DB results in pacing
PPM reset to a minimum heart rate to 50 and dobutamine restarted at 2 mcg/kg/min.
Data:
-LORETA 02/20/2025: L the EF 55-60%, biatrial enlargement, MV echodensity with severe MR, AV echodensity with mod/severe AR, TV echodensity with mod TR
-TTE 02/19/25: LVEF 50-55%, MV with 1.5 cm x 0.7 cm veg on anterior leaflet. Severe, eccentric mitral regurgitation. AV with highly mobile 2.5 cm x 0.6 cm veg on NCC. Severe eccentric aortic regurgitation. Possible TV veg with mod TR, PASP 72
-Echo report summary 01/15/25: 0.75 mm mass attached to aortic valve, EF 38%, increased LV size, RV moderately dilated and with moderately decreased systolic function, severely dilated atria, severe AR, two areas of vegetation on anterior mitral
valve leaflet, severe MR, severe TR (aortic vegetation bigger from previous and now two areas on MV noted).
Physical Exam
Vital Signs/Labs
Vital Signs
Temp Pulse Resp BP Pulse Ox
98.3 F 70 21 154/44 96
03/01/25 08:00 03/01/25 11:00 03/01/25 11:00 03/01/25 11:00 03/01/25 10:45
02/28/25 03/01/25 03/02/25
06:59 06:59 06:59
Actual Weight 181 lb 14.102 oz 180 lb 12.465 oz
03/01/25 05:17
03/01/25 05:17
PT 16.6 Sec (11.4-14.6) H 02/28/25 04:53
INR 1.32 02/28/25 04:53
APTT 45.1 Sec (23.4-35.0) H 02/25/25 15:14
Magnesium 2.3 mg/dl (1.6-2.3) 03/01/25 05:17
Triglycerides 93 mg/dl (10-149) 02/28/25 04:53
LDL Cholesterol, Calc 64 mg/dl 02/19/25 01:44
VLDL Cholesterol, Calc 15 mg/dl (0-30) 02/19/25 01:44
HDL Cholesterol 37 mg/dl 02/19/25 01:44
02/18/25 02/18/25 02/26/25
20:27 20:59 00:14
Uba-M-Wvhoopxqrza Pept Cancelled [id number]
Physical Exam
Constitutional: No acute distress
Cardiovascular: Pedal edema is absent, JVD pressure is normal, Systolic murmur absent, Diastolic murmur absent and Rhythm/rate is irregular
Respiratory: Respiratory effort normal and Rhonchi Present (diffusely)
Neuro/Psych: AO x 3
Data Reviewed
-
Date of Service: March 01, 2025
Medical Decision Making: Review of Case with other Provider (Dr sharma, plan to address rhythm and evaluate swallowing)
--- NOTE | 2025-03-01 11:40 | PTCARENOTE ---
Pt with increased coughing with PO intake, diet changed back to NPO. ATHLETIC DIRECTOR to bedside, recommended NPO with ice chips. Plan for video swallow tomorrow. Pt worked with PT/OT and tolerated well.
[2025-03-01] MEDS: DILAUDID 0.25 MG IV ×3 (12:19→22:10)
[2025-03-01] MEDS: NSS 500 IV (15:24)
--- NOTE | 2025-03-01 16:00 | PTCARENOTE ---
A line SBP 140's-160's. HR 60's-70's. Dobutamine decreased to 1.5mcg/kg/min at 1400. Pt tolerating. HR 40's-60's. Occasionally V paced. Preston SBP 130's-140's. Pt OOB in chair all day, now assisted back to bed.
--- NOTE | 2025-03-01 20:00 | PTCARENOTE ---
Report received from MARGE Kaur. Walking rounds done. Pt supine in bed. Awake. Alert and oriented x 4. Generalized weakness x 4 extremities, yet equal. Speech soft, hoarse. Pt NPO except for meds-crushed in applesauce. Aspiration precautions
followed per speech recommendations. Pt NPO for video swallow study in am. Pt on room air. Sats 96-98%. BBS present. Decreased B bases. No c/o dyspnea. Moist, productive cough (also noted with po intake). Pt expectorating small, thick sputum. CDB,
IS encouraged. Pt in AF. Will have PVCs, at time ventricular bigeminy. V wire x 2 present. One V wire attached to temp PM. Back up rate 40, mA 7, sens 2. Other v wire insulated to chest. L brachial A-line with pulsatile waveform. BP elevated at
times 160-170's. PA aware. Dobutamine gtt at 2 mcg/kg/min through RIJ cordis. Audible heart tones. For pulse and wound assessments, see flowsheets. Belly soft, nontender. Normoactive bs x 4. Poor appetite. No BM yet. Alfred to drain, clear, yellow
urine. Pt with multiple skin tears to B forearms (see wound assessments). Sacral optifoam from CVOR intact. Ongoing plan of care.
[2025-03-01] MEDS: LIPITOR 40 MG PO (21:52)
[2025-03-01] MEDS: LASIX 20 MG IV (22:09)
[2025-03-01] MEDS: KCL ELIXIR 20 MEQ PO (22:41)
[2025-03-02] VITALS (28 sets, daily range): BP systolic 120–170; BP diastolic 53–94; PULSE 69–75; O2SAT 97–98; BMI 24.2
--- NOTE | 2025-03-02 | PTCARENOTE ---
Pt given Lasix 20 mg IV per order of PA ~ 2210. KCL 20 meq elixir given in 4 oz nectar-thickened water, per order. Dilaudid 0.25 mg IV given for mild-moderate c/o B upper back pain. Pt given CHG bath, teeth brushed, nonadhesive foam pads applied to
B heels for skin protection. Pt noted to have scab/dried skin on L heel, he states he had this prior to admission d/t not wearing socks with shoes. Pt attempting to go to sleep. 2L/NC applied. Sats 100%. BP 140-150's systolic. via A line. Occasional
increase to 160 when awake. No change in heart rhythm from previous assessment.
[2025-03-02] MEDS: DOBUTREX 500 MG 250 IV (00:27)
--- NOTE | 2025-03-02 04:29 | W.PN.CT ---
Today's Communication / Plan
-
Plan:
-No major issues overnight. Hemodynamically and neurologically intact
-On dobutamine @ 2 mcg/kg/min
-Rate controlled a-fib 40's-70's overnight. Temporary pacer at back up 40 bpm per Cards, paced overnight. Appears to be heading towards PPM placement (Leadless PPM)
-EP evaluating for possible PPM placement, likely tomorrow
-H/H stable @ 9.5/29
-ASA on hold given thrombocytopenia, 90-> 72-> 62-> 59->52->43. May consider sending off HIT assay
-Creatinine back to baseline 0.9, peaked @ 1.5, will d/c medina today
-Amiodarone and BB on hold
-For video swallow exam today
-Speech recommend ice chips and crush meds until able to obtain video swallow evaluation given hx of laryngeal ca S/P chemo/XRT/tracheostomy/feeding tube x 7 months
-Cont. abx per ID currently on Vancomycin, cultures are unremarkable. Eventual PICC line for abx
-Eventual endovascular stent graft by IR and Vascular team
-Encourage use of IS
-OOB into chair/PT/OT/SP f/u
Assessment / Plan
-
s/p AVR (27mm Soliman inspiris Bio valve), MVR (31mm Soliman Mitris Bio valve), TVr (34mm romero band), ELAA 50mm atriclip on 02/25/[address] Sharma - POD #5
-AV endocarditis (E faecalis)/Mod-severe AI
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
-Moderate TR
-LVEF 55-60%
-Atrial Fib (Chronic, diagnosed 2011-on Xarelto)
-CAD (nonischemic cardiomyopathy/HFrEF )
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
-Acute on chronic Anemia
-AAA S/P endovascular repair [address] Medina; suspected break through infection despite suppressive amoxicillin
-Septic arthritis of the Knee 07/2024 due to Enterococcus - completed course of treatment
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
-Lyme disease
-S/P PCI/Stent (MARQUISE-OM1 2011)
-T2DM (A1C 5.1, currently on no tx)
-Hx noncompliance with imaging studies, though reportedly compliant with medications
-acute hypoxic respiratory failure requiring delayed extubation & flolan nebulization
-Acute postop atelectasis/probable pulmonary edema
-Acute postop blood loss/Anemia (transfused 6u PRBCs)
-Acute postop thrombocytopenia (transfused 2 {5}pk plts
-Acute postop hypovolemia with subsequent hypervolemia
-Acute postop bradycardia/rate controlled a-fib
-Acute postop CHELA
Discussed patient care with: Cardiology, Nursing, Respiratory Therapy, Pharmacy and Care Team
Subjective
-
Date of Service: March 02, 2025
pt c/o mild incisional pain and productive cough, otherwise feels well
Objective Data
-
PT 16.6 Sec (11.4-14.6) H 02/28/25 04:53
INR 1.32 02/28/25 04:53
APTT 45.1 Sec (23.4-35.0) H 02/25/25 15:14
Vital Signs
Vital Signs
Temp Pulse Resp BP Pulse Ox
98.5 F 74 16 163/70 99
03/02/25 03:15 03/02/25 03:15 03/02/25 03:15 03/02/25 03:31 03/02/25 03:15
CT Intake/Output/Weight
03/01/25 03/01/25 03/02/25
06:59 18:59 06:59
Intake Total 177.6 / 370.0 422.8 / 556.0 133.2 / 556.0
Output Total 700 / 1570 1105 / 1790 685 / 1790
Balance -522.4 / -1200.0 -682.2 / -1234.0 -551.8 / -1234.0
SaO2: 99 (2L)
Physical Exam
-
General: Awake, Oriented and AOx3
Cardiovascular: Regular rate & rhythm, No Murmurs, No Rub and No Gallop
Respiratory: Decreased Breath Sounds (at bases, otherwise clear)
Incision: Clean, Dry, Intact and Dressing Intact
Extremities: Other (+trace edema)
Data Reviewed
-
Lab Results: Results Reviewed
Medications: Active Meds Reviewed
Chest X-Ray: Report Reviewed and Image Reviewed
ECG: Report Reviewed and Image Reviewed
[2025-03-02] MEDS: DILAUDID 0.25 MG IV ×3 (04:56→22:22)
--- NOTE | 2025-03-02 05:00 | PTCARENOTE ---
Labs drawn and sent. Bed weight done. Elevated BP. C/O moderate upper back pain. Dilaudid 0.25 mg IV given for pain.
[2025-03-02 05:10] LABS: Hemoglobin 9.5 g/dL (13.0-18.0); Mean Corp Hgb Conc. 32.8 g/dL (33.0-37.0); Mean Corpuscular Hgb 32.2 pg (27.0-31.0); Mean Corpuscular Volume 98.3 fL (80.0-94.0); Mean Platelet Volume 11.9 fL (7.4-10.4); Platelet Count 43 10^3/uL (130-400); Red Blood Cell Count 2.95 10^6/uL (4.70-6.10); Red Cell Dist. Width 17.7 % (11.5-14.5); White Blood Cell Count 7.3 10^3/uL (4.8-10.8)
[2025-03-02 05:34] LABS: Blood Urea Nitrogen 35 mg/dl (9-20); Calcium 9.2 mg/dl (8.4-10.2); Carbon Dioxide 28 mmol/L (22-30); Chloride 112 mmol/L (98-107); Estimated Creatinine Clearance 84 ml/min; Glucose 121 mg/dl (70-99); Potassium 3.8 mmol/L (3.5-5.1); Sodium 146 mmol/L (135-145); eGFR > 60.00
[2025-03-02 05:38] LABS: Vancomycin Random 17.8 ug/ml
[2025-03-02 05:40] LABS: Prealbumin (Transthyretin) 7.7 mg/dl (17.6-36.0)
--- NOTE | 2025-03-02 07:56 | W.PN.INTV ---
Today's Communication / Plan
Recommendations
Dobutamine remains for bradycardia, planning for leadless pacer tomorrow (keep NPO past midnight; if tube feeds started then hold TF at 1AM)
Failed VFSS today
Encouraged OOB to chair, IS
Doing well otherwise, denies pain
Further postop management per team
[facility] will continue to follow along while patient remains CVICU status. Once transferred to CVICU�telemetry then we will sign off at that time.
Assessment
-
Patient is a 70-year-old male with previous history of CAD status post stent, heart failure, mitral regurgitation, history of laryngeal cancer, AAA presenting to ER with 2 days of dyspnea on exertion. Admitted to [facility] on 02/18/25, chest
x-ray demonstrating moderate pulmonary edema. He was recently admitted to [facility] for decompensated heart failure/subacute endocarditis due to E faecalis complicated by L2-L3 OM discitis and a mass 2 x 3 cm next to EVAR and history of
preceding left knee septic arthritis due to Enterococcus. Underwent repeat CT TA demonstrating endograft with interval enlargement of 1.9 cm rim-enhancing fluid suggesting endoleak, pulmonary edema; repeat TTE demonstrating 1.5 cm x 0.7 cm
vegetation with severe MR, AV mobile 2.5 x 0.6 lesion with severe AR, TV with mobile echodensity and moderate TR. CTS consulted for multivalve intervention. Underwent AVR/MVR/TVR 02/25/25 and postoperatively transferred to CVICU. He is currently
satting 92% on 100% FiO2 and PEEP of 10. CXR showing new L sided infiltrate.
Subacute multivalvular endocarditis, c/b severe multi-VHD -- recently adm to [facility] for IV abx
Maintained on suppressive Amox, failure of medical treatment
s/p Median sternotomy/AVR/MVR/TVR, ELAA 02/25/25
Acute hypoxemic respiratory failure, unknown if on O2 at baseline - now resolved
Abnormal CXR with new ARDS, possible related to transfusion/overload/sepsis
Hx of AAA s/p aortobiiliac endovascular repair with suspected infected endovascular stent graft (enlarging rim-enhancing fluid on CT)
Conditions present prior admission:
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
completed a 6 week course of ampicillin/ceftriaxone (through 01/05); maintained on suppressive amoxicillin
History of L knee septic arthritis of the knee due to enterococcus
Abdominal aortic aneurysm status post endovascular repair of infrarenal abdominal aortic aneurysm by Dr. Alfred 12/04/2023
Severe calcific CAD w/o angina or ACS, Hx of BMS to OM1 in 2011
Hx of laryngeal cancer in 2016 s/p resection, chemoradiation - required tracheostomy & feeding tube x 7 months
History of atrial fibrillation on Xarelto
Prior history of obstructive sleep apnea, likely resolved with weight loss
Peripheral neuropathy due to chemotherapy
Anxiety
Hypertension
CHF
Gout
Hyperlipidemia
Type 2 diabetes
Anemia
Former smoker, quit reportedly in his 20s
Plan
s/p multi-valvular intervention (OR date: 02/25/2025)
Underwent AVR, MVR, TV repair + left atrial appendage exclusion with 50 mm AtriClip
Titrate off pressors per protocol--dobutamine@2 due to bradycardia, planning for leadless pacemaker tomorrow --> keep NPO past midnight
Intraop-LORETA from 02/25/2025 reviewed --> showed low-normal LV function with EF 50-55%, severe VHD (severe MR, severe AI, mild moderate TR, and small left to right patent rabago ovale)
PA catheter discontinued
Chest tubes x4 removed on 02/28
Pain control
Intubated for procedure, extubated on 02/27/2025 and now on room air saturating 97%, breathing comfortably
CXR with L sided patchy opacity throughout
s/p bronch 02/26-normal brunilda
Maintain SpO2 >90-94%
No prior history of pulmonary disease, but was a former smoker, does not carry diagnosis of COPD, not known to be on home O2
Had trach in past, history of laryngeal cancer
No prior PFTs for review
We discussed OP FU at discharge
CT reviewed showing possible underlying chronic ILD, traction bronchiectasis
Aspiration precautions --> failed videofluoroscopic swallow study on 03/02 � Dobbhoff tube now in place; defer tube feeds per primary team
Speech following, high risk
GI prophylaxis: not indicated
Monitor critical I/O's
Alfred/chest tube output
Hb/platelets postoperatively stable
Trend CBC for now
Can transfuse if indicated for Hb <7, plt <50 (given post-operative status)
DVT prophylaxis including SCDs; recommend to start lovenox
Recommend ISS to keep BG at 110-140
[facility] will continue to follow along while patient remains CVICU status. Once transferred to CVICU�telemetry then we will sign off at that time. Please call back with any questions or concerns.
Diagnostic Data
Chest X-Ray: 02/18/25- Cardiomegaly with moderate pulmonary edema. Likely trace bilateral pleural effusions.
12/04/23- No active cardiopulmonary disease.
CT Scan: Angio 02/20/25- Small bilateral pleural effusions are present. Increased interstitial and ground-glass opacities throughout both lungs with Kyle B lines, findings suggesting a pulmonary edema pattern.
There are enlarged mediastinal lymph nodes, most likely reactive lymph nodes, often seen in association with congestive heart failure. Calcification of the thoracic aorta with no thoracic aortic aneurysm.
Dense coronary artery calcifications are present. Mild aortic valvular calcification. No significant abnormality in the visualized upper abdomen. In the thoracic spine, endplate irregularity suggestive of sequela of previous mild to moderate
Scheuermann's disease. The visualized vertebral bodies have maintained their height with no evidence for fracture.
AP 02/17/25- 1. AORTOBIILIAC ENDOGRAFT in place with interval enlargement of the karuk aneurysm sac around the endograft and a 1.9 cm focal outpouching of rim-enhancing fluid along the left posterolateral side of the proximal graft attachment
suggesting an ENDOLEAK (possibly a TYPE Ia PROXIMAL ENDOLEAK).
2. 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
3. Severe stenosis (greater than 70% diameter) in the proximal right superficial femoral artery.
4. Mild chronic bilateral renal disease.
5. Cholelithiasis.
6. MODERATE ACUTE INTERSTITIAL and ALVEOLAR CARDIOGENIC PULMONARY EDEMA.
7. Moderate to severe cardiomegaly with right heart dysfunction.
8. Minimal bilateral pleural effusions.
9. Severe multilevel lumbar discogenic degenerative disease.
10. Large right scrotal hydrocele.
Echo: 02/19/25- Left ventricle is moderately dilated. Normal left ventricular systolic function. Left ventricular ejection fraction is 50-55%. Thickened mitral valve leaflets. 1.5 cm x 0.7 cm echodensity associated with anterior leaflet. Severe,
eccentric mitral regurgitation. Trileaflet aortic valve. Highly mobile 2.5 cm x 0.6 cm echodensity visualized, likely at NCC. Severe eccentric aortic regurgitation. Enlarged right ventricular size. Normal right ventricular systolic function.
Tricuspid valve: In limited view 59, there is evidence of mobile echodensity. Moderate tricuspid regurgitation. Severely elevated PASP. Estimated pulmonary artery pressure of 72 mmHg. Assuming a right atrial pressure of 15 mmHg. Findings
consistent with endocarditis. No prior study available for comparison.
Reports and relevant images were personally reviewed.
Critical care statement: A total of 37 minutes of critical care time was provided for this patient today. This includes management of unstable vital signs, evaluation of the patient at bedside, reviewing the patient's pertinent medical records
including radiographs, microbiology, laboratory evaluations, and discussion with primary team, consultants, pharmacy, nutrition, physical therapy, case management, charge nurse, critical care nursing, and respiratory therapy.
Subjective Dataa
Subjective Data
Date of Service:
Date of Service: March 02, 2025
Chief Complaint: [facility] Follow Up
Subjective:
Patient seen and evaluated today at bedside. Resting in bed in no acute distress. Currently on dobutamine drip at 2 mcg/kg/min. Heart rate 69, BP via A-line: 166/60, BP via NIBP: 161/89 and saturating 97% on room air. Video swallow study
performed today showing severe pharyngeal dysphagia with silent aspiration of all consistencies baseboard � Dobbhoff tube placed for enteral access. He currently denies chest pain, REYEZ, fevers or chills. His voice is very low and it is difficult
for him to phonate loudly.
Review of Systems
General: Other (Negative unless mentioned above)
Objective Data
Data Reviewed
Vital Signs / I&O / Oxygen:
Vital Signs
Temp Pulse Resp BP Pulse Ox
98.2 F 68 17 144/60 99
03/02/25 06:15 03/02/25 06:15 03/02/25 06:15 03/02/25 06:00 03/02/25 06:15
Intake and Output
03/01/25 03/02/25 03/03/25
06:59 06:59 06:59
Intake Total 355.2 / 370.0 600.4 / 600.4
Output Total 1505 / 1570 2330 / 2330
Balance -1149.8 / -1200.0 -1729.6 / -1729.6
SaO2 [CPAP] 98
SaO2 [A/C] 97
SaO2 [SIMV] 99
SaO2 99
Nasal Cannula flow liters per 2
minute
Physical Exam
General: Respiratory Distress (negative), Comfortable, Poor Appetite and Other (chronically ill appearing, thin)
HEENT: Normocephalic, Anicteric and Other (dry MM, poor dentition)
Cardiovascular: Irregular Rhythm (Irregularly irregular) and Peripheral Edema (+2 lower extremity pitting edema bilaterally)
Respiratory: Clear, Wheeze (negative), Crackles (negative), Rhonchi (negative) and Non-Labored Respirations
GI: Soft, Non Distended and Non Tender
Neurology: Awake, Alert, Tremors (negative) and Other (whispers; difficult for him to raise voice/phonate)
Skin: Warm, Dry, Cyanosis (negative) and Jaundice (negative)
Labs/Micro/Reports
Lab Data
03/02/25 04:40
03/02/25 04:40
Microbiology
02/25/25 10:09 Valve Tissue Culture - Preliminary
No Growth After 72 Hours
02/25/25 10:09 Valve Gram Stain - Preliminary
02/25/25 10:34 Valve Tissue Culture - Preliminary
No Growth After 72 Hours
02/25/25 10:34 Valve Gram Stain - Preliminary
02/25/25 10:09 Valve Anaerobic Culture - Preliminary
NO ANAEROBES ISOLATED
02/25/25 10:34 Valve Anaerobic Culture - Preliminary
NO ANAEROBES ISOLATED
02/26/25 13:07 Bronch Washing Respiratory Culture - Final
Usual Respiratory Brunilda
02/26/25 13:07 Bronch Washing Gram Stain - Final
[2025-03-02] MEDS: LIDOCAINE 4% PATCH 1 PATCH TOPICAL (08:56)
[2025-03-02] MEDS: MAGNESIUM OXIDE 500 MG PO (08:56)
[2025-03-02] MEDS: SENOKOT-S 1 TABLET PO (08:56)
[2025-03-02] MEDS: PROTONIX IV 40 MG IV (08:57)
[2025-03-02] MEDS: ROBINUL 1 MG PO (08:57)
[2025-03-02] MEDS: FEOSOL 325 MG PO (08:57)
[2025-03-02] MEDS: ZESTRIL 5 MG PO (08:57)
[2025-03-02] MEDS: FOLVITE 1 MG PO (08:57)
[2025-03-02] MEDS: MIRALAX 17 GRAMS TUBE (08:58)
[2025-03-02] MEDS: NSS (PRESERVATIVE FREE) 10 ML IV (08:58)
[2025-03-02] MEDS: NSS 500 IV (08:59)
--- NOTE | 2025-03-02 09:48 | W.PN.ID1 ---
Date of Service
Date of Service: March 02, 2025
Today's Communication
c/w vancomycin
Assessment / Plan
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
H/o Septic arthritis of the Knee 07/2024 due to Enterococcus - completed course of treatment
DM2; not on treatment
Leukopenia - present on arrival, possibly related to chronic infection
H/o noncompliance with imaging studies, though reportedly compliant with medications
- blood cultures x2 from different draws are in progress; no growth to date.
- will follow up valve cultures - asked lab to hold the aerobic cultures to two weeks
- await Q fever serologies phase I and phase II serology) however my overall impression remains a partially treated infection due to enterococcus given his prolonged course
- pending possible leadless pacemaker placement
- c/w vancomycin
- anticipate a repeat course of 6 weeks of IV antibiotics at home from the procedure, followed by suppression - possibly empiric
- patient is known to Dr Raman Fox [facility] and is established with vascular surgery Dr Alfred here
Required close monitoring of antibiotic levels and redosing of vancomycin, review of multiple cultures
����������������������������������������������������������
Chief Complaint
-: Other (endocarditis)
Subjective / Review of Systems
afebrile
bp stable
failed swallow evaluation
Vital Signs / Physical Exam
Vital Signs
Vital Signs
Temp Pulse Resp BP Pulse Ox
98.2 F 61 20 167/76 100
03/02/25 06:15 03/02/25 09:30 03/02/25 09:30 03/02/25 09:00 03/02/25 07:30
Physical Exam
Constitutional: No Acute Distress and Chronically Ill
Cardiovascular: Regular Rate and S1/S2; Negative Murmur or Rub
Pulmonary: Clear and Symmetric; Negative Wheezes or Rales
Gastrointestinal: Soft, Non Tender, Non Distended and Normal Bowel Sounds
Skin: Warm and Dry; Negative Rash or Jaundice
Objective Data
Lab Data
Lab Results
03/02/25 04:40
03/02/25 04:40
PT 16.6 Sec (11.4-14.6) H 02/28/25 04:53
INR 1.32 02/28/25 04:53
APTT 45.1 Sec (23.4-35.0) H 02/25/25 15:14
Estimated Creat Clear 84 ml/min 03/02/25 04:40
Total Bilirubin 1.7 mg/dl (0.2-1.3) H 02/28/25 04:53
AST 36 U/L (17-59) 02/28/25 04:53
ALT 13 U/L (0-50) 02/28/25 04:53
Alkaline Phosphatase 98 U/L (38-126) 02/28/25 04:53
Most recent labs reviewed.
Micro Results:
02/25/25 10:34 Anaerobic Culture - Final
Valve NO ANAEROBES ISOLATED
02/25/25 10:09 Anaerobic Culture - Final
Valve NO ANAEROBES ISOLATED
02/25/25 10:09 Tissue Culture - Preliminary
Valve No Growth After 72 Hours
Gram Stain - Preliminary
02/25/25 10:34 Tissue Culture - Preliminary
Valve No Growth After 72 Hours
Gram Stain - Preliminary
02/26/25 13:07 Respiratory Culture - Final
Bronch Washing Usual Respiratory Brunilda
Gram Stain - Final
02/25/25 10:34 Fungal Culture - Preliminary
Valve Culture in progress.
Positive cultures are reported as soon as detected.
Final report to follow in four to five weeks.
02/25/25 10:09 Fungal Culture - Preliminary
Valve Culture in progress.
Positive cultures are reported as soon as detected.
Final report to follow in four to five weeks.
02/19/25 13:22 Blood Culture - Final
Blood/Venous No Growth - Final Report
02/19/25 12:40 Blood Culture - Final
Blood/Venous No Growth - Final Report
--- NOTE | 2025-03-02 10:30 | PTCARENOTE ---
recieved report from nightshift RN, walking rounds completed, PT in bed AAOx4 w/o complaints of pain. assisted to chair x2 RN's generalized weakness. NPO except for crushed meds in applesauce, Video swallow scheduled for today, 2L nc 95-100%; RA in
the chair 96%, Afib on monitor with intermittent pacing VSS; GI Bbs wnl; gu medina I&O; all surgical sights CDI multiple skin tears (see worklist); pt failed video swallow; dobhoff placed in R nares; tubefeed orders to follow. PT seen by and signed
concent for Pacer placement on 03/03/25
--- NOTE | 2025-03-02 11:30 | W.PN.CD ---
Addendum entered and electronically signed by Zaki Martinez MD 03/02/25 13:23:
Spoke with CT Surgery. Any lowering of Dobutamine leads promptly to V pacing at 50 bpm.
We are now at day 5 post-op and this slow AV conduction is persisting and I anticipate will continue to persist.
I think it is reasonable to pursue cardiac pacing. Given good LVEF, permanent AFib, complex valve disease that a lead-less pacemaker makes sense.
I reviewed case with Dr. Betancourt and he has agreed to place a Micra pacemaker.
Original Note:
Today's Communication / Plan
-
Watch for need to place pacemaker, micra could be reasonable
Impression / Plan
-
Background: 70 y/o male with a history of permanent atrial fibrillation, acute on chronic HFpEF, PAD, AAA s/p EVAR (12/04/2023), prior diskitis and septic arthritis and CAD s/p PCI admitted progression of initially medically managed infectious
endocarditis, likely also involving his EVAR graft.
s/p AVR (27mm Soliman inspiris Bio valve), MVR (31mm Soliman Mitris Bio valve), TVr (34mm romero band), ELAA 50mm atriclip on 02/25/[address] Sharma
Bradycardia
- May need pacemaker tomorrow
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
-S/P three valve replacement/repair on 02/25/25.
-Dobutamine @ 2 mcg/kg/min => mostly for HR support at this point
-ABX management with ID (daptomycin, plan to transition to vancomycin).
-F/U cultures from valve.
Permanent AFIB/Bradycardia:
-Chronic, stable.
-HR 50-70 BPM, occasional requiring pacemaker support while on Db gtt, when DB gtt reduced will pace
-will need ppm, given clinical scenario, Micra likely best plan. Will discuss with Dr Nelson tomorrow for tentative placement Sunday.
-CHADS2-Vasc = 3 (CHF, Age x1, vascular disease). On Xaretlo as op.
-S/P LAAE (#50 AtriClip) with Dr. Sharma, 02/25/2025.
-Avoid anticoagulation in the setting of thrombocytopenia, knowing that we have some protection with the LAAE. Can reconsider as clinically improves
Hypoxic Respiratory failure
HFpEF
Resolved CHELA
AAA, S/P EVAR.
-Possibly infected (rim enhancing portion).
-Vascular surgery involved. Possible IR drainage?
Heme: Anemia and thrombocytopenia, off heparin since 02/24/2025
Complex chronic PAD => Vascular Surgery.
CAD with hx or PCI
-Stable without CP.
-On rivaroxaban as OP; currently on hold due to post op/thrombocytopenia.
Subjective:
Comfortable
Data:
- Intraop LORETA 02/25/2025:
CONCLUSIONS
Mildly dilated left ventricle (LVIDD 6.1 cm) with LVEF of 50-55% by visual
inspection. No regional wall motion abnormalities.
Severely dilated left atrium (10 cm).
Normal right ventricle in size and function.
Dilated right atrium (6.8 cm).
Severe mitral regurgitation with anterior leaflet echodensity.
Severe aortic insufficiency with mobile echodensity on the noncoronary cusp.
Mild to moderate tricuspid regurgitation with dilated annulus (5.3 cm).
Dilated coronary sinus (1.4 cm).
Small bysc-am-boidr patent foramen ovale.
Normal size ascending aorta with mild posterior wall calcification. The arch
is heavily diseased with atheromatous plaque. The descending thoracic aorta is
poorly visualized.
Normal appearing left atrial appendage.
POST OPERATIVE FINDINGS
S/P AVR with size 27 bioprosthetic, MVR with size 31, tricuspid band size 34,
IVONE exclusion with clip.
The bioprosthetic valves are well-seated with no paravalvular leaks. The
tricuspid valve regurgitation is no longer present. The aortic valve gradient
is 8 mmHg, the mitral valve gradient is 2 mmHg, and the tricuspid valve
gradient is 1 mmHg. A strand of highly mobile chordae tendineae is seen in the
left ventricle just below the mitral valve. The left atrial appendage is no
longer visualized with the absence of flow confirmed by color flow Doppler.
Otherwise unchanged exam. The rhythm is atrial fibrillation. Pharmacological
support included 8 mcg/kg/min of dobutamine and 10 mcg/kg of norepinephrine.
-LORETA 02/20/2025: L the EF 55-60%, biatrial enlargement, MV echodensity with severe MR, AV echodensity with mod/severe AR, TV echodensity with mod TR
-TTE 02/19/25: LVEF 50-55%, MV with 1.5 cm x 0.7 cm veg on anterior leaflet. Severe, eccentric mitral regurgitation. AV with highly mobile 2.5 cm x 0.6 cm veg on NCC. Severe eccentric aortic regurgitation. Possible TV veg with mod TR, PASP 72
-Echo report summary 01/15/25: 0.75 mm mass attached to aortic valve, EF 38%, increased LV size, RV moderately dilated and with moderately decreased systolic function, severely dilated atria, severe AR, two areas of vegetation on anterior mitral
valve leaflet, severe MR, severe TR (aortic vegetation bigger from previous and now two areas on MV noted).
Physical Exam
Vital Signs/Labs
Vital Signs
Temp Pulse Resp BP Pulse Ox
98.2 F 61 20 167/76 100
03/02/25 06:15 03/02/25 09:30 03/02/25 09:30 03/02/25 09:00 03/02/25 07:30
03/01/25 03/02/25 03/03/25
06:59 06:59 06:59
Actual Weight 82 kg 80.9 kg
03/02/25 04:40
03/02/25 04:40
PT 16.6 Sec (11.4-14.6) H 02/28/25 04:53
INR 1.32 02/28/25 04:53
APTT 45.1 Sec (23.4-35.0) H 02/25/25 15:14
Magnesium 2.0 mg/dl (1.6-2.3) 03/02/25 04:40
Triglycerides 93 mg/dl (10-149) 02/28/25 04:53
LDL Cholesterol, Calc 64 mg/dl 02/19/25 01:44
VLDL Cholesterol, Calc 15 mg/dl (0-30) 02/19/25 01:44
HDL Cholesterol 37 mg/dl 02/19/25 01:44
02/18/25 02/18/25 02/26/25
20:27 20:59 00:14
Zhu-X-Dixkubmjyis Pept Cancelled [id number]
Physical Exam
Constitutional: No acute distress
EENT: Anicteric
Cardiovascular: Rhythm/rate is irregular and S1S2 is normal
Respiratory: Respiratory effort normal and Lungs clear to auscul.
GI: Soft
Data Reviewed
-
Date of Service: March 02, 2025
--- NOTE | 2025-03-02 12:00 | CM ---
Chart reviewed. Patient is independent of ADLS, lives with his in a [address], [facility], ambulates with a SPC and RW. Patient will need IV antibiotics x 6 weeks. PT/OT evaluation recommending Acute Rehab. Referral placed to [facility]. Patient will
need a physiatry consult. Plan is for the patient to go to acute rehab. CM to follow
--- NOTE | 2025-03-02 13:03 | PTOTSP ---
Videofluoroscopic Swallow Study
Mild oral, severe pharyngeal dysphagia w/ silent aspiration of all consistencies assessed. See patient care note for details.
Recommend:
1. NPO - consider non-oral means of nutrition/hydration
2. Medications: non-oral
3. Oral care 3-5x daily
4. Aspiration Risk Hydration Protocol - sparing ice chips after oral care, with nurse supervision; D/C if any worsened signs of dysphagia/aspiration/respiratory comprise
5. Dysphagia tx at the acute care level for pharyngeal exercises and to determine timing of repeat video swallow study
--- NOTE | 2025-03-02 16:14 | PTCARENOTE ---
assumed care of pt, afib on tele w HR 60, left brachial azucena leveled and zeroed, VSS, dobutamine maintained at 2mcg.
[2025-03-02 17:13] LABS: Vancomycin Random 13.7 ug/ml
--- NOTE | 2025-03-02 17:50 | PHA.VAN.FU ---
Vancomycin Assessment / Plan
- Assessment
Renal Function: SCR Decreasing
WBC's are: WNL
In the past 24 hrs, patient has been: Afebrile
- Assessment - Therapeutic Drug Monitoring
Random Level: 13.7 - drawn ~12 hours after previous level of 17.8
Calculated ke: 0.0217
Calculated half life (H): 31.9
- Dosing Plan
Dosing by Level: Re-dose today (vanc 1250mg)
- Monitoring Plan
Random Level: 03/03 06
- Follow Up
Pharmacy will continue to follow.
Vancomycin Follow UP
- -
Patient Age: 70
Patient Sex: Male
Vancomycin Day #: 4
Indication: Endocarditis
Requesting Provider: Jazzy
Pertinent Antimicrobial Allergies:
No Known Drug Allergies
Height / Weight:
Height 6 ft
Actual Weight 80.9 kg
Pertinent Past Medical History: T2DM, Valve replacement
- Vital Signs / Lab Results
Temp Pulse Resp BP Pulse Ox
99.5 F 67 20 148/65 97
03/02/25 17:07 03/02/25 17:02 03/02/25 17:07 03/02/25 17:02 03/02/25 17:07
Lab Results - Hematology
02/27/25 02/28/25 03/01/25
21:04 04:53 05:17
WBC 9.2 9.0 9.1
03/02/25
04:40
WBC 7.3
Lab Results - Chemistry
02/27/25 02/28/25 03/01/25
21:04 04:53 05:17
BUN 43 H 43 H 41 H
Creatinine 1.5 H 1.4 H 1.3
Estimated Creat Clear 50 54 58
Albumin 2.7 L
03/02/25
04:40
BUN 35 H
Creatinine 0.9
Estimated Creat Clear 84
Albumin
Microbiology Results
02/25/25 10:34 Tissue Culture - Preliminary
Valve NO GROWTH
Gram Stain - Preliminary
02/25/25 10:09 Tissue Culture - Preliminary
Valve NO GROWTH
Gram Stain - Preliminary
02/25/25 10:09 Fungal Culture - Preliminary
Valve Culture in progress.
Positive cultures are reported as soon as detected.
Final report to follow in four to five weeks.
02/25/25 10:34 Fungal Culture - Preliminary
Valve Culture in progress.
Positive cultures are reported as soon as detected.
Final report to follow in four to five weeks.
02/25/25 10:34 Anaerobic Culture - Final
Valve NO ANAEROBES ISOLATED
02/25/25 10:09 Anaerobic Culture - Final
Valve NO ANAEROBES ISOLATED
Therapeutic Drug Monitoring
Random Vancomycin 13.7 ug/ml 03/02/25 16:44
[2025-03-02] MEDS: VANCOCIN 275 MG IV (18:10)
--- NOTE | 2025-03-02 20:00 | PTCARENOTE ---
Patient A+A+Ox3. No neurological deficits noted. No c/o headache, dizziness or lightheadedness. Patient resting in bed watching television. Room air. SpO2 95%. Chest tube dressing intact. Atrial Fibrillation. Occasional PVC's. Heart rate
60-70's. V-Wire 40/7/0.8. No c/o chest pain, pressure or discomfort. Normoactive bowel sounds. Dobhoff small bore feeding tube via right nare - Placement checked - Osmolite 1.2 Tube Feeding infusing at 20 ml/hr with 25 ml/hr water flush.
Tolerating tube feedings. No c/o nausea. No vomiting. Alfred catheter - Temperature sensing - light giselle urine - Outputs as documented. Bilateral lower extremity edema. Positive pulses. Right I.J. Cordis. Dobutamine at 2 mcq/kg/min (4.8
ml/hr). Left Brachial Arterial line - Intact - Zeroed and calibrated - Waveform within normal limits. Sternal dressing intact. Right groin dressing intact. Patient with no c/o back or flank pain. Assessment as documented.
[2025-03-02] MEDS: MAGNESIUM OXIDE 500 MG TUBE (20:37)
[2025-03-02] MEDS: SENOKOT-S 1 TABLET TUBE (20:38)
[2025-03-02] MEDS: ROBINUL 1 MG TUBE (20:38)
[2025-03-02] MEDS: TYLENOL 650 MG TUBE (20:38)
[2025-03-02] MEDS: KCL 50 IV (22:22)
[2025-03-02] MEDS: ZESTRIL 5 MG TUBE (23:22)
[2025-03-02] MEDS: LIPITOR 40 MG TUBE (23:23)
--- NOTE | 2025-03-02 23:27 | W.PN.UPDATE ---
Update Note
Progress Note Update
Procedure Note:
Procedure: Dobhoff placement
Dobhoff placed for tube feeds and medication administration, previous dobhoff was clogged and nonfunctional necessitating removal and placement of new dobhoff. Dobhoff placed via right nare without difficulty with air insufflation indicating
placement in the stomach, will confirm placement with abdominal x-ray before using.
[2025-03-03] VITALS (17 sets, daily range): BP systolic 121–170; BP diastolic 55–85; PULSE 70–77; O2SAT 96; BMI 23.8
[2025-03-03] MEDS: DOBUTREX 500 MG 250 IV (00:25)
--- NOTE | 2025-03-03 01:00 | PTCARENOTE ---
Patient's feeding tube (Dobhoff small bore 8Fr tube) - Clotted off. Unable to flush. Attempted to unclog tube - Unable to flush. Physician's Motor Assembler for CT Surgery, Caelb Dorman PA-C, made aware and attempted to unclog tube. Unable to flush.
Feeding tube removed. New 8FR Small Bore feeding tube placed by LARS without difficulty. X-Ray obtained confirming placement. Tube feeds off - NPO after midnight for PPM. Medications able to be administered. Patient resting in bed watching
television. Assessment as documented.
[2025-03-03 05:24] LABS: Hematocrit 27.7 % (39.0-52.0); Mean Corp Hgb Conc. 32.5 g/dL (33.0-37.0); Mean Corpuscular Hgb 32.3 pg (27.0-31.0); Mean Corpuscular Volume 99.3 fL (80.0-94.0); Mean Platelet Volume 10.8 fL (7.4-10.4); Platelet Count 40 10^3/uL (130-400); Red Blood Cell Count 2.79 10^6/uL (4.70-6.10); Red Cell Dist. Width 17.3 % (11.5-14.5); White Blood Cell Count 6.4 10^3/uL (4.8-10.8)
--- NOTE | 2025-03-03 05:31 | W.PN.CT ---
Today's Communication / Plan
-
Plan:
-No major issues overnight. Hemodynamically and neurologically intact
-On dobutamine @ 2 mcg/kg/min
-A-fib 60-70's overnight. Did not require pacing overnight, pacer at back up 40 bpm per Cards. Appears to be heading towards PPM placement (Leadless PPM)
-NPO for PPM placement today
-H/H stable @ 9.0/27.7
-ASA on hold given thrombocytopenia, 90-> 72-> 62-> 59->52->43->40. May consider sending off HIT assay
-Transfusing 1 {5pk/plt} today before PPM placement
-Creatinine back to baseline 0.7, peaked @ 1.5, will d/c medina today
-Avoid lasix today, appears euvolemic
-Amiodarone and BB on hold
-Failed video swallow exam yesterday
-Dobhoff placed for feeding and meds, currently on hold
-Speech recommend ice chips sparingly with supervision. Hx of Laryngeal Ca S/P chemo/XRT/tracheostomy/feeding tube x 7 months
-Cont. abx per ID currently on Vancomycin, cultures are unremarkable. Eventual PICC line for abx
-Eventual endovascular stent graft by IR and Vascular team
-Encourage use of IS
-OOB into chair/PT/OT/SP f/u
Assessment / Plan
-
s/p AVR (27mm Soliman inspiris Bio valve), MVR (31mm Soliman Mitris Bio valve), TVr (34mm romero band), ELAA 50mm atriclip on 02/25/[address] Sharma - POD #6
-AV endocarditis (E faecalis)/Mod-severe AI
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
-Moderate TR
-LVEF 55-60%
-Atrial Fib (Chronic, diagnosed 2011-on Xarelto)
-CAD (nonischemic cardiomyopathy/HFrEF )
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
-Acute on chronic Anemia
-AAA S/P endovascular repair [address] Medina; suspected break through infection despite suppressive amoxicillin
-Septic arthritis of the Knee 07/2024 due to Enterococcus - completed course of treatment
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
-Lyme disease
-S/P PCI/Stent (MARQUISE-OM1 2011)
-T2DM (A1C 5.1, currently on no tx)
-Hx noncompliance with imaging studies, though reportedly compliant with medications
-acute hypoxic respiratory failure requiring delayed extubation & flolan nebulization
-Acute postop atelectasis/probable pulmonary edema
-Acute postop blood loss/Anemia (transfused 6u PRBCs)
-Acute postop thrombocytopenia (transfused 2 {5}pk plts
-Acute postop hypovolemia with subsequent hypervolemia
-Acute postop bradycardia/rate controlled a-fib
-Acute postop CHELA
Discussed patient care with: Cardiology, Nursing, Respiratory Therapy, Pharmacy and Care Team
Subjective
Procedure
AVR (27mm Soilman inspiris Bio valve), MVR (31mm Soliman Mitris Bio valve), TVr (34mm romero band), ELAA 50mm atriclip on 02/25/[address] Sharma
-
Date of Service: March 03, 2025
Pt c/o productive cough, otherwise feels well
Objective Data
-
Lab Results
03/03/25 05:03
PT 16.6 Sec (11.4-14.6) H 02/28/25 04:53
INR 1.32 02/28/25 04:53
APTT 45.1 Sec (23.4-35.0) H 02/25/25 15:14
Vital Signs
Vital Signs
Temp Pulse Resp BP Pulse Ox
98.7 F 67 18 164/63 95
03/03/25 01:00 03/03/25 03:30 03/03/25 03:30 03/03/25 05:00 03/03/25 01:00
CT Intake/Output/Weight
03/02/25 03/02/25 03/03/25
06:59 18:59 06:59
Intake Total 177.6 / 605.2 337.6 / 685.4 347.8 / 685.4
Output Total 1225 / 2380 680 / 1100 420 / 1100
Balance -1047.4 / -1774.8 -342.4 / -414.6 -72.2 / -414.6
SaO2: 95 (RA)
Physical Exam
-
General: Awake, Oriented and AOx3
Cardiovascular: Irregular rate & rhythm (a-fib), No Murmurs, No Rub and No Gallop
Respiratory: Decreased Breath Sounds (at bases, otherwise clear)
Sternum: Stable
Incision: Clean, Dry, Intact and Dressing Intact
Extremities: No Edema
Data Reviewed
-
Lab Results: Results Reviewed
Medications: Active Meds Reviewed
Chest X-Ray: Report Reviewed and Image Reviewed
ECG: Report Reviewed and Image Reviewed
[2025-03-03 05:43] LABS: Blood Urea Nitrogen 28 mg/dl (9-20); Calcium 8.7 mg/dl (8.4-10.2); Carbon Dioxide 25 mmol/L (22-30); Chloride 113 mmol/L (98-107); Estimated Creatinine Clearance 108 ml/min; Glucose 124 mg/dl (70-99); Potassium 3.8 mmol/L (3.5-5.1); Sodium 147 mmol/L (135-145); Triglycerides 81 mg/dl (10-149); eGFR > 60.00
[2025-03-03 05:45] LABS: Vancomycin Random 18.6 ug/ml
--- NOTE | 2025-03-03 06:00 | PTCARENOTE ---
Patient A+A+Ox3. No neurological deficits noted. AM lab work collected and sent. EKG completed. Patient given CHG bath and linens changed. Chest tube dressing changed. Patient brushed teeth. Assessment/Interventions as documented.
--- NOTE | 2025-03-03 06:50 | PTCARENOTE ---
Plt count 40. Platelets ordered and infusing without difficulty. No transfusional reaction noted. No further changed from previous assessment.
[2025-03-03] MEDS: FOLVITE 1 MG TUBE (07:23)
[2025-03-03] MEDS: FEOSOL 325 MG TUBE (07:23)
[2025-03-03] MEDS: ROBINUL 1 MG TUBE ×2 (07:23→20:13)
[2025-03-03] MEDS: MAGNESIUM OXIDE 500 MG TUBE ×2 (07:23→20:13)
[2025-03-03] MEDS: ZESTRIL 5 MG TUBE (07:23)
[2025-03-03] MEDS: SENOKOT-S 1 TABLET TUBE (07:24)
[2025-03-03] MEDS: NSS (PRESERVATIVE FREE) 10 ML IV (07:24)
[2025-03-03] MEDS: LIDOCAINE 4% PATCH 1 PATCH TOPICAL (07:24)
[2025-03-03] MEDS: MIRALAX 17 GRAMS TUBE (07:24)
[2025-03-03] MEDS: PROTONIX IV 40 MG IV (07:24)
[2025-03-03] MEDS: KCL 50 IV (07:39)
--- NOTE | 2025-03-03 07:41 | PTCARENOTE ---
assumed care of pt from previous shift RNelpidio on tele, left brachial azucena leveled and zeroed. Dobutamine maintained at 2mcg, plts transfused as ordered. Medications administered via DHT as ordered.
--- NOTE | 2025-03-03 08:11 | PHA.VAN.FU ---
Vancomycin Assessment / Plan
- Assessment
Renal Function: SCR Decreasing (BUN decreasing)
WBC's are: WNL
In the past 24 hrs, patient has been: Afebrile
- Assessment - Therapeutic Drug Monitoring
Random Level: 18.6 - drawn ~11 H after previous dose of 1250mg
Renal function not stable but improving
Patient had prolonged calculated half-life yesterday of ~32H - despite improvement in BUN & SCR, expect estimated CrCl currently is not accurately predicting vancomycin clearance
Based on half-life yesterday and improving renal function, anticipate patient is borderline between Q24H & Q36H interval at this time
- Dosing Plan
Dosing by Level: Re-dose today (Vanc 1250mg x1 at noon)
Will keep dosing by level for now given unstable but improving renal function in patient not currently following population-based PK
Re-dose today as patient may not maintain level for full 24H
- Monitoring Plan
Random Level: 03/04 06
- Follow Up
Pharmacy will continue to follow.
Vancomycin Follow UP
- -
Patient Age: 70
Patient Sex: Male
Vancomycin Day #: 5
Indication: Endocarditis
Requesting Provider: Dr. Purcell
Pertinent Antimicrobial Allergies:
No Known Drug Allergies
Height / Weight:
Height 6 ft
Actual Weight 79.5 kg
Pertinent Past Medical History: T2DM, Valve replacement
- Vital Signs / Lab Results
Temp Pulse Resp BP Pulse Ox
98.9 F 75 20 170/73 95
03/03/25 06:00 03/03/25 07:00 03/03/25 07:00 03/03/25 06:54 03/03/25 06:18
Lab Results - Hematology
03/01/25 03/02/25 03/03/25
05:17 04:40 05:03
WBC 9.1 7.3 6.4
Lab Results - Chemistry
03/01/25 03/02/25 03/03/25
05:17 04:40 05:03
BUN 41 H 35 H 28 H
Creatinine 1.3 0.9 0.7
Estimated Creat Clear 58 84 108
Microbiology Results
02/25/25 10:34 Tissue Culture - Preliminary
Valve NO GROWTH
Gram Stain - Preliminary
02/25/25 10:09 Tissue Culture - Preliminary
Valve NO GROWTH
Gram Stain - Preliminary
02/25/25 10:09 Fungal Culture - Preliminary
Valve Culture in progress.
Positive cultures are reported as soon as detected.
Final report to follow in four to five weeks.
02/25/25 10:34 Fungal Culture - Preliminary
Valve Culture in progress.
Positive cultures are reported as soon as detected.
Final report to follow in four to five weeks.
02/25/25 10:34 Anaerobic Culture - Final
Valve NO ANAEROBES ISOLATED
02/25/25 10:09 Anaerobic Culture - Final
Valve NO ANAEROBES ISOLATED
Therapeutic Drug Monitoring
Random Vancomycin 18.6 ug/ml 03/03/25 05:03
--- NOTE | 2025-03-03 08:23 | W.PN.INTV ---
Today's Communication / Plan
Recommendations
Dobutamine remains for bradycardia; defer PPM to EP
Wean down dobutamine as tolerated with goal HR>50, MAP>65
Failed VFSS on 03/02 - continue tube feeds; PITCH FILLER to re-eval
Encouraged OOB to chair, IS
Continue trending platelet count - consider giving 1-2 units to keep >50k
4T score is 4, which is intermediate --> consider sending ZION panel
Further postop management per team
Artist Consultant services will continue to follow along while patient remains CVICU status. Once transferred to CVICU�telemetry then we will sign off at that time.
Assessment
-
Patient is a 70-year-old male with previous history of CAD status post stent, heart failure, mitral regurgitation, history of laryngeal cancer, AAA presenting to ER with 2 days of dyspnea on exertion. Admitted to [facility] on 02/18/25, chest
x-ray demonstrating moderate pulmonary edema. He was recently admitted to 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
preceding left knee septic arthritis due to Enterococcus. Underwent repeat CT TA demonstrating endograft with interval enlargement of 1.9 cm rim-enhancing fluid suggesting endoleak, pulmonary edema; repeat TTE demonstrating 1.5 cm x 0.7 cm
vegetation with severe MR, AV mobile 2.5 x 0.6 lesion with severe AR, TV with mobile echodensity and moderate TR. CTS consulted for multivalve intervention. Underwent AVR/MVR/TVR 02/25/25 and postoperatively transferred to CVICU. He is currently
satting 92% on 100% FiO2 and PEEP of 10. CXR showing new L sided infiltrate.
Subacute multivalvular endocarditis, c/b severe multi-VHD -- recently adm to [facility] for IV abx
Maintained on suppressive Amox, failure of medical treatment
s/p Median sternotomy/AVR/MVR/TVR, ELAA 02/25/25
Acute hypoxemic respiratory failure, unknown if on O2 at baseline - now resolved
Abnormal CXR with new opacification, possible related to transfusion/overload/sepsis
Hx of AAA s/p aortobiiliac endovascular repair with suspected infected endovascular stent graft (enlarging rim-enhancing fluid on CT)
Conditions present prior admission:
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
completed a 6 week course of ampicillin/ceftriaxone (through 01/05); maintained on suppressive amoxicillin
History of L knee septic arthritis of the knee due to enterococcus
Abdominal aortic aneurysm status post endovascular repair of infrarenal abdominal aortic aneurysm by Dr. Alfred 12/04/2023
Severe calcific CAD w/o angina or ACS, Hx of BMS to OM1 in 2011
Hx of laryngeal cancer in 2015 s/p resection, chemoradiation - required tracheostomy & feeding tube x 7 months
History of atrial fibrillation on Xarelto
Prior history of obstructive sleep apnea, likely resolved with weight loss
Peripheral neuropathy due to chemotherapy
Anxiety
Hypertension
CHF
Gout
Hyperlipidemia
Type 2 diabetes
Anemia
Former smoker, quit reportedly in his 20s
Plan
s/p multi-valvular intervention (OR date: 02/25/2025) - underwent AVR, MVR, TV repair + left atrial appendage exclusion with 50 mm AtriClip
Titrate off pressors per protocol--dobutamine@1 due to bradycardia; defer PPM placement to EP
Intraop-LORETA from 02/25/2025 reviewed --> showed low-normal LV function with EF 50-55%, severe VHD (severe MR, severe AI, mild moderate TR, and small left to right patent rabago ovale)
PA catheter discontinued
Chest tubes x4 removed on 02/28
Pain control
Intubated for procedure, extubated on 02/27/2025 and now on room air saturating 97%, breathing comfortably
CXR with L sided patchy opacity throughout
s/p bronch 02/26-normal ania
Maintain SpO2 >90-94%
No prior history of pulmonary disease, but was a former smoker, does not carry diagnosis of COPD, not known to be on home O2
Had trach in past, history of laryngeal cancer
No prior PFTs for review
We discussed OP FU at discharge
CT reviewed showing possible underlying chronic ILD, traction bronchiectasis
Aspiration precautions --> failed videofluoroscopic swallow study on 03/02 � Dobbhoff tube now in place; continue tube feeds
Speech following, high risk
GI prophylaxis: not indicated
Monitor strict I/O
Alfred/chest tube output
Hb/platelets postoperatively stable
Trend CBC for now
Can transfuse if indicated for Hb <7, plt <50 (given post-operative status)
4T score is 4 (intermediate risk of ZION) --> consider sending off ZION panel
DVT prophylaxis including SCDs; would hold heparin SQ products given his decreasing platelet count (40 today)
Recommend ISS to keep BG at 110-140
Artist Consultant services will continue to follow along while patient remains CVICU status. Once transferred to CVICU�telemetry then we will sign off at that time. Please call back with any questions or concerns.
Diagnostic Data
Chest X-Ray: 02/18/25- Cardiomegaly with moderate pulmonary edema. Likely trace bilateral pleural effusions.
12/04/23- No active cardiopulmonary disease.
CT Scan: Angio 02/20/25- Small bilateral pleural effusions are present. Increased interstitial and ground-glass opacities throughout both lungs with Kyle B lines, findings suggesting a pulmonary edema pattern.
There are enlarged mediastinal lymph nodes, most likely reactive lymph nodes, often seen in association with congestive heart failure. Calcification of the thoracic aorta with no thoracic aortic aneurysm.
Dense coronary artery calcifications are present. Mild aortic valvular calcification. No significant abnormality in the visualized upper abdomen. In the thoracic spine, endplate irregularity suggestive of sequela of previous mild to moderate
Scheuermann's disease. The visualized vertebral bodies have maintained their height with no evidence for fracture.
AP 02/17/25- 1. AORTOBIILIAC ENDOGRAFT in place with interval enlargement of the [place]giak aneurysm sac around the endograft and a 1.9 cm focal outpouching of rim-enhancing fluid along the left posterolateral side of the proximal graft attachment
suggesting an ENDOLEAK (possibly a TYPE Ia PROXIMAL ENDOLEAK).
2. 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
3. Severe stenosis (greater than 70% diameter) in the proximal right superficial femoral artery.
4. Mild chronic bilateral renal disease.
5. Cholelithiasis.
6. MODERATE ACUTE INTERSTITIAL and ALVEOLAR CARDIOGENIC PULMONARY EDEMA.
7. Moderate to severe cardiomegaly with right heart dysfunction.
8. Minimal bilateral pleural effusions.
9. Severe multilevel lumbar discogenic degenerative disease.
10. Large right scrotal hydrocele.
Echo: 02/19/25- Left ventricle is moderately dilated. Normal left ventricular systolic function. Left ventricular ejection fraction is 50-55%. Thickened mitral valve leaflets. 1.5 cm x 0.7 cm echodensity associated with anterior leaflet. Severe,
eccentric mitral regurgitation. Trileaflet aortic valve. Highly mobile 2.5 cm x 0.6 cm echodensity visualized, likely at NCC. Severe eccentric aortic regurgitation. Enlarged right ventricular size. Normal right ventricular systolic function.
Tricuspid valve: In limited view 59, there is evidence of mobile echodensity. Moderate tricuspid regurgitation. Severely elevated PASP. Estimated pulmonary artery pressure of 72 mmHg. Assuming a right atrial pressure of 15 mmHg. Findings
consistent with endocarditis. No prior study available for comparison.
Reports and relevant images were personally reviewed.
Critical care statement: A total of 41 minutes of critical care time was provided for this patient today. This includes management of unstable vital signs, evaluation of the patient at bedside, reviewing the patient's pertinent medical records
including radiographs, microbiology, laboratory evaluations, and discussion with primary team, consultants, pharmacy, nutrition, physical therapy, case management, charge nurse, critical care nursing, and respiratory therapy.
Subjective Dataa
Subjective Data
Date of Service:
Date of Service: March 03, 2025
Chief Complaint: Artist Consultant Follow Up
Subjective:
Patient was seen and evaluated today at bedside. Resting in bed no acute distress. Heart rate 66, and BP via A-line: 148/52. Currently on dobutamine drip at 1 mcg/kg/min. NGT in place and tube feeds are on at 20 cc/hr. His voice is coming back
slowly. He currently denies chest pain, REYEZ, nausea, fevers or chills.
Review of Systems
General: Other (Negative unless mentioned above)
Objective Data
Data Reviewed
Vital Signs / I&O / Oxygen:
Vital Signs
Temp Pulse Resp BP Pulse Ox
98.9 F 58 25 163/61 97
03/03/25 06:00 03/03/25 09:00 03/03/25 07:30 03/03/25 08:00 03/03/25 08:57
Intake and Output
03/02/25 03/03/25 03/04/25
06:59 06:59 06:59
Intake Total 600.4 / 605.2 989.2 / 1004.0 44.4 / 44.4
Output Total 2330 / 2380 1175 / 1175 95 / 95
Balance -1729.6 / -1774.8 -185.8 / -171.0 -50.6 / -50.6
SaO2 [CPAP] 98
SaO2 [A/C] 97
SaO2 [SIMV] 99
SaO2 97
Nasal Cannula flow liters per 2
minute
Physical Exam
General: Respiratory Distress (negative), Comfortable, Poor Appetite and Other (chronically ill appearing, thin)
HEENT: Normocephalic, Anicteric and Other (poor dentition)
Cardiovascular: Irregular Rhythm (Irregularly irregular) and Peripheral Edema (+2 lower extremity pitting edema bilaterally)
Respiratory: Wheeze (negative), Crackles (Bibasilar), Rhonchi (negative) and Non-Labored Respirations
GI: Soft, Non Distended, Non Tender and Normal Bowel Sounds
Neurology: Awake, Alert, Tremors (negative) and Other (whispers; difficult for him to raise voice/phonate)
Skin: Warm, Dry, Cyanosis (negative) and Jaundice (negative)
Labs/Micro/Reports
Lab Data
03/03/25 05:03
03/03/25 05:03
Microbiology
02/25/25 10:34 Valve Tissue Culture - Preliminary
NO GROWTH
02/25/25 10:34 Valve Gram Stain - Preliminary
02/25/25 10:09 Valve Tissue Culture - Preliminary
NO GROWTH
02/25/25 10:09 Valve Gram Stain - Preliminary
02/25/25 10:09 Valve Fungal Culture - Preliminary
Culture in progress.
Positive cultures are reported as soon as detected.
Final report to follow in four to five weeks.
02/25/25 10:34 Valve Fungal Culture - Preliminary
Culture in progress.
Positive cultures are reported as soon as detected.
Final report to follow in four to five weeks.
02/25/25 10:34 Valve Anaerobic Culture - Final
NO ANAEROBES ISOLATED
02/25/25 10:09 Valve Anaerobic Culture - Final
NO ANAEROBES ISOLATED
02/26/25 13:07 Bronch Washing Respiratory Culture - Final
Usual Respiratory Ania
02/26/25 13:07 Bronch Washing Gram Stain - Final
--- NOTE | 2025-03-03 09:45 | PTCARENOTE ---
medina removed, dobut at 1mcg, pt assisted oob to chair w 1 assist
--- NOTE | 2025-03-03 09:48 | W.PN.CD ---
Today's Communication / Plan
-
-
Holding off on Micra implant as AV node conduction is slowly improving
Decrease dobutamine to 1
Decrease pacing support from VVI 40 to VVI 35
Will reassess consideration for permanent pacing daily
-
Impression / Plan
-
Background: 70 y/o male with a history of permanent atrial fibrillation, acute on chronic HFpEF, PAD, AAA s/p EVAR (12/04/2023), prior diskitis and septic arthritis and CAD s/p PCI admitted progression of initially medically managed infectious
endocarditis, likely also involving his EVAR graft.
s/p AVR (27mm Soliman inspiris Bio valve), MVR (31mm Soliman Mitris Bio valve), TVr (34mm romero band), ELAA 50mm atriclip on 02/25/[address] Sharma
Bradycardia
- Less pacing over last 12-48 hours, AV conduction seems to be improving
- Holding off on Micra implant as AV node conduction is slowly improving
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
- S/P triple valve intervention (2 valves replaced/1 repaired) on 02/25/2025.
- ATB per ID (Vanco)
Permanent AFib
- On Xaretlo as op.
- S/P LAAE (#50 AtriClip) with Dr. Sharma, 02/25/2025.
- Avoid anticoagulation for now thrombocytopenia
Hypoxic Respiratory failure
HFpEF
Resolved CHELA
AAA, S/P EVAR.
-Possibly infected (rim enhancing portion).
-Vascular surgery and ID involved
Heme: Anemia and thrombocytopenia, off heparin since 02/24/2025
Complex chronic PAD => Vascular Surgery involved
CAD with hx or PCI
-Stable without CP.
-On rivaroxaban as OP; currently on holding due to post op/thrombocytopenia.
Subjective:
Comfortable
Data:
Intraop LORETA 02/25/2025:
CONCLUSIONS
Mildly dilated left ventricle (LVIDD 6.1 cm) with LVEF of 50-55% by visual
inspection. No regional wall motion abnormalities.
Severely dilated left atrium (10 cm).
Normal right ventricle in size and function.
Dilated right atrium (6.8 cm).
Severe mitral regurgitation with anterior leaflet echodensity.
Severe aortic insufficiency with mobile echodensity on the noncoronary cusp.
Mild to moderate tricuspid regurgitation with dilated annulus (5.3 cm).
Dilated coronary sinus (1.4 cm).
Small yrlo-xi-ornld patent foramen ovale.
Normal size ascending aorta with mild posterior wall calcification. The arch
is heavily diseased with atheromatous plaque. The descending thoracic aorta is
poorly visualized.
Normal appearing left atrial appendage.
POST OPERATIVE FINDINGS
S/P AVR with size 27 bioprosthetic, MVR with size 31, tricuspid band size 34,
IVONE exclusion with clip.
The bioprosthetic valves are well-seated with no paravalvular leaks. The
tricuspid valve regurgitation is no longer present. The aortic valve gradient
is 8 mmHg, the mitral valve gradient is 2 mmHg, and the tricuspid valve
gradient is 1 mmHg. A strand of highly mobile chordae tendineae is seen in the
left ventricle just below the mitral valve. The left atrial appendage is no
longer visualized with the absence of flow confirmed by color flow Doppler.
Otherwise unchanged exam. The rhythm is atrial fibrillation. Pharmacological
support included 8 mcg/kg/min of dobutamine and 10 mcg/kg of norepinephrine.
-LORETA 02/20/2025: L the EF 55-60%, biatrial enlargement, MV echodensity with severe MR, AV echodensity with mod/severe AR, TV echodensity with mod TR
-TTE 02/19/25: LVEF 50-55%, MV with 1.5 cm x 0.7 cm veg on anterior leaflet. Severe, eccentric mitral regurgitation. AV with highly mobile 2.5 cm x 0.6 cm veg on NCC. Severe eccentric aortic regurgitation. Possible TV veg with mod TR, PASP 72
-Echo report summary 01/15/25: 0.75 mm mass attached to aortic valve, EF 38%, increased LV size, RV moderately dilated and with moderately decreased systolic function, severely dilated atria, severe AR, two areas of vegetation on anterior mitral
valve leaflet, severe MR, severe TR (aortic vegetation bigger from previous and now two areas on MV noted).
Physical Exam
Vital Signs/Labs
Vital Signs
Temp Pulse Resp BP Pulse Ox
98.9 F 58 25 163/61 97
03/03/25 06:00 03/03/25 09:00 03/03/25 07:30 03/03/25 08:00 03/03/25 08:57
03/02/25 03/03/25 03/04/25
06:59 06:59 06:59
Actual Weight 80.9 kg 79.5 kg
03/03/25 05:03
03/03/25 05:03
PT 16.6 Sec (11.4-14.6) H 02/28/25 04:53
INR 1.32 02/28/25 04:53
APTT 45.1 Sec (23.4-35.0) H 02/25/25 15:14
Magnesium 2.0 mg/dl (1.6-2.3) 03/03/25 05:03
Triglycerides 81 mg/dl (10-149) 03/03/25 05:03
LDL Cholesterol, Calc 64 mg/dl 02/19/25 01:44
VLDL Cholesterol, Calc 15 mg/dl (0-30) 02/19/25 01:44
HDL Cholesterol 37 mg/dl 02/19/25 01:44
02/18/25 02/18/25 02/26/25
20:27 20:59 00:14
Jgi-V-Ssuspseyyjw Pept Cancelled [id number]
Physical Exam
Constitutional: No acute distress
Cardiovascular: Rhythm/rate is irregular and Rub absent
Respiratory: Respiratory effort normal, Lungs clear to auscul. (decreased at bases) and Crackles Absent
GI: Distention absent
Neuro/Psych: AO x 3
Data Reviewed
-
Date of Service: March 03, 2025
--- NOTE | 2025-03-03 09:57 | W.PN.ID1 ---
Date of Service
Date of Service: March 03, 2025
Today's Communication
- c/w vancomycin
- anticipate a repeat course of 6 weeks of IV antibiotics at home from the procedure (02/25-04/07), followed by suppression
- PICC can be placed shortly before discharge
- discussed with Dr Fox today and he asked if Mr Taylor could remain with ID to consolidate care at this institution, I will continue to follow Mr Taylor after this hospitalization
Assessment / Plan
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
H/o Septic arthritis of the Knee 07/2024 due to Enterococcus - completed course of treatment
DM2; not on treatment
Leukopenia - present on arrival, possibly related to chronic infection
H/o noncompliance with imaging studies, though reportedly compliant with medications
- will follow up valve cultures - asked lab to hold the aerobic cultures to two weeks
- await Q fever serologies phase I and phase II serology) however my overall impression remains a partially treated infection due to enterococcus given his prolonged course
- having daily assessments by cardiology for possible leadless pacemaker placement
- pending possible vascular graft resection
- c/w vancomycin
- anticipate a repeat course of 6 weeks of IV antibiotics at home from the procedure (02/25-04/07), followed by suppression
- PICC can be placed shortly before discharge
- discussed with Dr Fox today and he asked if Mr Taylor could remain with ID to consolidate care at this institution, I will continue to follow Mr Taylor after this hospitalization
����������������������������������������������������������
Chief Complaint
-: Other (endocarditis)
Subjective / Review of Systems
afebrile
BP stable
has NGT placed
no new complaints
Vital Signs / Physical Exam
Vital Signs
Vital Signs
Temp Pulse Resp BP Pulse Ox
98.9 F 58 25 163/61 97
03/03/25 06:00 03/03/25 09:00 03/03/25 07:30 03/03/25 08:00 03/03/25 08:57
Physical Exam
Constitutional: No Acute Distress and Chronically Ill
Cardiovascular: Regular Rate and S1/S2; Negative Murmur or Rub
Pulmonary: Clear and Symmetric; Negative Wheezes or Rales
Gastrointestinal: Soft, Non Tender, Non Distended and Normal Bowel Sounds
Skin: Warm and Dry; Negative Rash or Jaundice
Objective Data
Lab Data
Lab Results
03/03/25 05:03
03/03/25 05:03
PT 16.6 Sec (11.4-14.6) H 02/28/25 04:53
INR 1.32 02/28/25 04:53
APTT 45.1 Sec (23.4-35.0) H 02/25/25 15:14
Estimated Creat Clear 108 ml/min 03/03/25 05:03
Total Bilirubin 1.7 mg/dl (0.2-1.3) H 02/28/25 04:53
AST 36 U/L (17-59) 02/28/25 04:53
ALT 13 U/L (0-50) 02/28/25 04:53
Alkaline Phosphatase 98 U/L (38-126) 02/28/25 04:53
Most recent labs reviewed.
Micro Results:
02/25/25 10:09 Tissue Culture - Preliminary
Valve NO GROWTH
Gram Stain - Preliminary
02/25/25 10:34 Tissue Culture - Preliminary
Valve NO GROWTH
Gram Stain - Preliminary
02/25/25 10:09 Fungal Culture - Preliminary
Valve Culture in progress.
Positive cultures are reported as soon as detected.
Final report to follow in four to five weeks.
02/25/25 10:34 Fungal Culture - Preliminary
Valve Culture in progress.
Positive cultures are reported as soon as detected.
Final report to follow in four to five weeks.
02/25/25 10:34 Anaerobic Culture - Final
Valve NO ANAEROBES ISOLATED
02/25/25 10:09 Anaerobic Culture - Final
Valve NO ANAEROBES ISOLATED
02/26/25 13:07 Respiratory Culture - Final
Bronch Washing Usual Respiratory Brunilda
Gram Stain - Final
02/19/25 13:22 Blood Culture - Final
Blood/Venous No Growth - Final Report
02/19/25 12:40 Blood Culture - Final
Blood/Venous No Growth - Final Report
[2025-03-03] MEDS: TYLENOL 650 MG TUBE ×2 (11:09→15:48)
[2025-03-03] MEDS: ROXICODONE 2.5 MG TUBE ×2 (11:10→15:48)
--- NOTE | 2025-03-03 11:24 | CM ---
Chart reviewed. Patient is independent of ADLS, lives with his in a 2 [address], 3 ZANA, ambulates with a SPC and RW. Patient's PPM is currently on hold. PT/OT evaluation recommending Acute Rehab, patient with many medical complexities. Referral
sent to [facility]. Plan for the patient to go to Acute Rehab when medically stable. CM to follow
--- NOTE | 2025-03-03 12:57 | PTCARENOTE ---
VSS, pt medicated for pain
[2025-03-03] MEDS: NSS 500 IV (13:09)
[2025-03-03] MEDS: VANCOCIN 275 MG IV (13:09)
--- NOTE | 2025-03-03 14:41 | PTCARENOTE ---
pt w 0ml TF residual, TF increased from 20ml/hr to 40ml/hr moving towards a goal of 60ml/hr.
--- NOTE | 2025-03-03 16:30 | PTCARENOTE ---
pt received from previous RN, agree w/ previous assessment. OOB in chair. TF running as ordered via [place]. pt c/o pain, received PRN Roxicodone as ordered.
--- NOTE | 2025-03-03 20:00 | PTCARENOTE ---
assumed care of pt from previous RN. pt A&Ox4, resting in chair at time of assessment. A fib on tele-monitor. temp epicardial v-wires w/ backup settings VVI 35/7/0.8. POX 98% on RA. abd s/n, +BS. Dobhoff in R nare. TF running per order. voiding
giselle colored urine. all surgical sites stable, CDI. R IJ cordis w/ KVO. PIV x2 intact. see worklist for complete nursing assessment, interventions, gtt titrations, VS, and I&Os.
[2025-03-03] MEDS: SENOKOT-S TUBE (20:13)
[2025-03-03] MEDS: LIPITOR 40 MG TUBE (22:26)
[2025-03-04] VITALS (27 sets, daily range): BP systolic 123–175; BP diastolic 53–138; PULSE 54–68; O2SAT 99; BMI 24.5
--- NOTE | 2025-03-04 | PTCARENOTE ---
assessment remains unchanged. VSS.
--- NOTE | 2025-03-04 04:15 | PTCARENOTE ---
no acute changes. VSS. AM labs collected and sent. EKG completed.
[2025-03-04 04:47] LABS: Blood Urea Nitrogen 25 mg/dl (9-20); Calcium 8.5 mg/dl (8.4-10.2); Carbon Dioxide 28 mmol/L (22-30); Chloride 112 mmol/L (98-107); Estimated Creatinine Clearance > 125 ml/min; Glucose 167 mg/dl (70-99); Potassium 3.9 mmol/L (3.5-5.1); Sodium 145 mmol/L (135-145); eGFR > 60.00
[2025-03-04 04:49] LABS: Hematocrit 29.1 % (39.0-52.0); Hemoglobin 9.3 g/dL (13.0-18.0); Mean Corpuscular Hgb 32.5 pg (27.0-31.0); Mean Corpuscular Volume 101.7 fL (80.0-94.0); Mean Platelet Volume 11.8 fL (7.4-10.4); Platelet Count 53 10^3/uL (130-400); Red Blood Cell Count 2.86 10^6/uL (4.70-6.10); Red Cell Dist. Width 17.2 % (11.5-14.5); White Blood Cell Count 7.8 10^3/uL (4.8-10.8)
[2025-03-04 04:51] LABS: Vancomycin Random 17.1 ug/ml
[2025-03-04] MEDS: KCL 50 IV (05:08)
--- NOTE | 2025-03-04 06:38 | W.PN.CT ---
Today's Communication / Plan
-
Plan:
-No major issues overnight. Hemodynamically and neurologically intact
-Dobutamine weaned from 2 to 1 yesterday. Remain on 1mcg/kg/min overnight
-A-fib 60-70's overnight. Did require pacing overnight and also noted to drop in 40's at times, pacer at back up 35 bpm per Cards. Appears to be heading towards PPM placement (Leadless PPM)
-H/H stable @ 9.3/29.1
-ASA on hold given thrombocytopenia, 90-> 72-> 62-> 59->52->43->40->53. May consider sending off HIT assay, hematology consult
-Transfused 1{5pk/plt} yesterday 03/03
-Creatinine back to baseline 0.6, peaked @ 1.5. Voiding following d/c of [place] yesterday
-Avoid lasix today, appears euvolemic
-Amiodarone and BB on hold
-Failed video swallow exam yesterday
-Dobhoff placed for feeding and meds, currently on Jevity @ goal of 60 mL/hr
-Speech recommend ice chips sparingly with supervision. Hx of Laryngeal Ca S/P chemo/XRT/tracheostomy/feeding tube x 7 months
-Cont. abx per ID currently on Vancomycin, cultures are unremarkable. Eventual PICC line for abx
-Eventual endovascular stent graft by IR and Vascular team
-Encourage use of IS
-OOB into chair/PT/OT/SP f/u
Assessment / Plan
-
s/p AVR (27mm Soliman inspiris Bio valve), MVR (31mm Soliman Mitris Bio valve), TVr (34mm romero band), ELAA 50mm atriclip on 02/25/[address] Sharma - POD #7
-AV endocarditis (E faecalis)/Mod-severe AI
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
-Moderate TR
-LVEF 55-60%
-Atrial Fib (Chronic, diagnosed 2011-on Xarelto)
-CAD (nonischemic cardiomyopathy/HFrEF )
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
-Acute on chronic Anemia
-AAA S/P endovascular repair [address] Medina; suspected break through infection despite suppressive amoxicillin
-Septic arthritis of the Knee 07/2024 due to Enterococcus - completed course of treatment
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
-Lyme disease
-S/P PCI/Stent (MARQUISE-OM1 2011)
-T2DM (A1C 5.1, currently on no tx)
-Hx noncompliance with imaging studies, though reportedly compliant with medications
-acute hypoxic respiratory failure requiring delayed extubation & flolan nebulization
-Acute postop atelectasis/probable pulmonary edema
-Acute postop blood loss/Anemia (transfused 6u PRBCs)
-Acute postop thrombocytopenia (transfused 2 {5}pk plts
-Acute postop hypovolemia with subsequent hypervolemia
-Acute postop bradycardia/rate controlled a-fib
-Acute postop CHELA
Discussed patient care with: Cardiology, Nursing, Respiratory Therapy, Pharmacy and Care Team
Subjective
Procedure
AVR (27mm Soliman inspiris Bio valve), MVR (31mm Soliman Mitris Bio valve), TVr (34mm romero band), ELAA 50mm atriclip on 02/25/[address] Sharma
-
Date of Service: March 04, 2025
Pt c/o mild incisional pain, otherwise feels well
Objective Data
-
Lab Results
03/04/25 04:07
03/04/25 04:07
PT 16.6 Sec (11.4-14.6) H 02/28/25 04:53
INR 1.32 02/28/25 04:53
APTT 45.1 Sec (23.4-35.0) H 02/25/25 15:14
Vital Signs
Vital Signs
Temp Pulse Resp BP Pulse Ox
97.9 F 65 14 130/64 97
03/04/25 04:00 03/04/25 05:00 03/04/25 04:00 03/04/25 05:00 03/04/25 05:00
CT Intake/Output/Weight
03/03/25 03/03/25 03/04/25
06:59 18:59 06:59
Intake Total 651.6 / 1004.0 601.0 / 1667.4 1066.4 / 1667.4
Output Total 495 / 1175 645 / 970 325 / 970
Balance 156.6 / -171.0 -44.0 / 697.4 741.4 / 697.4
SaO2: 97 (RA)
Physical Exam
-
General: Awake, Oriented and AOx3
Cardiovascular: Regular rate & rhythm, No Murmurs, No Rub and No Gallop
Respiratory: Decreased Breath Sounds (at bases, otherwise clear)
Sternum: Stable
Incision: Clean, Dry, Intact and Dressing Intact
Extremities: No Edema
Data Reviewed
-
Lab Results: Results Reviewed
Medications: Active Meds Reviewed
Chest X-Ray: Report Reviewed and Image Reviewed
ECG: Report Reviewed and Image Reviewed
--- NOTE | 2025-03-04 07:00 | PTCARENOTE ---
report received from previous RN. pt assisted OOB to chair with 2 assist and rolling walker. weight obtained. Pt AAOX3. reports mild left upper back pain, otherwise comfortable. Afib on telemetry heart rate 70s. v wire set 35 ma 7 sensitivity 0.8.
pulses palpable. +2 pitting edema in lower extremities. pt on room air, sat 98%. lung sounds diminished in bases. Right nare saeid infusing jevity at 60 ml/hr with 25 ml water flushes. voiding in urinal giselle urine. right IJ cordis infusing KVO,
dobutamine at 1 mcg/kg/min. surgical sites CDI. pt performed mouth care independently. pt updated on plan of care. see worklist for full nursing assessment and interventions.
[2025-03-04] MEDS: NSS (PRESERVATIVE FREE) 10 ML IV (07:47)
[2025-03-04] MEDS: PROTONIX IV 40 MG IV (07:47)
[2025-03-04] MEDS: FEOSOL 325 MG TUBE (07:48)
[2025-03-04] MEDS: FOLVITE 1 MG TUBE (07:48)
[2025-03-04] MEDS: MAGNESIUM OXIDE 500 MG TUBE ×2 (07:48→20:26)
[2025-03-04] MEDS: ZESTRIL 10 MG TUBE (07:48)
[2025-03-04] MEDS: SENOKOT-S 1 TABLET TUBE (07:48)
[2025-03-04] MEDS: ROBINUL 1 MG TUBE ×2 (07:48→20:26)
[2025-03-04] MEDS: MIRALAX TUBE (07:49)
[2025-03-04] MEDS: LIDOCAINE 4% PATCH 1 PATCH TOPICAL (07:49)
[2025-03-04] MEDS: TYLENOL 650 MG TUBE ×2 (07:53→21:56)
[2025-03-04] MEDS: ROXICODONE 2.5 MG TUBE ×2 (07:53→16:59)
--- NOTE | 2025-03-04 08:16 | W.PN.INTV ---
Today's Communication / Plan
Recommendations
Dobutamine now off as of today - defer PPM decision to EP
Goal HR>50, MAP>65
Failed VFSS on 03/02 - continue tube feeds; ENTRY ANALYST to re-eval VFSS on 03/09
Encouraged OOB to chair, IS
Continue trending platelet count - keep >50k
4T score is 4, which is intermediate --> consider sending ZION panel (although platelet count now improving, so not unreasonable to continue to monitor for now)
Postop management per team
Client Insights Consultant services will continue to follow along while patient remains CVICU status. Once transferred to CVICU�telemetry then we will sign off at that time.
Assessment
-
Patient is a 70-year-old male with previous history of CAD status post stent, heart failure, mitral regurgitation, history of laryngeal cancer, AAA presenting to ER with 2 days of dyspnea on exertion. Admitted to [place] on 02/18/25, chest
x-ray demonstrating moderate pulmonary edema. [facility] decompensated heart failure/subacute endocarditis due to E faecalis complicated by L2-L3 OM discitis and a mass 2 x 3 cm next to EVAR and history of
preceding left knee septic arthritis due to Enterococcus. Underwent repeat CT TA demonstrating endograft with interval enlargement of 1.9 cm rim-enhancing fluid suggesting endoleak, pulmonary edema; repeat TTE demonstrating 1.5 cm x 0.7 cm
vegetation with severe MR, AV mobile 2.5 x 0.6 lesion with severe AR, TV with mobile echodensity and moderate TR. CTS consulted for multivalve intervention. Underwent AVR/MVR/TVR 02/25/25 and postoperatively transferred to CVICU. He is currently
satting 92% on 100% FiO2 and PEEP of 10. CXR showing new L sided infiltrate.
Subacute multivalvular endocarditis, c/b severe multi-VHD -- recently adm to [facility] for IV abx
Maintained on suppressive Amox, failure of medical treatment
s/p Median sternotomy/AVR/MVR/TVR, ELAA 02/25/25
Acute hypoxemic respiratory failure, unknown if on O2 at baseline - now resolved
Abnormal CXR with new opacification, possible related to transfusion/overload/sepsis
Hx of AAA s/p aortobiiliac endovascular repair with suspected infected endovascular stent graft (enlarging rim-enhancing fluid on CT)
Conditions present prior admission:
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
completed a 6 week course of ampicillin/ceftriaxone (through 01/05); maintained on suppressive amoxicillin
History of L knee septic arthritis of the knee due to enterococcus
Abdominal aortic aneurysm status post endovascular repair of infrarenal abdominal aortic aneurysm by Dr. Alfred 12/04/2023
Severe calcific CAD w/o angina or ACS, Hx of BMS to OM1 in 2011
Hx of laryngeal cancer in 2015 s/p resection, chemoradiation - required tracheostomy & feeding tube x 7 months
History of atrial fibrillation on Xarelto
Prior history of obstructive sleep apnea, likely resolved with weight loss
Peripheral neuropathy due to chemotherapy
Anxiety
Hypertension
CHF
Gout
Hyperlipidemia
Type 2 diabetes
Anemia
Former smoker, quit reportedly in his 20s
Plan
s/p multi-valvular intervention (OR date: 02/25/2025) - underwent AVR, MVR, TV repair + left atrial appendage exclusion with 50 mm AtriClip
Titrated off all pressors and now off inotropes as of 03/04; had been on dobutamine due to bradycardia and cardiology was considering placing a leadless PPM - defer decision to EP
Intraop-LORETA from 02/25/2025 reviewed --> showed low-normal LV function with EF 50-55%, severe VHD (severe MR, severe AI, mild moderate TR, and small left to right patent rabago ovale)
PA catheter discontinued
Chest tubes x4 removed on 02/28
Pain control
Intubated for procedure, extubated on 02/27/2025 and now on room air saturating 97%, breathing comfortably
CXR with L sided patchy opacity throughout
s/p bronch 02/26-normal ania
Maintain SpO2 >90-94%
No prior history of pulmonary disease, but was a former smoker, does not carry diagnosis of COPD, not known to be on home O2
Had trach in past, history of laryngeal cancer
No prior PFTs for review
We discussed OP FU at discharge
CT reviewed showing possible underlying chronic ILD, traction bronchiectasis
Aspiration precautions --> failed videofluoroscopic swallow study on 03/02 � Dobbhoff tube now in place; continue tube feeds
Tentative plan for repeat VFSS on Sunday, 03/09
Speech following, high risk
GI prophylaxis: not indicated
Monitor strict I/O
Hb/platelets postoperatively stable
Trend CBC for now
Can transfuse if indicated for Hb <7, plt <50k (given post-operative status)
4T score is 4 (intermediate risk of ZION) --> consider sending off ZION panel
DVT prophylaxis including SCDs; would hold heparin SQ products given his low platelet count, albeit it is improving (53 today from 40 yesterday)
Recommend ISS to keep BG at 110-140
Client Insights Consultant services will continue to follow along while patient remains CVICU status. Once transferred to CVICU�telemetry then we will sign off at that time. Please call back with any questions or concerns.
Diagnostic Data
Chest X-Ray: 02/18/25- Cardiomegaly with moderate pulmonary edema. Likely trace bilateral pleural effusions.
12/04/23- No active cardiopulmonary disease.
CT Scan: Angio 02/20/25- Small bilateral pleural effusions are present. Increased interstitial and ground-glass opacities throughout both lungs with Kyle B lines, findings suggesting a pulmonary edema pattern.
There are enlarged mediastinal lymph nodes, most likely reactive lymph nodes, often seen in association with congestive heart failure. Calcification of the thoracic aorta with no thoracic aortic aneurysm.
Dense coronary artery calcifications are present. Mild aortic valvular calcification. No significant abnormality in the visualized upper abdomen. In the thoracic spine, endplate irregularity suggestive of sequela of previous mild to moderate
Scheuermann's disease. The visualized vertebral bodies have maintained their height with no evidence for fracture.
AP 02/17/25- 1. AORTOBIILIAC ENDOGRAFT in place with interval enlargement of the [place] aneurysm sac around the endograft and a 1.9 cm focal outpouching of rim-enhancing fluid along the left posterolateral side of the proximal graft attachment
suggesting an ENDOLEAK (possibly a TYPE Ia PROXIMAL ENDOLEAK).
2. 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
3. Severe stenosis (greater than 70% diameter) in the proximal right superficial femoral artery.
4. Mild chronic bilateral renal disease.
5. Cholelithiasis.
6. MODERATE ACUTE INTERSTITIAL and ALVEOLAR CARDIOGENIC PULMONARY EDEMA.
7. Moderate to severe cardiomegaly with right heart dysfunction.
8. Minimal bilateral pleural effusions.
9. Severe multilevel lumbar discogenic degenerative disease.
10. Large right scrotal hydrocele.
Echo: 02/19/25- Left ventricle is moderately dilated. Normal left ventricular systolic function. Left ventricular ejection fraction is 50-55%. Thickened mitral valve leaflets. 1.5 cm x 0.7 cm echodensity associated with anterior leaflet. Severe,
eccentric mitral regurgitation. Trileaflet aortic valve. Highly mobile 2.5 cm x 0.6 cm echodensity visualized, likely at NCC. Severe eccentric aortic regurgitation. Enlarged right ventricular size. Normal right ventricular systolic function.
Tricuspid valve: In limited view 59, there is evidence of mobile echodensity. Moderate tricuspid regurgitation. Severely elevated PASP. Estimated pulmonary artery pressure of 72 mmHg. Assuming a right atrial pressure of 15 mmHg. Findings
consistent with endocarditis. No prior study available for comparison.
Reports and relevant images were personally reviewed.
Total time spent today was 78 minutes for this encounter. Time includes reviewing laboratory test/imaging results, reviewing pertinent medical records, obtaining and reviewing medical history, performing an appropriate exam, ordering medications,
tests and procedures. Time also includes documentation of this encounter, coordinating patient care and communicating with other healthcare professionals. Total time does not include separately billed tests performed on this date of service.
Subjective Dataa
Subjective Data
Date of Service:
Date of Service: March 04, 2025
Chief Complaint: Client Insights Consultant Follow Up
Subjective:
Patient was seen and evaluated today at bedside. His sister, Kyleigh, was at bedside. All questions were answered. He is currently off dobutamine with heart rate in the 50�60s. He feels well - says his voice is even better today. Currently on tube
feeds at 60cc/hr. Heart rate 63, saturating 100% on room air.
Review of Systems
General: Other (Negative unless mentioned above)
Objective Data
Data Reviewed
Vital Signs / I&O / Oxygen:
Vital Signs
Temp Pulse Resp BP Pulse Ox
97.9 F 72 16 156/71 98
03/04/25 07:00 03/04/25 09:00 03/04/25 09:00 03/04/25 07:48 03/04/25 09:00
Intake and Output
03/03/25 03/04/25 03/05/25
06:59 06:59 06:59
Intake Total 989.2 / 1004.0 1764.8 / 1862.2 292.2 / 292.2
Output Total 1175 / 1175 970 / 1070 100 / 100
Balance -185.8 / -171.0 794.8 / 792.2 192.2 / 192.2
SaO2 [CPAP] 98
SaO2 [A/C] 97
SaO2 [SIMV] 99
SaO2 98
Nasal Cannula flow liters per 2
minute
Physical Exam
General: Respiratory Distress (negative), Comfortable, Poor Appetite and Other (chronically ill appearing, thin)
HEENT: Normocephalic, Anicteric and Other (poor dentition)
Cardiovascular: Irregular Rhythm (Irregularly irregular) and Peripheral Edema (+2 lower extremity pitting edema bilaterally)
Respiratory: Wheeze (negative), Crackles (Bibasilar), Rhonchi (negative) and Non-Labored Respirations
GI: Soft, Non Distended, Non Tender and Normal Bowel Sounds
Neurology: Awake, Alert, Tremors (negative) and Other (difficult for him to raise voice/phonate)
Skin: Warm, Dry, Cyanosis (negative) and Jaundice (negative)
Labs/Micro/Reports
Lab Data
03/04/25 04:07
03/04/25 04:07
Microbiology
02/25/25 10:09 Valve Tissue Culture - Preliminary
NO GROWTH
02/25/25 10:09 Valve Gram Stain - Preliminary
02/25/25 10:34 Valve Tissue Culture - Preliminary
NO GROWTH
02/25/25 10:34 Valve Gram Stain - Preliminary
02/25/25 10:09 Valve Fungal Culture - Preliminary
Culture in progress.
Positive cultures are reported as soon as detected.
Final report to follow in four to five weeks.
02/25/25 10:34 Valve Fungal Culture - Preliminary
Culture in progress.
Positive cultures are reported as soon as detected.
Final report to follow in four to five weeks.
02/25/25 10:34 Valve Anaerobic Culture - Final
NO ANAEROBES ISOLATED
02/25/25 10:09 Valve Anaerobic Culture - Final
NO ANAEROBES ISOLATED
--- NOTE | 2025-03-04 08:45 | W.PN.CD ---
Today's Communication / Plan
-
Holding off on Micra implant as AV node conduction is slowly improving
Now off dobutamine
I decreased pacing support from VVI 35 to VVI 30
Will reassess consideration for permanent pacing daily
Impression / Plan
-
Background: 70 y/o male with a history of permanent atrial fibrillation, acute on chronic HFpEF, PAD, AAA s/p EVAR (12/04/2023), prior diskitis and septic arthritis and CAD s/p PCI admitted progression of initially medically managed infectious
endocarditis, likely also involving his EVAR graft.
s/p AVR (27mm Soliman inspiris Bio valve), MVR (31mm Soliman Mitris Bio valve), TVr (34mm romero band), ELAA 50mm atriclip on 02/25/[address] Sharma
Bradycardia
- Less pacing over last 72 hours despite decreased pacing support from 40 to 35
- AV conduction seems to be improving
- Holding off on Micra implant as AV node conduction is slowly improving
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
- S/P triple valve intervention (2 valves replaced/1 repaired) on 02/25/2025.
- ATB per ID (Vanco)
Permanent AFib
- On Xaretlo as op.
- S/P LAAE (#50 AtriClip) with Dr. Sharma, 02/25/2025.
- Avoid anticoagulation for now thrombocytopenia
Post-op anemia
HFpEF
Resolved CHELA
AAA, S/P EVAR.
-Possibly infected (rim enhancing portion).
-Vascular surgery and ID involved
Heme: Anemia and thrombocytopenia, off heparin since 02/24/2025
Complex chronic PAD => Vascular Surgery involved
CAD with hx or PCI
-Stable without CP.
-On rivaroxaban as OP; currently on holding due to post op/thrombocytopenia.
Subjective:
Comfortable. No palps
Data:
Intraop LORETA 02/25/2025:
CONCLUSIONS
Mildly dilated left ventricle (LVIDD 6.1 cm) with LVEF of 50-55% by visual
inspection. No regional wall motion abnormalities.
Severely dilated left atrium (10 cm).
Normal right ventricle in size and function.
Dilated right atrium (6.8 cm).
Severe mitral regurgitation with anterior leaflet echodensity.
Severe aortic insufficiency with mobile echodensity on the noncoronary cusp.
Mild to moderate tricuspid regurgitation with dilated annulus (5.3 cm).
Dilated coronary sinus (1.4 cm).
Small [id number] patent foramen ovale.
Normal size ascending aorta with mild posterior wall calcification. The arch
is heavily diseased with atheromatous plaque. The descending thoracic aorta is
poorly visualized.
Normal appearing left atrial appendage.
POST OPERATIVE FINDINGS
S/P AVR with size 27 bioprosthetic, MVR with size 31, tricuspid band size 34,
IVONE exclusion with clip.
The bioprosthetic valves are well-seated with no paravalvular leaks. The
tricuspid valve regurgitation is no longer present. The aortic valve gradient
is 8 mmHg, the mitral valve gradient is 2 mmHg, and the tricuspid valve
gradient is 1 mmHg. A strand of highly mobile chordae tendineae is seen in the
left ventricle just below the mitral valve. The left atrial appendage is no
longer visualized with the absence of flow confirmed by color flow Doppler.
Otherwise unchanged exam. The rhythm is atrial fibrillation. Pharmacological
support included 8 mcg/kg/min of dobutamine and 10 mcg/kg of norepinephrine.
-LORETA 02/20/2025: L the EF 55-60%, biatrial enlargement, MV echodensity with severe MR, AV echodensity with mod/severe AR, TV echodensity with mod TR
-TTE 02/19/25: LVEF 50-55%, MV with 1.5 cm x 0.7 cm veg on anterior leaflet. Severe, eccentric mitral regurgitation. AV with highly mobile 2.5 cm x 0.6 cm veg on NCC. Severe eccentric aortic regurgitation. Possible TV veg with mod TR, PASP 72
-Echo report summary 01/15/25: 0.75 mm mass attached to aortic valve, EF 38%, increased LV size, RV moderately dilated and with moderately decreased systolic function, severely dilated atria, severe AR, two areas of vegetation on anterior mitral
valve leaflet, severe MR, severe TR (aortic vegetation bigger from previous and now two areas on MV noted).
Physical Exam
Vital Signs/Labs
Vital Signs
Temp Pulse Resp BP Pulse Ox
97.9 F 76 14 156/71 96
03/04/25 04:00 03/04/25 08:00 03/04/25 04:00 03/04/25 07:48 03/04/25 07:00
03/03/25 03/04/25 03/05/25
06:59 06:59 06:59
Actual Weight 79.5 kg 81.9 kg
03/04/25 04:07
03/04/25 04:07
PT 16.6 Sec (11.4-14.6) H 02/28/25 04:53
INR 1.32 02/28/25 04:53
APTT 45.1 Sec (23.4-35.0) H 02/25/25 15:14
Magnesium 2.0 mg/dl (1.6-2.3) 03/04/25 04:07
Triglycerides 81 mg/dl (10-149) 03/03/25 05:03
LDL Cholesterol, Calc 64 mg/dl 02/19/25 01:44
VLDL Cholesterol, Calc 15 mg/dl (0-30) 02/19/25 01:44
HDL Cholesterol 37 mg/dl 02/19/25 01:44
02/18/25 02/18/25 02/26/25
20:27 20:59 00:14
Gvp-[id number]-Baesikhsjmg Pept Cancelled [id number]
Physical Exam
Constitutional: No acute distress
EENT: Anicteric
Cardiovascular: Rhythm/rate is irregular and Rub absent
Respiratory: Respiratory effort normal
GI: Soft and Distention absent
Neuro/Psych: Alert
Data Reviewed
-
Date of Service: March 04, 2025
--- NOTE | 2025-03-04 10:03 | PHA.VAN.FU ---
Addendum entered and electronically signed by Zeina Millard Hallie 03/04/25 15:29:
Reviewed case with resident.
Agree with keeping dose by level as estimated CrCl is not accurately predicting vanc clearance despite improvement in labs. Will continue to follow.
Original Note:
Vancomycin Assessment / Plan
- Assessment
Renal Function: SCR Decreasing (0.6 - CrCl>125)
WBC's are: WNL (7.8)
In the past 24 hrs, patient has been: Afebrile
- Assessment - Therapeutic Drug Monitoring
Random Level: 17.1 ~15hrs after 1250mg dose
- Dosing Plan
Dosing by Level: Re-dose today
Dosing Comments: Vanco 1250mg x1
While patient's BUN & SCR are improving, this has not fully been reflected in his vanc clearance. Continue dosing by level as vanc clearance is not stable and as patient is not following population-based PK
- Monitoring Plan
Random Level: 03/05/25 0600
- Follow Up
Pharmacy will continue to follow.
Vancomycin Follow UP
- -
Patient Age: 70
Patient Sex: Male
Vancomycin Day #: 6
Indication: Endocarditis
Requesting Provider: Dr. Purcell
Pertinent Antimicrobial Allergies:
No Known Drug Allergies
Height / Weight:
Height 6 ft
Actual Weight 81.9 kg
Pertinent Past Medical History: T2DM, Valve replacement
- Vital Signs / Lab Results
Temp Pulse Resp BP Pulse Ox
97.9 F 72 16 156/71 98
03/04/25 07:00 03/04/25 09:00 03/04/25 09:00 03/04/25 07:48 03/04/25 09:00
Lab Results - Hematology
03/02/25 03/03/25 03/04/25
04:40 05:03 04:07
WBC 7.3 6.4 7.8
Lab Results - Chemistry
03/02/25 03/03/25 03/04/25
04:40 05:03 04:07
BUN 35 H 28 H 25 H
Creatinine 0.9 0.7 0.6 L
Estimated Creat Clear 84 108 > 125
Microbiology Results
02/25/25 10:09 Tissue Culture - Preliminary
Valve NO GROWTH
Gram Stain - Preliminary
02/25/25 10:34 Tissue Culture - Preliminary
Valve NO GROWTH
Gram Stain - Preliminary
02/25/25 10:09 Fungal Culture - Preliminary
Valve Culture in progress.
Positive cultures are reported as soon as detected.
Final report to follow in four to five weeks.
02/25/25 10:34 Fungal Culture - Preliminary
Valve Culture in progress.
Positive cultures are reported as soon as detected.
Final report to follow in four to five weeks.
02/25/25 10:34 Anaerobic Culture - Final
Valve NO ANAEROBES ISOLATED
02/25/25 10:09 Anaerobic Culture - Final
Valve NO ANAEROBES ISOLATED
Therapeutic Drug Monitoring
Random Vancomycin 17.1 ug/ml 03/04/25 04:06
--- NOTE | 2025-03-04 11:02 | CM ---
Chart reviewed. Patient is OOB sitting in the chair. PPM is on hold. Patient is independent of ADLS, lives with his in a 2 STH, 3 ZANA, ambulates with a SPC and RW. PT evaluation recommending Acute Rehab. Referral sent to [facility]. Physiatry
consult placed. Plan is for the patient to go to Acute Rehab when medically stable. CM to follow
--- NOTE | 2025-03-04 11:38 | W.PN.ID1 ---
Date of Service
Date of Service: March 04, 2025
Today's Communication
- will continue follow up valve cultures - asked lab to hold the aerobic cultures to two weeks
- Q fever serology back - negative
- having daily assessments by cardiology for possible leadless pacemaker placement - may not be required
- pending vascular reassessment once pacing issues are clarified
- c/w vancomycin
- anticipate a repeat course of 6 weeks of IV antibiotics at home from the procedure (02/25-04/07), followed by suppression
- PICC can be placed shortly before discharge
Assessment / Plan
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
H/o Septic arthritis of the Knee 07/2024 due to Enterococcus - completed course of treatment
DM2; not on treatment
Leukopenia - present on arrival, possibly related to chronic infection
H/o noncompliance with imaging studies, though reportedly compliant with medications
- will continue follow up valve cultures - asked lab to hold the aerobic cultures to two weeks
- Q fever serology back - negative
- having daily assessments by cardiology for possible leadless pacemaker placement - may not be required
- pending vascular reassessment once pacing issues are clarified
- c/w vancomycin - dosing by level
- anticipate a repeat course of 6 weeks of IV antibiotics at home from the procedure (02/25-04/07), followed by suppression
- PICC can be placed shortly before discharge
����������������������������������������������������������
Chief Complaint
-: Other (endocarditis)
Subjective / Review of Systems
afebrile
bp stable
tolerating current therapies
Vital Signs / Physical Exam
Vital Signs
Vital Signs
Temp Pulse Resp BP Pulse Ox
97.9 F 78 18 123/61 97
03/04/25 07:00 03/04/25 10:00 03/04/25 10:00 03/04/25 10:00 03/04/25 10:00
Physical Exam
Constitutional: No Acute Distress
Cardiovascular: Regular Rate and S1/S2; Negative Murmur or Rub
Pulmonary: Clear and Symmetric; Negative Wheezes or Rales
Gastrointestinal: Soft, Non Tender, Non Distended and Normal Bowel Sounds
Skin: Warm and Dry; Negative Rash or Jaundice
Objective Data
Lab Data
Lab Results
03/04/25 04:07
03/04/25 04:07
PT 16.6 Sec (11.4-14.6) H 02/28/25 04:53
INR 1.32 02/28/25 04:53
APTT 45.1 Sec (23.4-35.0) H 02/25/25 15:14
Estimated Creat Clear > 125 ml/min 03/04/25 04:07
Total Bilirubin 1.7 mg/dl (0.2-1.3) H 02/28/25 04:53
AST 36 U/L (17-59) 02/28/25 04:53
ALT 13 U/L (0-50) 02/28/25 04:53
Alkaline Phosphatase 98 U/L (38-126) 02/28/25 04:53
Most recent labs reviewed.
Micro Results:
02/25/25 10:09 Tissue Culture - Preliminary
Valve NO GROWTH
Gram Stain - Preliminary
02/25/25 10:34 Tissue Culture - Preliminary
Valve NO GROWTH
Gram Stain - Preliminary
02/25/25 10:09 Fungal Culture - Preliminary
Valve Culture in progress.
Positive cultures are reported as soon as detected.
Final report to follow in four to five weeks.
02/25/25 10:34 Fungal Culture - Preliminary
Valve Culture in progress.
Positive cultures are reported as soon as detected.
Final report to follow in four to five weeks.
02/25/25 10:34 Anaerobic Culture - Final
Valve NO ANAEROBES ISOLATED
02/25/25 10:09 Anaerobic Culture - Final
Valve NO ANAEROBES ISOLATED
02/26/25 13:07 Respiratory Culture - Final
Bronch Washing Usual Respiratory Brunilda
Gram Stain - Final
02/19/25 13:22 Blood Culture - Final
Blood/Venous No Growth - Final Report
02/19/25 12:40 Blood Culture - Final
Blood/Venous No Growth - Final Report
[2025-03-04] MEDS: VANCOCIN 275 MG IV (11:49)
--- NOTE | 2025-03-04 12:00 | PTCARENOTE ---
pt resting comfortably OOB in chair. no changes in assessment noted.
[2025-03-04] MEDS: NSS IV (16:41)
[2025-03-04] MEDS: LASIX 40 MG IV (16:49)
--- NOTE | 2025-03-04 17:31 | PTCARENOTE ---
pt assisted to walk to bathroom with 1 assist and rolling walker. pt had formed soft bowel movement. pt assisted back to bed for PICC placement. no changes in assessment noted.
--- NOTE | 2025-03-04 18:03 | VATNOTE ---
Per radiology report, PICC in good position with tip in the cavoatrial junction. OK to use at this time. PCN notified, asked to change all IV tubing prior to connecting to PICC line and to remove all ipsilateral IVs.
--- NOTE | 2025-03-04 18:25 | PTCARENOTE ---
right IJ cordis dced per order. pt tolerated well. two right arm PIV dced as well.
--- NOTE | 2025-03-04 20:00 | PTCARENOTE ---
Assumed care of patient at 1900. Patient Ox3 with hoarse voice, on RA sats 97%, lung sounds diminished at bases, patient uses yankauer to suction secretions. Afib monitor rates 50-70's, epicardial wire in place - see worklist for documentation of
settings, +2 BLLE edema and with weak but palpable pedal pulses. Voiding clear yellow urine into urinal at bedside, abdomen round, Jevity infusing via R nare DHT at goal rate of 60ml/hr with 25ml/hr water flush. R D/L PICC line flushed and patent.
Sternal aquacel remains CDI, s/p R IJ with dressing in place CDI, s/p CT x2 with dressing in place CDI, foams intact to BLUE. Medications given via DHT without issue. Ice chips given. Call shaw within reach, VSS, care ongoing.
[2025-03-04] MEDS: SENOKOT-S TUBE ×2 (20:26→20:27)
[2025-03-04] MEDS: LIPITOR 40 MG TUBE (21:57)
[2025-03-05] VITALS (27 sets, daily range): BP systolic 106–161; BP diastolic 52–103; PULSE 69–71; O2SAT 100; BMI 24.6
--- NOTE | 2025-03-05 01:00 | PTCARENOTE ---
Patient assisted x2 from bed to chair. PRN Tylenol given for pain in B/L knee's, see MAR. Voiding in urinal. VSS, call shaw within reach, care ongoing.
[2025-03-05 04:14] LABS: Vancomycin Random 17.4 ug/ml
[2025-03-05 04:40] LABS: Hematocrit 28.8 % (39.0-52.0); Hemoglobin 9.4 g/dL (13.0-18.0); Mean Corp Hgb Conc. 32.6 g/dL (33.0-37.0); Mean Corpuscular Hgb 32.3 pg (27.0-31.0); Mean Platelet Volume 11.1 fL (7.4-10.4); Platelet Count 55 10^3/uL (130-400); Red Blood Cell Count 2.91 10^6/uL (4.70-6.10); Red Cell Dist. Width 16.3 % (11.5-14.5); White Blood Cell Count 8.2 10^3/uL (4.8-10.8)
[2025-03-05 04:41] LABS: Blood Urea Nitrogen 26 mg/dl (9-20); Calcium 8.4 mg/dl (8.4-10.2); Carbon Dioxide 28 mmol/L (22-30); Chloride 109 mmol/L (98-107); Estimated Creatinine Clearance > 125 ml/min; Glucose 145 mg/dl (70-99); Potassium 4.4 mmol/L (3.5-5.1); Sodium 144 mmol/L (135-145); eGFR > 60.00
[2025-03-05] MEDS: TYLENOL 650 MG TUBE ×2 (05:49→22:08)
--- NOTE | 2025-03-05 06:54 | W.PN.CT ---
Today's Communication / Plan
-
-pod#8
-no issues overnight, feels better overall
-remains in a-fib 60s
-has pw as backup
-platelets are low but stable - 55K today
-weaned off O2
-diuresed with Lasix 03/04 (UO 1050/1700 in 12/24 hrs)
-R picc placed 03/04
-continue Vancomycin (abx until 04/07)
-on Jevity via Dobhoff. For repeat VSE (tentatively 03/09)
-encourage IS, OOB
-appreciate everyone's input
Assessment / Plan
-
s/p AVR (27mm Soliman inspiris Bio valve), MVR (31mm Soliman Mitris Bio valve), TVr (34mm romero band), ELAA 50mm atriclip on 02/25/[address] Sharma - POD #8
-AV endocarditis (E faecalis)/Mod-severe AI
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
-Moderate TR
-LVEF 55-60%
-Atrial Fib (Chronic, diagnosed 2011-on Xarelto)
-CAD (nonischemic cardiomyopathy/HFrEF )
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
-Acute on chronic Anemia
-AAA S/P endovascular repair [address] Alfred; suspected break through infection despite suppressive amoxicillin
-Septic arthritis of the Knee 07/2024 due to Enterococcus - completed course of treatment
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
-Lyme disease
-S/P PCI/Stent (MARQUISE-OM1 2011)
-T2DM (A1C 5.1, currently on no tx)
-Hx noncompliance with imaging studies, though reportedly compliant with medications
-acute hypoxic respiratory failure requiring delayed extubation & flolan nebulization
-Acute postop atelectasis/probable pulmonary edema
-Acute postop blood loss/Anemia (transfused 6u PRBCs)
-Acute postop thrombocytopenia (transfused 2 {5}pk plts
-Acute postop hypovolemia with subsequent hypervolemia
-Acute postop bradycardia/rate controlled a-fib
-Acute postop CHELA
Discussed patient care with: Nursing and Care Team
Subjective
Procedure
AVR (27mm Soliman inspiris Bio valve), MVR (31mm Soliman Mitris Bio valve), TVr (34mm romero band), ELAA 50mm atriclip on 02/25/[address] Sharma
-
Date of Service: March 05, 2025
Objective Data
-
Lab Results
03/05/25 03:38
03/05/25 03:38
PT 16.6 Sec (11.4-14.6) H 02/28/25 04:53
INR 1.32 02/28/25 04:53
APTT 45.1 Sec (23.4-35.0) H 02/25/25 15:14
Vital Signs
Vital Signs
Temp Pulse Resp BP Pulse Ox
97.4 F 67 18 106/53 98
03/05/25 03:00 03/05/25 06:00 03/05/25 06:00 03/05/25 05:00 03/05/25 05:00
CT Intake/Output/Weight
03/04/25 03/04/25 03/05/25
06:59 18:59 06:59
Intake Total 1163.8 / 1862.2 1327.2 / 2347.2 1020 / 2347.2
Output Total 325 / 1070 650 / 1875 1225 / 1875
Balance 838.8 / 792.2 677.2 / 472.2 -205 / 472.2
SaO2: 98
Physical Exam
-
General: Awake and AOx3
Cardiovascular: Irregular rate & rhythm, No Murmurs and No Rub
Respiratory: Decreased Breath Sounds
Sternum: Stable
Incision: Clean, Dry and Intact
Extremities: Edema +2
Abdomen: soft, nontender, nondistended, + BMs
Data Reviewed
-
Lab Results: Results Reviewed
Medications: Active Meds Reviewed
Chest X-Ray: Report Reviewed and Image Reviewed
ECG: Report Reviewed and Image Reviewed
--- NOTE | 2025-03-05 08:09 | PHA.VAN.FU ---
Vancomycin Assessment / Plan
- Assessment
Renal Function: Stable
WBC's are: WNL
In the past 24 hrs, patient has been: Afebrile
- Assessment - Therapeutic Drug Monitoring
Random Level: 17.4 - drawn ~16H after previous dose of 1250mg
Levels remain on higher end of range with once daily dosing - expect some additional clearance for full 24H interval
- Dosing Plan
Dosing by Level: Re-dose today (Vanc 1250mg)
- Monitoring Plan
Random Level: 03/06 0600
- Follow Up
Pharmacy will continue to follow.
Vancomycin Follow UP
- -
Patient Age: 70
Patient Sex: Male
Vancomycin Day #: 7
Indication: Endocarditis
Requesting Provider: Dr. Purcell
Pertinent Antimicrobial Allergies:
No Known Drug Allergies
Height / Weight:
Height 6 ft
Actual Weight 82.2 kg
Pertinent Past Medical History: T2DM, Valve replacement
- Vital Signs / Lab Results
Temp Pulse Resp BP Pulse Ox
97.4 F 67 18 106/53 98
03/05/25 03:00 03/05/25 06:00 03/05/25 06:00 03/05/25 05:00 03/05/25 07:04
Lab Results - Hematology
03/03/25 03/04/25 03/05/25
05:03 04:07 03:38
WBC 6.4 7.8 8.2
Lab Results - Chemistry
03/03/25 03/04/25 03/05/25
05:03 04:07 03:38
BUN 28 H 25 H 26 H
Creatinine 0.7 0.6 L 0.6 L
Estimated Creat Clear 108 > 125 > 125
Microbiology Results
02/25/25 10:34 Tissue Culture - Preliminary
Valve NO GROWTH
Gram Stain - Preliminary
02/25/25 10:09 Tissue Culture - Preliminary
Valve NO GROWTH
Gram Stain - Preliminary
Therapeutic Drug Monitoring
Random Vancomycin 17.4 ug/ml 03/05/25 03:38
[2025-03-05] MEDS: ZESTRIL 10 MG TUBE (08:42)
[2025-03-05] MEDS: ROBINUL 1 MG TUBE ×2 (08:42→20:04)
[2025-03-05] MEDS: MAGNESIUM OXIDE 500 MG TUBE ×2 (08:42→20:05)
[2025-03-05] MEDS: LIDOCAINE 4% PATCH 1 PATCH TOPICAL (08:42)
[2025-03-05] MEDS: SENOKOT-S 1 TABLET TUBE (08:43)
[2025-03-05] MEDS: FOLVITE 1 MG TUBE (08:43)
[2025-03-05] MEDS: FEOSOL 325 MG TUBE (08:43)
[2025-03-05] MEDS: PROTONIX IV 40 MG IV (08:43)
[2025-03-05] MEDS: NSS (PRESERVATIVE FREE) 10 ML IV (08:44)
[2025-03-05] MEDS: MIRALAX TUBE (08:44)
--- NOTE | 2025-03-05 09:10 | PTCARENOTE ---
pt aaox3. voice quiet. pt states pain in left shoulder feels better after pain med. pt ooc in chair with walker to bathroom min assist. pacer wires in place with box turned on. no pacer spikes noted on monitor. dht in place placement checked tube
feeding running as ordered. sternal dressing c/d/i
--- NOTE | 2025-03-05 09:27 | W.PN.ID1 ---
Date of Service
Date of Service: March 05, 2025
Today's Communication
- c/w vancomycin - dosing by level
- anticipate a repeat course of 6 weeks of IV antibiotics at home from the procedure (02/25-04/07), followed by suppression
- PICC in place
Assessment / Plan
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
H/o Septic arthritis of the Knee 07/2024 due to Enterococcus - completed course of treatment
DM2; not on treatment
Leukopenia - present on arrival, possibly related to chronic infection
H/o noncompliance with imaging studies, though reportedly compliant with medications
- will continue follow up valve cultures - asked lab to hold the aerobic cultures to two weeks
- having daily assessments by cardiology for possible leadless pacemaker placement - may not be required
- discussed with Dr Sharma, he shares that he discussed with Dr Alfred and plans for EVAR removal will be several months down the road, emphasized to patient that it is critical that he keeps his follow ups
- c/w vancomycin - dosing by level
- anticipate a repeat course of 6 weeks of IV antibiotics at home from the procedure (02/25-04/07), followed by suppression
- PICC in place
����������������������������������������������������������
Chief Complaint
-: Other (endocarditis)
Subjective / Review of Systems
afebrile
bp stable
voice getting stronger
Vital Signs / Physical Exam
Vital Signs
Vital Signs
Temp Pulse Resp BP Pulse Ox
97.9 F 72 18 122/66 97
03/05/25 08:00 03/05/25 09:00 03/05/25 09:00 03/05/25 08:42 03/05/25 09:00
Physical Exam
Constitutional: No Acute Distress and Chronically Ill
Cardiovascular: Regular Rate and S1/S2; Negative Murmur or Rub
Pulmonary: Clear and Symmetric; Negative Wheezes or Rales
Gastrointestinal: Soft, Non Tender, Non Distended and Normal Bowel Sounds
Skin: Warm and Dry; Negative Rash or Jaundice
Objective Data
Lab Data
Lab Results
03/05/25 03:38
03/05/25 03:38
PT 16.6 Sec (11.4-14.6) H 02/28/25 04:53
INR 1.32 02/28/25 04:53
APTT 45.1 Sec (23.4-35.0) H 02/25/25 15:14
Estimated Creat Clear > 125 ml/min 03/05/25 03:38
Total Bilirubin 1.7 mg/dl (0.2-1.3) H 02/28/25 04:53
AST 36 U/L (17-59) 02/28/25 04:53
ALT 13 U/L (0-50) 02/28/25 04:53
Alkaline Phosphatase 98 U/L (38-126) 02/28/25 04:53
Most recent labs reviewed.
Micro Results:
02/25/25 10:34 Tissue Culture - Preliminary
Valve NO GROWTH
Gram Stain - Preliminary
02/25/25 10:09 Tissue Culture - Preliminary
Valve NO GROWTH
Gram Stain - Preliminary
02/25/25 10:09 Fungal Culture - Preliminary
Valve Culture in progress.
Positive cultures are reported as soon as detected.
Final report to follow in four to five weeks.
02/25/25 10:34 Fungal Culture - Preliminary
Valve Culture in progress.
Positive cultures are reported as soon as detected.
Final report to follow in four to five weeks.
02/25/25 10:34 Anaerobic Culture - Final
Valve NO ANAEROBES ISOLATED
02/25/25 10:09 Anaerobic Culture - Final
Valve NO ANAEROBES ISOLATED
02/26/25 13:07 Respiratory Culture - Final
Bronch Washing Usual Respiratory Brunilda
Gram Stain - Final
02/19/25 13:22 Blood Culture - Final
Blood/Venous No Growth - Final Report
02/19/25 12:40 Blood Culture - Final
Blood/Venous No Growth - Final Report
[2025-03-05] MEDS: VANCOCIN 275 MG IV (10:25)
[2025-03-05] MEDS: LASIX 40 MG IV (10:26)
--- NOTE | 2025-03-05 10:30 | W.PN.CD ---
Today's Communication / Plan
-
Holding off on Micra implant as AV node conduction is slowly improving
Will reassess consideration for permanent pacing daily
Now off dobutamine for about 24 hours and all pauses are under 2 sec
I suspect he will not need a pacemaker
Resume anticoagulation when Platelets improve
Impression / Plan
-
Background: 70 y/o male with a history of permanent atrial fibrillation, acute on chronic HFpEF, PAD, AAA s/p EVAR (12/04/2023), prior diskitis and septic arthritis and CAD s/p PCI admitted progression of initially medically managed infectious
endocarditis, likely also involving his EVAR graft.
s/p AVR (27mm Soliman inspiris Bio valve), MVR (31mm Soliman Mitris Bio valve), TVr (34mm romero band), ELAA 50mm atriclip on 02/25/[address] Sharma
Bradycardia
- I see no pacing over last 24 hours. All pauses are less than 2 sec
- AV conduction seems to be improving
- Holding off on Micra implant as AV node conduction is slowly improving
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
- S/P triple valve intervention (2 valves replaced/1 repaired) on 02/25/2025.
- ATB per ID (Vanco)
Permanent AFib
- On Xaretlo as op.
- S/P LAAE (#50 AtriClip) with Dr. Sharma, 02/25/2025.
- Avoid anticoagulation for now thrombocytopenia
Post-op anemia
HFpEF
Resolved CHELA
AAA, S/P EVAR.
-Possibly infected (rim enhancing portion).
-Vascular surgery and ID involved
Heme: Anemia and thrombocytopenia, off heparin since 02/24/2025
Complex chronic PAD => Vascular Surgery involved
CAD with hx or PCI
-Stable without CP.
-On rivaroxaban as OP; currently on holding due to post op/thrombocytopenia.
Subjective:
Comfortable. No palps
Data:
Intraop LORETA 02/25/2025:
CONCLUSIONS
Mildly dilated left ventricle (LVIDD 6.1 cm) with LVEF of 50-55% by visual
inspection. No regional wall motion abnormalities.
Severely dilated left atrium (10 cm).
Normal right ventricle in size and function.
Dilated right atrium (6.8 cm).
Severe mitral regurgitation with anterior leaflet echodensity.
Severe aortic insufficiency with mobile echodensity on the noncoronary cusp.
Mild to moderate tricuspid regurgitation with dilated annulus (5.3 cm).
Dilated coronary sinus (1.4 cm).
Small [id number] patent foramen ovale.
Normal size ascending aorta with mild posterior wall calcification. The arch
is heavily diseased with atheromatous plaque. The descending thoracic aorta is
poorly visualized.
Normal appearing left atrial appendage.
POST OPERATIVE FINDINGS
S/P AVR with size 27 bioprosthetic, MVR with size 31, tricuspid band size 34,
IVONE exclusion with clip.
The bioprosthetic valves are well-seated with no paravalvular leaks. The
tricuspid valve regurgitation is no longer present. The aortic valve gradient
is 8 mmHg, the mitral valve gradient is 2 mmHg, and the tricuspid valve
gradient is 1 mmHg. A strand of highly mobile chordae tendineae is seen in the
left ventricle just below the mitral valve. The left atrial appendage is no
longer visualized with the absence of flow confirmed by color flow Doppler.
Otherwise unchanged exam. The rhythm is atrial fibrillation. Pharmacological
support included 8 mcg/kg/min of dobutamine and 10 mcg/kg of norepinephrine.
-LORETA 02/20/2025: L the EF 55-60%, biatrial enlargement, MV echodensity with severe MR, AV echodensity with mod/severe AR, TV echodensity with mod TR
-TTE 02/19/25: LVEF 50-55%, MV with 1.5 cm x 0.7 cm veg on anterior leaflet. Severe, eccentric mitral regurgitation. AV with highly mobile 2.5 cm x 0.6 cm veg on NCC. Severe eccentric aortic regurgitation. Possible TV veg with mod TR, PASP 72
-Echo report summary 01/15/25: 0.75 mm mass attached to aortic valve, EF 38%, increased LV size, RV moderately dilated and with moderately decreased systolic function, severely dilated atria, severe AR, two areas of vegetation on anterior mitral
valve leaflet, severe MR, severe TR (aortic vegetation bigger from previous and now two areas on MV noted).
Physical Exam
Vital Signs/Labs
Vital Signs
Temp Pulse Resp BP Pulse Ox
97.9 F 72 18 139/78 97
03/05/25 08:00 03/05/25 09:00 03/05/25 09:00 03/05/25 10:26 03/05/25 09:00
03/04/25 03/05/25 03/06/25
06:59 06:59 06:59
Actual Weight 81.9 kg 82.2 kg
03/05/25 03:38
03/05/25 03:38
PT 16.6 Sec (11.4-14.6) H 02/28/25 04:53
INR 1.32 02/28/25 04:53
APTT 45.1 Sec (23.4-35.0) H 02/25/25 15:14
Magnesium 2.0 mg/dl (1.6-2.3) 03/04/25 04:07
Triglycerides 81 mg/dl (10-149) 03/03/25 05:03
LDL Cholesterol, Calc 64 mg/dl 02/19/25 01:44
VLDL Cholesterol, Calc 15 mg/dl (0-30) 02/19/25 01:44
HDL Cholesterol 37 mg/dl 02/19/25 01:44
02/18/25 02/18/25 02/26/25
20:27 20:59 00:14
[id number]-[id number] Pept Cancelled [id number]
Physical Exam
Constitutional: No acute distress
EENT: Anicteric
Cardiovascular: Rhythm/rate is irregular and Rub absent
Respiratory: Respiratory effort normal and Lungs clear to auscul.
GI: Soft and Distention absent
Neuro/Psych: AO x 3
Data Reviewed
-
Date of Service: March 05, 2025
--- NOTE | 2025-03-05 12:10 | CM ---
Chart reviewed. Patient is independent of ADLS, lives with his in a [address], [facility], ambulates with a SPC and RW. PT evaluation recommending Acute Rehab. Patient with many medical complexities. Referral sent to [facility]. Waiting on Physiatry
consult. Plan is for the patient to go to Acute Rehab. CM to follow
--- NOTE | 2025-03-05 15:05 | CON.MR ---
Consultation
Consultation Request
Date/Time Consultation Performed: 03/05/25
Performing Provider: Dr. Prasad
Reason for Consultation: Deconditioning
Medical History
-
Chief Complaint: Weakness
History of Present Illness:
I had the opportunity to see Weston Taylor in rehabilitation consultation today. This is a 70 year old male originally admitted to [place] on 02/18 with increased dyspnea with exertion and was unable to walk. Noted with cardiomegaly and pulmonary
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 Started on ABX while establishing plan. On 02/25 patient underwent AVR, TVR, MVR ELAA with atriclip. Post
operative had posible need for pacemaker but team was holding off, but AV node conduction is slowly improving and not needed PPM so far. He had CHELA and improving. Off of xarelto for afib due to thrombocytopenia. Has had post-operative anemai and
with NG tube.
Patient with previous history of CAD status post stent, heart failure, atrial fibrillation on Xarelto at home, mitral regurgitation, history of laryngeal cancer in 2016 s/p resection, chemoradiation - required tracheostomy & feeding tube x 7 months,
AAA, L2-L3 OM discitis and history of preceding left knee septic arthritis due to Enterococcus.
Patient was seen by me at bedside this afternoon. States fatigue and is sitting up in the chair. Some chest/sternal pain, but denies any significant pain with breathing. Some SOB with movements and walking with therapy. Denies any dizziness or
lightheadedness. No GI complaints. Does have paresthesias in the hands and feet, but states chronic from chemotherapy neuropathy but no new changes post-operatively.
Lives with in 2 story [facility], and no first floor bed/bath. Was ambulatory with walker previously.
Additional past medical history:
Peripheral neuropathy due to chemotherapy
Anxiety
Hypertension
CHF
Gout
Hyperlipidemia
Type 2 diabetes
Anemia
Family History
Family History: Reviewed & Not Pertinent
Social History
Functional Level Premorbidity:
Independent for all activities. Had progressive decline but was I with mobility and walker before decompensation
Current Funct Level: Ambulation, Transfer, UE/LE Dressing:
Mod A to min A transfers, Min A ambulation 10'
Living: With Spouse
Number of Floors: 2
Potential First Floor Set Up: No
Allergies / Home Medications
Allergy/AdvReac Type Severity Reaction Status Date / Time
No Known Allergies Allergy Unverified 11/26/23 09:34
�Medication �Instructions �Recorded �Confirmed �Last Taken �Type
allopurinol 100 mg tablet 100 mg PO BID Gout 11/26/23 02/18/25 12/04/23 04:30 History
alprazolam 0.5 mg tablet 0.5 mg PO HSPRN PRN anxiety 11/26/23 02/18/25 11/27/23 History
lisinopril 10 mg tablet 10 mg PO DAILY Blood Pressure 11/26/23 02/18/25 12/03/23 08:00 History
magnesium oxide 500 mg PO HS Electrolyte Repletion 11/26/23 02/18/25 12/03/23 08:00 History
rivaroxaban 20 mg tablet 20 mg PO HS Blood Clot 11/26/23 02/18/25 12/02/23 12:00 History
Prevention/Tx
acetaminophen 325 mg tablet 650 mg PO DAILY Pain 02/18/25 02/18/25 Unknown History
(Tylenol)
amoxicillin 500 mg capsule 500 mg PO TID Mitral valve 02/18/25 02/18/25 Unknown History
vegetation
atorvastatin 40 mg tablet 40 mg PO HS cholesterol 02/18/25 02/18/25 Unknown History
benzonatate 100 mg capsule 100 mg PO TIDPRN PRN cough 02/18/25 02/18/25 Unknown History
cholecalciferol (vitamin D3) 50 50 mcg PO DAILY Supplement 02/18/25 02/18/25 Unknown History
mcg (2,000 unit) tablet (Vitamin
D3)
cyanocobalamin (vitamin B-12) 1,000 mcg PO DAILY Supplement 02/18/25 02/18/25 Unknown History
1,000 mcg tablet
famotidine 20 mg tablet 20 mg PO DAILY Gastrointestinal 02/18/25 02/18/25 Unknown History
Issue
ferrous sulfate 325 mg (65 mg 325 mg PO DAILY Supplement 02/18/25 02/18/25 Unknown History
iron) tablet
folic acid 1 mg tablet 1 mg PO DAILY Supplement 02/18/25 02/18/25 Unknown History
furosemide 40 mg tablet 40 mg PO BID Fluid 02/18/25 02/18/25 Unknown History
Retention/Swelling
glycopyrrolate 1 mg tablet 1 mg PO BID secretions 02/18/25 02/18/25 Unknown History
magnesium hydroxide 400 mg/5 mL 30 ml PO DAILYPRN PRN constipation 02/18/25 02/18/25 Unknown History
oral suspension (Milk of Magnesia)
metoprolol succinate 50 mg 50 mg PO DAILY Abnormal Heart Rate 02/18/25 02/18/25 Unknown History
tablet,extended release 24 hr
vitamin B complex 1 tab PO DAILY Supplement 02/18/25 02/18/25 Unknown History
cyanocobalamin (vitamin B-12) 1,000 mcg IM QMONTH 03/04/25 03/04/25 02/02/25 History
1,000 mcg/mL injection solution
Review Of Systems
-
History Source: Patient
All other systems: Negative unless noted
Constitutional: Reports Fatigue
Eye: Reports No Symptoms
EENT: Reports No Symptoms
Respiratory: Reports Trouble Breathing
Cardiac: Reports Chest Pain
Abdomen/GI: Reports No Symptoms
: Reports No Symptoms
Musculoskeletal: Reports Muscle Pain
Integumentary: Reports No Symptoms
Neurological: Reports Weakness and Numbness
Psych: Reports No Symptoms
Endocrine: Reports No Symptoms
Hematologic/Lymphatic: Reports No Symptoms
Immunology: Reports No Symptoms
Physical Exam
Active Medications
Generic Name Dose Route Start Last Admin
Trade Name Freq PRN Reason Stop Dose Admin
Acetaminophen 1,000 mg 02/25/25 14:19 02/27/25 06:28
Acetaminophen 500 Mg Tablet PO 03/25/25 14:18 Not Given
TID@0600,1400,2200 FANNY
Acetaminophen 650 mg 03/02/25 14:16 03/05/25 05:49
Acetaminophen 325 Mg Tablet TUBE 03/25/25 14:18 650 mg
Q4HPRN PRN Administration
mild pain,headache,temp >101F
Allopurinol 100 mg 03/02/25 14:15
Allopurinol 100 Mg Tablet TUBE 03/19/25 07:59
BID FANNY
Alprazolam 0.5 mg 02/19/25 01:23 02/24/25 23:15
Alprazolam 0.5 Mg Tablet PO 03/19/25 01:22 0.5 mg
HSPRN PRN Administration
anxiety
Amiodarone HCl 200 mg 02/25/25 16:00 02/25/25 15:47
Amiodarone 200 Mg Tablet PO 03/25/25 15:59 Not Given
TID FANNY
Aspirin 81 mg 02/26/25 08:00 02/27/25 07:40
Aspirin 81 Mg Chewable Tablet PO 03/26/25 07:59 Not Given
DAILY FANNY
Atorvastatin Calcium 40 mg 03/02/25 14:16 03/04/25 21:57
Atorvastatin (Lipitor) 40 Mg Tablet TUBE 03/25/25 21:59 40 mg
HS FANNY Administration
Benzocaine/Menthol 1 lozenge 02/20/25 15:30 02/28/25 14:29
Benzocaine/Menthol Lozenge PO 03/20/25 15:29 1 lozenge
Q4HPRN PRN Administration
sore throat
Benzonatate 100 mg 02/19/25 01:23
Benzonatate 100 Mg Capsule PO 03/19/25 01:22
TIDPRN PRN
cough
Bisacodyl 10 mg 02/25/25 14:19
Bisacodyl 10 Mg Rectal Suppository RECTAL 03/25/25 14:18
DAILYPRN PRN
constipation
Cyclobenzaprine HCl 5 mg 02/25/25 14:19
Cyclobenzaprine 10 Mg Tablet PO 03/25/25 14:18
Q8HPRN PRN
muscle spasm
Dextrose 12.5 grams 02/25/25 14:19 02/27/25 13:07
Dextrose 50% (0.5 Grams/Ml) 50 Ml Syringe IV 03/25/25 14:18 12.5 grams
[id number] PRN Administration
Blood Glucose < 70
Ferrous Sulfate 325 mg 03/02/25 14:16 03/05/25 08:43
Ferrous Sulfate 325 Mg Tablet TUBE 03/19/25 07:59 325 mg
DAILY FANNY Administration
Folic Acid 1 mg 03/02/25 14:16 03/05/25 08:43
Folic Acid 1 Mg Tablet TUBE 03/19/25 07:59 1 mg
DAILY FANNY Administration
Glycopyrrolate 1 mg 03/02/25 14:16 03/05/25 08:42
Glycopyrrolate 1 Mg Tablet TUBE 03/19/25 07:59 1 mg
BID FANNY Administration
Vancomycin HCl 1 each/ Device 0 mls @ 0 mls/hr 02/27/25 11:15
IV
PER PROTOCOL FANNY
As Directed
Lidocaine 1 patch 02/26/25 08:00 03/05/25 08:42
Lidocaine 4% Topical Patch TOPICAL 03/26/25 07:59 1 patch
DAILY FANNY Administration
Protocol
Lisinopril 10 mg 03/04/25 08:00 03/05/25 08:42
Lisinopril 10 Mg Tablet TUBE 04/01/25 07:59 10 mg
DAILY FANNY Administration
Magnesium Hydroxide 30 ml 03/02/25 14:16
Milk Of Magnesia 30 Ml Cup TUBE 03/25/25 14:18
BIDPRN PRN
if no BM in three days
Magnesium Oxide 500 mg 03/02/25 14:16 03/05/25 08:42
Magnesium Oxide 500 Mg Tablet TUBE 03/26/25 07:59 500 mg
BID FANNY Administration
Metoprolol Tartrate 12.5 mg 02/26/25 08:00
Metoprolol 12.5 Mg Regular Release Dose (1/2 Of 25 Mg Tablet) PO 03/26/25 07:59
Q12 FANNY
Ondansetron HCl 4 mg 02/25/25 14:19
Ondansetron 4 Mg/2 Ml Vial IV 03/25/25 14:18
Q8HPRN PRN
nausea/vomiting
Oxycodone HCl 2.5 mg 03/02/25 14:16 03/04/25 16:59
Oxycodone 5 Mg Regular Release Tablet TUBE 03/11/25 14:18 2.5 mg
Q4HPRN PRN Administration
mild pain
Pantoprazole Sodium 40 mg 02/26/25 08:00 03/05/25 08:43
Pantoprazole Sodium 40 Mg/10 Ml Vial IV 03/26/25 07:59 40 mg
DAILY FANNY Administration
Patch Removal 0 patch 02/26/25 20:00 03/04/25 20:28
Remove Lidocaine Patch REMOVE 03/26/25 19:59 1 patch
DAILY@2000 FANNY Administration
Polyethylene Glycol 17 grams 02/26/25 08:00 03/05/25 08:44
Polyethylene Glycol Powder 17 Grams Packet TUBE 03/26/25 07:59 Not Given
DAILY FANNY
Senna/Docusate Sodium 1 tablet 03/02/25 14:16 03/05/25 08:43
Docusate W/Senna (Veronica-Colace) Tablet TUBE 03/25/25 19:59 1 tablet
Q12 FANNY Administration
Sodium Chloride 0 flush 02/25/25 15:00
Sodium Chloride 0.9% (Flush) Syringe IV 03/25/25 14:59
PER PROTOCOL FANNY
Sodium Chloride 10 ml 02/26/25 08:00 03/05/25 08:44
Sodium Chloride 0.9% (Preservative Free) 10 Ml Vial IV 03/26/25 07:59 10 ml
DAILY FANNY Administration
Vital Signs
Temp Pulse Resp BP Pulse Ox
98.0 F 72 18 145/78 100
03/05/25 13:00 03/05/25 14:00 03/05/25 14:00 03/05/25 14:00 03/05/25 10:43
Height 6 ft
Actual Weight 82.2 kg
Body Mass Index (BMI) 24.6
Physical Exam
Physical Exam:
General Appearance/Observation: Well-developed, well-nourished individual in no apparent distress. Sitting up in bedside chair.
Pain/Comfort Assessment: Incisional sternal
Mood/Affect: Appropriate - decent spirits today
Eyes: Conjunctiva/Lids: normal Pupils: pupils equal round and reactive to light and Accommodation - good tracking
Ears/Nose/Throat: oral mucosa moist, throat clear. Lips/Teeth/Gums: normal
Neck: No muscle spasm or tenderness
Cardiovascular: Heart: irregular, click but no murmur
Pulses: dorsalis pedis 2+ bilaterally
Respiratory: Respiratory Effort/Chest Expansion: normal Auscultation: Clear to auscultation bilaterally
Gastrointestinal: abdomen not tender, no distension, normal abdominal bowel sounds. NGT
Genitourinary: Alfred
Extremities: Edema: trace, but no calf tenderness Cyanosis: None Trophic changes: None
Neurology Exam:
Orientation: Alert, Oriented to self, Time, Place
Speech: Intact
Comprehension: Intact
Two step command: Intact
Cranial Nerves: - seems intact and symmetric
Sensory:
Light touch: Decreased in the hands/digits.
Reflexes:
Achilles: absent bilaterally
Kelton: Negative bilaterally
Cerebellar: Dysmetria/Ataxia: None
Musculoskeletal:
Motor: (Manual muscle scale 0-5)
Muscle SA EF WE EE FF FA HF KE DF EHL PF
Right 4 4 4 4 4 4 4 5 4
Left 4 4 4 4 4 4 4 5 4
Some mild generalized atrophy in bilateral lower limbs.
Tone: Normal in all extremities
Range of Motion: Passively within normal limits in all extremities
Lab Results
03/05/25 03:38
03/05/25 03:38
WBC 8.2 10^3/uL (4.8-10.8) 03/05/25 03:38
Hgb 9.4 g/dL (13.0-18.0) L 03/05/25 03:38
Hct 28.8 % (39.0-52.0) L 03/05/25 03:38
MCV 99.0 fL (80.0-94.0) H 03/05/25 03:38
Plt Count 55 10^3/uL (130-400) L 03/05/25 03:38
PT 16.6 Sec (11.4-14.6) H 02/28/25 04:53
INR 1.32 02/28/25 04:53
Sodium 144 mmol/L (135-145) 03/05/25 03:38
Potassium 4.4 mmol/L (3.5-5.1) 03/05/25 03:38
Chloride 109 mmol/L (98-107) H 03/05/25 03:38
Carbon Dioxide 28 mmol/L (22-30) 03/05/25 03:38
BUN 26 mg/dl (9-20) H 03/05/25 03:38
Creatinine 0.6 mg/dL (0.7-1.3) L 03/05/25 03:38
eGFR > 60.00 03/05/25 03:38
Glucose 145 mg/dl (70-99) H 03/05/25 03:38
Hemoglobin A1c 5.1 % (4.0-5.6) 02/20/25 03:38
Calcium 8.4 mg/dl (8.4-10.2) 03/05/25 03:38
Magnesium 2.0 mg/dl (1.6-2.3) 03/04/25 04:07
Total Bilirubin 1.7 mg/dl (0.2-1.3) H 02/28/25 04:53
Direct Bilirubin 0.8 mg/dl (0.0-0.4) H 02/28/25 04:53
AST 36 U/L (17-59) 02/28/25 04:53
ALT 13 U/L (0-50) 02/28/25 04:53
Alkaline Phosphatase 98 U/L (38-126) 02/28/25 04:53
Total Protein 4.7 g/dl (6.3-8.2) L 02/28/25 04:53
Albumin 2.7 g/dl (3.5-5.0) L 02/28/25 04:53
Diagnostic Results
As per HPI.
Comorbidities / Impairment Group
Comorbidities:
Peripheral neuropathy, gout, HTN
Impairment Group:
Cardiac
Assessment / Plan
Plan
Assessment:
70 year old male with infective endocarditis, heart failure now s/p AVR, MVR, TVR, ELAA with atriclip on 02/25.
PM&R PT/OT to increase independence with ADLs, improve balance, coordination, endurance, strength, mobility, community reintegration, decreased burden of care on others and family education.
Endocarditis: ID following, on vancomycin - anticipated 6 weeks of IV abx. Has PICC
Bradycardia: Cardio following and states Holding off on Micra implant as AV node conduction is slowly improving
Afib: - On Xaretlo at home, holding here due to thrombocytopenia 55k.
Peripheral polyneuropathy: Due to chemotherapy - with some neuropathic sx in hands/feet.
Dysphagia: Failed video swallow on 03/02 - silent aspiration. Has NGT. Speech following and will likely repeat video swallow next week.
HTN: continue lisinopril
HLD: Statin
CHF: Preserved EF
Anemia: Likely post-operative. Continue to monitor.
Thrombocytopenia: 55k. Holding xarelto, no heparin
CHELA: Has resolved
Skin: monitor for pressure sores/rashes/lesions.
Pain: on acetaminophen or oxycodone as needed.
Bowel: Colace and Senna, PRN bisacodyl.
DVT Prophylaxis: Xarelto on hold until platelets count improves.
Pulmonary: Incentive spirometry
Safety: Continue to reinforce assistance with all transfers.
Code Status: Full code
Dispo (date/plan/equipment needs): Home with family care. Social history reviewed.
Functional and Medical Goals: Modified Independent with ADL�s, ambulation, transfers
Summary
-
Things that must be addressed in Hospital prior to discharge:
1. Please continue bedside PT/OT.
2. Please continue speech/swallow trials - planned for repeat video swallow.
3. Patient must be stable on oral pain medications.
4. Please give blood pressure parameters for participation with therapy.
5. Please comment on ROM, or any other precautions with therapies.
6. Please comment on dvt chemoprophylaxis plan
Discharge Destination: acute rehab when more medically stable and able to tolerate 3hrs therapy per day.
Summary of recommendations:
- Discharge Destination: Acute rehab when more medically stable and able to participate in intesive therapies
Will continue to follow patient.
Thank you for allowing me to care for your patient. Please contact me with any questions or concerns.
Data Reviewed
-
Labs: Labs Reviewed by me
Comments
-
This note was dictated using a voice recognition system. Please excuse any typographical errors from food scientist. If you believe there are any discrepancies, please notify our office.
[2025-03-05] MEDS: VITAMIN B-12 1000 MCG PO (15:58)
--- NOTE | 2025-03-05 20:00 | PTCARENOTE ---
Received pt from [facility]. pt resting comfortably in bed. pt is POD# 8 from TVR/AVR/MVR/ with dr Sharma. pt is AAOx4, denies pain at this time. heart sounds audible, radial and DP pulses palpable, +2 pitting LLE, x2 bipolar epicardial V-wires set to
VVI 30/7/0.8. lungs diminished at b/l bases, spo2 98% on RA, productive cough. +BS x4 quadrants, abdomen soft, non tender, ongoing tube feeds via dobhoff@ right nare 73cm. pt voiding dark yellow urine. surgical sites maintained. right double lumen
PICC maintained. call shaw within reach. will continue to monitor.
[2025-03-05] MEDS: SENOKOT-S TUBE (20:04)
[2025-03-05 20:35] LABS: Glucose - Point of Care 156 mg/dl (70-99)
[2025-03-05] MEDS: LIPITOR 40 MG TUBE (21:11)
[2025-03-05] MEDS: ROXICODONE 2.5 MG TUBE (22:07)
[2025-03-05 23:55] LABS: Glucose - Point of Care 148 mg/dl (70-99)
[2025-03-06] VITALS (27 sets, daily range): BP systolic 95–152; BP diastolic 53–85; PULSE 64; O2SAT 95–98; BMI 24.9
--- NOTE | 2025-03-06 | PTCARENOTE ---
Pt assessment unchanged. Afib on monitor. VSS. CHG cloth bath provided, new gown, new leads. pain management, see MAR. call shaw within reach. will continue to monitor.
--- NOTE | 2025-03-06 02:45 | PTCARENOTE ---
pt had a five beat run of Vtach. CVPA made aware.
--- NOTE | 2025-03-06 04:00 | PTCARENOTE ---
pt resting comfortably. assessment unchanged. Afib on monitor. will continue to monitor.
[2025-03-06] MEDS: TYLENOL 650 MG TUBE (05:27)
[2025-03-06] MEDS: ROXICODONE 2.5 MG TUBE ×3 (05:27→21:45)
[2025-03-06 05:36] LABS: Hematocrit 28.6 % (39.0-52.0); Hemoglobin 9.2 g/dL (13.0-18.0); Mean Corp Hgb Conc. 32.2 g/dL (33.0-37.0); Mean Corpuscular Hgb 32.1 pg (27.0-31.0); Mean Corpuscular Volume 99.7 fL (80.0-94.0); Mean Platelet Volume 12.7 fL (7.4-10.4); Platelet Count 55 10^3/uL (130-400); Red Blood Cell Count 2.87 10^6/uL (4.70-6.10); Red Cell Dist. Width 16.7 % (11.5-14.5); White Blood Cell Count 7.3 10^3/uL (4.8-10.8)
[2025-03-06 05:53] LABS: Vancomycin Random 16.6 ug/ml
[2025-03-06 06:05] LABS: Blood Urea Nitrogen 25 mg/dl (9-20); Calcium 8.5 mg/dl (8.4-10.2); Carbon Dioxide 31 mmol/L (22-30); Chloride 105 mmol/L (98-107); Estimated Creatinine Clearance > 125 ml/min; Glucose 156 mg/dl (70-99); Magnesium 1.9 mg/dl (1.6-2.3); Potassium 4.4 mmol/L (3.5-5.1); Sodium 140 mmol/L (135-145); Triglycerides 73 mg/dl (10-149); eGFR > 60.00
[2025-03-06] MEDS: MIRALAX TUBE (08:05)
--- NOTE | 2025-03-06 08:12 | PHA.VAN.FU ---
Vancomycin Assessment / Plan
- Assessment
Renal Function: Stable
WBC's are: WNL
In the past 24 hrs, patient has been: Afebrile
- Assessment - Therapeutic Drug Monitoring
Random Level: 16.6 - drawn ~18.5H after previous dose of 1250mg
- Dosing Plan
Adjust Regimen to: Vanc 1250mg Q24H - first dose now then 03/07 0600
Vanc clearance remains reduced compared to estimated CrCl
Will tentatively schedule dosing and obtain peak/trough to calculate patient-specific PK this weekend
Expect patient may require dose adjustments during course as vanc clearance will likely not remain stable
- Monitoring Plan
Peak Level: Sat 03/07 09:30
Trough Level: Sun 03/08 05:30
- Follow Up
Pharmacy will continue to follow.
Vancomycin Follow UP
- -
Patient Age: 70
Patient Sex: Male
Vancomycin Day #: 8
Indication: Endocarditis
Requesting Provider: Dr. Purcell
Pertinent Antimicrobial Allergies:
No Known Drug Allergies
Height / Weight:
Height 6 ft
Actual Weight 83.2 kg
Pertinent Past Medical History: T2DM, Valve replacement
- Vital Signs / Lab Results
Temp Pulse Resp BP Pulse Ox
98.2 F 60 16 126/65 98
03/06/25 04:00 03/06/25 07:00 03/06/25 06:00 03/06/25 07:00 03/06/25 06:00
Lab Results - Hematology
03/04/25 03/05/25 03/06/25
04:07 03:38 05:01
WBC 7.8 8.2 7.3
Lab Results - Chemistry
03/04/25 03/05/25 03/06/25
04:07 03:38 05:01
BUN 25 H 26 H 25 H
Creatinine 0.6 L 0.6 L 0.6 L
Estimated Creat Clear > 125 > 125 > 125
Microbiology Results
02/25/25 10:09 Tissue Culture - Preliminary
Valve NO GROWTH
Gram Stain - Preliminary
02/25/25 10:34 Tissue Culture - Preliminary
Valve NO GROWTH
Gram Stain - Preliminary
Therapeutic Drug Monitoring
Random Vancomycin 16.6 ug/ml 03/06/25 05:01
--- NOTE | 2025-03-06 08:14 | W.PN.CT ---
Documented by User: Iram Vidal PA-C 03/06/25 08:18
Today's Communication / Plan
-
-pod#9
-no issues overnight, feels better overall
-remains in a-fib 50s- 60s. 5 beat NSVT overnight, asymptomatic
-has pw as backup
-platelets are low but stable - 55K today
-weaned off O2
-diuresed with Lasix (UO 650/2000in 12/24 hrs)
-R picc placed 03/04
-continue Vancomycin (abx until 04/07)
-on Jevity via Dobhoff. For repeat VSE (tentatively 03/09)
-encourage IS, OOB
-appreciate everyone's input
Assessment / Plan
-
s/p AVR (27mm Soliman inspiris Bio valve), MVR (31mm Soliman Mitris Bio valve), TVr (34mm romero band), ELAA 50mm atriclip on 02/25/[address] Sharma - POD #9
-AV endocarditis (E faecalis)/Mod-severe AI
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
-Moderate TR
-LVEF 55-60%
-Atrial Fib (Chronic, diagnosed 2011-on Xarelto)
-CAD (nonischemic cardiomyopathy/HFrEF )
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
-Acute on chronic Anemia
-AAA S/P endovascular repair [address] Alfred; suspected break through infection despite suppressive amoxicillin
-Septic arthritis of the Knee 07/2024 due to Enterococcus - completed course of treatment
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
-Lyme disease
-S/P PCI/Stent (MARQUISE-OM1 2011)
-T2DM (A1C 5.1, currently on no tx)
-Hx noncompliance with imaging studies, though reportedly compliant with medications
-acute hypoxic respiratory failure requiring delayed extubation & flolan nebulization
-Acute postop atelectasis/probable pulmonary edema
-Acute postop blood loss/Anemia (transfused 6u PRBCs)
-Acute postop thrombocytopenia (transfused 2 {5}pk plts
-Acute postop hypovolemia with subsequent hypervolemia
-Acute postop bradycardia/rate controlled a-fib
-Acute postop CHELA
Discussed patient care with: Nursing and Care Team
Subjective
Procedure
AVR (27mm Soliman inspiris Bio valve), MVR (31mm Soliman Mitris Bio valve), TVr (34mm romero band), ELAA 50mm atriclip on 02/25/[address] Sharma
-
Date of Service: March 06, 2025
Objective Data
-
Lab Results
03/06/25 05:01
03/06/25 05:01
PT 16.6 Sec (11.4-14.6) H 02/28/25 04:53
INR 1.32 02/28/25 04:53
APTT 45.1 Sec (23.4-35.0) H 02/25/25 15:14
Vital Signs
Vital Signs
Temp Pulse Resp BP Pulse Ox
98.2 F 60 16 126/65 98
03/06/25 04:00 03/06/25 07:00 03/06/25 06:00 03/06/25 07:00 03/06/25 06:00
CT Intake/Output/Weight
03/05/25 03/06/25 03/06/25
18:59 06:59 18:59
Intake Total 1210 / 2230 1020 / 2230
Output Total 1350 / 2000 650 / 2000
Balance -140 / 230 370 / 230
SaO2: 98
Physical Exam
-
General: Awake and AOx3
Cardiovascular: Irregular rate & rhythm, No Murmurs and No Rub
Respiratory: Decreased Breath Sounds
Sternum: Stable
Incision: Clean, Dry and Intact
Abdomen: soft, nontender, nondistended, + BMs
Extremities: Edema +2
Data Reviewed
-
Lab Results: Results Reviewed
Medications: Active Meds Reviewed
Chest X-Ray: Report Reviewed and Image Reviewed
ECG: Report Reviewed and Image Reviewed

Documented by User: [email or web address] Bridges 03/06/25 14:06
Assessment / Plan
-
s/p AVR (27mm Soliman inspiris Bio valve), MVR (31mm Soliman Mitris Bio valve), TVr (34mm romero band), ELAA 50mm atriclip on 02/25/[address] Sharma - POD #9
-AV endocarditis (E faecalis)/Mod-severe AI
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
-Moderate TR
-LVEF 55-60%
-Atrial Fib (Chronic, diagnosed 2011-on Xarelto)
-CAD (nonischemic cardiomyopathy/HFrEF )
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
-Acute on chronic Anemia
-AAA S/P endovascular repair [address] Alfred; suspected break through infection despite suppressive amoxicillin
-Septic arthritis of the Knee 07/2024 due to Enterococcus - completed course of treatment
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
-Lyme disease
-S/P PCI/Stent (MARQUISE-OM1 2011)
-T2DM (A1C 5.1, currently on no tx)
-Hx noncompliance with imaging studies, though reportedly compliant with medications
-acute hypoxic respiratory failure requiring delayed extubation & flolan nebulization
-Acute postop atelectasis
-Acute non-cardiac pulmonary edema due to fluid overload
-Acute postop blood loss/Anemia (transfused 6u PRBCs)
-Acute postop thrombocytopenia (transfused 2 {5}pk plts
-Acute postop hypovolemia with subsequent hypervolemia
-Acute postop bradycardia/rate controlled a-fib
-Acute postop CHELA
[2025-03-06] MEDS: ZESTRIL 10 MG TUBE (08:57)
[2025-03-06] MEDS: SENOKOT-S 1 TABLET TUBE (08:57)
[2025-03-06] MEDS: FOLVITE 1 MG TUBE (08:57)
[2025-03-06] MEDS: ROBINUL 1 MG TUBE ×2 (08:57→19:43)
[2025-03-06] MEDS: NSS (PRESERVATIVE FREE) 10 ML IV (08:57)
[2025-03-06] MEDS: FEOSOL 325 MG TUBE (08:57)
[2025-03-06] MEDS: PROTONIX IV 40 MG IV (08:57)
[2025-03-06] MEDS: LIDOCAINE 4% PATCH 1 PATCH TOPICAL (08:57)
[2025-03-06] MEDS: MAGNESIUM OXIDE 500 MG TUBE (08:57)
[2025-03-06] MEDS: VITAMIN B-12 1000 MCG PO (08:57)
[2025-03-06] MEDS: VANCOCIN 275 MG IV (08:58)
[2025-03-06] MEDS: DIAMOX 250 MG PO (10:59)
--- NOTE | 2025-03-06 12:15 | W.PN.ID1 ---
Date of Service
Date of Service: March 06, 2025
Today's Communication
Continue Vancomycin.
Assessment / Plan
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
H/o Septic arthritis of the Knee 07/2024 due to Enterococcus - completed course of treatment
DM2; not on treatment
Leukopenia - present on arrival, possibly related to chronic infection
H/o noncompliance with imaging studies, though reportedly compliant with medications
- 02/25/25 s/p bio-AVR, bio-MVR, TV repair, atriclip
- will continue follow up valve cultures - asked lab to hold the aerobic cultures to two weeks
- leadless pacemaker placement not required at this time per Cardiology
- discussed with Dr Sharma, he shares that he discussed with Dr Alfred and plans for EVAR removal will be several months down the road, emphasized to patient that it is critical that he keeps his follow ups
- c/w vancomycin - dosing by level
- anticipate a repeat course of 6 weeks of IV antibiotics at home from the procedure (02/25-04/07), followed by suppression
- PICC in place
����������������������������������������������������������
Chief Complaint
-: Other (endocarditis)
Subjective / Review of Systems
No complaints today.
Vital Signs / Physical Exam
Vital Signs
Vital Signs
Temp Pulse Resp BP Pulse Ox
97.4 F 63 16 134/74 98
03/06/25 08:00 03/06/25 11:16 03/06/25 06:00 03/06/25 11:16 03/06/25 10:16
Physical Exam
Constitutional: No Acute Distress and Chronically Ill
Cardiovascular: Regular Rate and S1/S2; Negative Murmur or Rub
Pulmonary: Clear and Symmetric; Negative Wheezes or Rales
Gastrointestinal: Soft, Non Tender, Non Distended and Normal Bowel Sounds
Skin: Warm and Dry; Negative Rash or Jaundice
Objective Data
Lab Data
Lab Results
03/06/25 05:01
03/06/25 05:01
PT 16.6 Sec (11.4-14.6) H 02/28/25 04:53
INR 1.32 02/28/25 04:53
APTT 45.1 Sec (23.4-35.0) H 02/25/25 15:14
Estimated Creat Clear > 125 ml/min 03/06/25 05:01
Total Bilirubin 1.7 mg/dl (0.2-1.3) H 02/28/25 04:53
AST 36 U/L (17-59) 02/28/25 04:53
ALT 13 U/L (0-50) 02/28/25 04:53
Alkaline Phosphatase 98 U/L (38-126) 02/28/25 04:53
Most recent labs reviewed.
Micro Results:
02/25/25 10:34 Tissue Culture - Preliminary
Valve NO GROWTH
Gram Stain - Preliminary
02/25/25 10:09 Tissue Culture - Preliminary
Valve NO GROWTH
Gram Stain - Preliminary
02/25/25 10:09 Fungal Culture - Preliminary
Valve Culture in progress.
Positive cultures are reported as soon as detected.
Final report to follow in four to five weeks.
02/25/25 10:34 Fungal Culture - Preliminary
Valve Culture in progress.
Positive cultures are reported as soon as detected.
Final report to follow in four to five weeks.
02/25/25 10:34 Anaerobic Culture - Final
Valve NO ANAEROBES ISOLATED
02/25/25 10:09 Anaerobic Culture - Final
Valve NO ANAEROBES ISOLATED
02/26/25 13:07 Respiratory Culture - Final
Bronch Washing Usual Respiratory Brunilda
Gram Stain - Final
02/19/25 13:22 Blood Culture - Final
Blood/Venous No Growth - Final Report
02/19/25 12:40 Blood Culture - Final
Blood/Venous No Growth - Final Report
--- NOTE | 2025-03-06 13:38 | W.PN.CD ---
Addendum entered and electronically signed by Tyler Giraldo MD 03/06/25 15:35:
I saw and examined the patient.
The MAKEUP SALES ADVISOR's note was reviewed and I agree with the note.
Comment:
70M with a history of permanent atrial fibrillation, acute on chronic HFpEF, PAD, AAA s/p EVAR (12/04/2023), prior diskitis and septic arthritis and CAD s/p PCI admitted progression of initially medically managed infectious endocarditis, likely also
involving his EVAR graft s/p AVR (27mm Soliman inspiris Bio valve), MVR (31mm Soliman Mitris Bio valve), TVr (34mm romero band), ELAA 50mm AtriClip on 02/25/[address] Sharma.
Physical exam with irregular rhythm, no murmurs, clear lungs, trace lower extremity edema (R>L)
He remains in atrial fibrillation with slow ventricular response. Hold AV coy blocking agents. Anticoagulation still held.
He had 5 beats NSVT overnight. Unable to add beta-kirstin due to bradycardia. We will continue to monitor telemetry and if he has more NSVT we will try to sneak on a low-dose of metoprolol tartrate.
Continue routine postoperative care. Antibiotics per primary and ID.
Original Note:
Today's Communication / Plan
-
Follow telemetry
May need to consider beta kirstin
Impression / Plan
-
Background: 70M with a history of permanent atrial fibrillation, acute on chronic HFpEF, PAD, AAA s/p EVAR (12/04/2023), prior diskitis and septic arthritis and CAD s/p PCI admitted progression of initially medically managed infectious endocarditis,
likely also involving his EVAR graft.
s/p AVR (27mm Soliman inspiris Bio valve), MVR (31mm Soliman Mitris Bio valve), TVr (34mm romero band), ELAA 50mm AtriClip on 02/25/[address] Sharma
Bradycardia
- No significant pauses, no pacing seen, rates 50-60bpm in atrial fibrillation
- AV conduction seems to be improving
- Holding off on Micra implant as AV node conduction is slowly improving
NSVT
-5 beats overnight at 02:55
Infectious endocarditis (E. 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
- S/P triple valve intervention (2 valves replaced/1 repaired) on 02/25/2025.
- ATB per ID (Vanco)
Permanent atrial fibrillation
- On Xaretlo as op.
- S/P LAAE (#50 AtriClip) with Dr. Sharma, 02/25/2025.
- Avoid anticoagulation for now thrombocytopenia, Plts stable at 55 today
Post-op anemia
HFpEF, chronic/stable, received furosemide yesterday by primary service
Resolved CHELA
AAA, S/P EVAR.
-Possibly infected (rim enhancing portion).
-Vascular surgery and ID involved
Heme: Anemia and thrombocytopenia, off heparin since 02/24/2025
Complex chronic PAD => Vascular Surgery involved
CAD with hx or PCI
-Stable without CP.
-On rivaroxaban as OP; currently on holding due to post op/thrombocytopenia.
Subjective:
Denies chest pain, shortness of breath, palpitations, and dizziness.
Reports feeling a little stronger today.
Data:
Intraop LORETA 02/25/2025:
CONCLUSIONS
Mildly dilated left ventricle (LVIDD 6.1 cm) with LVEF of 50-55% by visual
inspection. No regional wall motion abnormalities.
Severely dilated left atrium (10 cm).
Normal right ventricle in size and function.
Dilated right atrium (6.8 cm).
Severe mitral regurgitation with anterior leaflet echodensity.
Severe aortic insufficiency with mobile echodensity on the noncoronary cusp.
Mild to moderate tricuspid regurgitation with dilated annulus (5.3 cm).
Dilated coronary sinus (1.4 cm).
Small dggh-hm-fueyx patent foramen ovale.
Normal size ascending aorta with mild posterior wall calcification. The arch
is heavily diseased with atheromatous plaque. The descending thoracic aorta is
poorly visualized.
Normal appearing left atrial appendage.
POST OPERATIVE FINDINGS
S/P AVR with size 27 bioprosthetic, MVR with size 31, tricuspid band size 34,
IVONE exclusion with clip.
The bioprosthetic valves are well-seated with no paravalvular leaks. The
tricuspid valve regurgitation is no longer present. The aortic valve gradient
is 8 mmHg, the mitral valve gradient is 2 mmHg, and the tricuspid valve
gradient is 1 mmHg. A strand of highly mobile chordae tendineae is seen in the
left ventricle just below the mitral valve. The left atrial appendage is no
longer visualized with the absence of flow confirmed by color flow Doppler.
Otherwise unchanged exam. The rhythm is atrial fibrillation. Pharmacological
support included 8 mcg/kg/min of dobutamine and 10 mcg/kg of norepinephrine.
LORETA 02/20/2025: LVEF 55-60%, biatrial enlargement, MV echodensity with severe MR, AV echodensity with mod/severe AR, TV echodensity with mod TR
TTE 02/19/25: LVEF 50-55%, MV with 1.5 cm x 0.7 cm veg on anterior leaflet. Severe, eccentric mitral regurgitation. AV with highly mobile 2.5 cm x 0.6 cm veg on NCC. Severe eccentric aortic regurgitation. Possible TV veg with mod TR, PASP 72
Echo report summary 01/15/25: 0.75 mm mass attached to aortic valve, EF 38%, increased LV size, RV moderately dilated and with moderately decreased systolic function, severely dilated atria, severe AR, two areas of vegetation on anterior mitral valve
leaflet, severe MR, severe TR (aortic vegetation bigger from previous and now two areas on MV noted).
Physical Exam
Vital Signs/Labs
Vital Signs
Temp Pulse Resp BP Pulse Ox
97.4 F 63 16 134/74 98
03/06/25 08:00 03/06/25 11:16 03/06/25 06:00 03/06/25 11:16 03/06/25 10:16
03/05/25 03/06/25 03/07/25
06:59 06:59 06:59
Actual Weight 82.2 kg 83.2 kg
03/06/25 05:01
03/06/25 05:01
PT 16.6 Sec (11.4-14.6) H 02/28/25 04:53
INR 1.32 02/28/25 04:53
APTT 45.1 Sec (23.4-35.0) H 02/25/25 15:14
Magnesium 1.9 mg/dl (1.6-2.3) 03/06/25 05:01
Triglycerides 73 mg/dl (10-149) 03/06/25 05:01
LDL Cholesterol, Calc 64 mg/dl 02/19/25 01:44
VLDL Cholesterol, Calc 15 mg/dl (0-30) 02/19/25 01:44
HDL Cholesterol 37 mg/dl 02/19/25 01:44
02/18/25 02/18/25 02/26/25
20:27 20:59 00:14
Fzj-L-Nvdigkwwjmv Pept Cancelled [id number]
Physical Exam
Constitutional: No acute distress and Comfortable
EENT: Anicteric and Moist mucous membranes
Cardiovascular: Rhythm & rate is regular
Respiratory: Respiratory effort normal and Lungs clear to auscul.
GI: Soft, Distention absent and Non tender
Neuro/Psych: AO x 3
Other: Skin (warm and dry +2 LE edema)
Data Reviewed
-
Date of Service: March 06, 2025
Labs: Labs Reviewed by me
--- NOTE | 2025-03-06 13:57 | PN.CDI ---
CDI
- -
CDI:
Physician Documentation Request
Admit Date: 02/18/25 22:[address] Surgery
Please review the following and provide your response in the progress notes.
Clinical Indicators:
- 03/02 CT Surgery 'Acute postop atelectasis/probable pulmonary edema'
- 03/01 CXR 'Bilateral opacities...atypical pulmonary edematous changes'
- 20mg IV Lasix
- 02/26 proBNP 6760
Please clarify the acuity and etiology of the pulmonary edema:
Acute non-cardiac pulmonary edema due to fluid overload
Acute non-cardiac pulmonary edema due to other cause (please specify)
Acute pulmonary edema due to heart failure (please specify type and acuity)
Type: systolic, diastolic, combined or other type
Acuity: acute (new onset), chronic or acute on chronic
Chronic pulmonary edema due to non-cardiac etiology (specify cause)
Chronic pulmonary edema due to heart failure - (specify type and acuity as above)
Other
Use of terms such as suspected, likely, concern for, or probable (associated with a specific diagnosis that is being evaluated, monitored, or treated as if it exists) are acceptable and can be coded in the inpatient setting, when documented at the
time of discharge.
Thank you,
Linda Hu RN
CDI Specialist
Please use your independent medical judgment in providing your response.
[2025-03-06] MEDS: TYLENOL ORAL SOLUTION 650 MG TUBE ×2 (14:44→21:45)
--- NOTE | 2025-03-06 14:48 | CM ---
Chart reviewed. Patient is independent of ADLS, lives with his in a [address], [facility], ambulates with a SPC and RW. Patient going for a repeat swallow evaluation on 03/09. PT evaluation recommending Acute Rehab. Referral sent to [facility]. Plan is
for the patient to go to Acute Rehab when medically stable. CM to follow
--- NOTE | 2025-03-06 15:56 | PTOTSP ---
Speech Language Pathology
Pt seen for dysphagia tx. DHT in place. Pt reported he has been completing swallowing exercises throughout the day. Pt/sister reported that voice has significantly improved. Pt also feels that swallowing exercises are getting easier. Provided
ice chips, and pt able to complete 15 effortful swallows. Upon palpation, minimal hyolaryngeal movement noted. Occasional slight wet vocal quality noted, which cleared with a cued throat clear. No overt coughing noted, which pt reported is an
improvement. Also completed chin tuck against resistance (CTAR). Completed 10 second hold x10 and pulse x10.
Discussed plan to repeat VSE on Friday 03/09 to assess progress. Would expect at least some level of chronic dysphagia given hx, but hopeful that acute portion of dysphagia will have improved.
Recommend:
1. NPO
2. Medications via DHT
3. Oral care 3-5x daily
4. Aspiration Risk Hydration Protocol - ice chips after oral care
5. Repeat VSE 03/09
6. Continue dysphagia tx at the acute care level for pharyngeal exercises
--- NOTE | 2025-03-06 16:19 | PTCARENOTE ---
Addendum entered by Sha Frances RN 03/06/25 16:20:
Pt having a good day today, maintaining Afib with a rate in the 60-70's. +2 edema of the legs, tubigrips/SCD's in place. Pacer wires insulated. Jevity 1.5 continues to infuse through R nare DHT at 60/hr. Surgical sites intact, pt makes needs known.
Original Note:
Pt having a good day today, maintaining Afib with a rate in the 6-
[2025-03-06] MEDS: MAGNESIUM OXIDE TUBE (19:32)
--- NOTE | 2025-03-06 19:34 | PTCARENOTE ---
[facility] pt resting comfortably in chair, x1 assist to bed. pt is POD# 9 from TVR/AVR/MVR, IVONE clip with dr Sharma. pt is AAOx4, denies pain at this time. heart sounds audible, radial and DP pulses palpable, +2 pitting LLE, x2
bipolar epicardial V-wires insulated. lungs diminished at b/l bases, spo2 99% on RA, productive cough. +BS x4 quadrants, abdomen soft, non tender, ongoing tube feeds via dobhoff@ right nare 73cm. pt voiding dark yellow urine. surgical sites
maintained. right double lumen PICC maintained. call shaw within reach. will continue to monitor.
[2025-03-06] MEDS: SENNA SYRUP PO (19:44)
[2025-03-06] MEDS: LIPITOR 40 MG TUBE (21:45)
[2025-03-07] VITALS (27 sets, daily range): BP systolic 89–149; BP diastolic 47–80; PULSE 69; BMI 25.3
--- NOTE | 2025-03-07 | PTCARENOTE ---
Pt assessment unchanged. Afib on monitor. VSS. will continue to monitor.
[2025-03-07 00:07] LABS: Glucose - Point of Care 153 mg/dl (70-99)
[2025-03-07] MEDS: ROXICODONE 2.5 MG TUBE ×2 (02:47→22:09)
[2025-03-07] MEDS: TYLENOL ORAL SOLUTION 650 MG TUBE ×3 (02:48→22:09)
[2025-03-07 03:29] LABS: Hematocrit 27.6 % (39.0-52.0); Hemoglobin 9.1 g/dL (13.0-18.0); Mean Corpuscular Hgb 32.7 pg (27.0-31.0); Mean Corpuscular Volume 99.3 fL (80.0-94.0); Mean Platelet Volume 12.1 fL (7.4-10.4); Platelet Count 64 10^3/uL (130-400); Red Blood Cell Count 2.78 10^6/uL (4.70-6.10); White Blood Cell Count 7.3 10^3/uL (4.8-10.8)
[2025-03-07 03:37] LABS: Blood Urea Nitrogen 23 mg/dl (9-20); Calcium 8.5 mg/dl (8.4-10.2); Carbon Dioxide 29 mmol/L (22-30); Chloride 105 mmol/L (98-107); Estimated Creatinine Clearance 108 ml/min; Glucose 129 mg/dl (70-99); Magnesium 2.1 mg/dl (1.6-2.3); Potassium 4.5 mmol/L (3.5-5.1); Sodium 137 mmol/L (135-145); eGFR > 60.00
--- NOTE | 2025-03-07 04:00 | PTCARENOTE ---
Pt assessment unchanged. Afib on monitor. pain management. labs drawn. will continue to monitor.
--- NOTE | 2025-03-07 05:13 | W.PN.CT ---
Today's Communication / Plan
-
-pod#10
-no issues overnight
-remains in a-fib 50s- 60s, PVCs (BB and Amio on hold)
-has pw as backup
-platelets are low but stable - 64K today (ASA on hold)
-weaned off O2
-got Diamox 03/06 (UO 350/1125)
-R picc placed 03/04
-continue Vancomycin (abx until 04/07)
-on Jevity via Dobhoff. For repeat VSE (tentatively 03/09)
-encourage IS, OOB
-appreciate everyone's input
Assessment / Plan
-
s/p AVR (27mm Soliman inspiris Bio valve), MVR (31mm Soliman Mitris Bio valve), TVr (34mm romero band), ELAA 50mm atriclip on 02/25/[address] Sharma - POD #10
-AV endocarditis (E faecalis)/Mod-severe AI
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
-Moderate TR
-LVEF 55-60%
-Atrial Fib (Chronic, diagnosed 2011-on Xarelto)
-CAD (nonischemic cardiomyopathy/HFrEF )
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
-Acute on chronic Anemia
-AAA S/P endovascular repair [address] Alfred; suspected break through infection despite suppressive amoxicillin
-Septic arthritis of the Knee 07/2024 due to Enterococcus - completed course of treatment
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
-Lyme disease
-S/P PCI/Stent (MARQUISE-OM1 2011)
-T2DM (A1C 5.1, currently on no tx)
-Hx noncompliance with imaging studies, though reportedly compliant with medications
-acute hypoxic respiratory failure requiring delayed extubation & flolan nebulization
-Acute postop atelectasis
-Acute non-cardiac pulmonary edema due to fluid overload
-Acute postop blood loss/Anemia (transfused 6u PRBCs)
-Acute postop thrombocytopenia (transfused 2 {5}pk plts
-Acute postop hypovolemia with subsequent hypervolemia
-Acute postop bradycardia/rate controlled a-fib
-Acute postop CHELA
Discussed patient care with: Nursing and Care Team
Subjective
Procedure
AVR (27mm Soliman inspiris Bio valve), MVR (31mm Soliman Mitris Bio valve), TVr (34mm romero band), ELAA 50mm atriclip on 02/25/[address] Sharma
-
Date of Service: March 07, 2025
Objective Data
-
Lab Results
03/07/25 02:55
03/07/25 02:55
PT 16.6 Sec (11.4-14.6) H 02/28/25 04:53
INR 1.32 02/28/25 04:53
APTT 45.1 Sec (23.4-35.0) H 02/25/25 15:14
Vital Signs
Vital Signs
Temp Pulse Resp BP Pulse Ox
98.7 F 58 16 98/47 98
03/07/25 04:00 03/07/25 04:00 03/07/25 04:00 03/07/25 04:00 03/07/25 04:00
CT Intake/Output/Weight
03/06/25 03/06/25 03/07/25
06:59 18:59 06:59
Intake Total 1020 / 2315 935 / 1105 170 / 1105
Output Total 650 / 2100 775 / 1125 350 / 1125
Balance 370 / 215 160 / -20 -180 / -20
SaO2: 98
Physical Exam
-
General: Awake and AOx3
Cardiovascular: Irregular rate & rhythm, No Murmurs and No Rub
Respiratory: Decreased Breath Sounds
Sternum: Stable
Incision: Clean, Dry and Intact
Abdomen: soft, nontender, nondistended, + BMs
Extremities: Edema 1+
Data Reviewed
-
Lab Results: Results Reviewed
Medications: Active Meds Reviewed
Chest X-Ray: Report Reviewed and Image Reviewed
ECG: Report Reviewed and Image Reviewed
[2025-03-07] MEDS: VANCOCIN 275 MG IV (05:46)
--- NOTE | 2025-03-07 08:15 | PTCARENOTE ---
pt received from previous RN, oriented, voice hoarse. Afib on the monitor, HR 50-70s. V wires insulated. SBP 110s. palpable pulses, +2 pitting LE edema. pt on RA, 97-98% POX. productive cough. IS encouraged. pt OOB to chair w/ assist w/ RW,
ambulates in room w/ stand by. R nare Dobbhoff in place, TF running as ordered. voids. sternal aquacel in place. chest tube dressing intact. R groin puncture. RUE PICC in place. see worklist for VS, I&O, and assessment.
[2025-03-07] MEDS: LIDOCAINE 4% PATCH 1 PATCH TOPICAL (09:02)
[2025-03-07] MEDS: SENNA SYRUP 8.8 MG PO ×2 (09:02→19:24)
[2025-03-07] MEDS: ROBINUL 1 MG TUBE ×2 (09:02→19:24)
[2025-03-07] MEDS: FOLVITE 1 MG TUBE (09:03)
[2025-03-07] MEDS: VITAMIN B-12 1000 MCG PO (09:03)
[2025-03-07] MEDS: PROTONIX IV 40 MG IV (09:03)
[2025-03-07] MEDS: NSS (PRESERVATIVE FREE) 10 ML IV (09:03)
[2025-03-07] MEDS: FEOSOL 325 MG TUBE (09:03)
[2025-03-07] MEDS: MIRALAX TUBE (09:04)
[2025-03-07 10:36] LABS: Vancomycin Peak 27.4 ug/ml (18-26)
[2025-03-07] MEDS: ZESTRIL TUBE (11:30)
--- NOTE | 2025-03-07 12:40 | PTCARENOTE ---
pt VSS, no changes in assessment. sternal Aquacel removed, site [employer] and approximated. pt ambulated in hallway w/ RW and stand by assist. pt placed back to bed to rest. pt c/o mild pain, PRN Tylenol given.
--- NOTE | 2025-03-07 14:28 | PHA.VAN.FU ---
Vancomycin Assessment / Plan
- Assessment
Renal Function: Stable (0.7)
WBC's are: WNL (7.3)
In the past 24 hrs, patient has been: Afebrile
- Assessment - Therapeutic Drug Monitoring
Extrapolated Cmax (mcg/mL): 27.4
Peak level was drawn: Appropriately (~2.5H after end of infusion)
- Dosing Plan
Continue: Vanco 1250mg Q24H
Will obtain a trough value for tomorrow 03/08 at 0530 to assess Vanco dosing.
- Monitoring Plan
Trough Level: 03/08/25 0530
- Follow Up
Pharmacy will continue to follow.
Vancomycin Follow UP
- -
Patient Age: 70
Patient Sex: Male
Vancomycin Day #: 9
Indication: Endocarditis
Requesting Provider: Dr. Purcell
Pertinent Antimicrobial Allergies:
No Known Drug Allergies
Height / Weight:
Height 6 ft
Actual Weight 84.5 kg
Pertinent Past Medical History: T2DM, Valve replacement
- Vital Signs / Lab Results
Temp Pulse Resp BP Pulse Ox
97.8 F 64 18 127/51 98
03/07/25 12:00 03/07/25 13:00 03/07/25 12:00 03/07/25 13:00 03/07/25 12:00
Lab Results - Hematology
03/05/25 03/06/25 03/07/25
03:38 05:01 02:55
WBC 8.2 7.3 7.3
Lab Results - Chemistry
03/05/25 03/06/25 03/07/25
03:38 05:01 02:55
BUN 26 H 25 H 23 H
Creatinine 0.6 L 0.6 L 0.7
Estimated Creat Clear > 125 > 125 108
Microbiology Results
02/25/25 10:09 Tissue Culture - Preliminary
Valve NO GROWTH
Gram Stain - Preliminary
02/25/25 10:34 Tissue Culture - Preliminary
Valve NO GROWTH
Gram Stain - Preliminary
Therapeutic Drug Monitoring
Vancomycin Peak 27.4 ug/ml (18-26) H 03/07/25 09:39
Random Vancomycin 16.6 ug/ml 03/06/25 05:01
[2025-03-07] MEDS: LASIX 40 MG IV (15:31)
--- NOTE | 2025-03-07 16:00 | PTCARENOTE ---
pt VSS, no changes in assessment. pt washed w/ CHG wipes, gown and linens changed. oral care performed, face washed. face shaved. OOB in chair. ambulated in hallway w/ RW.
[2025-03-07] MEDS: BUMEX 2 MG IV (18:57)
[2025-03-07 19:35] LABS: Glucose - Point of Care 139 mg/dl (70-99)
--- NOTE | 2025-03-07 20:00 | PTCARENOTE ---
[facility] pt resting comfortably in chair, x1 assist to bed. pt is POD# 10 from TVR/AVR/MVR, IVONE clip with dr Sharma. pt is AAOx4, denies pain at this time. heart sounds audible, radial and DP pulses palpable, +2 pitting LLE, x2
bipolar epicardial V-wires insulated. lungs diminished at b/l bases, spo2 98% on RA, productive cough. +BS x4 quadrants, abdomen soft, non tender, ongoing tube feeds via dobhoff@ right nare 73cm. pt voiding yellow urine, lasix and bumex given by
[facility], [place]. surgical sites maintained. right double lumen PICC maintained. call shaw within reach. will continue to monitor.
[2025-03-07] MEDS: LIPITOR 40 MG TUBE (22:09)
[2025-03-08] VITALS (23 sets, daily range): BP systolic 91–136; BP diastolic 47–98; PULSE 74; BMI 25.1
--- NOTE | 2025-03-08 | PTCARENOTE ---
pt assessment unchanged. Afib on monitor. VSS. pt assisted from bed to chair, stating the bed was uncomfortably. call shaw within reach. will continue to monitor.
[2025-03-08] MEDS: XANAX 0.5 MG PO (00:30)
--- NOTE | 2025-03-08 04:00 | PTCARENOTE ---
pt assessment unchanged. Afib on monitor. VSS.
[2025-03-08] MEDS: VANCOCIN 275 MG IV (05:57)
[2025-03-08 05:59] LABS: Hematocrit 26.9 % (39.0-52.0); Hemoglobin 8.8 g/dL (13.0-18.0); Mean Corp Hgb Conc. 32.7 g/dL (33.0-37.0); Mean Corpuscular Volume 97.8 fL (80.0-94.0); Mean Platelet Volume 12.7 fL (7.4-10.4); Platelet Count 78 10^3/uL (130-400); Red Blood Cell Count 2.75 10^6/uL (4.70-6.10); Red Cell Dist. Width 15.6 % (11.5-14.5); White Blood Cell Count 8.6 10^3/uL (4.8-10.8)
[2025-03-08 06:09] LABS: Albumin 2.6 g/dl (3.5-5.0); Blood Urea Nitrogen 25 mg/dl (9-20); Calcium 8.4 mg/dl (8.4-10.2); Carbon Dioxide 27 mmol/L (22-30); Chloride 101 mmol/L (98-107); Estimated Creatinine Clearance 108 ml/min; Glucose 141 mg/dl (70-99); Phosphorus 3.8 mg/dl (2.5-4.5); Potassium 4.4 mmol/L (3.5-5.1); Sodium 134 mmol/L (135-145); eGFR > 60.00
--- NOTE | 2025-03-08 06:10 | W.PN.CT ---
Today's Communication / Plan
-
-pod#11
-no issues overnight
-remains in a-fib 50s- 60s, PVCs (BB and Amio on hold)
-has pw as backup
-platelets are low but stable - up to 78 today from 64 yesterday (ASA on hold)
-R picc placed 03/04
-continue Vancomycin (abx until 04/07), will need TTE prior to DC
-on Jevity via Dobhoff. For repeat VBS (tentatively 03/09)
-encourage IS, OOB
-appreciate everyone's input
Assessment / Plan
-
s/p AVR (27mm Soliman inspiris Bio valve), MVR (31mm Soliman Mitris Bio valve), TVr (34mm romero band), ELAA 50mm atriclip on 02/25/[address] Sharma - POD #11
-AV endocarditis (E faecalis)/Mod-severe AI
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
-Moderate TR
-LVEF 55-60%
-Atrial Fib (Chronic, diagnosed 2011-on Xarelto)
-CAD (nonischemic cardiomyopathy/HFrEF )
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
-Acute on chronic Anemia
-AAA S/P endovascular repair [address] Alfred; suspected break through infection despite suppressive amoxicillin
-Septic arthritis of the Knee 07/2024 due to Enterococcus - completed course of treatment
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
-Lyme disease
-S/P PCI/Stent (MARQUISE-OM1 2011)
-T2DM (A1C 5.1, currently on no tx)
-Hx noncompliance with imaging studies, though reportedly compliant with medications
-acute hypoxic respiratory failure requiring delayed extubation & flolan nebulization
-Acute postop atelectasis
-Acute non-cardiac pulmonary edema due to fluid overload
-Acute postop blood loss/Anemia (transfused 6u PRBCs)
-Acute postop thrombocytopenia (transfused 2 {5}pk plts
-Acute postop hypovolemia with subsequent hypervolemia
-Acute postop bradycardia/rate controlled a-fib
-Acute postop CHELA
Subjective
Procedure
AVR (27mm Soliman inspiris Bio valve), MVR (31mm Soliman Mitris Bio valve), TVr (34mm romero band), ELAA 50mm atriclip on 02/25/[address] Sharma
-
Date of Service: March 08, 2025
Objective Data
-
Lab Results
03/08/25 05:23
03/08/25 05:23
PT 16.6 Sec (11.4-14.6) H 02/28/25 04:53
INR 1.32 02/28/25 04:53
APTT 45.1 Sec (23.4-35.0) H 02/25/25 15:14
Vital Signs
Vital Signs
Temp Pulse Resp BP Pulse Ox
98.1 F 72 17 97/52 98
03/08/25 04:00 03/08/25 00:00 03/08/25 04:00 03/08/25 00:00 03/08/25 04:00
CT Intake/Output/Weight
03/07/25 03/07/25 03/08/25
06:59 18:59 06:59
Intake Total 170 / 1105 935 / 935
Output Total 350 / 1125 775 / 2175 1400 / 2175
Balance -180 / -20 160 / -1240 -1400 / -1240
SaO2: 98
Physical Exam
-
General: Awake and Oriented
Cardiovascular: Irregular rate & rhythm
Respiratory: Clear
Incision: Clean and Dry
Extremities: Edema +2 and No Erythema
Data Reviewed
-
Lab Results: Results Reviewed
Medications: Active Meds Reviewed
Chest X-Ray: Report Reviewed
ECG: Report Reviewed
[2025-03-08 06:13] LABS: Vancomycin Trough 13.9 ug/ml (5-20)
--- NOTE | 2025-03-08 08:00 | PTCARENOTE ---
pt received from previous RN, oriented, voice hoarse. Afib on the monitor, HR 60-70s. V wires insulated. SBP 110-130s. palpable pulses, +2/+3 pitting LE edema. pt on RA, 98-99% POX. productive cough. IS encouraged. pt OOB to chair w/ assist w/ RW,
ambulates in room w/ stand by. R hector Romero in place, TF running as ordered. voids. +BM. sternal incision WENDY, approximated. chest tube dressing intact. R groin puncture. RUE PICC in place. see worklist for VS, I&O, and assessment.
[2025-03-08] MEDS: PROTONIX IV 40 MG IV (08:31)
[2025-03-08] MEDS: LIDOCAINE 4% PATCH 1 PATCH TOPICAL (08:32)
[2025-03-08] MEDS: MIRALAX TUBE (08:32)
[2025-03-08] MEDS: ROBINUL 1 MG TUBE ×2 (08:32→19:51)
[2025-03-08] MEDS: VITAMIN B-12 1000 MCG PO (08:32)
[2025-03-08] MEDS: FOLVITE 1 MG TUBE (08:32)
[2025-03-08] MEDS: SENNA SYRUP 8.8 MG PO (08:32)
[2025-03-08] MEDS: NSS (PRESERVATIVE FREE) 10 ML IV (08:32)
[2025-03-08] MEDS: FEOSOL 325 MG TUBE (08:32)
[2025-03-08] MEDS: ZESTRIL 10 MG TUBE (08:33)
--- NOTE | 2025-03-08 08:41 | PHA.VAN.FU ---
Addendum entered and electronically signed by Zeina Millard Hallie 03/09/25 10:25:
Since patient's estimated CrCl has not been predictive of vanc clearance and patient had resolving CHELA - will likely assess levels sooner than one week to evaluate for any fluctuations in clearance
Original Note:
Vancomycin Assessment / Plan
- Assessment
Renal Function: Stable (0.7)
WBC's are: WNL (8.6)
In the past 24 hrs, patient has been: Afebrile
- Assessment - Therapeutic Drug Monitoring
Extrapolated Cmax (mcg/mL): 27.4
Peak level was drawn: Appropriately (~2.5H after end of infusion)
Extrapolated Cmin (mcg/mL): 13.9
Trough Drawn: Appropriately
Levels were drawn: At steady state (drawn after 8th 1250mg dose)
Calculated AUC (mcg*h/mL): 498
Calculated ke: 0.0344
Calculated half life (H): 20.2
Calculated Vd (L): 72.9
Calculated Vanc CL (ml/min): 41.78
- Dosing Plan
Continue: Vanco 1250mg Q24H
- Monitoring Plan
Level(s) appropriate: Recheck trough at minimum of weekly intervals, Repeat sooner for changes in renal function or clinical status
Next Level Due (Date): ~03/15
- Follow Up
Pharmacy will continue to follow.
Vancomycin Follow UP
- -
Patient Age: 70
Patient Sex: Male
Vancomycin Day #: 10
Indication: Endocarditis
Requesting Provider: Dr. Purcell
Pertinent Antimicrobial Allergies:
No Known Drug Allergies
Height / Weight:
Height 6 ft
Actual Weight 84 kg
Pertinent Past Medical History: T2DM, Valve replacement
- Vital Signs / Lab Results
Temp Pulse Resp BP Pulse Ox
97.5 F 71 18 136/58 98
03/08/25 08:00 03/08/25 08:00 03/08/25 08:00 03/08/25 08:00 03/08/25 08:00
Lab Results - Hematology
03/06/25 03/07/25 03/08/25
05:01 02:55 05:23
WBC 7.3 7.3 8.6
Lab Results - Chemistry
03/06/25 03/07/25 03/08/25
05:01 02:55 05:23
BUN 25 H 23 H 25 H
Creatinine 0.6 L 0.7 0.7
Estimated Creat Clear > 125 108 108
Albumin 2.6 L
Microbiology Results
02/25/25 10:09 Tissue Culture - Preliminary
Valve NO GROWTH
Gram Stain - Preliminary
02/25/25 10:34 Tissue Culture - Preliminary
Valve NO GROWTH
Gram Stain - Preliminary
Therapeutic Drug Monitoring
Vancomycin Peak 27.4 ug/ml (18-26) H 03/07/25 09:39
Vancomycin Trough 13.9 ug/ml (5-20) 03/08/25 05:23
Random Vancomycin 16.6 ug/ml 03/06/25 05:01
[2025-03-08] MEDS: TYLENOL ORAL SOLUTION 650 MG TUBE ×3 (08:45→23:00)
[2025-03-08] MEDS: BUMEX 2 MG IV (09:41)
--- NOTE | 2025-03-08 12:30 | PTCARENOTE ---
pt VSS, no changes in assessment. ambulated in hallway w/ RW and assist. voiding in urinal. pt placed to bed to rest.
--- NOTE | 2025-03-08 16:00 | PTCARENOTE ---
pt VSS, no changes in assessment. pt voiding in urinal. ambulated in hallway w/ RW and assist. pt given Tylenol for R knee pain.
[2025-03-08] MEDS: SENNA SYRUP PO (19:51)
[2025-03-08] MEDS: LIPITOR 40 MG TUBE (19:51)
--- NOTE | 2025-03-08 20:00 | PTCARENOTE ---
assumed care of pt from previous RN. pt A&Ox4, resting in bed at time of assessment. A fib on tele-monitor. 2 sets of temp epicardial v-wires insulated. POX 99% on RA. abd s/n, +BS. Dobhoff in R nare at 73 cm. tube feed running as ordered. voiding
in urinal. all surgical sites stable, CDI. RUE PICC intact. see worklist for complete nursing assessment, interventions, VS, and I&Os.
[2025-03-08] MEDS: ROXICODONE 2.5 MG TUBE (22:53)
[2025-03-08 23:00] LABS: Glucose - Point of Care 156 mg/dl (70-99)
--- NOTE | 2025-03-08 23:15 | PTCARENOTE ---
assessment remains unchanged. VSS. c/o pain, see MAR. Tubigrips removed for the night.
[2025-03-09] VITALS (13 sets, daily range): BP systolic 91–142; BP diastolic 51–78; PULSE 70–71; O2SAT 96–98; BMI 25.0
--- NOTE | 2025-03-09 03:25 | PTCARENOTE ---
no acute changes. VSS. AM labs collected and sent.
[2025-03-09 03:29] LABS: Hematocrit 25.4 % (39.0-52.0); Hemoglobin 8.4 g/dL (13.0-18.0); Mean Corp Hgb Conc. 33.1 g/dL (33.0-37.0); Mean Corpuscular Hgb 32.3 pg (27.0-31.0); Mean Corpuscular Volume 97.7 fL (80.0-94.0); Mean Platelet Volume 11.7 fL (7.4-10.4); Platelet Count 89 10^3/uL (130-400); Red Cell Dist. Width 15.9 % (11.5-14.5); White Blood Cell Count 7.7 10^3/uL (4.8-10.8)
[2025-03-09 03:41] LABS: Blood Urea Nitrogen 25 mg/dl (9-20); Calcium 8.3 mg/dl (8.4-10.2); Carbon Dioxide 28 mmol/L (22-30); Chloride 100 mmol/L (98-107); Estimated Creatinine Clearance 108 ml/min; Glucose 155 mg/dl (70-99); Magnesium 1.8 mg/dl (1.6-2.3); Potassium 4.6 mmol/L (3.5-5.1); Sodium 132 mmol/L (135-145); eGFR > 60.00
--- NOTE | 2025-03-09 05:28 | W.PN.CT ---
Today's Communication / Plan
-
-pod#12
-no issues overnight
-remains in a-fib 50s- 60s, PVCs (BB and Amio on hold)
-has pw as backup
-platelets are low but stable - up to 89 today from 78 yesterday (ASA on hold).
-Eventual Eliquis initiation for MVR/AF
-Given 2 mg IV bumex yesterday, dependent edema +2/+3, UOP 615/2540 cc in 12/24 hrs
-Vascular outpatient follow up for EVAR
-R picc placed 03/04
-continue Vancomycin (abx until 04/07), will need TTE prior to DC, appreciate ID input, reconsult IR for possible drain/culture fluid around stent
-on Jevity via Dobhoff. For repeat VBS (tentatively 03/09)
-encourage IS, OOB
-appreciate everyone's input
Assessment / Plan
-
s/p AVR (27mm Soliman inspiris Bio valve), MVR (31mm Soliman Mitris Bio valve), TVr (34mm romero band), ELAA 50mm atriclip on 02/25/[address] Sharma - POD #12
-AV endocarditis (E faecalis)/Mod-severe AI
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
-Moderate TR
-LVEF 55-60%
-Atrial Fib (Chronic, diagnosed 2011-on Xarelto)
-CAD (nonischemic cardiomyopathy/HFrEF )
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
-Acute on chronic Anemia
-AAA S/P endovascular repair [address] Alfred; suspected break through infection despite suppressive amoxicillin
-Septic arthritis of the Knee 07/2024 due to Enterococcus - completed course of treatment
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
-Lyme disease
-S/P PCI/Stent (MARQUISE-OM1 2011)
-T2DM (A1C 5.1, currently on no tx)
-Hx noncompliance with imaging studies, though reportedly compliant with medications
-acute hypoxic respiratory failure requiring delayed extubation & flolan nebulization
-Acute postop atelectasis
-Acute non-cardiac pulmonary edema due to fluid overload
-Acute postop blood loss/Anemia (transfused 6u PRBCs)
-Acute postop thrombocytopenia (transfused 2 {5}pk plts
-Acute postop hypovolemia with subsequent hypervolemia
-Acute postop bradycardia/rate controlled a-fib
-Acute postop CHELA
Subjective
Procedure
AVR (27mm Soliman inspiris Bio valve), MVR (31mm Soliman Mitris Bio valve), TVr (34mm romero band), ELAA 50mm atriclip on 02/25/[address] Sharma
-
Date of Service: March 09, 2025
Objective Data
-
Lab Results
03/09/25 03:18
03/09/25 03:18
PT 16.6 Sec (11.4-14.6) H 02/28/25 04:53
INR 1.32 02/28/25 04:53
APTT 45.1 Sec (23.4-35.0) H 02/25/25 15:14
Vital Signs
Vital Signs
Temp Pulse Resp BP Pulse Ox
98.6 F 62 14 113/51 98
03/09/25 03:25 03/09/25 05:00 03/09/25 03:25 03/09/25 03:21 03/09/25 03:25
CT Intake/Output/Weight
03/08/25 03/08/25 03/09/25
06:59 18:59 06:59
Intake Total 850 / 1700 850 / 1700
Output Total 1600 / 2375 1925 / 2540 615 / 2540
Balance -1600 / -1440 -1075 / -840 235 / -840
SaO2: 98
Physical Exam
-
General: Awake and Oriented
Cardiovascular: Irregular rate & rhythm and No Murmurs
Respiratory: Clear and Equal
Sternum: Stable
Incision: Clean and Dry
Extremities: Edema +2
Data Reviewed
-
Lab Results: Results Reviewed
Medications: Active Meds Reviewed
ECG: Report Reviewed
[2025-03-09] MEDS: VANCOCIN 275 MG IV (05:54)
[2025-03-09] MEDS: SENNA SYRUP PO (08:57)
[2025-03-09] MEDS: MIRALAX TUBE (08:57)
--- NOTE | 2025-03-09 08:58 | W.PN.CD ---
Today's Communication / Plan
-
lasix again
can hold off on BB for now
consider eliquis pending stability of platelets
routine post op care
Impression / Plan
-
Background: 70M with a history of permanent atrial fibrillation, acute on chronic HFpEF, PAD, AAA s/p EVAR (12/04/2023), prior diskitis and septic arthritis and CAD s/p PCI admitted progression of initially medically managed infectious endocarditis,
likely also involving his EVAR graft.
s/p AVR (27mm Soliman inspiris Bio valve), MVR (31mm Soliman Mitris Bio valve), TVr (34mm romero band), ELAA 50mm AtriClip on 02/25/[address] Sharma
- examines mildly overloaded, would continue diuresis for goal negative 1L today
Bradycardia
- No significant pauses, no pacing seen, rates 60-70bpm in atrial fibrillation
- AV conduction seems to have improved
- reasonable to continue to hold off on BB for now
NSVT
-3 beat run in past 24 hours
-given low burden and tenuous BP, reasonable to hold off on BB for now
Infectious endocarditis (E. 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
- S/P triple valve intervention (2 valves replaced/1 repaired) on 02/25/2025.
- ATB per ID (Vanco)
Permanent atrial fibrillation
- On Xaretlo as op.
- S/P LAAE (#50 AtriClip) with Dr. Sharma, 02/25/2025.
- Platelets improving, can likely initiate NOAC soon
Post-op anemia
HFpEF, chronic/stable, received furosemide yesterday by primary service
Resolved CHELA
AAA, S/P EVAR.
-Possibly infected (rim enhancing portion).
-Vascular surgery and ID involved
Heme: Anemia and thrombocytopenia, off heparin since 02/24/2025
Complex chronic PAD => Vascular Surgery involved
CAD with hx or PCI
-Stable without CP.
-reasonable to hold ASA once back on NOAC
Subjective:
Denies chest pain, shortness of breath, palpitations, and dizziness.
Reports feeling a little stronger today.
Data:
Intraop LORETA 02/25/2025:
CONCLUSIONS
Mildly dilated left ventricle (LVIDD 6.1 cm) with LVEF of 50-55% by visual
inspection. No regional wall motion abnormalities.
Severely dilated left atrium (10 cm).
Normal right ventricle in size and function.
Dilated right atrium (6.8 cm).
Severe mitral regurgitation with anterior leaflet echodensity.
Severe aortic insufficiency with mobile echodensity on the noncoronary cusp.
Mild to moderate tricuspid regurgitation with dilated annulus (5.3 cm).
Dilated coronary sinus (1.4 cm).
Small [id number] patent foramen ovale.
Normal size ascending aorta with mild posterior wall calcification. The arch
is heavily diseased with atheromatous plaque. The descending thoracic aorta is
poorly visualized.
Normal appearing left atrial appendage.
POST OPERATIVE FINDINGS
S/P AVR with size 27 bioprosthetic, MVR with size 31, tricuspid band size 34,
IVONE exclusion with clip.
The bioprosthetic valves are well-seated with no paravalvular leaks. The
tricuspid valve regurgitation is no longer present. The aortic valve gradient
is 8 mmHg, the mitral valve gradient is 2 mmHg, and the tricuspid valve
gradient is 1 mmHg. A strand of highly mobile chordae tendineae is seen in the
left ventricle just below the mitral valve. The left atrial appendage is no
longer visualized with the absence of flow confirmed by color flow Doppler.
Otherwise unchanged exam. The rhythm is atrial fibrillation. Pharmacological
support included 8 mcg/kg/min of dobutamine and 10 mcg/kg of norepinephrine.
LORETA 02/20/2025: LVEF 55-60%, biatrial enlargement, MV echodensity with severe MR, AV echodensity with mod/severe AR, TV echodensity with mod TR
TTE 02/19/25: LVEF 50-55%, MV with 1.5 cm x 0.7 cm veg on anterior leaflet. Severe, eccentric mitral regurgitation. AV with highly mobile 2.5 cm x 0.6 cm veg on NCC. Severe eccentric aortic regurgitation. Possible TV veg with mod TR, PASP 72
Echo report summary 01/15/25: 0.75 mm mass attached to aortic valve, EF 38%, increased LV size, RV moderately dilated and with moderately decreased systolic function, severely dilated atria, severe AR, two areas of vegetation on anterior mitral valve
leaflet, severe MR, severe TR (aortic vegetation bigger from previous and now two areas on MV noted).
Physical Exam
Vital Signs/Labs
Vital Signs
Temp Pulse Resp BP Pulse Ox
36.4 C 77 16 142/59 98
03/09/25 08:00 03/09/25 08:41 03/09/25 08:00 03/09/25 08:41 03/09/25 08:00
03/08/25 03/09/25 03/10/25
06:59 06:59 06:59
Actual Weight 84 kg 83.6 kg
03/09/25 03:18
03/09/25 03:18
PT 16.6 Sec (11.4-14.6) H 02/28/25 04:53
INR 1.32 02/28/25 04:53
APTT 45.1 Sec (23.4-35.0) H 02/25/25 15:14
Magnesium 1.8 mg/dl (1.6-2.3) 03/09/25 03:18
Triglycerides 73 mg/dl (10-149) 03/06/25 05:01
LDL Cholesterol, Calc 64 mg/dl 02/19/25 01:44
VLDL Cholesterol, Calc 15 mg/dl (0-30) 02/19/25 01:44
HDL Cholesterol 37 mg/dl 02/19/25 01:44
02/18/25 02/18/25 02/26/25
20:27 20:59 00:14
Lzs-H-Mcrulzopumt Pept Cancelled [id number]
Physical Exam
Constitutional: Comfortable
Cardiovascular: Rhythm/rate is irregular
Respiratory: Respiratory effort normal
Neuro/Psych: AO x 3
Data Reviewed
-
Date of Service: March 09, 2025
Medical Decision Making: Reviewed Test Results
Labs: Labs Reviewed by me
--- NOTE | 2025-03-09 09:00 | PTCARENOTE ---
Assumed care of patient. Walking rounds completed with previous RN. Pt assessed while he was sitting in the chair. Pt alert and oriented x4. Pt rates knee and back pain 3/10-see MAR. Pt with generalized weakness. 1 assist to stand and use rolling
walker in the room. Denies nausea and shortness of breath. Afib on tele with occasional PVCs with rates 60s-70s. BP 142/59. Heart tones audible. Bilateral radial pulses palpable. Bilateral DP pulses weakly palpable. B/l lower extremity edema +3.
Tubigrips in place. Epicardial v-wire x2 insulated. POX 98% on RA. Lungs diminished in the bases. IS 1250mL achieved. Productive cough with fraser sputum. Abdomen soft nontender. +BS. +BM large brown soft. Pt voiding clear yellow urine in the urinal.
Dobhoff intact to R nare infusing jevity @60mL/hr, Dobhoff flushes well. Sternal incision approximated with DEALER ANALYST. Old chest tube sites approximated with sutures, DEALER ANALYST. Scattered skin tears to b/l arms and left thigh, mepilex dressings changed. [place]
cream applied to sacrum. Right upper arm PICC intact, flushed. See MAR for medication administration. See worklist for complete nursing assessment. Plan of care reviewed and patient in agreement.
[2025-03-09] MEDS: LIDOCAINE 4% PATCH 1 PATCH TOPICAL (09:01)
[2025-03-09] MEDS: PROTONIX IV 40 MG IV (09:02)
[2025-03-09] MEDS: TYLENOL ORAL SOLUTION 650 MG TUBE (09:02)
[2025-03-09] MEDS: NSS (PRESERVATIVE FREE) 10 ML IV (09:02)
[2025-03-09] MEDS: VITAMIN B-12 1000 MCG PO (09:03)
[2025-03-09] MEDS: LOW STRENGTH ASPIRIN 81 MG TUBE (09:03)
[2025-03-09] MEDS: FOLVITE 1 MG TUBE (09:03)
[2025-03-09] MEDS: ZESTRIL 10 MG TUBE (09:03)
[2025-03-09] MEDS: FEOSOL 325 MG TUBE (09:03)
[2025-03-09] MEDS: ROBINUL 1 MG TUBE (09:03)
--- NOTE | 2025-03-09 09:22 | W.PN.ID1 ---
Date of Service
Date of Service: March 09, 2025
Today's Communication
- c/w vancomycin - dosing by level
- anticipate a repeat course of 6 weeks of IV antibiotics at home from the procedure (02/25-04/07), followed by suppression with levofloxacin 750 mg PO q24 hours indefinitely; I have ordered the outpatient levaquin
- PICC in place
- script given to case management 03/09/25
- follow up in my office around 04/07
Assessment / Plan
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
H/o Septic arthritis of the Knee 07/2024 due to Enterococcus - completed course of treatment
DM2; not on treatment
Leukopenia - present on arrival, possibly related to chronic infection
H/o noncompliance with imaging studies, though reportedly compliant with medications
- 02/25/25 s/p bio-AVR, bio-MVR, TV repair, atriclip
- will continue follow up valve cultures - asked lab to hold the aerobic cultures to two weeks, checked cultures today - remain no growth to date
- c/w vancomycin - dosing by level
- anticipate a repeat course of 6 weeks of IV antibiotics at home from the procedure (02/25-04/07), followed by suppression with levofloxacin 750 mg PO q24 hours indefinitely; I have ordered the outpatient levaquin
- PICC in place
- script given to case management 03/09/25
- follow up in my office around 04/07
����������������������������������������������������������
Chief Complaint
-: Other (endocarditis)
Subjective / Review of Systems
afebrile
bp stable
tolerating current therapies
Vital Signs / Physical Exam
Vital Signs
Vital Signs
Temp Pulse Resp BP Pulse Ox
97.6 F 77 16 142/59 98
03/09/25 08:00 03/09/25 08:41 03/09/25 08:00 03/09/25 08:41 03/09/25 08:00
Physical Exam
Constitutional: No Acute Distress and Chronically Ill
Cardiovascular: Regular Rate and S1/S2; Negative Murmur or Rub
Pulmonary: Clear and Symmetric; Negative Wheezes or Rales
Gastrointestinal: Soft, Non Tender, Non Distended and Normal Bowel Sounds
Skin: Warm and Dry; Negative Rash or Jaundice
Objective Data
Lab Data
Lab Results
03/09/25 03:18
03/09/25 03:18
PT 16.6 Sec (11.4-14.6) H 02/28/25 04:53
INR 1.32 02/28/25 04:53
APTT 45.1 Sec (23.4-35.0) H 02/25/25 15:14
Estimated Creat Clear 108 ml/min 03/09/25 03:18
Total Bilirubin 1.7 mg/dl (0.2-1.3) H 02/28/25 04:53
AST 36 U/L (17-59) 02/28/25 04:53
ALT 13 U/L (0-50) 02/28/25 04:53
Alkaline Phosphatase 98 U/L (38-126) 02/28/25 04:53
Most recent labs reviewed.
Micro Results:
02/25/25 10:09 Tissue Culture - Preliminary
Valve NO GROWTH
Gram Stain - Preliminary
02/25/25 10:34 Tissue Culture - Preliminary
Valve NO GROWTH
Gram Stain - Preliminary
02/25/25 10:09 Fungal Culture - Preliminary
Valve Culture in progress.
Positive cultures are reported as soon as detected.
Final report to follow in four to five weeks.
02/25/25 10:34 Fungal Culture - Preliminary
Valve Culture in progress.
Positive cultures are reported as soon as detected.
Final report to follow in four to five weeks.
02/25/25 10:34 Anaerobic Culture - Final
Valve NO ANAEROBES ISOLATED
02/25/25 10:09 Anaerobic Culture - Final
Valve NO ANAEROBES ISOLATED
02/26/25 13:07 Respiratory Culture - Final
Bronch Washing Usual Respiratory Brunilda
Gram Stain - Final
02/19/25 13:22 Blood Culture - Final
Blood/Venous No Growth - Final Report
02/19/25 12:40 Blood Culture - Final
Blood/Venous No Growth - Final Report
[2025-03-09] MEDS: BUMEX 2 MG TUBE (09:35)
--- NOTE | 2025-03-09 11:11 | CM ---
Addendum entered by Leatha Romero RN 03/09/25 13:46:
DHT to be removed and patient to start a calorie count. Dietary reconsulted.
Original Note:
Chart reviewed. Patient is independent of ADLS, lives with his in a 2 STH, 3 ZANA, ambulates with a SPC and RW. Patient going for his repeat VSE. PT recommends Acute Rehab. Referral sent to [facility]. Plan is for the patient to go to Acute
Rehab when medically stable. CM to follow
--- NOTE | 2025-03-09 12:15 | PTCARENOTE ---
Pt received back from video swallow. VSS Afib on tele with rates in the 60s. BP 107/54. POX 97% on RA. Surgical sites stable. Dobhoff remains in place, TF continues.
--- NOTE | 2025-03-09 13:23 | PTOTSP ---
Videofluoroscopic swallow study
WFL oral, moderate-severe pharyngeal dysphagia.
+Silent aspiration of thin liquids via tsp with and without a chin tuck. Cough/swallow did not fully clear contrast.
+Silent aspiration of mildly thick liquids via straw. Cued cough/swallow effective.
+Aspiration with an effective spontaneous cough with moderately thick via straw
Per TASSEL MAKER, patient would like to avoid PEG if possible. Consider cautious diet initiation below with close monitoring of nutrition/hydration as it will likely be challenging to meet needs with TSP amounts and modified diet below.
Recommend:
1. IDDSI Level 5 Minced/Moist, IDDSI Level 3 Moderately Thick via TSP
2. Medications: crushed in puree
3. Strategies: upright to 90 degrees, small single sips/bites, multiple swallows w/ head turns to help clear throat of food, intermittent cough/swallow to clear airway, oral care pre/post meals to reduce risk for complications if aspiration were to
occur
4. Oral care 3x daily
5. Aspiration Risk Hydration Protocol - ice chips after oral care, without other foods/drinks/medications
6. Dysphagia tx at the acute care level and after D/C. Goal for continued pharyngeal swallow exercises. Repeat video swallow study after period of treatment.
--- NOTE | 2025-03-09 15:25 | PTCARENOTE ---
Rec'd pt this shift awake and alert. Agree with previous assessment. Pt denies pain, denies sob. Afib on monitor. Tube feeds placed on hold at 1330 and flushed with 30ml sterile water. Aspiration precautions maintained with minced and meat diet. Pt
tolerated meal, ate 50% of grilled chicken breast, mashed potato, custard and vanilla yogurt. See worklist for VS/I and O and assessments.
--- NOTE | 2025-03-09 16:05 | PHA.VAN.FU ---
Vancomycin Assessment / Plan
- Assessment
Renal Function: Stable
WBC's are: WNL
In the past 24 hrs, patient has been: Afebrile
- Dosing Plan
Continue: Vanc 1250mg Q24H
Patient's vanc clearance has not been following estimated CrCl; however, may change overtime
Levels appropriate over the weekend - will continue to follow levels every few days for now
- Monitoring Plan
Trough Level: 03/10 05:30 to monitor trend
- Follow Up
Pharmacy will continue to follow.
Vancomycin Follow UP
- -
Patient Age: 70
Patient Sex: Male
Vancomycin Day #: 11
Indication: Endocarditis
Requesting Provider: Dr. Purcell
Pertinent Antimicrobial Allergies:
No Known Drug Allergies
Height / Weight:
Height 6 ft
Actual Weight 83.6 kg
Pertinent Past Medical History: T2DM, Valve replacement
- Vital Signs / Lab Results
Temp Pulse Resp BP Pulse Ox
97.7 F 86 16 117/78 98
03/09/25 12:23 03/09/25 14:34 03/09/25 12:23 03/09/25 14:34 03/09/25 15:37
Lab Results - Hematology
03/07/25 03/08/25 03/09/25
02:55 05:23 03:18
WBC 7.3 8.6 7.7
Lab Results - Chemistry
03/07/25 03/08/25 03/09/25
02:55 05:23 03:18
BUN 23 H 25 H 25 H
Creatinine 0.7 0.7 0.7
Estimated Creat Clear 108 108 108
Albumin 2.6 L
Microbiology Results
02/25/25 10:09 Fungal Culture - Preliminary
Valve Culture in progress.
Positive cultures are reported as soon as detected.
Final report to follow in four to five weeks.
02/25/25 10:34 Fungal Culture - Preliminary
Valve Culture in progress.
Positive cultures are reported as soon as detected.
Final report to follow in four to five weeks.
02/25/25 10:09 Tissue Culture - Preliminary
Valve NO GROWTH
Gram Stain - Preliminary
02/25/25 10:34 Tissue Culture - Preliminary
Valve NO GROWTH
Gram Stain - Preliminary
Therapeutic Drug Monitoring
Vancomycin Peak 27.4 ug/ml (18-26) H 03/07/25 09:39
Vancomycin Trough 13.9 ug/ml (5-20) 03/08/25 05:23
Random Vancomycin 16.6 ug/ml 03/06/25 05:01
--- NOTE | 2025-03-09 16:15 | W.PN.UPDATE ---
Update Note
Progress Note Update
Patient s/P VBS today. He was started on a regular minced/moist diet with honey thick liquid. Patient was adamant he would not want a PEG tube and dobhoff tube was removed. Therefore he was started on a calorie count and fortified pudding to meet
caloric needs. Goal will be to get a repeat video barium swallow next week and hopeful discharge to [facility] in 24-48 hours.
[2025-03-09] MEDS: ELIQUIS 5 MG PO (19:38)
[2025-03-09] MEDS: ROBINUL 1 MG PO (19:39)
--- NOTE | 2025-03-09 21:00 | PTCARENOTE ---
Assumed care of pt from barbara RN. Pt is AAOx3. A-fib on the tele monitor. HR 70s. Temporary epicardial V-wire x2 insulated. BP stable. B/L radial pulses palpable. B/L DP pulses weak on palpable. +4 pitting edema in B/L LE. Pt on RA. POX 98%. Lung
sounds diminished in the base. Frequent productive cough. Deep breathing and IS encouraged. Abdomen soft/nontender. Hypoactive BS. Pt diet advanced to minced and moist foods. Pt tolerating pills crushed in apple sauce. Pt voiding as needed in
urinal. All surgical sites stable. Other wounds present on admission assessed and dressings C/D/I. Right upper arm PICC intact. Pt assisted from the chair to the bed using rolling walker. See worklist for full nursing assessment and interventions.
Call shaw within reach.
[2025-03-09] MEDS: LIPITOR 40 MG PO (22:13)
[2025-03-09] MEDS: TYLENOL 650 MG PO (22:13)
[2025-03-09] MEDS: ROXICODONE 2.5 MG PO (22:14)
[2025-03-10] VITALS (13 sets, daily range): BP systolic 98–120; BP diastolic 51–67; PULSE 68; O2SAT 98; BMI 24.8
--- NOTE | 2025-03-10 00:09 | PTCARENOTE ---
No change in assessment. VSS. All surgical sites stable. Pt voiding in the urinal as needed. Call shaw within reach.
[2025-03-10] MEDS: TYLENOL 650 MG PO ×4 (03:36→21:45)
--- NOTE | 2025-03-10 03:43 | W.PN.CT ---
Today's Communication / Plan
-
-No major issues overnight. Hemodynamically and neurologically intact
-Remains in rate controlled a-fib 60-70's overnight. No bradycardia or pauses
-Amiodarone and BB remain on hold
-Temporary PW remain insulated
-Thrombocytopenia is improving, 40->53->55->55->64->78->-89>119K
-Received a dose of Eliquis last night, will resume ASA
-Cont. abx per ID, currently on Vancomycin, Levaquin will be added as an outpt., will complete on 04/07/25, PICC line intact
-Dobhoff d/c'd yesterday 03/09, partially passed video swallow exam and started on minced/moist with honey thick liquid diet per Speech
-Pt refuses PEG
-Will f/u with Vascular as an outpt regarding endovascular stent graft
-Cont. diuresis, currently on Bumex 2 mg PO. Monitor and replete electrolytes while on Bumex
-Monitor hyponatremia, 134->132->133
-Encourage use of IS
-OOB into chair/Ambulate/PT/OT f/u
-Acute rehab ([facility]) placement today vs tomorrow
Assessment / Plan
-
s/p AVR (27mm Soliman inspiris Bio valve), MVR (31mm Soliman Mitris Bio valve), TVr (34mm romero band), ELAA 50mm atriclip on 02/25/[address] Sharma - POD #13
-AV endocarditis (E faecalis)/Mod-severe AI
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
-Moderate TR
-LVEF 55-60%
-Atrial Fib (Chronic, diagnosed 2011-on Xarelto)
-CAD (nonischemic cardiomyopathy/HFrEF )
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
-Acute on chronic Anemia
-AAA S/P endovascular repair [address] Alfred; suspected break through infection despite suppressive amoxicillin
-Septic arthritis of the Knee 07/2024 due to Enterococcus - completed course of treatment
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
-Lyme disease
-S/P PCI/Stent (MARQUISE-OM1 2011)
-T2DM (A1C 5.1, currently on no tx)
-Hx noncompliance with imaging studies, though reportedly compliant with medications
-acute hypoxic respiratory failure requiring delayed extubation & flolan nebulization
-Acute postop atelectasis
-Acute non-cardiac pulmonary edema due to fluid overload
-Acute postop blood loss/Anemia (transfused 6u PRBCs)
-Acute postop thrombocytopenia (transfused 2 {5}pk plts
-Acute postop hypovolemia with subsequent hypervolemia
-Acute postop bradycardia/rate controlled a-fib
-Acute postop CHELA
Discussed patient care with: Cardiology, Nursing, Respiratory Therapy, Pharmacy and Care Team
Subjective
Procedure
AVR (27mm Soliman inspiris Bio valve), MVR (31mm Soliman Mitris Bio valve), TVr (34mm romero band), ELAA 50mm atriclip on 02/25/[address] Sharma
-
Date of Service: March 10, 2025
Pt c/o mild incisional pain, otherwise feels well
Objective Data
-
PT 16.6 Sec (11.4-14.6) H 02/28/25 04:53
INR 1.32 02/28/25 04:53
APTT 45.1 Sec (23.4-35.0) H 02/25/25 15:14
Vital Signs
Vital Signs
Temp Pulse Resp BP Pulse Ox
97.7 F 70 16 109/53 97
03/10/25 03:17 03/10/25 03:17 04/22/25 03:17 03/10/25 03:17 03/10/25 03:17
CT Intake/Output/Weight
03/09/25 03/09/25 03/10/25
06:59 18:59 06:59
Intake Total 850 / 1700 0 / 0
Output Total 890 / 3040 925 / 1475 550 / 1475
Balance -40 / -1340 -925 / -1475 -550 / -1475
SaO2: 97 (RA)
Physical Exam
-
General: Awake, Oriented and AOx3
Cardiovascular: Irregular rate & rhythm (a-fib), No Rub and No Gallop
Respiratory: Decreased Breath Sounds (at bases, otherwise clear)
Sternum: Stable
Incision: Clean, Dry, Intact and Dressing Intact
Extremities: Other (+trace edema)
Data Reviewed
-
Lab Results: Results Reviewed
Medications: Active Meds Reviewed
Chest X-Ray: Report Reviewed and Image Reviewed
ECG: Report Reviewed and Image Reviewed
--- NOTE | 2025-03-10 03:49 | PTCARENOTE ---
No change in assessment. Pt a-fib on the tele monitor. HR 60-70s. BP stable. Pt 97% on RA. All surgical sites stable. Labs drawn and sent. PRN Tylenol for mild pain. Call shaw within reach.
[2025-03-10 04:12] LABS: Blood Urea Nitrogen 27 mg/dl (9-20); Calcium 8.6 mg/dl (8.4-10.2); Carbon Dioxide 29 mmol/L (22-30); Chloride 100 mmol/L (98-107); Estimated Creatinine Clearance 94 ml/min; Glucose 102 mg/dl (70-99); Magnesium 1.9 mg/dl (1.6-2.3); Potassium 4.9 mmol/L (3.5-5.1); Sodium 133 mmol/L (135-145); eGFR > 60.00
[2025-03-10 04:13] LABS: Hematocrit 24.6 % (39.0-52.0); Mean Corp Hgb Conc. 32.5 g/dL (33.0-37.0); Mean Corpuscular Hgb 31.6 pg (27.0-31.0); Mean Corpuscular Volume 97.2 fL (80.0-94.0); Mean Platelet Volume 11.7 fL (7.4-10.4); Platelet Count 119 10^3/uL (130-400); Red Blood Cell Count 2.53 10^6/uL (4.70-6.10); Red Cell Dist. Width 15.7 % (11.5-14.5); White Blood Cell Count 6.2 10^3/uL (4.8-10.8)
[2025-03-10 04:15] LABS: Vancomycin Trough 19.6 ug/ml (5-20)
[2025-03-10] MEDS: VANCOCIN 275 MG IV (06:14)
--- NOTE | 2025-03-10 08:11 | W.PN.CD ---
Today's Communication / Plan
-
doing well
diuresis again today
monitor on eliquis
Impression / Plan
-
Background: 70M with a history of permanent atrial fibrillation, acute on chronic HFpEF, PAD, AAA s/p EVAR (12/04/2023), prior diskitis and septic arthritis and CAD s/p PCI admitted progression of initially medically managed infectious endocarditis,
likely also involving his EVAR graft.
s/p AVR (27mm Soliman inspiris Bio valve), MVR (31mm Soliman Mitris Bio valve), TVr (34mm romero band), ELAA 50mm AtriClip on 02/25/[address] Sharma
- volume overload improving, reasonable to continue bumex 1 daily while here as long as labs remain stable, then transition to weight based diuretic instructions on discharge
Bradycardia
- No significant pauses, no pacing seen, rates 60-70bpm in atrial fibrillation
- AV conduction seems to have improved
- reasonable to continue to hold off on BB for now
NSVT
-3 beat run in past 24 hours
-given low burden and tenuous BP, reasonable to hold off on BB for now
Infectious endocarditis (E. 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
- S/P triple valve intervention (2 valves replaced/1 repaired) on 02/25/2025.
- ATB per ID (Vanco)
Permanent atrial fibrillation
- On Xaretlo as op.
- apixaban started yesterday
- S/P LAAE (#50 AtriClip) with Dr. Sharma, 02/25/2025.
- Platelets improving, monitor with reinitiation on NOAC
Post-op anemia
HFpEF, chronic/stable, received furosemide yesterday by primary service
Resolved CHELA
AAA, S/P EVAR.
-Possibly infected (rim enhancing portion).
-Vascular surgery and ID involved
Heme: Anemia and thrombocytopenia, off heparin since 02/24/2025
Complex chronic PAD => Vascular Surgery involved
CAD with hx or PCI
-Stable without CP.
-reasonable to hold ASA once back on NOAC
Subjective:
Denies chest pain, shortness of breath, palpitations, and dizziness.
Reports feeling a little stronger today.
Passed VSS yesterday, enjoying PO
Data:
Intraop LORETA 02/25/2025:
CONCLUSIONS
Mildly dilated left ventricle (LVIDD 6.1 cm) with LVEF of 50-55% by visual
inspection. No regional wall motion abnormalities.
Severely dilated left atrium (10 cm).
Normal right ventricle in size and function.
Dilated right atrium (6.8 cm).
Severe mitral regurgitation with anterior leaflet echodensity.
Severe aortic insufficiency with mobile echodensity on the noncoronary cusp.
Mild to moderate tricuspid regurgitation with dilated annulus (5.3 cm).
Dilated coronary sinus (1.4 cm).
Small [id number] patent foramen ovale.
Normal size ascending aorta with mild posterior wall calcification. The arch
is heavily diseased with atheromatous plaque. The descending thoracic aorta is
poorly visualized.
Normal appearing left atrial appendage.
POST OPERATIVE FINDINGS
S/P AVR with size 27 bioprosthetic, MVR with size 31, tricuspid band size 34,
IVONE exclusion with clip.
The bioprosthetic valves are well-seated with no paravalvular leaks. The
tricuspid valve regurgitation is no longer present. The aortic valve gradient
is 8 mmHg, the mitral valve gradient is 2 mmHg, and the tricuspid valve
gradient is 1 mmHg. A strand of highly mobile chordae tendineae is seen in the
left ventricle just below the mitral valve. The left atrial appendage is no
longer visualized with the absence of flow confirmed by color flow Doppler.
Otherwise unchanged exam. The rhythm is atrial fibrillation. Pharmacological
support included 8 mcg/kg/min of dobutamine and 10 mcg/kg of norepinephrine.
LORETA 02/20/2025: LVEF 55-60%, biatrial enlargement, MV echodensity with severe MR, AV echodensity with mod/severe AR, TV echodensity with mod TR
TTE 02/19/25: LVEF 50-55%, MV with 1.5 cm x 0.7 cm veg on anterior leaflet. Severe, eccentric mitral regurgitation. AV with highly mobile 2.5 cm x 0.6 cm veg on NCC. Severe eccentric aortic regurgitation. Possible TV veg with mod TR, PASP 72
Echo report summary 01/15/25: 0.75 mm mass attached to aortic valve, EF 38%, increased LV size, RV moderately dilated and with moderately decreased systolic function, severely dilated atria, severe AR, two areas of vegetation on anterior mitral valve
leaflet, severe MR, severe TR (aortic vegetation bigger from previous and now two areas on MV noted).
Physical Exam
Vital Signs/Labs
Vital Signs
Temp Pulse Resp BP Pulse Ox
36.5 C 76 16 120/62 97
03/10/25 03:17 03/10/25 06:13 03/10/25 03:17 03/10/25 06:13 03/10/25 03:50
03/09/25 03/10/25 03/11/25
06:59 06:59 06:59
Actual Weight 83.6 kg 82.8 kg
03/10/25 03:29
03/10/25 03:29
PT 16.6 Sec (11.4-14.6) H 02/28/25 04:53
INR 1.32 02/28/25 04:53
APTT 45.1 Sec (23.4-35.0) H 02/25/25 15:14
Magnesium 1.9 mg/dl (1.6-2.3) 03/10/25 03:29
Triglycerides 73 mg/dl (10-149) 03/06/25 05:01
LDL Cholesterol, Calc 64 mg/dl 02/19/25 01:44
VLDL Cholesterol, Calc 15 mg/dl (0-30) 02/19/25 01:44
HDL Cholesterol 37 mg/dl 02/19/25 01:44
02/18/25 02/18/25 02/26/25
20:27 20:59 00:14
Yqh-J-Ymmxtnfoktq Pept Cancelled [id number]
Physical Exam
Constitutional: No acute distress
Cardiovascular: Rhythm & rate is regular
Respiratory: Respiratory effort normal
Neuro/Psych: AO x 3
Data Reviewed
-
Date of Service: March 10, 2025
Medical Decision Making: Reviewed Test Results
Labs: Labs Reviewed by me
--- NOTE | 2025-03-10 09:00 | PTCARENOTE ---
Resumed care of patient. Walking rounds completed with previous RN. Pt assessed while he was sitting in the chair. Pt alert and oriented x4. Rates b/l knee pain /10-see MAR. Denies nausea and shortness of breath. Generalized weakness. Ambulating in
the room and cowart with PT and rolling walker. Hoarse voice. Afib with PVCs on tele with rates in the 60s-70s. BP 116/51. Heart tones audible. Bilateral radial pulses palpable, DP pulses weakly palpable. B/l lower extremity edema +3. Epicardial
v-wires x2, insulated. Tubi supervisor area in place. POX 99% on RA. Lungs clear throughout. Occasional productive cough with fraser sputum. IS encouraged-1000ml achieved. Abdomen soft, round, nontender. +BS. Ate 100% of breakfast. Pt voiding adequate amounts of
yellow urine in the urinal. Sternal incision approximated, HEALTH AIDE. Old chest tube sites covered, dressing CDI. Right groin puncture WENDY. Scattered skin tears with foam in place. Right upper arm PICC intact. See MAR for medication administration. See
worklist for complete nursing assessment. Plan of care reviewed and patient in agreement.
[2025-03-10] MEDS: ELIQUIS 5 MG PO ×2 (09:06→19:38)
[2025-03-10] MEDS: BUMEX 2 MG PO (09:06)
[2025-03-10] MEDS: FOLVITE 1 MG PO (09:06)
[2025-03-10] MEDS: LIDOCAINE 4% PATCH 1 PATCH TOPICAL (09:06)
[2025-03-10] MEDS: ZESTRIL 10 MG PO (09:07)
[2025-03-10] MEDS: VITAMIN B-12 1000 MCG PO (09:07)
[2025-03-10] MEDS: ROBINUL 1 MG PO ×2 (09:07→19:40)
[2025-03-10] MEDS: MIRALAX TUBE (09:07)
[2025-03-10] MEDS: FEOSOL 325 MG PO (09:07)
[2025-03-10] MEDS: LOW STRENGTH ASPIRIN 81 MG PO (09:07)
--- NOTE | 2025-03-10 09:08 | W.PN.ID1 ---
Date of Service
Date of Service: March 10, 2025
Today's Communication
- plan 6 weeks of IV vancomycin at home from the procedure (02/25-04/07), after vancomycin then on 04/08 to start suppression with levofloxacin 750 mg PO q24 hours indefinitely; I have ordered the outpatient levaquin in ecw
Assessment / Plan
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
H/o Septic arthritis of the Knee 07/2024 due to Enterococcus - completed course of treatment
DM2; not on treatment
Leukopenia - present on arrival, possibly related to chronic infection
H/o noncompliance with imaging studies, though reportedly compliant with medications
- 02/25/25 s/p bio-AVR, bio-MVR, TV repair
- will continue follow up valve cultures - asked lab to hold the aerobic cultures to two weeks, re-checked cultures today - remain no growth to date
- c/w vancomycin - with close monitoring
- plan 6 weeks of IV vancomycin at home from the procedure (02/25-04/07), after vancomycin then to start suppression with levofloxacin 750 mg PO q24 hours indefinitely; I have ordered the outpatient levaquin in ecw
- PICC in place
- script given to case management 03/09/25 and 03/10/25, copy on chart as well
- follow up in my office around 04/07
����������������������������������������������������������
Chief Complaint
-: Other (endocarditis)
Subjective / Review of Systems
afebrile
bp stable
tolerating current therapies
Vital Signs / Physical Exam
Vital Signs
Vital Signs
Temp Pulse Resp BP Pulse Ox
97.7 F 76 16 120/62 97
03/10/25 03:17 03/10/25 06:13 03/10/25 03:17 03/10/25 06:13 03/10/25 03:50
Physical Exam
Constitutional: No Acute Distress and Chronically Ill
Cardiovascular: Regular Rate and S1/S2; Negative Murmur or Rub
Pulmonary: Clear and Symmetric; Negative Wheezes or Rales
Gastrointestinal: Soft, Non Tender, Non Distended and Normal Bowel Sounds
Skin: Warm and Dry; Negative Rash or Jaundice
Wound: Other (surgical site well healing)
Lines: PICC (no erythema, warmth, tenderness or drainage)
Objective Data
Lab Data
Lab Results
03/10/25 03:29
03/10/25 03:29
PT 16.6 Sec (11.4-14.6) H 02/28/25 04:53
INR 1.32 02/28/25 04:53
APTT 45.1 Sec (23.4-35.0) H 02/25/25 15:14
Estimated Creat Clear 94 ml/min 03/10/25 03:29
Total Bilirubin 1.7 mg/dl (0.2-1.3) H 02/28/25 04:53
AST 36 U/L (17-59) 02/28/25 04:53
ALT 13 U/L (0-50) 02/28/25 04:53
Alkaline Phosphatase 98 U/L (38-126) 02/28/25 04:53
Most recent labs reviewed.
Micro Results:
02/25/25 10:09 Fungal Culture - Preliminary
Valve Culture in progress.
Positive cultures are reported as soon as detected.
Final report to follow in four to five weeks.
02/25/25 10:34 Fungal Culture - Preliminary
Valve Culture in progress.
Positive cultures are reported as soon as detected.
Final report to follow in four to five weeks.
02/25/25 10:09 Tissue Culture - Preliminary
Valve NO GROWTH
Gram Stain - Preliminary
02/25/25 10:34 Tissue Culture - Preliminary
Valve NO GROWTH
Gram Stain - Preliminary
02/25/25 10:34 Anaerobic Culture - Final
Valve NO ANAEROBES ISOLATED
02/25/25 10:09 Anaerobic Culture - Final
Valve NO ANAEROBES ISOLATED
02/26/25 13:07 Respiratory Culture - Final
Bronch Washing Usual Respiratory Brunilda
Gram Stain - Final
02/19/25 13:22 Blood Culture - Final
Blood/Venous No Growth - Final Report
02/19/25 12:40 Blood Culture - Final
Blood/Venous No Growth - Final Report
[2025-03-10 10:28] LABS: Vancomycin Peak 29.3 ug/ml (18-26)
--- NOTE | 2025-03-10 11:31 | CM ---
Chart reviewed. Patient is independent of ADLS, lives with his in a [address], 3 [facility], ambulates with a SPC and RW. PT evaluation recommending Acute Rehab. Referral sent to [facility]. [facility] requesting 24 hour calorie count prior to discharge. Plan
is for the patient to go to Acute Rehab when medically stable. CM to follow
--- NOTE | 2025-03-10 12:00 | PTCARENOTE ---
Pt reassessed. A&Ox4. Afib with occasional PVCs with rates in the 60s-70s. BP 102/66. POX 98% on RA. Surgical sites stable. Pt stood to reposition, cream applied to buttocks. Pt ordered lunch. Continues to void adequate yellow urine in the urinal.
No other acute changes from previous assessment.
--- NOTE | 2025-03-10 16:02 | PTCARENOTE ---
VS obtained, assessment stable. Patient remains oob in chair, resting comfortably. at bedside for visit.
--- NOTE | 2025-03-10 16:04 | PHA.VAN.FU ---
Vancomycin Assessment / Plan
- Assessment
Renal Function: Stable
WBC's are: WNL
In the past 24 hrs, patient has been: Afebrile
- Assessment - Therapeutic Drug Monitoring
Extrapolated Cmax (mcg/mL): 30.7
Peak level was drawn: Appropriately (drawn ~2H after end of previous infusion)
Extrapolated Cmin (mcg/mL): 18.5
Trough Drawn: Appropriately
Levels were drawn: At steady state (peak drawn after 4th scheduled 0600 dose of 1250mg but has been on 1250mg once daily since 02/28)
Calculated AUC (mcg*h/mL): 579
Calculated ke: 0.0224
Calculated half life (H): 30.9
Calculated Vd (L): 96 (~1.15 L/kg)
Calculated Vanc CL (ml/min): 36
Note: above calculations extrapolated as if trough drawn this AM was drawn tomorrow and accuracy of calculations may be reduced
Trough higher than anticipated today - obtaining repeat peak/trough to re-assess (trough ordered for tomorrow)
Half-life may be creeping up --> BUN slowly increasing up after initiation of daily bumetanide - unclear if may be impacting vanc clearance - follow
- Dosing Plan
Adjust Regimen to: dosing by level
Dosing Comments: will switch to dose by level for now and re-evaluate after trough tomorrow
- Monitoring Plan
Trough Level: 03/11 05:30
- Follow Up
Pharmacy will continue to follow.
Vancomycin Follow UP
- -
Patient Age: 70
Patient Sex: Male
Vancomycin Day #: 12
Indication: Endocarditis
Requesting Provider: Dr. Purcell
Pertinent Antimicrobial Allergies:
No Known Drug Allergies
Height / Weight:
Height 6 ft
Actual Weight 82.8 kg
Pertinent Past Medical History: T2DM, Valve replacement
- Vital Signs / Lab Results
Temp Pulse Resp BP Pulse Ox
98.1 F 69 16 118/54 97
03/10/25 16:00 03/10/25 16:00 03/10/25 16:00 03/10/25 15:59 03/10/25 16:00
Lab Results - Hematology
03/08/25 03/09/25 03/10/25
05:23 03:18 03:29
WBC 8.6 7.7 6.2
Lab Results - Chemistry
03/08/25 03/09/25 03/10/25
05:23 03:18 03:29
BUN 25 H 25 H 27 H
Creatinine 0.7 0.7 0.8
Estimated Creat Clear 108 108 94
Albumin 2.6 L
Microbiology Results
02/25/25 10:09 Fungal Culture - Preliminary
Valve Culture in progress.
Positive cultures are reported as soon as detected.
Final report to follow in four to five weeks.
02/25/25 10:34 Fungal Culture - Preliminary
Valve Culture in progress.
Positive cultures are reported as soon as detected.
Final report to follow in four to five weeks.
02/25/25 10:09 Tissue Culture - Preliminary
Valve NO GROWTH
Gram Stain - Preliminary
02/25/25 10:34 Tissue Culture - Preliminary
Valve NO GROWTH
Gram Stain - Preliminary
Therapeutic Drug Monitoring
Vancomycin Trough 19.6 ug/ml (5-20) 03/10/25 03:29
Vancomycin Peak 29.3 ug/ml (18-26) H 03/10/25 09:48
Random Vancomycin 16.6 ug/ml 03/06/25 05:01
--- NOTE | 2025-03-10 18:49 | W.DCSUMMARY ---
Discharge Summary
Discharge Data
Date of Admission: 02/18/25
Date of Discharge: 03/11/25
Total time spent discharging patient (in min): 67
-
Pending Results: No
Hospital Course
Primary care physician:
Dr. Nguyen
Outpatient intensive care specialist:
Dr. Mckeon
Inpatient consultants:
CBC, Die Designer Apprentice, Infectious disease
Procedures:
1. AVR (27mm Soliman inspiris Bio valve), MVR (31mm Soliman Mitris Bio valve), TVr (34mm romero band), ELAA 50mm atriclip on 02/25/[address] Sharma
Primary Diagnosis:
1. Multi valve endocarditis and moderate TR
Secondary Diagnoses:
1. acute hypoxic respiratory failure requiring delayed extubation & flolan nebulization
2. Acute postop atelectasis
3. Acute non-cardiac pulmonary edema due to fluid overload
4. Acute postop blood loss/Anemia
5. Acute postop thrombocytopenia
6. Acute postop hypovolemia with subsequent hypervolemia
7. Acute postop bradycardia/rate controlled a-fib
8. Acute postop CHELA
9. Chronic atrial fibrillation on Eliquis
10. History of CAD with drug-eluting stent to OM1
11. History of type 2 diabetes
HPI: 70-year-old male with previous history of CAD status post stent, heart failure, mitral regurgitation, history of laryngeal cancer, AAA presenting to ER with 2 days of dyspnea on exertion. Admitted to [facility] on 02/18/25, chest x-ray
demonstrating moderate pulmonary edema. 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
left knee septic arthritis due to Enterococcus. Underwent repeat CT TA demonstrating endograft with interval enlargement of 1.9 cm rim-enhancing fluid suggesting endoleak, pulmonary edema; repeat TTE demonstrating 1.5 cm x 0.7 cm vegetation with
severe MR, AV mobile 2.5 x 0.6 lesion with severe AR, TV with mobile echodensity and moderate TR. CTS consulted for multivalve intervention. Underwent AVR/MVR/TVR 02/25/25 and postoperatively transferred to CVICU.
Hospital course: Patient was admitted to [facility] on 02/18 with progressive shortness of breath and found to have endocarditis. He was taken to the OR on 02/[address] Sharma where he received triple valve intervention. Postoperatively he
returned to the CVICU for the remainder of his recovery. Upon arrival to the CVICU patient had poor oxygenation upon arrival PEEP was increased to 10 and then to 12 with FiO2 of 100%. PA O2 remained low with those interventions and patient was
started on inhaled epoprostenol. Patient's FiO2 improved. Patient also had some drainage from his pleural chest tubes up to 230 in the first hour and he received 2 FFP and 1 pooled platelets. The decision was made to keep him intubated overnight
therefore Precedex was changed to propofol and fentanyl. On 02/26 postoperative day 1 patient received a bronchoscopy by pulmonology which was okay. PaO2 remained stable and inhaled epoprostenol was weaned off and vent settings were weaned to 5 of
PEEP and 40% FiO2.. Dobutamine was weaned to 2 along with vaso and Levophed were weaned. With a brief sedation vacation patient was able to wake up follow commands and a spontaneous breathing trial was initiated. Patient did well with spontaneous
breathing trial however given the interventions of the day the decision was made to extubate in the morning. He was also given 1 unit of packed red blood cells for anemia followed by Lasix. On 02/27 postoperative day 2, patient was transitioned
from propofol and fentanyl to IV Precedex. He was extubated by 9 AM. He was again diuresed with 40 mg of IV Lasix and speech, physical, and occupational therapy was consulted. Patient [place] catheter was removed and dobutamine was weaned to 1.
Levophed and vaso were weaned off at this time. Patient became bradycardic with lower doses of dobutamine therefore dobutamine was increased back up to 2. Infectious disease continue to follow and he was then transition to IV vancomycin. On 02/28
postoperative day 3, patient's platelets down trended to 59 and aspirin was placed on hold. Dobutamine was maintained at 2 mcg/kg/min. Patient was trialed on a regular diet however due to coughing it was discontinued and he was made NPO. Chest
tubes were removed and patient was started on lisinopril p.o. due to hypertension. On 03/01 postoperative day 4 patient was diuresed with 1 mg of Bumex. And another trial weaning of dobutamine was performed however patient again became bradycardic.
On 03/02 postoperative day 5, patient had a video barium swallow which he failed therefore a Dobbhoff feeding tube was placed in the right naris with chest x-ray to confirm placement. He was then started on tube feeds. On 03/03 postoperative day 6
patient's rhythm was junctional in the 70s and with a discussion with cardiology they held on a permanent pacemaker placement and decrease dobutamine to 1. Left brachial A-line was discontinued and tube feeds were at goal. On 03/04 postoperative
day 7, dobutamine was weaned off platelets were in the 50s and cardiology continued to hold on pacemaker placement. He was diuresed with 40 mg of IV Lasix. Vanco dosing was continued and a right upper extremity PICC line was placed and right IJ
Cordis was removed. On 03/05 postoperative day 8 patient continued to improve he received 40 mg of IV Lasix and right groin suture was removed. On 03/06 postoperative day 6 platelets remained stable patient received 1 dose of Diamox as for
hypercarbia. On 03/07 postoperative day 10 patient received 40 mg of IV Lasix in the morning and 2 mg of IV Bumex in the afternoon. On 03/08 postoperative day 11, patient was continued on 2 mg of IV Bumex. On 03/09 postoperative day 12 patient had a
repeat video barium swallow which showed improvement for swallowing and he was started on a minced/moist diet with honey thick liquids. Patient refused PEG placement therefore the Dobbhoff feeding tube was removed and a caloric intake count was
started. Patient's platelets were stable in the 90s and he was started on aspirin that morning and then started on Eliquis that evening. On 03/10 postoperative day 13, patient continued on p.o. Bumex regimen and was tolerating his diet. On 03/11
postoperative day 14 patient remained hemodynamically stable on his current medication regimen. He was deemed stable for discharge to [place]. Patient will continue following infectious disease but he will be on 6 weeks of IV vancomycin which
completes on 04/07 and then on 04/08 he will start chronic suppression therapy with levofloxacin 750 mg p.o. every 24 hours.
Home medication changes:
see below
Discharge Plan
-
Patient Disposition: Acute Rehab Facility
Discharge Diagnosis/Procedures: AVR, MVR, TV repair, left atrial appendage clip
Condition: Good
Diet: Regular, 2 Gram Sodium, Restrict fluids to 64 oz and Other diet
Additional Diets: minced/moist with honey thick liquids
Activity: No strenuous activity
Driving Restrictions: Not until seen by your Dr
Bathing Restrictions: OK to Shower
Other Services: Cardiac Rehab
Specialty Instructions: Weigh Daily- Call MD for wt gain/loss 3 lbs overnight/5 lbs in 1 week
Activity Restrictions/Additional Instructions:
ACTIVITY:
-No strenuous activity: no heavy lifting, pushing, pulling anything over 15 pounds for one month
-continue to use stairs as tolerated
DRIVING RESTRICTIONS:
-No driving for one month or until approved by your surgeon
WOUND CARE:
-Shower daily. Use soap & water.
-No lotions, creams or powders on incision area.
DIET:
-continue a low fat/low cholesterol diet.
-IF you are diabetic, continue carb controlled diet.
CARDIAC REHAB:
-Please make appointment to start in 5-6 weeks with your local hospital program. (See Cardiac Rehabilitation Discharge Booklet)
[facility]: [phone] (when PT/OT is no longer needed)
SPECIALTY INSTRUCTIONS:
-Weigh yourself daily. Call your physician for any weight gain/loss of 3 lbs overnight or 5 lbs in one week.
-REPORT any clicking noise or uneven appearance of your sternum to your surgeon immediately.
-If you smoke, you are instructed to quit. The [place] smoking hotline phone number is [phone]
Instructions: *PCP/Other Hand Clipper Heart Failure Instructions
Referrals:
Josefina Nguyen MD [Family Provider] - in four to six weeks (Please make an appointmnet in four to six weeks.)
Tesha Castaneda CRNP [Specified Professional Personl] - 04/14/25 10:00 am
Mart Alfred III, MD [Active] - 04/01/25 8:00 am (Vascular Surgery follow up)
Fabby Allison DO [Active] - in three to four weeks (PFT)
Josiah Sharma MD [Active] - 03/31/25 2:30 pm
Saba Purcell MD [Active] - in four to six weeks
Additional Discharge Medication Instructions: - plan 6 weeks of IV vancomycin at home from the procedure (02/25-04/07), after vancomycin then to start suppression with levofloxacin 750 mg PO q24 hours indefinitely;
Prescriptions:
New
oxycodone 5 mg Tablet
2.5 mg PO Q4HPRN PRN (Reason: pain) Qty: 10 0RF
Chloraseptic Sore Throat 6-10 mg Lozenge
1 patel PO Q4HPRN PRN (Reason: sore throat) Qty: 0 0RF
aspirin 81 mg Tablet,Chewable
81 mg PO DAILY Qty: 0 0RF
bumetanide 2 mg Tablet
2 mg PO DAILY Qty: 0 0RF
Eliquis 5 mg Tablet
5 mg PO BID Qty: 0 0RF
Continued
alprazolam 0.5 mg Tablet
0.5 mg PO HSPRN PRN (Reason: anxiety)
lisinopril 10 mg Tablet
10 mg PO DAILY
glycopyrrolate 1 mg Tablet
1 mg PO BID
atorvastatin 40 mg Tablet
40 mg PO HS
acetaminophen [Tylenol] 325 mg Tablet
650 mg PO DAILY
cyanocobalamin (vitamin B-12) 1,000 mcg Tablet
1,000 mcg PO DAILY
famotidine 20 mg Tablet
20 mg PO DAILY
benzonatate 100 mg Capsule
100 mg PO TIDPRN PRN (Reason: cough)
ferrous sulfate 325 mg (65 mg iron) Tablet
325 mg PO DAILY
vitamin B complex Tablet
1 tab PO DAILY
folic acid 1 mg Tablet
1 mg PO DAILY
cholecalciferol (vitamin D3) [Vitamin D3] 50 mcg (2,000 unit) Tablet
50 mcg PO DAILY
Discontinued
allopurinol 100 mg Tablet
100 mg PO BID
magnesium oxide 500 mg Tablet
500 mg PO HS
rivaroxaban 20 mg Tablet
20 mg PO HS
amoxicillin 500 mg Capsule
500 mg PO TID
furosemide 40 mg Tablet
40 mg PO BID
metoprolol succinate 50 mg Tablet Extended Release 24 Hr
50 mg PO DAILY
magnesium hydroxide [Milk of Magnesia] 400 mg/5 mL Suspension
30 ml PO DAILYPRN PRN (Reason: constipation)
cyanocobalamin (vitamin B-12) [Vitamin B-12] 1,000 mcg/mL Solution
1,000 mcg IM QMONTH
Care Plan Goals
Care Plan Goals:
Problem: Readiness for enhanced knowledge related to diagnosis and treatment plan
Goal: Understand your diagnosis and treatment plan needs, including medications if applicable.
Instructions: Know your diagnosis, underlying causes and treatment plan options, including medications if applicable. Consult with your health care team to learn about your diagnosis and treatment plan, including medications if applicable.
Discharge Date and Time
Print Language: MONGOLIAN
--- NOTE | 2025-03-10 19:58 | PTCARENOTE ---
Assumed care of pt from previous RN. Pt is AAOx3. A-fib on the tele monitor. HR 70s. Temporary epicardial V-wire x2 insulated. BP stable. B/L DP pulses weak on palpable. +3 pitting edema in B/L LE. Pt on RA. POX 99%. Lung sounds diminished in the
base. Frequent productive cough. Deep breathing and IS encouraged. Hypoactive BS. Pt tolerating minced and moist diet. Pt voiding as needed in urinal. All surgical sites stable. Other wounds present on admission assessed and dressings C/D/I. Right
upper arm PICC intact. Call shaw within reach. plan of care discussed questions encouraged
[2025-03-10] MEDS: LIPITOR 40 MG PO (21:45)
[2025-03-10] MEDS: ROXICODONE 2.5 MG PO (21:45)
[2025-03-10] MEDS: PEPCID 20 MG PO (21:45)
--- NOTE | 2025-03-10 23:42 | PTCARENOTE ---
VSS, pt resting comfortably in bed, assessment remains unchanged
[2025-03-11 03:38] VITALS: BP 120/56
[2025-03-11] MEDS: ROXICODONE 2.5 MG PO (03:48)
[2025-03-11] MEDS: TYLENOL 650 MG PO (03:48)
--- NOTE | 2025-03-11 03:59 | PTCARENOTE ---
pt reassessed. VSS, pt c/o pain (SEE MAR). otherwise assessment remains unchanged
--- NOTE | 2025-03-11 05:29 | W.PN.CT ---
Today's Communication / Plan
-
-pod #14
-No major issues overnight. Hemodynamically and neurologically intact. No complaints
-labs pending
-Remains in rate controlled a-fib 60-70's overnight. No bradycardia or pauses
-Amiodarone and BB remain on hold
-Temporary PW remain insulated - will cut before d/c
-Thrombocytopenia is improving, 40->53->55->55->64->78->89->119 on 03/10
-Eliquis started 03/09
-Cont. abx per ID: plan 6 weeks of IV vancomycin at home from the procedure (02/25-04/07), after vancomycin then on 04/08 to start suppression with levofloxacin 750 mg PO q24 hours indefinitely
-Dobhoff d/c'd yesterday 03/09, partially passed video swallow exam and started on minced/moist with honey thick liquid diet per Speech
-Pt refuses PEG
-Will f/u with Vascular as an outpt regarding endovascular stent graft
-Cont. diuresis, currently on Bumex 2 mg PO. Monitor and replete electrolytes while on Bumex
-Monitor hyponatremia, 134->132->133
-Encourage use of IS
-OOB into chair/Ambulate/PT/OT f/u
-Acute rehab ([place]) placement likely 03/11
Assessment / Plan
-
s/p AVR (27mm Soliman inspiris Bio valve), MVR (31mm Soliman Mitris Bio valve), TVr (34mm romero band), ELAA 50mm atriclip on 02/25/[address] Sharma - POD #14
-AV endocarditis (E faecalis)/Mod-severe AI
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
-Moderate TR
-LVEF 55-60%
-Atrial Fib (Chronic, diagnosed 2011-on Xarelto)
-CAD (nonischemic cardiomyopathy/HFrEF )
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
-Acute on chronic Anemia
-AAA S/P endovascular repair [address] Alfred; suspected break through infection despite suppressive amoxicillin
-Septic arthritis of the Knee 07/2024 due to Enterococcus - completed course of treatment
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
-Lyme disease
-S/P PCI/Stent (MARQUISE-OM1 2011)
-T2DM (A1C 5.1, currently on no tx)
-Hx noncompliance with imaging studies, though reportedly compliant with medications
-acute hypoxic respiratory failure requiring delayed extubation & flolan nebulization
-Acute postop atelectasis
-Acute non-cardiac pulmonary edema due to fluid overload
-Acute postop blood loss/Anemia (transfused 6u PRBCs)
-Acute postop thrombocytopenia (transfused 2 {5}pk plts
-Acute postop hypovolemia with subsequent hypervolemia
-Acute postop bradycardia/rate controlled a-fib
-Acute postop CHELA- resolved
Discussed patient care with: Nursing and Care Team
Subjective
Procedure
AVR (27mm Soliman inspiris Bio valve), MVR (31mm Soliman Mitris Bio valve), TVr (34mm romero band), ELAA 50mm atriclip on 02/25/[address] Sharma
-
Date of Service: March 10, 2025
Objective Data
-
Lab Results
03/10/25 03:29
03/10/25 03:29
PT 16.6 Sec (11.4-14.6) H 02/28/25 04:53
INR 1.32 02/28/25 04:53
APTT 45.1 Sec (23.4-35.0) H 02/25/25 15:14
Vital Signs
Vital Signs
Temp Pulse Resp BP Pulse Ox
98.3 F 73 18 100/58 99
03/10/25 23:41 03/10/25 19:40 03/10/25 23:41 03/10/25 19:40 03/10/25 23:41
CT Intake/Output/Weight
03/10/25 03/10/25 03/11/25
06:59 18:59 06:59
Intake Total 480 / 480
Output Total 850 / 1775 1525 / 1675 150 / 1675
Balance -850 / -1775 -1045 / -1195 -150 / -1195
SaO2: 99
[2025-03-11 06:00] VITALS: BMI 24.6
[2025-03-11 06:55] LABS: Hematocrit 23.8 % (39.0-52.0); Hemoglobin 7.8 g/dL (13.0-18.0); Mean Corp Hgb Conc. 32.8 g/dL (33.0-37.0); Mean Corpuscular Volume 97.5 fL (80.0-94.0); Mean Platelet Volume 10.5 fL (7.4-10.4); Platelet Count 145 10^3/uL (130-400); Red Blood Cell Count 2.44 10^6/uL (4.70-6.10); Red Cell Dist. Width 15.8 % (11.5-14.5); White Blood Cell Count 5.2 10^3/uL (4.8-10.8)
[2025-03-11 07:09] LABS: Vancomycin Trough 19.8 ug/ml (5-20)
[2025-03-11 07:19] LABS: Blood Urea Nitrogen 32 mg/dl (9-20); Calcium 8.5 mg/dl (8.4-10.2); Carbon Dioxide 29 mmol/L (22-30); Chloride 102 mmol/L (98-107); Estimated Creatinine Clearance 94 ml/min; Glucose 101 mg/dl (70-99); Potassium 4.8 mmol/L (3.5-5.1); Sodium 135 mmol/L (135-145); eGFR > 60.00
[2025-03-11 07:35] VITALS: BP 115/51
[2025-03-11] MEDS: LIDOCAINE 4% PATCH 1 PATCH TOPICAL (07:44)
[2025-03-11] MEDS: FEOSOL 325 MG PO (07:45)
[2025-03-11] MEDS: LOW STRENGTH ASPIRIN 81 MG PO (07:45)
[2025-03-11] MEDS: ELIQUIS 5 MG PO (07:45)
[2025-03-11] MEDS: FOLVITE 1 MG PO (07:45)
[2025-03-11] MEDS: VITAMIN B-12 1000 MCG PO (07:45)
[2025-03-11] MEDS: ZESTRIL 10 MG PO (07:45)
[2025-03-11] MEDS: ROBINUL 1 MG PO (07:45)
[2025-03-11] MEDS: BUMEX 2 MG PO (07:46)
[2025-03-11] MEDS: MIRALAX TUBE (07:46)
--- NOTE | 2025-03-11 07:54 | SUR.PHASEI ---
Received pt from receiver/laborer RN; pt AAOX3 and resting comfortably in bed; A-fib on monitor and VSS; Right Double lumen PICC patent; Epicardial V wires x2 insulated; lungs diminished; IS to 1250; positive bowel sounds; pt voiding yellow urine;
positive radial pulses and weak lower extremity pulses; +3 lower extremity edema noted; all surgical sites C/D?I; see nursing documentation for further details.
--- NOTE | 2025-03-11 07:58 | PHA.VAN.FU ---
Vancomycin Assessment / Plan
- Assessment
Renal Function: Stable
WBC's are: WNL
In the past 24 hrs, patient has been: Afebrile
- Assessment - Therapeutic Drug Monitoring
Extrapolated Cmax (mcg/mL): 30.5
Peak level was drawn: Appropriately (drawn ~2H after end of prior infusion)
Extrapolated Cmin (mcg/mL): 19.9
Trough Drawn: Appropriately
Levels were drawn: At steady state (peak drawn after 4th scheduled 0600 dose of 1250mg but has been on 1250mg once daily since 02/28)
Calculated AUC (mcg*h/mL): 596
Calculated ke: 0.0189
Calculated half life (H): 36.6
Calculated Vd (L): 111 (~1.35 L/kg)
Calculated Vanc CL (ml/min): 35
- Dosing Plan
Dosing by Level: Hold off on dosing today
Half-life increased compared to Sunday' calculations
Will keep dose by level for now - can follow at [place]
If half-life somewhat stable tomorrow, may consider Q48H dosing (Vanc 1750mg Q48H predicts AUC 425, peak 26.5, trough 11.1 based on current patient-specific PK)
- Monitoring Plan
Random Level: 03/12 0600
- Follow Up
Pharmacy will continue to follow.
Vancomycin Follow UP
- -
Patient Age: 70
Patient Sex: Male
Vancomycin Day #: 13
Indication: Endocarditis
Requesting Provider: Dr. Purcell
Pertinent Antimicrobial Allergies:
No Known Drug Allergies
Height / Weight:
Height 6 ft
Actual Weight 82.2 kg
Pertinent Past Medical History: T2DM, Valve replacement
- Vital Signs / Lab Results
Temp Pulse Resp BP Pulse Ox
98 F 73 20 115/51 99
03/11/25 07:34 03/11/25 07:45 03/11/25 07:34 03/11/25 07:45 03/11/25 07:34
Lab Results - Hematology
03/09/25 03/10/25 03/11/25
03:18 03:29 06:30
WBC 7.7 6.2 5.2
Lab Results - Chemistry
03/09/25 03/10/25 03/11/25
03:18 03:29 06:30
BUN 25 H 27 H 32 H
Creatinine 0.7 0.8 0.8
Estimated Creat Clear 108 94 94
Microbiology Results
02/25/25 10:09 Fungal Culture - Preliminary
Valve Culture in progress.
Positive cultures are reported as soon as detected.
Final report to follow in four to five weeks.
02/25/25 10:34 Fungal Culture - Preliminary
Valve Culture in progress.
Positive cultures are reported as soon as detected.
Final report to follow in four to five weeks.
02/25/25 10:09 Tissue Culture - Preliminary
Valve NO GROWTH
Gram Stain - Preliminary
02/25/25 10:34 Tissue Culture - Preliminary
Valve NO GROWTH
Gram Stain - Preliminary
Therapeutic Drug Monitoring
Vancomycin Peak 29.3 ug/ml (18-26) H 03/10/25 09:48
Random Vancomycin 16.6 ug/ml 03/06/25 05:01
Vancomycin Trough 19.8 ug/ml (5-20) 03/11/25 06:30
--- NOTE | 2025-03-11 08:29 | W.PN.CD ---
Today's Communication / Plan
-
Start dapagliflozin 10 mg daily.
Check UA, UProtein/UCreatinine.
Check prealbumin.
Resume anticoagulation (he was on rivaroxaban 20 mg daily at home).
Continue diuresis.
Impression / Plan
-
Impression/Plan: 70M with a history of permanent atrial fibrillation, acute on chronic HFpEF, PAD, AAA s/p EVAR (12/04/2023), prior diskitis and septic arthritis and CAD s/p PCI admitted progression of initially medically managed infectious
endocarditis, likely also involving his EVAR graft.
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
-S/P three valve replacement/repair on 02/25/25.
-AVR (#27 INSPIRIS RESILIA Model 28319V, SN: [id number])
-MVR (MITRIS RESILIA, 31mm, Model 10325L; SN: [id number])
-TVrp (#34 Medtronic Tri-Ad 2.0 Conner Tricuspid Band, SN: [id number])
-ABX management per ID (vancomycin through 04/07/2025, then PO levofloxacin 750 mg PO daily indefinitely for suppression).
-F/U cultures from valve.
#HFpEF
-Acute, improving.
-Significant lower extremity edema remains.
-Weight 82.2 kg. Dry weight probably < 80 kg (probably lower).
-Bradycardia will not tolerate beta kirstin.
-Continue lisinopril.
-Start dapagliflozin 10 mg daily. Case management consult.
#AAA
-Chronic.
-S/P EVAR.
-Possibly infected (rim enhancing portion).
-Vascular surgery involved.
-Prior notes suggest removal in the fairly distant future (months).
#Heme
-Acute on chronic.
-No signs/symptoms of acute bleeding
-Worked up over the past�3 months with colonoscopy, EGD and no etiology found.
-Hbg 7.8. MCV remains high. Continue B12/Folate. Reticulocytes 3.0% (elevated) but reticulocyte index is < 2, suggestive of underproduction.
-Platelets have normalized, now 145k.
-Low threshold for transfusion.
#PAD
-Chronic.
-Reportedly extensive.
-Recommendations as per Vascular Surgery.
#CAD with hx or PCI
-Stable without CP.
-On rivaroxaban as OP; currently on hold due to post op/thrombocytopenia.
-Resume when deemed safe from a surgical perspective and platelets have further recovered.
-High dose, high potency statin.
#Permanent AFIB/Bradycardia:
-Chronic, stable.
-HR 50-70 BPM off of dobutamine.
-CHADS2-Vasc = 3 (CHF, Age x1, vascular disease).
-S/P LAAE (#50 AtriClip) with Dr. Sharma, 02/25/2025.
-The AV node looks as though it is recovering. No role for PPM at this time though AF with normal HR in the absence of rate control medications implies underlying conduction disease.
-Resume anticoagulation as platelets recover.
#Deconditioning
-Acute on chronic.
-Swallow study shows some aspiration.
-PM&R has evaluated. Planning for acute rehab.
#Malnourishment
-Unclear duration.
-Albumin 2.6 (likely contributing to peripheral edema).
-Check pre-albumin.
-Recheck UA.
Subjective/Interval History:
Hbg 7.8 today.
Albumin 2.6.
HR remains stable.
Platelets have normalized.
Data:
Intraop LORETA 02/25/2025:
CONCLUSIONS
Mildly dilated left ventricle (LVIDD 6.1 cm) with LVEF of 50-55% by visual
inspection. No regional wall motion abnormalities.
Severely dilated left atrium (10 cm).
Normal right ventricle in size and function.
Dilated right atrium (6.8 cm).
Severe mitral regurgitation with anterior leaflet echodensity.
Severe aortic insufficiency with mobile echodensity on the noncoronary cusp.
Mild to moderate tricuspid regurgitation with dilated annulus (5.3 cm).
Dilated coronary sinus (1.4 cm).
Small [id number] patent foramen ovale.
Normal size ascending aorta with mild posterior wall calcification. The arch
is heavily diseased with atheromatous plaque. The descending thoracic aorta is
poorly visualized.
Normal appearing left atrial appendage.
POST OPERATIVE FINDINGS
S/P AVR with size 27 bioprosthetic, MVR with size 31, tricuspid band size 34,
IVONE exclusion with clip.
The bioprosthetic valves are well-seated with no paravalvular leaks. The
tricuspid valve regurgitation is no longer present. The aortic valve gradient
is 8 mmHg, the mitral valve gradient is 2 mmHg, and the tricuspid valve
gradient is 1 mmHg. A strand of highly mobile chordae tendineae is seen in the
left ventricle just below the mitral valve. The left atrial appendage is no
longer visualized with the absence of flow confirmed by color flow Doppler.
Otherwise unchanged exam. The rhythm is atrial fibrillation. Pharmacological
support included 8 mcg/kg/min of dobutamine and 10 mcg/kg of norepinephrine.
LORETA 02/20/2025: LVEF 55-60%, biatrial enlargement, MV echodensity with severe MR, AV echodensity with mod/severe AR, TV echodensity with mod TR
TTE 02/19/25: LVEF 50-55%, MV with 1.5 cm x 0.7 cm veg on anterior leaflet. Severe, eccentric mitral regurgitation. AV with highly mobile 2.5 cm x 0.6 cm veg on NCC. Severe eccentric aortic regurgitation. Possible TV veg with mod TR, PASP 72
Echo report summary 01/15/25: 0.75 mm mass attached to aortic valve, EF 38%, increased LV size, RV moderately dilated and with moderately decreased systolic function, severely dilated atria, severe AR, two areas of vegetation on anterior mitral valve
leaflet, severe MR, severe TR (aortic vegetation bigger from previous and now two areas on MV noted).
Physical Exam
Vital Signs/Labs
Vital Signs
Temp Pulse Resp BP Pulse Ox
36.6 C 73 20 115/51 99
03/11/25 07:34 03/11/25 07:45 03/11/25 07:34 03/11/25 07:45 03/11/25 07:34
03/09/25 03/10/25 03/11/25
11:59 11:59 11:59
Actual Weight 83.6 kg 82.8 kg 82.2 kg
03/11/25 06:30
03/11/25 06:30
PT 16.6 Sec (11.4-14.6) H 02/28/25 04:53
INR 1.32 02/28/25 04:53
APTT 45.1 Sec (23.4-35.0) H 02/25/25 15:14
Magnesium 1.9 mg/dl (1.6-2.3) 03/10/25 03:29
Triglycerides 73 mg/dl (10-149) 03/06/25 05:01
LDL Cholesterol, Calc 64 mg/dl 02/19/25 01:44
VLDL Cholesterol, Calc 15 mg/dl (0-30) 02/19/25 01:44
HDL Cholesterol 37 mg/dl 02/19/25 01:44
02/18/25 02/18/25 02/26/25
20:27 20:59 00:14
Qnr-G-Hjkzijgbevb Pept Cancelled [id number]
Physical Exam
Constitutional: No acute distress and Comfortable
EENT: Anicteric and Moist mucous membranes
Cardiovascular: Rhythm & rate is regular, Pedal edema present, S1S2 is normal and Murmur/rub/gallop absent
Respiratory: Respiratory effort normal, Lungs clear to auscul., Wheeze Absent, Crackles Absent and Rhonchi Absent
GI: Soft, Distention absent, Flat, Non tender and Normal bowel sounds
Neuro/Psych: AO x 3
Data Reviewed
-
Date of Service: March 11, 2025
Medical Decision Making: Reviewed Test Results, Independent Historian Assessment and Test Interpretation
EKG: Tracing Personally Visualized and interpreted and Report Reviewed by me
Echo: Report Reviewed by me
X-Ray/CT/US/MRI/NUC/PET: Image Personally Visualized and interpreted and Report Reviewed by me
Labs: Labs Reviewed by me and Labs Ordered by me
Old Records: Reviewed
--- NOTE | 2025-03-11 09:44 | W.PN.ID1 ---
Date of Service
Date of Service: March 11, 2025
Today's Communication
- c/w vancomycin - with close monitoring, pharmacy will continue to dose by level at [place] until a finalized regimen can be determined, reviewed with attending at [place] who are in agreement; previous script may require an update
- plan 6 weeks of IV vancomycin at home from the procedure (02/25-04/07), after vancomycin then to start suppression with levofloxacin 750 mg PO q24 hours indefinitely; I have ordered the outpatient levaquin in ecw
- PICC in place
- follow up in my office around 04/07
Assessment / Plan
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
H/o Septic arthritis of the Knee 07/2024 due to Enterococcus - completed course of treatment
DM2; not on treatment
Leukopenia - present on arrival, possibly related to chronic infection
H/o noncompliance with imaging studies, though reportedly compliant with medications
- 02/25/25 s/p bio-AVR, bio-MVR, TV repair
- will continue follow up valve cultures - asked lab to hold the aerobic cultures to two weeks, re-checked cultures today - remain no growth to date, not yet finalized
- c/w vancomycin - with close monitoring, pharmacy will continue to dose by level at [place] until a finalized regimen can be determined, reviewed with attending at [place] who are in agreement; previous script may require an update
- plan 6 weeks of IV vancomycin at home from the procedure (02/25-04/07), after vancomycin then to start suppression with levofloxacin 750 mg PO q24 hours indefinitely; I have ordered the outpatient levaquin in ecw
- PICC in place
- follow up in my office around 04/07
����������������������������������������������������������
Chief Complaint
-: Other (endocarditis)
Subjective / Review of Systems
afebrile
bp stable
no events overnight
Vital Signs / Physical Exam
Vital Signs
Vital Signs
Temp Pulse Resp BP Pulse Ox
98 F 69 20 115/51 99
03/11/25 07:34 03/11/25 08:00 03/11/25 07:34 03/11/25 07:45 03/11/25 08:42
Physical Exam
Constitutional: No Acute Distress
Cardiovascular: Regular Rate and S1/S2; Negative Murmur or Rub
Pulmonary: Clear and Symmetric; Negative Wheezes or Rales
Gastrointestinal: Soft, Non Tender, Non Distended and Normal Bowel Sounds
Skin: Warm and Dry; Negative Rash or Jaundice
Objective Data
Lab Data
Lab Results
03/11/25 06:30
03/11/25 06:30
PT 16.6 Sec (11.4-14.6) H 02/28/25 04:53
INR 1.32 02/28/25 04:53
APTT 45.1 Sec (23.4-35.0) H 02/25/25 15:14
Estimated Creat Clear 94 ml/min 03/11/25 06:30
Total Bilirubin 1.7 mg/dl (0.2-1.3) H 02/28/25 04:53
AST 36 U/L (17-59) 02/28/25 04:53
ALT 13 U/L (0-50) 02/28/25 04:53
Alkaline Phosphatase 98 U/L (38-126) 02/28/25 04:53
Laboratory Tests
03/10/25 03/11/25
09:48 06:30
Vancomycin Peak 29.3 H
Vancomycin Trough 19.8
Most recent labs reviewed.
Micro Results:
02/25/25 10:09 Fungal Culture - Preliminary
Valve Culture in progress.
Positive cultures are reported as soon as detected.
Final report to follow in four to five weeks.
02/25/25 10:34 Fungal Culture - Preliminary
Valve Culture in progress.
Positive cultures are reported as soon as detected.
Final report to follow in four to five weeks.
02/25/25 10:09 Tissue Culture - Preliminary
Valve NO GROWTH
Gram Stain - Preliminary
02/25/25 10:34 Tissue Culture - Preliminary
Valve NO GROWTH
Gram Stain - Preliminary
02/25/25 10:34 Anaerobic Culture - Final
Valve NO ANAEROBES ISOLATED
02/25/25 10:09 Anaerobic Culture - Final
Valve NO ANAEROBES ISOLATED
02/26/25 13:07 Respiratory Culture - Final
Bronch Washing Usual Respiratory Brunilda
Gram Stain - Final
02/19/25 13:22 Blood Culture - Final
Blood/Venous No Growth - Final Report
02/19/25 12:40 Blood Culture - Final
Blood/Venous No Growth - Final Report
[2025-03-11] MEDS: FARXIGA 10 MG PO (10:28)
--- NOTE | 2025-03-11 10:31 | CM ---
Pricing on Eliquis 5mg BID is covered under the patient's prescription plan at $116 for a 30 day supply. Patient is agreeable to cost. I placed a free 30 day coupon in the patient's red discharge folder
[2025-03-11 10:43] LABS: Urine Albumin Negative (Neg - Trace); Urine Bilirubin Negative (Negative); Urine Character Clear (Clear); Urine Color Yellow; Urine Glucose Negative (Negative); Urine Ketone Negative (Negative); Urine Leukocyte Negative (Negative); Urine Nitrite Negative (Negative); Urine Occult Blood Negative (Negative); Urine Urobilinogen Negative (Neg - 1+)
--- NOTE | 2025-03-11 11:16 | CM ---
Pricing on Farxiga 10mg daily is covered at $116 for a 30 day. Patient is agreeable to cost. I placed a free 30 day coupon in the patient's red discharge folder.
[2025-03-11 11:40] VITALS: BP 116/60
--- NOTE | 2025-03-11 11:42 | PTCARENOTE ---
Epicardial V wires x2 cut by CT VULCANIZER OPERATOR.
--- NOTE | 2025-03-11 11:49 | PTCARENOTE ---
Assessment unchanged; A-fib on monitor and VSS; pt eating lunch and awaiting transfer to [facility].
[2025-03-11 12:18] LABS: Protein/creatinine Ratio 0.8; Urine Protein 11 mg/dl
[2025-03-11 12:53] LABS: Prealbumin (Transthyretin) 10.7 mg/dl (17.6-36.0)
--- NOTE | 2025-03-11 13:02 | PTCARENOTE ---
[facility]; patient's belongings packed and awaiting transfer.
--- NOTE | 2025-03-13 10:27 | W.HF.CON ---
Heart Failure
- LV Function
Left ventricular function study result: LV Ejection fraction >/= 50%
Ejection Fraction Percentage: 50-55
- ARNI
Patient already on ARNI: No
Heart Failure ARNI Not Indicated: LV Ejection Fraction >/= 40%
- ACEI/ARB
Patient already on ACEI/ARB: Yes
- Beta Layton
Patient already on Evidence Based Beta Layton: No
Heart Failure Evidence Based Beta Layton Not Indicated: LV Ejection Fraction > 40%
- Mineralocorticord Receptor Antagonist
Patient already on MRA: No
Heart Failure MRA Not Indicated: LV Ejection Fraction > 40%
- SGLT-2 Inhibitor
Patient already on SGLT-2 Inhibitor: Yes
- Afib Anticoagulation
Patient already on Anticoagulation for Afib: Yes
- NYHA CHF Classification
NYHA CHF Classification Level: Class III - Symptoms w/ min exertion, interferes w/ nml daily activity
- ACC/AHA Stage
ACC/AHA Stage: Stage C: Symptomatic Heart Failure
== END 2025-03-11 13:18 | DRG 212 ==
LOC: CVICU 22:55
PROVIDERS: Anesthesiology; Clinical Nurse Specialist Acute Care; Internal Medicine; Internal Medicine Cardiovascular Disease; Internal Medicine Hematology & Oncology; Internal Medicine Infectious Disease; Nurse Practitioner; Physician Assistant; Physician Assistant Medical; Thoracic Surgery (Cardiothoracic Vascular Surgery); ADMITTING PHYSICIAN Internal Medicine; ATTENDING PHYSICIAN Thoracic Surgery (Cardiothoracic Vascular Surgery); CONSULT PHYSICIAN Surgery Vascular Surgery; EMERGENCY PHYSICIAN Emergency Medicine; FAMILY PHYSICIAN Family Medicine; OTHER PHYSICIAN Internal Medicine; OTHER PHYSICIAN Internal Medicine Hematology & Oncology; OTHER PHYSICIAN Physical Medicine & Rehabilitation; OTHER PHYSICIAN Student in an Organized Health Care Education/Training Program
PROC: B24BZZ4 Ultrasonography of Heart with Aorta, Transesophageal (ICD-10-PCS; 2025-02-20)
PROC: 30233N1 Transfusion of Nonautologous Red Blood Cells into Peripheral Vein, Percutaneous Approach (ICD-10-PCS; 2025-02-23)
PROC: 02L70CK Occlusion of Left Atrial Appendage with Extraluminal Device, Open Approach (ICD-10-PCS; 2025-02-25)
PROC: 30233K1 Transfusion of Nonautologous Frozen Plasma into Peripheral Vein, Percutaneous Approach (ICD-10-PCS; 2025-02-25)
PROC: 0BH17EZ Insertion of Endotracheal Airway into Trachea, Via Natural or Artificial Opening (ICD-10-PCS; 2025-02-25)
PROC: 30233R1 Transfusion of Nonautologous Platelets into Peripheral Vein, Percutaneous Approach (ICD-10-PCS; 2025-02-25)
PROC: 02UJ0JZ Supplement Tricuspid Valve with Synthetic Substitute, Open Approach (ICD-10-PCS; 2025-02-25)
PROC: 02RG08Z Replacement of Mitral Valve with Zooplastic Tissue, Open Approach (ICD-10-PCS; 2025-02-25)
PROC: 5A1221Z Performance of Cardiac Output, Continuous (ICD-10-PCS; 2025-02-25)
PROC: 5A1945Z Respiratory Ventilation, 24-96 Consecutive Hours (ICD-10-PCS; 2025-02-25)
PROC: 02RF08Z Replacement of Aortic Valve with Zooplastic Tissue, Open Approach (ICD-10-PCS; 2025-02-25)
PROC: 02HV33Z Insertion of Infusion Device into Superior Vena Cava, Percutaneous Approach (ICD-10-PCS; 2025-03-04)
DX: I33.0 Acute and subacute infective endocarditis (principal); I50.43 Acute on chronic combined systolic (congestive) and diastolic (congestive) heart failure; J96.01 Acute respiratory failure with hypoxia; J81.0 Acute pulmonary edema; I49.01 Ventricular fibrillation; I48.21 Permanent atrial fibrillation; R78.81 Bacteremia; D62 Acute posthemorrhagic anemia; N17.9 Acute kidney failure, unspecified; J98.11 Atelectasis; I5A Non-ischemic myocardial injury (non-traumatic); I42.8 Other cardiomyopathies; E87.1 Hypo-osmolality and hyponatremia; I11.0 Hypertensive heart disease with heart failure; I25.10 Atherosclerotic heart disease of native coronary artery without angina pectoris; E11.9 Type 2 diabetes mellitus without complications; I35.1 Nonrheumatic aortic (valve) insufficiency; I34.0 Nonrheumatic mitral (valve) insufficiency; I36.1 Nonrheumatic tricuspid (valve) insufficiency; G62.0 Drug-induced polyneuropathy; T45.1X5A Adverse effect of antineoplastic and immunosuppressive drugs, initial encounter; R00.1 Bradycardia, unspecified; R13.10 Dysphagia, unspecified; N99.0 Postprocedural (acute) (chronic) kidney failure; Y83.2 Surgical operation with anastomosis, bypass or graft as the cause of abnormal reaction of the patient, or of later complication, without mention of misadventure at the time of the procedure; D69.59 Other secondary thrombocytopenia; E86.1 Hypovolemia; F41.9 Anxiety disorder, unspecified; M10.9 Gout, unspecified; E78.5 Hyperlipidemia, unspecified; D63.8 Anemia in other chronic diseases classified elsewhere; I71.43 Infrarenal abdominal aortic aneurysm, without rupture; I73.9 Peripheral vascular disease, unspecified; K43.9 Ventral hernia without obstruction or gangrene; Z87.891 Personal history of nicotine dependence; Z11.52 Encounter for screening for COVID-19; Z79.01 Long term (current) use of anticoagulants; Z79.899 Other long term (current) drug therapy; Z85.21 Personal history of malignant neoplasm of larynx; Z95.5 Presence of coronary angioplasty implant and graft; Z92.3 Personal history of irradiation
CPT/HCPCS: 88305; 88311; 88312; 70355; 71045; 71046; 74018; 74174; 74230; 75574; 80048; 80053; 80061; 80202; 81003; 81015; 82040; 82248; 82330; 82550; 82565; 82570; 82607; 82728; 82746; 82805; 82810; 82947; 82962; 83036; 83540; 83550; 83615; 83735; 83880; 84100; 84132; 84134; 84156; 84302; 84466; 84478; 84484; 84520; 85014; 85018; 85025; 85027; 85045; 85049; 85610; 85730; 86850; 86900; 86901; 86920; 87040; 87070; 87075; 87102; 87176; 87205; 87811; 92526; 92610; 92611; 93005; 93306; 93312; 93320; 93325; 94002; 94003; 94640; 94644; 94645; 94760; 96374; 97110; 97112; 97116; 97162; 97164; 97167; 97168; 97530; 97535; 99285; J0878; J1325; P9016; P9047; P9059; P9073; Q9967

== ENCOUNTER → 2025-05-07 12:27 | Outpatient (REF) | payer MEDICARE, OTHER, SELFPAY | LOC: RCS 12:27 | PROVIDERS: ATTENDING PHYSICIAN Nurse Practitioner; FAMILY PHYSICIAN Family Medicine | DX: Z95.2 Presence of prosthetic heart valve (principal); Z98.890 Other specified postprocedural states | CPT/HCPCS: 93306 ==

== ENCOUNTER → 2025-08-05 11:14 | Outpatient (REF) | payer MEDICARE, OTHER, SELFPAY | LOC: RAD 11:14 | PROVIDERS: ATTENDING PHYSICIAN Surgery Vascular Surgery; FAMILY PHYSICIAN Family Medicine | DX: I71.43 Infrarenal abdominal aortic aneurysm, without rupture (principal) | CPT/HCPCS: 71275; 74174; Q9967 ==

== ENCOUNTER 2025-09-02 12:09 | Emergency (ER) | payer MEDICARE, OTHER, SELFPAY ==
[2025-09-02 12:15] VITALS: BP 143/91
[2025-09-02] MEDS: OMNIPAQUE 50 ML PO (13:08)
[2025-09-02] MEDS: NSS 1000 IV (13:08)
[2025-09-02 13:10] VITALS: BMI 23.9
[2025-09-02 13:22] LABS: Hematocrit 31.1 % (39.0-52.0); Hemoglobin 10.1 g/dL (13.0-18.0); Mean Corp Hgb Conc. 32.5 g/dL (33.0-37.0); Mean Corpuscular Volume 99.7 fL (80.0-94.0); Nucleated Red Blood Cells % 0 % (-); Platelet Count 85 10^3/uL (130-400); Red Cell Dist. Width 13.9 % (11.5-14.5)
[2025-09-02 13:29] LABS: ALT (SGPT) 13 U/L (0-50); AST (SGOT) 17 U/L (17-59); Albumin 3.6 g/dl (3.5-5.0); Alkaline Phosphatase 101 U/L (38-126); Blood Urea Nitrogen 17 mg/dl (9-20); Calcium 8.9 mg/dl (8.4-10.2); Carbon Dioxide 30 mmol/L (22-30); Chloride 102 mmol/L (98-107); Estimated Creatinine Clearance 69 ml/min; Glucose 112 mg/dl (70-99); Potassium 3.5 mmol/L (3.5-5.1); Sodium 138 mmol/L (135-145); Total Protein 5.6 g/dl (6.3-8.2); eGFR > 60.00
[2025-09-02 13:34] LABS: Lipase 15 U/L (23-300)
[2025-09-02 14:00] VITALS: BP 125/77
--- NOTE | 2025-09-02 14:07 | ED.GENMED ---
History of Present Illness
General
Chief Complaint: Abdominal Symptoms
Source: patient
Exam Limitations: none
Time Seen by Provider: 09/02/25 12:19
Nursing documentation reviewed up to this point in time: agreed with
History of Present Illness
History of Present Illness:
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
rehab twice a week, presents for stomach cramps and diarrhea for the last 10 days. Initially there was some blood but he has noted no blood in the past 4 days. He denies fever but has felt chilled. He denies nausea or vomiting. He does say that
cramps come before expelling gas and diarrhea. Pain now 4/10, it does get to 9/10 with cramping. He states the liquid diarrhea seems to begin 'thicker.' He states he feels weak and dehydrated.
Past History
Past History
ED Past Medical History: Arrthythmia, CAD, NIDDM and Other (AAA, anemia, cancer of larynx)
ED Past Surgical History: Cardiac (Cardiac stent) and Other (Aorta repair)
Social History
Tobacco: Former smoker
Alcohol: None
Drug: None
Personal:
Living: with family
Review of Systems
Review of Systems
Allergies reviewed?: Yes
All Other Systems: ROS reviewed and negative except as documented in HPI and ROS
Phy Exam
Physical Exam
Physical Exam:
GENERAL: No acute distress. A&Ox3.
CONSTITUTIONAL: Afebrile.
EYES: clear, conjunctivae normal
ENMT: Dry mucus membranes, Pharynx nl
RESPIRATORY: Regular respirations, nonlabored, lungs clear.
CARDIOVASCULAR: Regular rate and rhythm, no murmurs, no rubs.
GI: Soft, nontender, normal BS
MUSCULOSKELETAL: Moves with ease. Well perfused.
SKIN: Warm, dry, pink
PSYCH: Normal mood and affect. Well kept, interactive and appropriate
NEUROLOGIC: Awake, alert and oriented. No focal neurological deficits
Course
Orders/Labs/Results
Orders:
Orders
09/02/25 12:35
Iohexol [Omnipaque] See Protocol PO NOW STA
09/02/25 12:36
CT Abd/pel W Iv And Oral Contr Urgent
Comment:
Reason For Exam: diarrhea x10 days, abd cramps
09/02/25 12:39
0.9% Sodium Chloride 1000 ml [Nss] 1,000 ml IV BOLUS
09/02/25 13:00
Complete Blood Count/With Diff Urgent
Comprehensive Metabolic Panel Urgent
Lipase Urgent
Abnormal Lab Results
09/02/25
13:00
RBC 3.12 L 10^6/uL
(4.70-6.10)
Hgb 10.1 L g/dL
(13.0-18.0)
Hct 31.1 L %
(39.0-52.0)
MCV 99.7 H fL
(80.0-94.0)
MCH 32.4 H pg
(27.0-31.0)
MCHC 32.5 L g/dL
(33.0-37.0)
Plt Count 85 L 10^3/uL
(130-400)
Absolute Lymphs (auto) 0.8 L 10^3/uL
(1.2-3.4)
Absolute Monos (auto) 0.8 H 10^3/uL
(0.1-0.6)
Lymphocytes % 14.3 L %
(20.5-51.1)
Monocytes % 14.8 H %
(1.7-9.3)
Glucose 112 H mg/dl
(70-99)
Total Protein 5.6 L g/dl
(6.3-8.2)
Lipase 15 L U/L
(23-300)
09/02/25 13:00
09/02/25 13:00
Vital Signs
Initial and Last Documented VS:
Initial Vital Signs
Temp Pulse Resp BP Pulse Ox
98.0 F 92 20 143/91 99
09/02/25 12:15 09/02/25 12:15 09/02/25 12:15 09/02/25 12:15 09/02/25 12:15
Last Documented Vital Signs
Temp Pulse Resp BP Pulse Ox
98.0 F 92 20 113/69 100
09/02/25 12:15 09/02/25 12:15 09/02/25 12:15 09/02/25 16:00 09/02/25 16:00
MDM/Problems Addressed
MDM/Problems Addressed:
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
rehab twice a week, presents for stomach cramps and diarrhea for the last 10 days. Initially there was some blood but he has noted no blood in the past 4 days. He denies fever but has felt chilled. He denies nausea or vomiting. He does say that
cramps come before expelling gas and diarrhea. Pain now 4/10, it does get to 9/10 with cramping. He states the liquid diarrhea seems to begin 'thicker.' He states he feels weak and dehydrated.
Afebrile, NAD
1:30 PM:
CBC with no clinically significant abnormality, mild thrombocytopenia which he has had in the past
CMP: Normal
Lipase normal
3:00 PM: Patient is prepping for CT scan with p.o. and IV contrast, has had no diarrhea. Is resting comfortably.
6:30 PM:
CT abdomen pelvis radiology report reviewed:IMPRESSION:
1. Interval increase in size of the enhancing solid and cystic collection adjacent to the excluded aneurysm sac which may again represent chronic contained rupture of the excluded aneurysm sac, versus abscess.
2. Otherwise no convincing acute process in the abdomen or pelvis.
Pt just had Chest/Abd/pelvis CTA one month ago and then saw Dr. Alfred last week.
Consulted vascular surgeon Dr. Jacobson who reviewed patient's records and states patient can follow-up with Dr. Alfred in the clinic.
Patient has had no diarrhea since arrival, he is tolerating p.o. fluids and is stable for discharge.
*Pulse Oximetry
SaO2: 99
Oxygen Mode of Delivery: Room air
Patient hypoxic: no
*Critical Care Note
Total Time (30-74mins, 75-104mins- exclusive of procedures): Not Applicable
ED Attending Note
-
Portions of this chart may have been created with voice recognition software.� Occasional wrong word or��sound alike� substitutions may have occurred due to the inherent limitations of voice recognition software.
Discharge Plan
Departure
Patient Disposition: Home (Routine Discharge)
Date of Disposition: 09/02/25
Time of Disposition: 18:39
Patient with high blood pressure during this ER visit?: No
Condition: Good
Discharge Problem:
Diarrhea, Abdominal pain
Instructions: Diarrhea in teens and adults, Abdominal Pain
Prescriptions:
No Action
alprazolam 0.5 mg Tablet
0.5 mg PO HSPRN PRN (Reason: anxiety)
lisinopril 10 mg Tablet
10 mg PO DAILY
glycopyrrolate 1 mg Tablet
1 mg PO BID
atorvastatin 40 mg Tablet
40 mg PO HS
cyanocobalamin (vitamin B-12) 1,000 mcg Tablet
1,000 mcg PO DAILY
benzonatate 100 mg Capsule
100 mg PO TIDPRN PRN (Reason: cough)
ferrous sulfate 325 mg (65 mg iron) Tablet
325 mg PO DAILY
vitamin B complex Tablet
1 tab PO DAILY
cholecalciferol (vitamin D3) [Vitamin D3] 50 mcg (2,000 unit) Tablet
50 mcg PO DAILY
bumetanide 2 mg Tablet
2 mg PO DAILY Qty: 0 0RF
Chloraseptic Sore Throat 6-10 mg Lozenge
1 patel PO Q4HPRN PRN (Reason: sore throat) Qty: 0 0RF
dapagliflozin propanediol 10 mg Tablet
10 mg PO DAILY Qty: 0 0RF
VANCOMYCIN Pharmacy to Dose [VANCOCIN Pharmacy to Dose] 1 EACH
Pharmacy To Prepare [Call Pharmacy To Prepare] 0 ML
As Directed mls/hr IV PER PROTOCOL
Reason for use: endocarditis
Ordered By: Ruby Cottrell CRNP
Last Taken: Unknown
Protocol: None
Protocol Text:
DOSING BY LEVEL
Pharmacy will enter one time orders when appropriate.
lidocaine 4 % Adhesive Patch,Medicated
1 patch topical DAILY 30 Days Qty: 30 0RF
melatonin 3 mg Tablet
3 mg PO HS 30 Days Qty: 30 0RF
alprazolam 0.5 mg Tablet
0.5 mg PO TIDPRN PRN (Reason: anxiety) 3 Days Qty: 9 0RF
docusate sodium 100 mg Capsule
100 mg PO BID 30 Days Qty: 60 0RF
omeprazole 20 mg tablet,delayed release (DR/EC)
40 mg PO DAILY 30 Days Qty: 60 0RF
levothyroxine 50 mcg Tablet
50 mcg PO DAILY @ 0600 30 Days Qty: 30 0RF
Vancomycin [Vancocin] 1500 MG
0.9% Sodium Chloride 500 ml [Nss] 500 ML
353.333 mls/hr IV Q48H
Reason for use: endocarditis
Ordered By: Mae Jaquez PA-C
Last Taken: Unknown
Protocol: None
Protocol Text:
DOSING PER PHARMACY
Please contact pharmacy with any questions.
aspirin 81 mg Tablet,Chewable
81 mg PO DAILY Qty: 0 0RF
Eliquis 5 mg Tablet
5 mg PO BID Qty: 0 0RF
bumetanide 2 mg Tablet
2 mg PO DAILY 30 Days Qty: 30 0RF
dapagliflozin propanediol 10 mg Tablet
10 mg PO DAILY 30 Days Qty: 30 0RF
Eliquis 5 mg Tablet
5 mg PO BID 30 Days Qty: 60 0RF
Referrals:
Josefina Nguyen MD [Family Provider, Family Practice] - As needed
Activity Restrictions/Additional Instructions:
As we discussed, if you continue to have diarrhea, bring a sample to the laboratory in a container provided with the lab slip provided.
Drink plenty of fluids to stay hydrated.
Interventions
Interventions:
*Risk Screen - Suicide Last Done: 09/02/25 13:30
*General Assessment Last Done: 09/02/25 12:15
*Neglect/Abuse Screening Last Done: 09/02/25 13:30
*ED COVID-19 Vaccine History Last Done: 09/02/25 13:30
*ED Influenza Vaccine History Last Done: 09/02/25 13:30
*Nursing Disposition Last Done: 09/02/25 18:56
CR-Gmdbtz-Ryuidvrpqj Assessment Last Done: 09/02/25 13:30
Discharge Date and Time
Discharge Date/Time: 09/02/25 18:56
Print Language: ZAMBIAN
[2025-09-02 15:00] VITALS: BP 136/72
[2025-09-02 16:00] VITALS: BP 113/69
== END 2025-09-02 18:56 | disposition home or self-care (01) ==
LOC: EMR 12:09
PROVIDERS: Registered Nurse; EMERGENCY PHYSICIAN Emergency Medicine; FAMILY PHYSICIAN Family Medicine
DX: R19.7 Diarrhea, unspecified (principal); R10.9 Unspecified abdominal pain; E11.9 Type 2 diabetes mellitus without complications; I25.10 Atherosclerotic heart disease of native coronary artery without angina pectoris; Z85.21 Personal history of malignant neoplasm of larynx; Z86.79 Personal history of other diseases of the circulatory system; Z87.891 Personal history of nicotine dependence; Z92.21 Personal history of antineoplastic chemotherapy; Z95.2 Presence of prosthetic heart valve; Z95.5 Presence of coronary angioplasty implant and graft; Z92.3 Personal history of irradiation
CPT/HCPCS: 96360; 99284; 74177; 80053; 83690; 85025; Q9967

== ENCOUNTER 2025-10-11 15:57 | Inpatient (IN) | payer MEDICARE, OTHER, SELFPAY ==
[2025-10-11] VITALS (13 sets, daily range): BP systolic 119–179; BP diastolic 68–97
[2025-10-11 09:45] LABS: Hematocrit 30.9 % (39.0-52.0); Hemoglobin 10.3 g/dL (13.0-18.0); Mean Corp Hgb Conc. 33.3 g/dL (33.0-37.0); Mean Corpuscular Volume 100.3 fL (80.0-94.0); Nucleated Red Blood Cells % 0 % (-); Platelet Count 168 10^3/uL (130-400); Red Cell Dist. Width 14.3 % (11.5-14.5)
[2025-10-11 10:00] LABS: Urine Character Clear (Clear)
[2025-10-11 10:00] LABS: ALT (SGPT) 12 U/L (0-50); AST (SGOT) 17 U/L (17-59); Albumin 4.1 g/dl (3.5-5.0); Alkaline Phosphatase 104 U/L (38-126); Blood Urea Nitrogen 17 mg/dl (9-20); Calcium 9.6 mg/dl (8.4-10.2); Carbon Dioxide 33 mmol/L (22-30); Chloride 96 mmol/L (98-107); Glucose 132 mg/dl (70-99); Lipase 26 U/L (23-300); Potassium 3.4 mmol/L (3.5-5.1); Sodium 138 mmol/L (135-145); Total Protein 6.6 g/dl (6.3-8.2); eGFR > 60.00
[2025-10-11 10:07] LABS: Urine Squamous Cell 0-2 /LPF (Few)
[2025-10-11 10:08] LABS: Urine Epithelial Cast 0-2 /LPF; Urine Urothelial Cell 0-2 /LPF (FEW)
[2025-10-11 10:09] LABS: Urine Red Blood Cell 0-2 /HPF (0-2)
--- NOTE | 2025-10-11 14:28 | ED.GENMED ---
History of Present Illness
General
Chief Complaint: Abdominal Pain
Source: patient
Exam Limitations: none
Time Seen by Provider: 10/11/25 09:12
History of Present Illness
History of Present Illness:
Note:
CHIEF COMPLAINT(S)
Abdominal pain and loss of appetite.
HISTORY OF PRESENT ILLNESS
The patient is a 70-year-old male with a history of recent AAA repair and triple valve replacement, presenting with abdominal pain and loss of appetite. Symptoms started almost a week ago, initially with no bowel movements and subsequent development
of back pain. There have been no fevers but the patient feels chills. The patient denies any urinary symptoms such as dysuria, frequency, or hematuria. The back pain led the patient to seek emergency care today. Patient states he initially thought
his back pain was musculoskeletal but started to have lower abdominal discomfort. He was told by his vascular surgeon that if he were to have back or abdominal pain he should come get checked out
PAST MEDICAL AND SURGICAL HISTORY
1. Abdominal Aortic Aneurysm (AAA) repair
2. Triple valve replacement, complicated by endocarditis with aortic valve involvement.
3. History of laryngeal cancer in 2016.
4. Smoker, quit .
5. Previous feeding tube insertion due to complications, including leaks and re-insertion.
MEDICATIONS
- Rivaroxaban
- Levaquin
PHYSICAL EXAM
General: Alert, no acute distress.
Skin: Warm, dry.
Head: Normocephalic, atraumatic.
Neck: Supple, trachea midline.
Eye, Ears, Nose, Mouth, and Throat: Oral mucosa moist.
Cardiovascular: Irregularly irregular rhythm.
Respiratory: Lungs clear to auscultation, respirations are non-labored.
Gastrointestinal: Abdomen tender, particularly in the lower regions. Mild. No rebound. No guarding.
Back: Normal range of motion, normal alignment.
Musculoskeletal: Normal range of motion, normal strength.
Neurological: Alert and oriented to person, place, time, and situation. No focal motor deficits observed.
Psychiatric: Cooperative, appropriate mood and affect.
PROBLEM LIST
Acute:
1. Abdominal pain
2. Infection with possible source
3. Tubes dislodgement and leaks
Chronic:
1. History of AAA repair
2. History of endocarditis and triple valve replacement
3. Former smoker and history of laryngeal cancer
PLAN
- Perform abdominal CT scan to assess aortic region and possible infection source.
- Acquire laboratory tests for further evaluation.
- Evaluate current medications, particularly antibiotics, to determine appropriateness and duration of use.
- Consider keeping the patient hospitalized for further monitoring and diagnostic evaluation.
- Administer fluids and monitor blood pressure closely.
- Order chest X-ray to assess for any respiratory complications, given the prior shortness of breath.
DIFFERENTIAL DIAGNOSIS
The Differential Diagnosis includes, in no particular order and is not limited to:
1. Abdominal Aortic Aneurysm complications
2. Infective endocarditis
3. Cholecystitis or biliary tract infection
4. Gastritis or peptic ulcer disease
5. Intestinal obstruction
6. Pancreatitis
7. Urinary tract infection
8. Lower respiratory infection or pneumonia
9. Diverticulitis
10. Mesenteric ischemia
CARE-UPDATE
10/11/25 - 12:35
CT scan shows worsening collections in the parahortic region. Dr. Peralta from vascular surgery will assess the CT and evaluate the patient. Patient remains hemodynamically stable and afebrile.
Disposition:
SUMMARY OF ENCOUNTER
The patient is a 70-year-old male presenting with abdominal pain and loss of appetite, following a history of abdominal aortic aneurysm (AAA) repair and triple valve replacement. He was evaluated in the emergency department and CT shows enlargement
of the para-aortic fluid collection. Differential considerations include endovascular leak versus infection versus other. The patients CBC showed a normal white blood cell count of 10.3, within baseline, and chemistry panels were largely
unremarkable. Urinalysis was grossly negative. Given the worsening of fluid collections and to rule out any infection or other complications, the patient will be admitted for further evaluation and intervention.
DISPOSITION
Admit.
ASSESSMENT
Enlargement of prairie aortic fluid collections post-AAA repair, requiring further investigation to rule out infection or complications.
MANAGEMENT OF THE PATIENTS CARE WAS DISCUSSED WITH
Dr. Bustamante from vascular surgery evaluated the CT scan and recommended admission for further evaluation and potential interventional radiology sampling of the fluid collections.
PLAN
The patient will be admitted for further monitoring and evaluation. An interventional radiology procedure to sample the prairie aortic fluid collections will likely be ordered to determine the etiology of these cystic lesions.
INDEPENDENT REVIEW OF LABS AND INTERPRETATION OF TESTS
My independent review of CBC shows a normal white blood cell count at 10.3, which aligns with the patient�s baseline. My independent review of basic metabolic panel is unremarkable. My independent review of urinalysis is grossly negative.
MEDICAL DECISION MAKING
- Number and Complexity of Problems Addressed: Chronic conditions affecting care include a history of AAA repair, history of endocarditis and triple valve replacement. The differential diagnosis includes abdominal aortic aneurysm complications,
infective endocarditis, intestinal obstruction, cholecystitis or biliary tract infection, urinary tract infection, lower respiratory infection or pneumonia, or mesenteric ischemia.
- Data:
Category 1:
Review of non-emergency department records and external pharmacy records.
Independently interpreted the recent CT scan.
Category 2:
Clinical information was provided by Dr. Bustamante, a vascular surgeon, who evaluated the CT scan and the patient.
Category 3:
Discussion of management with Dr. Bustamante, who is involved in evaluating and planning for interventional radiology sampling.
- Risk:
Management includes admission for further monitoring and diagnostic evaluation, with consideration for interventional radiology procedures to sample fluid collections.
DIAGNOSIS
Para-aortic fluid collections
Past History
Past History
ED Past Medical History: Arrthythmia, CAD, NIDDM and Other (AAA, anemia, cancer of larynx)
ED Past Surgical History: Cardiac (Cardiac stent) and Other (Aorta repair)
Social History
Tobacco: Former smoker
Alcohol: None
Drug: None
Personal:
Living: with family
Phy Exam
Physical Exam
Physical Exam:
.
Course
Orders/Labs/Results
Orders:
Orders
10/11/25 09:20
CT Abd/Pel (IV only)-[facility] only Urgent
Comment:
Reason For Exam: lower abdominal pain, back pain,h/o AAA
10/11/25 09:32
Complete Blood Count/With Diff Urgent
Comprehensive Metabolic Panel Urgent
Lipase Urgent
10/11/25 09:45
Urinalysis Reflex To Culture Urgent
Date Specimen was Collected: 10/11/25
Time Specimen was Collected: 09:37
Urine Microscopic Reflex Cult Urgent
Abnormal Lab Results
10/11/25 10/11/25
09:32 09:45
RBC 3.08 L 10^6/uL
(4.70-6.10)
Hgb 10.3 L g/dL
(13.0-18.0)
Hct 30.9 L %
(39.0-52.0)
MCV 100.3 H fL
(80.0-94.0)
MCH 33.4 H pg
(27.0-31.0)
Absolute Lymphs (auto) 0.7 L 10^3/uL
(1.2-3.4)
Absolute Monos (auto) 0.9 H 10^3/uL
(0.1-0.6)
Neutrophils % 79.9 H %
(42.2-75.2)
Lymphocytes % 8.1 L %
(20.5-51.1)
Monocytes % 10.9 H %
(1.7-9.3)
Potassium 3.4 L mmol/L
(3.5-5.1)
Chloride 96 L mmol/L
(98-107)
Carbon Dioxide 33 H mmol/L
(22-30)
Glucose 132 H mg/dl
(70-99)
Total Bilirubin 1.5 H mg/dl
(0.2-1.3)
Urine Bacteria (Reflex) Few A
(Negative)
Urine Glucose 4+ A
(Negative)
Urine Albumin (Reflex) 3+ A
(Neg - Trace)
10/11/25 09:32
10/11/25 09:32
Vital Signs
Initial and Last Documented VS:
Initial Vital Signs
Temp Pulse Resp BP Pulse Ox
97.8 F 96 16 172/97 100
10/11/25 09:03 10/11/25 09:03 10/11/25 09:03 10/11/25 09:03 10/11/25 09:03
Last Documented Vital Signs
Temp Pulse Resp BP Pulse Ox
97.9 F 81 17 170/87 100
10/11/25 14:00 10/11/25 13:08 10/11/25 12:01 10/11/25 13:08 10/11/25 14:07
*Pulse Oximetry
SaO2: 100
Oxygen Mode of Delivery: Room air
Patient hypoxic: no
*Critical Care Note
Total Time (30-74mins, 75-104mins- exclusive of procedures): Not Applicable
ED Attending Note
-
Portions of this chart may have been created with voice recognition software.� Occasional wrong word or��sound alike� substitutions may have occurred due to the inherent limitations of voice recognition software.
Discharge Plan
Departure
Patient Disposition: Admit
Date of Disposition: 10/11/25
Time of Disposition: 14:30
Admit to: Med/Surg
Presentation/result/management discussed w/ accepting MD/DO: Hospitalist
Discharge Problem:
Para-aortic fluid collection, Abdominal pain
Prescriptions:
No Action
alprazolam 0.5 mg Tablet
0.5 mg PO HS
glycopyrrolate 1 mg Tablet
1 mg PO BIDPRN PRN (Reason: runny nose)
atorvastatin 40 mg Tablet
40 mg PO HS
cyanocobalamin (vitamin B-12) 1,000 mcg Tablet
1,000 mcg PO DAILY
ferrous sulfate 325 mg (65 mg iron) Tablet
325 mg PO DAILY
cholecalciferol (vitamin D3) [Vitamin D3] 50 mcg (2,000 unit) Tablet
50 mcg PO DAILY
dapagliflozin propanediol 10 mg Tablet
10 mg PO DAILY Qty: 0 0RF
levofloxacin 750 mg Tablet
750 mg PO DAILY
metoprolol succinate 50 mg Capsule,Sprinkle,Er 24hr
50 mg PO DAILY
bumetanide 2 mg tablet
2 mg PO DAILY
bumetanide 2 mg tablet
1 mg PO DAILY@1600
sennosides [senna] 8.6 mg Tablet
8.6 mg PO DAILY
acetaminophen [Tylenol] 325 mg Tablet
650 mg PO Q6HPRN PRN (Reason: mild pain)
allopurinol 100 mg Tablet
100 mg PO DAILY
levothyroxine 50 mcg tablet
50 mcg PO DAILY
docusate sodium 100 mg capsule
100 mg PO BID
Eliquis 5 mg Tablet
5 mg PO BID 30 Days Qty: 60 0RF
Referrals:
Josefina Nguyen MD [Family Provider, Family Practice]
Interventions
Interventions:
*Risk Screen - Suicide Last Done: 10/11/25 09:03
*General Assessment Last Done: 10/11/25 09:24
*Neglect/Abuse Screening Last Done: 10/11/25 09:03
*ED- Fall Risk Assessment Last Done: 10/11/25 09:36
*ED COVID-19 Vaccine History Last Done: 10/11/25 09:43
*ED Influenza Vaccine History Last Done: 10/11/25 09:43
PC-Xkyjwe-Bkxcmqssbp Assessment Last Done: 10/11/25 10:00
Discharge Date and Time
Print Language: HUNGARIAN
--- NOTE | 2025-10-11 14:36 | CON.VAS ---
Consultation
Consultation Request
Date/Time Consultation Requested: 10/11/25
Date/Time Consultation Performed: 10/11/25
Requesting Provider: ER
Performing Provider: Robby
Reason for Consultation: AAA
Medical History
-
Chief Complaint: Back pains/abdominal discomfort.
History of Present Illness:
70-year-old male known well to the vascular service. History of EVAR (Tima) with [place] excluder. Subsequently had developed fluid around the endograft. There was some concern for chronic indolent infection. However patient had infective
endocarditis at the time. Underwent complex cardiac surgery/valvular repair. Has recovered from that. Has been following with infectious disease with prolonged antibiotics and vascular surgery (Tima) in the office. Tima had discussed with
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 Patient had elected not to undergo any surgery at the time. He was instructed to come to the emergency room if he had any abdominal or back pain.
Patient notes that about a week ago he was doing some work and rotated his hip and noted back and hip pain. That has persisted and that sort of what prompted his coming to the ER today. He also does note a constant chronic vague dull achy low back
pain/discomfort. He notes that it feels like he has to move his bowels. No other complaints. Denies fevers/chills. No overall fatigue or tiredness. He actually feels much better following the heart valve surgery.
Past Medical History
Past Medical History: Arrhythmias, Cancer, NIDDM, Valvular Disease and Other (infective endocarditis)
Social History
Tobacco: Former Smoker
Allergies / Home Medications
Allergy/AdvReac Type Severity Reaction Status Date / Time
No Known Allergies Allergy Verified 10/11/25 09:57
�Medication �Instructions �Recorded �Confirmed �Type
alprazolam 0.5 mg tablet 0.5 mg PO HS Mental Health/Anxiety 11/26/23 10/11/25 History
atorvastatin 40 mg tablet 40 mg PO HS cholesterol 02/18/25 10/11/25 History
cholecalciferol (vitamin D3) 50 50 mcg PO DAILY Supplement 02/18/25 10/11/25 History
mcg (2,000 unit) tablet (Vitamin
D3)
cyanocobalamin (vitamin B-12) 1,000 mcg PO DAILY Supplement 02/18/25 10/11/25 History
1,000 mcg tablet
ferrous sulfate 325 mg (65 mg 325 mg PO DAILY Supplement 02/18/25 10/11/25 History
iron) tablet
glycopyrrolate 1 mg tablet 1 mg PO BIDPRN PRN runny nose 02/18/25 10/11/25 History
dapagliflozin propanediol 10 mg 10 mg PO DAILY Heart Failure #0 03/11/25 10/11/25 Rx
tablet tabs
apixaban 5 mg tablet (Eliquis) 5 mg PO BID A-fib 30 days #60 tabs 03/23/25 10/11/25 Rx
acetaminophen 325 mg tablet 650 mg PO Q6HPRN PRN mild pain 10/11/25 10/11/25 History
(Tylenol)
allopurinol 100 mg tablet 100 mg PO DAILY Gout 10/11/25 10/11/25 History
bumetanide 2 mg tablet 1 mg PO DAILY@1600 Fluid 10/11/25 10/11/25 History
Retention/Swelling
bumetanide 2 mg tablet 2 mg PO DAILY Fluid 10/11/25 10/11/25 History
retention/Swelling
docusate sodium 100 mg capsule 100 mg PO BID Constipation 10/11/25 10/11/25 History
levofloxacin 750 mg tablet 750 mg PO DAILY correction 10/11/25 10/11/25 History
levothyroxine 50 mcg tablet 50 mcg PO DAILY Thyroid 10/11/25 10/11/25 History
metoprolol succinate 50 mg capsule 50 mg PO DAILY Heart 10/11/25 10/11/25 History
sprinkle, ext. release 24 hr Disease/Condition
sennosides 8.6 mg tablet (senna) 8.6 mg PO DAILY Constipation 10/11/25 10/11/25 History
Physical Exam
Vital Signs
Temp Pulse Resp BP Pulse Ox
97.9 F 81 17 170/87 100
10/11/25 14:00 10/11/25 13:08 10/11/25 12:01 10/11/25 13:08 10/11/25 14:33
Lab Results
10/11/25 09:32
10/11/25 09:32
Physical Exam
General: Well Developed, Well Nourished, No Apparent Distress and Comfortable
HEENT: Normocephalic
Respiratory: Non Labored Respirations
GI: Soft and Non Tender (Diffusely nontender. When I palpate over the pulsation of the aorta, he does not really have any tenderness but he does note that it makes him feel like he has to move his bowels.)
Musculoskeletal: No Clubbing and No Edema
Skin: Warm
Neuro: Awake, Alert and Oriented
Psych: Calm
Assessment / Plan
-
AAA s/p EVAR, fluid collections nancy-aortic.
-Increased overall fluid collections compared to prior scans. See my CAT scan interpretation as noted above. A portion of it appears homogenous with the iliopsoas muscle on the left posterior side. However it wraps around anteriorly now as well.
These appear somewhat septated or lobulated. Does not appear to be a typical abscess pocket. I do not see any fat stranding. Slightly atypical for a appearance of aortic infection or periaortic infection. In addition he has no white blood cell
count, no fatigue. No fevers. Nothing to suggest that these are infected abscesses for sure. I discussed with the patient and his that if these are indeed infectious (prior I had felt they were when I had seen him in February of this year prior
to his valvular surgery), that the treatment would most definitively be graft excision with either extra-anatomic bypass or in situ repair with rifampin soaked graft or alternatively homograft. Discussed the weight of the surgeries. Given his
overall medical status and risk factors, this would certainly be no light undertaking. In addition he has had prior abdominal surgery which may make a trans abdominal/peritoneal approach more challenging. Retroperitoneal approach may limit distal
iliac revascularization. Regardless given the lack of other symptoms of infection or signs of infection, and the slightly atypical appearance on CT scan imaging, I would favor that we sample this fluid to see if it is indeed infectious. Again it
has this odd lobular/cystic appearance to it and cannot say that these are atypical cysts, or this stems from a psoas hematoma, or that this is some sort of mass. Recommend admission to the hospital. Infectious disease consult again. Consult IR
for possible sampling of the fluid to see if we can get any yield or determination as to if this is truly infectious and if so speciation. And then we can plan graft explant and appropriate procedure if it is indeed infected. Discussed plan with
patient and his , and with ER physician.
Data Reviewed
-
CT Scan: Image Personally Visualized and interpreted (Reviewed CT scan images from today. I compared to prior images from 09/02/2025. Endograft does not appear to have migrated. There appears to be a proximal seal. There does not appear to be
any definitive type Ia or type Ib endoleak. The aneurysm sac itself measures 6.2 or 6.3 cm in AP dimension)
Labs: Labs Reviewed by me
--- NOTE | 2025-10-11 15:47 | HPS.HSE ---
Family Physician
-
Family Physician: Josefina Nguyen
Chief Complaint
-
Abdominal pain
History of Present Illness
Patient is 70 years old male with multiple comorbidities some of which include peripheral vascular disease, head and neck cancer, gout, atrial fibrillation, hyperlipidemia, CHF, infective endocarditis, bioprosthetic cardiac valves, hypothyroidism,
came into the hospital with abdominal pain. Patient was raking some leaves couple weeks ago and since then has had some back pain that waxes in intensity but over the last 3 to 4 days he has been complaining of abdominal pain, lower abdomen,
moderate intensity about 5 out of 10, radiated to his back. Denies any fevers or chills, denies nausea or vomiting. Denies dysuria urgency or frequency. Patient had a bowel movement a couple days ago just small amount but no melena or
hematochezia. Patient has been on suppressive antibiotic with Levaquin since the summer and he took it this morning. Patient also is on anticoagulation with Eliquis and he also took it this morning. He denies any chest pain or shortness of
breath. He has been instructed on when he has abdominal pain to come to the ER and he did. In the ER he had a CT scan of the abdomen that shows some fluid collections around the aorta and also aortobiiliac endograft present. Vascular surgery
consulted in the ED. He was referred to hospitalist service for further evaluation.
Medical History
Past Medical History
Past Medical History: Reports Other
Additional Past Medical History:
CHF
Permanent atrial fibrillation
AAA
CAD status post stenting
Hyperlipidemia
Gout
Mitral regurgitation
History of laryngeal cancer
Past Surgical History: Reports Other (EVAR 11/2023 )
Social History
Tobacco: Non-smoker
Alcohol: None
Drug: None
Personal:
Living: With Family
Employment: Retired
Family History
Family History: Not pertinent
Allergies / Home Medications
Allergies reflects when Allergies were last updated in [facility].
Home Medications with original date entered in [facility]
Allergy/Medication List:
Allergies
Allergy/AdvReac Type Severity Reaction Status Date / Time
No Known Allergies Allergy Verified 10/11/25 09:57
Home Medications
alprazolam 0.5 mg tablet 0.5 mg PO HS Mental Health/Anxiety 11/26/23
atorvastatin 40 mg tablet 40 mg PO HS cholesterol 02/18/25
cholecalciferol (vitamin D3) 50 mcg (2,000 unit) tablet (Vitamin D3) 50 mcg PO DAILY Supplement 02/18/25
cyanocobalamin (vitamin B-12) 1,000 mcg tablet 1,000 mcg PO DAILY Supplement 02/18/25
ferrous sulfate 325 mg (65 mg iron) tablet 325 mg PO DAILY Supplement 02/18/25
glycopyrrolate 1 mg tablet 1 mg PO BIDPRN PRN runny nose 02/18/25
dapagliflozin propanediol 10 mg tablet 10 mg PO DAILY Heart Failure #0 tabs 03/11/25
apixaban 5 mg tablet (Eliquis) 5 mg PO BID A-fib 30 days #60 tabs 03/23/25
acetaminophen 325 mg tablet (Tylenol) 650 mg PO Q6HPRN PRN mild pain 10/11/25
allopurinol 100 mg tablet 100 mg PO DAILY Gout 10/11/25
bumetanide 2 mg tablet 1 mg PO DAILY@1600 Fluid Retention/Swelling 10/11/25
bumetanide 2 mg tablet 2 mg PO DAILY Fluid retention/Swelling 10/11/25
docusate sodium 100 mg capsule 100 mg PO BID Constipation 10/11/25
levofloxacin 750 mg tablet 750 mg PO DAILY longterm 10/11/25
levothyroxine 50 mcg tablet 50 mcg PO DAILY Thyroid 10/11/25
metoprolol succinate 50 mg capsule sprinkle, ext. release 24 hr 50 mg PO DAILY Heart Disease/Condition 10/11/25
sennosides 8.6 mg tablet (senna) 8.6 mg PO DAILY Constipation 10/11/25
Review of Systems
-
A 12 point ROS was completed and negative except as noted: Yes
Physical Exam
Vital Signs
Vital Signs
Temp Pulse Resp BP Pulse Ox
97.9 F 81 17 170/87 100
10/11/25 14:00 10/11/25 13:08 10/11/25 12:01 10/11/25 13:08 10/11/25 14:33
Physical exam:
General: Acutely ill
HEENT: Normocephalic, Atraumatic and Moist Mucous Membranes
Respiratory: Clear to Auscultation; Negative Wheezes, Rales or Rhonchi
Cardiac: Regular Rhythm and S1/S2
GI: Soft, Tender in both lower quadrant area and Nondistended
Musculoskeletal: No Clubbing, No Cyanosis and No Edema
Neuro: Awake, Alert and Oriented, no neurological deficit
Psych: Calm
Physical Exam
General: Other
Laboratory Results
-
10/11/25 09:32
10/11/25 09:32
Laboratory Results
Total Bilirubin 1.5 mg/dl (0.2-1.3) H 10/11/25 09:32
AST 17 U/L (17-59) 10/11/25 09:32
ALT 12 U/L (0-50) 10/11/25 09:32
Alkaline Phosphatase 104 U/L (38-126) 10/11/25 09:32
Lipase 26 U/L (23-300) 10/11/25 09:32
Data Reviewed
-
CT Scan: Image Personally Visualized and interpreted
Lab Data: Labs Reviewed by me
Impression/Plan
-
IMPRESSION:
Patient is 70 years old male with multiple comorbidities presented to the hospital with abdominal pain and found to have abdominal fluid collection concerning for infected aortic infection or periaortic infection. He is at high risk of increased
morbidity and mortality therefore he will need to be evaluated and monitored and treated accordingly in the hospital.
PLAN:
Abdominal pain associated with intra-abdominal fluid collection:
Concerns for periaortic infection
No evidence of sepsis but at risk of such. Hemodynamically stable.
Continue his oral suppressive antibiotics with Levaquin but hold on further antibiotics and plan for drainage
IR consult-discussed with IR for possible drainage of fluid tomorrow
ID consult-discussed with ID for further evaluation tomorrow as well.
Vascular surgery already consulted in the ED and appreciated input
Pain control as needed with Tylenol for mild pain, oxycodone for moderate pain, and morphine for severe pain.
Continue bowel regimen
Paroxysmal A-fib:
Continue rate control, metoprolol succinate 50 mg p.o. daily
Continue anticoagulation, Eliquis 5 mg p.o. twice a day
Cardiac monitoring
Chronic HFrEF:
Continue oral diuretics, Bumex 2 mg p.o. daily in the morning and 1 mg in the afternoon.
Monitor daily weights and ins and out
Monitor renal function and electrolytes closely
Continue GDMT regimen including beta-blockers, SGL 2 inhibitors for now. 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 Martinez outpatient).
CAD:
Continue anti-ischemic regimen
Chest pain-free
Hypertension:
Continue current antihypertensives
Hyperlipidemia:
Continue home statin
Anxiety:
Continue benzodiazepines
Gout:
Continue allopurinol
DVT prophylaxis:
Eliquis
CODE STATUS:
Full code
Time spent 75 minutes
[2025-10-11] MEDS: KCL 40 MEQ PO (16:44)
[2025-10-11] MEDS: ROXICODONE 5 MG PO ×2 (17:16→21:16)
[2025-10-11] MEDS: TRANDATE 10 MG IV (17:56)
[2025-10-11] MEDS: MYLICON 80 MG PO (17:58)
[2025-10-11] MEDS: BUMEX 1 MG PO (17:58)
--- NOTE | 2025-10-11 18:24 | PTCARENOTE ---
Patient admitted into room 2133 from ED. Patient AAOX3, ambulatory in room independently. Afib on monitor, BP on admin 172/86 taken by tech, manual taken by this RN 162/92. Patient c/o lower back pain x1 week after hurting back doing yard work,
denies abd pain at this time but c/o bloating, abd tender throughout, +bowels, last BM 2 days ago per patient. Bowel regimen in place. Patient medicated with PRN 5 mg oxy for 7/10 lower back pain and given 1mg PO Bumex as scheduled - see MAR. MD
made aware of above, one times orders for 10mg labetalol and PO simethicone placed by MD - see MAR.
Patient oriented to room and call shaw, ambulatory in room, gait steady. IRAD consult in place for abscess drainage in AM - patient aware.
[2025-10-11] MEDS: SENOKOT-S 1 TABLET PO (20:09)
[2025-10-11] MEDS: ELIQUIS 5 MG PO (20:09)
[2025-10-11] MEDS: LIPITOR 40 MG PO (21:14)
[2025-10-11] MEDS: XANAX 0.5 MG PO (21:15)
[2025-10-12 03:41] VITALS: BP 135/68
[2025-10-12] MEDS: SYNTHROID 50 MCG PO (05:37)
[2025-10-12] MEDS: ROXICODONE 5 MG PO ×4 (05:42→20:38)
[2025-10-12 06:08] LABS: Hematocrit 27.2 % (39.0-52.0); Hemoglobin 9.0 g/dL (13.0-18.0); Mean Corp Hgb Conc. 33.1 g/dL (33.0-37.0); Mean Corpuscular Volume 98.2 fL (80.0-94.0); Nucleated Red Blood Cells % 0 % (-); Platelet Count 146 10^3/uL (130-400); Red Cell Dist. Width 14.4 % (11.5-14.5)
[2025-10-12 06:30] LABS: Blood Urea Nitrogen 18 mg/dl (9-20); Calcium 9.1 mg/dl (8.4-10.2); Carbon Dioxide 33 mmol/L (22-30); Chloride 99 mmol/L (98-107); Glucose 111 mg/dl (70-99); Potassium 4.0 mmol/L (3.5-5.1); Sodium 136 mmol/L (135-145); eGFR > 60.00
[2025-10-12 07:40] VITALS: BP 136/71
[2025-10-12] MEDS: TOPROL XL 50 MG PO (08:52)
[2025-10-12] MEDS: ZYLOPRIM 100 MG PO (08:52)
[2025-10-12] MEDS: FEOSOL 325 MG PO (08:52)
[2025-10-12] MEDS: BUMEX 2 MG PO (08:52)
[2025-10-12] MEDS: LEVAQUIN 750 MG PO (08:52)
[2025-10-12] MEDS: FARXIGA 10 MG PO (08:52)
[2025-10-12] MEDS: MIRALAX 17 GRAMS PO ×2 (08:57→16:06)
[2025-10-12] MEDS: ELIQUIS PO (09:06)
[2025-10-12] MEDS: SENOKOT-S PO (09:08)
--- NOTE | 2025-10-12 09:21 | W.PN.HOSP.TC ---
Today's Communication/Plan
-
.
Assessment / Plan
Assessment / Plan
Physical exam:
General: not in distress
HEENT: Normocephalic, Atraumatic and Moist Mucous Membranes
Respiratory: Clear to Auscultation; Negative Wheezes, Rales or Rhonchi
Cardiac: S1/S2
GI: Soft, Tender in both lower quadrant area and Nondistended
Musculoskeletal: No Clubbing, No Cyanosis and No Edema
Neuro: Awake, Alert and Oriented, no neurological deficit
Psych: Calm
70 years old male with multiple comorbidities presented to the hospital with abdominal pain and found to have abdominal fluid collection concerning for infected aortic infection or periaortic infection. He is at high risk of increased morbidity and
mortality therefore he will need to be evaluated and monitored and treated accordingly in the hospital.
PLAN:
Abdominal pain associated with intra-abdominal fluid collection:
Concerns for periaortic infection
d/w IR, holding Eliquis, plan for aspiration on 10/04
No evidence of sepsis but at risk of such. Hemodynamically stable.
Continue his oral suppressive antibiotics with Levaquin but hold on further antibiotics and plan for drainage
ID consult-discussed with ID for further evaluation
Vascular surgery already consulted in the ED and appreciated input
Pain control as needed with Tylenol for mild pain, oxycodone for moderate pain, and morphine for severe pain.
Continue bowel regimen
Constipation
Increased Senna
Add PRN Dulcolax Supp & MiraLAX
Paroxysmal A-fib:
Continue rate control, metoprolol succinate 50 mg p.o. daily
Continue anticoagulation, holding Eliquis 5 mg p.o. twice a day until IR procedure
Chronic HFrEF:
Continue oral diuretics, Bumex 2 mg p.o. daily in the morning and 1 mg in the afternoon.
Monitor daily weights and ins and out
Monitor renal function and electrolytes closely
Continue GDMT regimen including beta-blockers, SGL 2 inhibitors for now. Can evaluate rest of GDMT as outpatient with his babcock tester (follow-up with Dr. Martinez outpatient).
# PMH:
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
H/o Septic arthritis of the Knee 07/2024 due to Enterococcus - completed course of treatment
02/25/25 s/p bio-AVR, bio-MVR, TV repair
Status post vancomycin therapy, suppression with levofloxacin
CAD:
Continue anti-ischemic regimen
Chest pain-free
Hypertension:
Continue current antihypertensives
Hyperlipidemia:
Continue home statin
Hypokalemia
# Mild chronic anemia
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
primary oncologist is Dr Michele.
Anxiety:
Continue benzodiazepines
Gout:
Continue allopurinol
DVT prophylaxis:
Holding Eliquis
Add SQ heparin 10/13
CODE STATUS:
Full code
Total time spent to see the patient, examine the patient, review data and lab results, discuss treatment plan with patient, nursing staff around 55 minutes�
Anticipated Discharge: > 48 hours
Subjective/Interval History
-
Date of Service: October 12, 2025
He reports constipation. No chest pain. No shortness of breath
Objective Data
-
Labs:
Laboratory Results
10/12/25
05:38
WBC 6.8
Hgb 9.0 L
Hct 27.2 L
Plt Count 146
Sodium 136
Potassium 4.0
Chloride 99
Carbon Dioxide 33 H
BUN 18
Creatinine 0.9
Glucose 111 H
Calcium 9.1
Vital Signs:
Vital Signs
Temp Pulse Resp BP Pulse Ox
98.2 F 82 16 136/71 97
10/12/25 07:40 10/12/25 08:52 10/12/25 07:40 10/12/25 08:52 10/12/25 07:40
I&O
10/11/25 10/12/25 10/13/25
06:59 06:59 06:59
Intake Total 480 / 480
Balance 480 / 480
--- NOTE | 2025-10-12 09:49 | W.PN.UPDATE ---
Update Note
Progress Note Update
IR Consult for drainage of periaortic colletion
The pt is on Eliquis and needs to hold 4 doses prior to procedure. His last dose was last night (10/11/25). Therefore we can perform aspiration on Sunday10/14/25
Please make NPO after midnight. This communication d/w hospitalist
--- NOTE | 2025-10-12 11:13 | CON.ID ---
Consultation
-
Date/Time Consultation Requested: 10/11/25 15:44
Date/Time Consultation Performed: 10/12/25 11:13
Requesting Provider: Dr Loomis
Performing Provider: Dr Purcell
Reason for Consultation: Abdominal collection-possible infection
Chief Complaint / Past History
Chief Complaint
abdominal pain
History of Present Illness
Mr Taylor is a 70 year old male with history of endocarditis due to E faecalis 08/2024 complicated by L2/L3 OM/discitis and a mass 2x3 cm (suspected infection) next to EVAR which has been slowly increasing over the last year; of note patient also
with history of preceding L knee septic arthritis of the knee due to enterococcus. He completed a 6 week course of ampicillin/ceftriaxone (through 01/05/25) and then was maintained on suppressive amoxicillin. He had workup idiopathic anemia being
worked up at [facility] 12/2024, in this context repeat blood cultures were obtained 01/15, 01/16 and which were all negative. When last seen by ID at [facility] in Dec 2024 his weight was stable. He was maintained on amoxicillin TID as suppression.�
Represented to 02/19 where he was found to have progressive weight loss, no fevers or chills,� CTA 02/17: endograft with interval enlargement 1.9 cm of rim enhancing fluid suggesting endoleak, TTE 02/19: MV leaflet 1.5 cm x 0.7 cm vegetation with
severe MR, AV mobile 2.5 x 0.6 cm lesion with severe AR, TV with mobile echodensity and moderate TR.� He underwent replacement of AVR, MVR, TVR and ELAA on 02/25 successfully.� Blood cultures were finalized negative as were the heart valves cultures.�
Vascular surgery followed his endograft.� He completed a 6 week course of IV vancomycin 02/25-04/07/25 and is now on levofloxacin suppression. 08/05 he had a CTA c/a/p showing no clear endoleak, adjacent to the excluded anuerysm sac solid and cystic
collection which increased in size suspicious for abscess vs contained rupture.� He discussed the possibility of aortic stent graft explant and repair with Dr Alfred and was not willing to undergo the procedure at that time.� More recently� 09/02/25
he went to the ER for about 10 days of cramps, abdominal pain and diarrhea.� He underwent CT a/p with IV and oral contrast which showed interval increase in the size of enhancing solid and cystic collection adjacent to the excluded aneurysm sac -
chronic contained rupture vs abscess.� Report was reviewed with oncall vascular surgeon Dr Jacobson who recommended ongoing outpatient follow up.� he was discharged and diarrhea resolved.� When last seen outpatient 10/08 he reported no fevers, chills,
weight loss, loss of appetite, or chronic abdominal pain.� He has actually gained back about 15 lbs. He continued on the levofloxacin.�
Interval history:
Patient reports 3-4 days of abdominal pain with radiation to the back. Rates the pain 03/28. No fevers, chills, nausea or vomiting. He had a bowel movement within the last 5 days. He remains on his suppressive levofloxacin.
Since arrival here he has been afebrile, bp stable, wbc 8.0, hgb 10.3, plt 168, L shift was present, na 138, cr 0.8, t bili 1.5, ast 17, alt 12, alk phos 104, CT showed increase is the cystic focus increase in size from 5.5 cm to 6.8 cm, new cystic
loculated focus along the right anterior aorta now 3.0 by 4.2 cm with adjacent stranding - concerning for worsening contained rupture or abscess, remains on levofloxacin
Past History
Additional Past Medical History:
CHF
Permanent atrial fibrillation
AAA
CAD status post stenting
Hyperlipidemia
Gout
Mitral regurgitation
History of laryngeal cancer
Additional Past Surgical History:
EVAR 11/2023
replacement of AVR, MVR, TVR and ELAA on 02/25
Allergy History:
No Known Allergies Allergy (Verified 10/11/25 09:57)
Medications Reviewed: Yes
Social History
Tobacco: Non-Smoker
Alcohol: None
Drug: None
Family History
Family History: Not Pertinent
Review of Systems
Vital Signs
Temp Pulse Resp BP Pulse Ox
98.2 F 82 16 136/71 97
10/12/25 07:40 10/12/25 08:52 10/12/25 07:40 10/12/25 08:52 10/12/25 10:57
Physical Exam
Lab / Diagnostic Study Results
10/12/25 05:38
10/12/25 05:38
Abs Immat Gran (auto) 0.0 10^3/uL (0-0.05) 10/12/25 05:38
Absolute Neuts (auto) 5.1 10^3/uL (1.4-6.5) 10/12/25 05:38
Absolute Lymphs (auto) 0.6 10^3/uL (1.2-3.4) L 10/12/25 05:38
Absolute Monos (auto) 1.0 10^3/uL (0.1-0.6) H 10/12/25 05:38
Absolute Basos (auto) 0.0 10^3/uL (0-0.2) 10/12/25 05:38
Immature Gran % 0.4 % (0-0.5) 10/12/25 05:38
Neutrophils % 75.4 % (42.2-75.2) H 10/12/25 05:38
Lymphocytes % 8.4 % (20.5-51.1) L 10/12/25 05:38
Monocytes % 14.2 % (1.7-9.3) H 10/12/25 05:38
Eosinophils % 1.3 % (0-6) 10/12/25 05:38
Basophils % 0.3 % (0-2) 10/12/25 05:38
Ur Squamous Epith Cells 0-2 /LPF (Few) 10/11/25 09:45
Assessment / Plan
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
endograft placed 12/04/23
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
02/25/25 AVR, MVR, TVRp, articlip
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
H/o Septic arthritis of the Knee 07/2024 due to Enterococcus
- blood cultures x2 today
- ESR and CRP
- high clinical suspicion for infected endograft given history and progression of the collections around the endograft. Over the last 7 months the rim enhancing fluid around the proximal graft attachment has increased from 1.9 cm to 5.1x6.8 cm,
additionally there is a new collection 2.0x4.2 cm laterally with mild adjacent stranding. Note that E faecalis tends to have indolent progression as we are seeing here. Can proceed with IR guided sampling however even if these cultures are
negative from the ID perspective it would not rule out infected endograft - it could indicate partially effective suppression. Favor resection of the endograft, culture and washout of the collections.
- would not change antibiotics until sampeling of the collection is complete, continue levofloxacin
[2025-10-12 11:33] VITALS: BP 108/67
[2025-10-12 12:56] LABS: C-Reactive Protein 163.30 mg/L (0.0-10.00)
--- NOTE | 2025-10-12 15:04 | CM ---
CM met with pt and his extended family bedside
Pt resides with his spouse and dog in a 2SH with 3STE, 6+landing+3 steps to 2nd floor
Pt does not have children
Pt is independent with his ADLs, no ADs
He has a WW, SPC and RTS for use as needed
Pt has Rx coverage through [employer]
Pt has hx with [facility], [facility] , and [facility] for home infusion
Pt is currently attending outpt cardiac rehab
PCP- Josefina Nguyen
Rx- [facility]
Pt with intra-abdominal fluid collection with plan for drainage with IR on 10/14
ID follow for abx for likely infected endograft
CM will follow for dc planning
Discharge Disposition- anticipate home, follow for VN/abx/infusion needs
[2025-10-12 15:35] VITALS: BP 126/63
[2025-10-12] MEDS: BUMEX 1 MG PO (15:45)
--- NOTE | 2025-10-12 18:23 | PTCARENOTE ---
Patient c/o lower back pain throughout shift rated 5-6/10, partially relieved with PRN 5 mg oxy - see JAN. Ambulatory in room and OOB to chair independently. Patient states abdomen feels 'bloated,' denies abd pain but states of tenderness
throughout, no BM for 2 days prior to admin per patient. +bowels, patient states passing gas. This RN communicated with MD, scheduled bowel regimen increased, extra dose of Miralax ordered and administered per MD - see JAN. Patient NPO tomorrow
night for IRAD drainage Sunday, Eliquis on hold, patient aware.
[2025-10-12 19:39] VITALS: BP 106/60
[2025-10-12] MEDS: SENOKOT-S 2 TABLET PO (20:34)
[2025-10-12] MEDS: LIPITOR 40 MG PO (21:21)
[2025-10-12] MEDS: XANAX 0.5 MG PO (21:24)
[2025-10-12 23:56] VITALS: BP 103/57
[2025-10-13 03:08] VITALS: BP 107/61
[2025-10-13] MEDS: SYNTHROID 50 MCG PO (05:12)
[2025-10-13] MEDS: ROXICODONE 5 MG PO ×2 (05:15→20:43)
[2025-10-13 07:25] VITALS: BP 105/65
[2025-10-13] MEDS: FARXIGA 10 MG PO (09:21)
[2025-10-13] MEDS: ZYLOPRIM 100 MG PO (09:21)
[2025-10-13] MEDS: SENOKOT-S PO (09:22)
[2025-10-13] MEDS: BUMEX 2 MG PO (09:22)
[2025-10-13] MEDS: MIRALAX 17 GRAMS PO (09:22)
[2025-10-13] MEDS: HEPARIN 5000 UNITS SC ×2 (09:22→20:40)
[2025-10-13] MEDS: LEVAQUIN 750 MG PO (09:22)
[2025-10-13] MEDS: FEOSOL 325 MG PO (09:22)
[2025-10-13] MEDS: TOPROL XL 50 MG PO (09:23)
[2025-10-13] MEDS: CITROMA 300 ML PO (09:31)
--- NOTE | 2025-10-13 10:52 | W.PN.HOSP.TC ---
Today's Communication/Plan
-
will continue discussion about plan of care with ID& vascular
Assessment / Plan
Assessment / Plan
Physical exam:
General: not in distress
HEENT: Normocephalic, Atraumatic and Moist Mucous Membranes
Respiratory: Clear to Auscultation; Negative Wheezes, Rales or Rhonchi
Cardiac: S1/S2
GI: Soft, Tender in both lower quadrant area and Nondistended
Musculoskeletal: No Clubbing, No Cyanosis and No Edema
Neuro: Awake, Alert and Oriented, no neurological deficit
Psych: Calm
70 years old male with multiple comorbidities presented to the hospital with abdominal pain and found to have abdominal fluid collection concerning for infected aortic infection or periaortic infection. He is at high risk of increased morbidity and
mortality therefore he will need to be evaluated and monitored and treated accordingly in the hospital.
PLAN:
Abdominal pain associated with intra-abdominal fluid collection:
Concerns for periaortic infection
d/w IR, holding Eliquis, plan for aspiration on 10/14, NPO for tonight
No evidence of sepsis but at risk of such. Hemodynamically stable.
Continue his oral suppressive antibiotics with Levaquin but hold on further antibiotics and plan for drainage
ID consult-discussed with ID for further evaluation
Vascular surgery already consulted in the ED and appreciated input
Pain control as needed with Tylenol for mild pain, oxycodone for moderate pain, and morphine for severe pain.
Continue bowel regimen
Constipation
will do Mg citrate. pt feels he needs stronger laxatives as senna/ Dulcolax, miralax did not work
Paroxysmal A-fib:
Continue rate control, metoprolol succinate 50 mg p.o. daily
holding Eliquis 5 mg p.o. twice a day until IR procedure
Chronic HFrEF:
Continue oral diuretics, Bumex 2 mg p.o. daily in the morning and 1 mg in the afternoon.
Monitor daily weights and ins and out
Monitor renal function and electrolytes closely
Continue GDMT regimen including beta-blockers, SGL 2 inhibitors for now. Can evaluate rest of GDMT as outpatient with his commodity analyst (follow-up with Dr. Martinez outpatient).
# PMH:
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
H/o Septic arthritis of the Knee 07/2024 due to Enterococcus - completed course of treatment
02/25/25 s/p bio-AVR, bio-MVR, TV repair
Status post vancomycin therapy, suppression with levofloxacin
CAD:
Continue anti-ischemic regimen
Chest pain-free
Hypertension:
Continue current antihypertensives
Hyperlipidemia:
Continue home statin
Hypokalemia
# Mild chronic anemia
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
primary oncologist is Dr Michele.
Anxiety:
Continue benzodiazepines
Gout:
Continue allopurinol
DVT prophylaxis:
Holding Eliquis
Add SQ heparin 10/13
CODE STATUS:
Full code
Total time spent to see the patient, examine the patient, review data and lab results, discuss treatment plan with patient, nursing staff around 55 minutes�
Anticipated Discharge: > 48 hours
Subjective/Interval History
-
Date of Service: October 13, 2025
He complains of constipation, wanted stronger laxative
Objective Data
-
Vital Signs:
Vital Signs
Temp Pulse Resp BP Pulse Ox
98.3 F 101 16 105/65 100
10/13/25 07:25 10/13/25 09:23 10/13/25 07:25 10/13/25 09:23 10/13/25 07:25
I&O
10/12/25 10/13/25 10/14/25
06:59 06:59 06:59
Intake Total 480 / 480 1680 / 1680
Balance 480 / 480 1680 / 1680
--- NOTE | 2025-10-13 11:05 | W.PN.VS ---
Addendum entered and electronically signed by Mart Alfred III, MD 10/13/25 12:17:
This patient was seen and examined in collaboration with STEFANY Santamaria. I agree with the history and physical exam as well as the assessment and plan. I have the following additions:
Patient is well-known to me
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
We had previously recommended graft explant but he had declined
Multiple outpatient encounters regarding this
Clinically he is nontoxic and in no distress whatsoever
Still experiencing constipation but his abdominal pain and back pain has nearly completely resolved
Discussed case with infectious disease
CT scan personally reviewed
Will continue discussions regarding explant of aortic stent graft with him
Signed:
Mart Alfred III, MD
Vascular Surgery
[facility]
Original Note:
Today's Communication / Plan
-
Patient seen and examined at bedside with Dr. Mart Alfred III, below plan reviewed with attending.
Assessment/Plan
-
Assessment: AAA s/p EVAR, fluid collections nancy-aortic
Plan:
Awaiting IR aspiration for fluid analysis, prior to further surgical plan.
Subjective Data
-
Date of Service: October 13, 2025
Patient endorses near resolution of back pain, does report continued intermittent ABD pain but states it feels same as his usual constipation discomfort. ABD pain is mild.
Objective Data
-
Vital Signs
Temp Pulse Resp BP Pulse Ox
98.3 F 101 16 105/65 100
10/13/25 07:25 10/13/25 09:23 10/13/25 07:25 10/13/25 09:23 10/13/25 07:25
Intake and Output
10/12/25 10/13/25 10/14/25
06:59 06:59 06:59
Intake Total 480 / 480 1680 / 1680
Balance 480 / 480 1679
Intake:
Oral fluids 480 / 480 1679
Other:
Number of approximated MODERATE 4 4
amounts of urine
Lab Results
10/12/25 05:38
10/12/25 05:38
Calcium 9.1 mg/dl (8.4-10.2) 10/12/25 05:38
Total Bilirubin 1.5 mg/dl (0.2-1.3) H 10/11/25 09:32
AST 17 U/L (17-59) 10/11/25 09:32
ALT 12 U/L (0-50) 10/11/25 09:32
Alkaline Phosphatase 104 U/L (38-126) 10/11/25 09:32
Total Protein 6.6 g/dl (6.3-8.2) 10/11/25 09:32
Albumin 4.1 g/dl (3.5-5.0) 10/11/25 09:32
Physical Exam
-
Afebrile.
He is awake and alert, no acute distress.
Breathing is unlabored.
Abdomen is soft, nondistended, nontender.
--- NOTE | 2025-10-13 11:11 | W.PN.ID1 ---
Date of Service
Date of Service: October 13, 2025
Today's Communication
discussed my recommendation for resection of the endograft with the patient today
continue levofloxacin pending sampling
Assessment / Plan
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
endograft placed 12/04/23
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
02/25/25 AVR, MVR, TVRp, articlip
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
H/o Septic arthritis of the Knee 07/2024 due to Enterococcus
- blood cultures x2 in progress no growth to date
- ESR and CRP - elevated
- for IR sampling of the collection tomorrow 10/14
- high clinical suspicion for infected endograft given history and progression of the collections around the endograft. Over the last 7 months the rim enhancing fluid around the proximal graft attachment has increased from 1.9 cm to 5.1x6.8 cm,
additionally there is a new collection 2.0x4.2 cm laterally with mild adjacent stranding. Note that E faecalis tends to have indolent progression as we are seeing here. Can proceed with IR guided sampling however even if these cultures are
negative from the ID perspective it would not rule out infected endograft - it could indicate partially effective suppression. Favor resection of the endograft, culture and washout of the collections. reviewed in detail with patient.
- would not change antibiotics until sampeling of the collection is complete, continue levofloxacin
Chief Complaint
-: Other (endograft infection)
Subjective / Review of Systems
afebrile
bp stable
back pain ongoing
Vital Signs / Physical Exam
Vital Signs
Vital Signs
Temp Pulse Resp BP Pulse Ox
98.3 F 101 16 105/65 100
10/13/25 07:25 10/13/25 09:23 10/13/25 07:25 10/13/25 09:23 10/13/25 07:25
Physical Exam
Constitutional: No Acute Distress
Cardiovascular: Regular Rate and S1/S2; Negative Murmur or Rub
Pulmonary: Clear and Symmetric; Negative Wheezes or Rales
Gastrointestinal: Soft, Non Tender, Non Distended and Normal Bowel Sounds
Skin: Warm and Dry; Negative Rash or Jaundice
Objective Data
Lab Data
Lab Results
10/12/25 05:38
10/12/25 05:38
ESR 96 mm/hour (0-20) H 10/12/25 11:48
Total Bilirubin 1.5 mg/dl (0.2-1.3) H 10/11/25 09:32
AST 17 U/L (17-59) 10/11/25 09:32
ALT 12 U/L (0-50) 10/11/25 09:32
Alkaline Phosphatase 104 U/L (38-126) 10/11/25 09:32
C-Reactive Protein 163.30 mg/L (0.0-10.00) H 10/12/25 11:48
Most recent labs reviewed.
Micro Results:
10/12/25 12:35 Blood Culture - Pending
Blood/Venous
10/12/25 11:48 Blood Culture - Pending
Blood/Venous
Care Review
Plan reviewed with: Physician (Dr Alfred - recommend graft resection)
[2025-10-13 11:50] VITALS: BP 139/71
[2025-10-13 15:05] VITALS: BP 127/70
[2025-10-13] MEDS: BUMEX 1 MG PO (17:00)
[2025-10-13 19:56] VITALS: BP 113/67
[2025-10-13] MEDS: LIPITOR 40 MG PO (21:01)
[2025-10-13] MEDS: XANAX 0.5 MG PO (21:01)
[2025-10-13 23:34] VITALS: BP 116/65
[2025-10-14] VITALS (9 sets, daily range): BP systolic 60–130; BP diastolic 59–74
[2025-10-14] MEDS: ROXICODONE 5 MG PO ×4 (01:47→21:24)
[2025-10-14] MEDS: SYNTHROID 50 MCG PO (05:48)
--- NOTE | 2025-10-14 08:08 | PTCARENOTE ---
Patient off unit at this time, in IR dept.
--- NOTE | 2025-10-14 09:35 | W.PN.UPDATE ---
Update Note
Progress Note Update
CT guided periaortic drain catheter placed, yielding 60 cc of dark bloody nonpurulent fluid. Sent for laboratory analysis.
--- NOTE | 2025-10-14 09:53 | W.PN.HOSP.TC ---
Today's Communication/Plan
-
.
Assessment / Plan
Assessment / Plan
Physical exam:
General: not in distress
HEENT: Normocephalic, Atraumatic and Moist Mucous Membranes
Respiratory: Clear to Auscultation; Negative Wheezes, Rales or Rhonchi
Cardiac: S1/S2
GI: Soft, Tender in both lower quadrant area and Nondistended
Musculoskeletal: No Clubbing, No Cyanosis and No Edema
Neuro: Awake, Alert and Oriented, no neurological deficit
Psych: Calm
70 years old male with multiple comorbidities presented to the hospital with abdominal pain and found to have abdominal fluid collection concerning for infected aortic infection or periaortic infection. He is at high risk of increased morbidity and
mortality therefore he will need to be evaluated and monitored and treated accordingly in the hospital.
PLAN:
Abdominal pain associated with intra-abdominal fluid collection:
Concerns for periaortic infection
d/w IR, holding Eliquis, plan for aspiration on 10/14, NPO for tonight
No evidence of sepsis but at risk of such. Hemodynamically stable.
Continue his oral suppressive antibiotics with Levaquin but hold on further antibiotics and plan for drainage
ID consult-discussed with ID for further evaluation , s/p successful CT-guided drainage of collection, drain is left on 10/14. Culture is sent out
Vascular surgery already consulted in the ED and appreciated input
Pain control as needed with Tylenol for mild pain, oxycodone for moderate pain, and morphine for severe pain.
Continue bowel regimen
Constipation
s/p enema and Mg citrate.c/w Dulcolax, miralax did not work
Paroxysmal A-fib:
Continue rate control, metoprolol succinate 50 mg p.o. daily
holding Eliquis 5 mg p.o. twice a day until IR procedure
Chronic HFrEF:
Continue oral diuretics, Bumex 2 mg p.o. daily in the morning and 1 mg in the afternoon.
Monitor daily weights and ins and out
Monitor renal function and electrolytes closely
Continue GDMT regimen including beta-blockers, SGL 2 inhibitors for now. Can evaluate rest of GDMT as outpatient with his dianeticist (follow-up with Dr. Martinez outpatient).
# PMH:
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
H/o Septic arthritis of the Knee 07/2024 due to Enterococcus - completed course of treatment
02/25/25 s/p bio-AVR, bio-MVR, TV repair
Status post vancomycin therapy, suppression with levofloxacin
CAD:
Continue anti-ischemic regimen
Chest pain-free
Hypertension:
Continue current antihypertensives
Hyperlipidemia:
Continue home statin
Hypokalemia
# Mild chronic anemia
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
primary oncologist is Dr Michele.
Anxiety:
Continue benzodiazepines
Gout:
Continue allopurinol
DVT prophylaxis:
Holding Eliquis
Add SQ heparin 10/13
CODE STATUS:
Full code
Total time spent to see the patient, examine the patient, review data and lab results, discuss treatment plan with patient, nursing staff around 55 minutes�
Anticipated Discharge: > 48 hours
Subjective/Interval History
-
Date of Service: October 14, 2025
no fever or hypotension
over night
Objective Data
-
Vital Signs:
Vital Signs
Temp Pulse Resp BP Pulse Ox
98.1 F 84 23 106/59 100
10/14/25 08:08 10/14/25 09:26 10/14/25 09:26 10/14/25 09:26 10/14/25 09:26
I&O
10/13/25 10/14/25 10/15/25
06:59 06:59 06:59
Intake Total 1680 / 1680 840 / 840 50 / 50
Output Total
Balance 1680 / 1680 840 / 840 -10 / -10
[2025-10-14] MEDS: BUMEX 2 MG PO (10:36)
[2025-10-14] MEDS: FARXIGA 10 MG PO (10:36)
[2025-10-14] MEDS: ZYLOPRIM 100 MG PO (10:37)
[2025-10-14] MEDS: HEPARIN 5000 UNITS SC ×2 (10:37→21:10)
[2025-10-14] MEDS: TOPROL XL 50 MG PO (10:37)
[2025-10-14] MEDS: LEVAQUIN 750 MG PO (10:37)
[2025-10-14] MEDS: MIRALAX 17 GRAMS PO (10:39)
--- NOTE | 2025-10-14 11:46 | PN.CDI ---
CDI
- -
CDI:
Physician Documentation Request
Admit Date: 10/11/25 15:57
Dear Doctor Tasneem,
Please review the following and provide your response in the progress notes.
Clinical Indicators:
The diagnosis of 'para-aortic abscesses' was included in the signed CT report.
10/11 PROCEDURES: CT Abd/Pel (IV only)
#IMPRESSION:
#...Aortobiiliac endograft. There is increased size of the predominantly cystic focus #...along the left aspect of the infrarenal aorta which now extends into the left psoas
#...and measures up to 6.8 cm, previously 5.5 cm.
#...Additionally there is a new predominantly cystic, loculated focus along
#...the right/anterior aspect of the aorta which measures up to 3.0 cm anteriorly cm
#...and 4.2 cm laterally.
#Findings may represent worsening contained rupture or increasing para-aortic abscesses.
PN, 10/13
#Abdominal pain associated with intra-abdominal fluid collection:
#...Concerns for periaortic infection
IRAD, 10/14
#IMPRESSION:
#...Successful CT guided drainage catheter placement into a pelvic abscess,
#...yielding 60 mL of dark bloody, nonpurulent fluid.
Based on the above and your clinical assessment, please indicate if intra-abdominal fluid collection is a para-aortic abscess / intra-abdominal abscess:
Para-aortic abscess / intra-abdominal abscess is a valid diagnosis (Please include it in your progress notes)
Para-aortic abscess / intra-abdominal abscess is not a valid diagnosis for this patient
Para-aortic abscess / intra-abdominal abscess is not yet confirmed but remains a suspected condition
Other (please specify)
Use of terms such as suspected, likely, concern for, or probable are acceptable for a diagnosis that is being evaluated, monitored or treated as if it exists and can be coded in the inpatient setting, when documented at the time of discharge.
Thank you,
Liza Sebastian RN BSN CCDS
CDI Specialist
Please contact via tiger text
Please use your independent medical judgment in providing your response.
--- NOTE | 2025-10-14 12:09 | PN.CDI ---
Addendum entered and electronically signed by Enrico Boateng MD 10/14/25 12:19:
Para-aortic abscess / intra-abdominal abscess is not a valid diagnosis for this patient
Original Note:
CDI
- -
CDI:
Physician Documentation Request
Admit Date: 10/11/25 15:57
Dear Doctor,
Please review the following and provide your response in the progress notes.
Clinical Indicators:
Clinical Indicators:
The diagnosis of 'para-aortic abscesses' was included in the signed CT report.
10/11 PROCEDURES: CT Abd/Pel (IV only)
#IMPRESSION:
#...Aortobiiliac endograft. There is increased size of the predominantly cystic focus #...along the left aspect of the infrarenal aorta which now extends into the left psoas
#...and measures up to 6.8 cm, previously 5.5 cm.
#...Additionally there is a new predominantly cystic, loculated focus along
#...the right/anterior aspect of the aorta which measures up to 3.0 cm anteriorly cm
#...and 4.2 cm laterally.
#Findings may represent worsening contained rupture or increasing para-aortic abscesses.
PN, 10/13
#Abdominal pain associated with intra-abdominal fluid collection:
#...Concerns for periaortic infection
IRAD, 10/14
#IMPRESSION:
#...Successful CT guided drainage catheter placement into a pelvic abscess,
#...yielding 60 mL of dark bloody, nonpurulent fluid.
Based on the above and your clinical assessment, please indicate if intra-abdominal fluid collection is a para-aortic abscess / intra-abdominal abscess:
Para-aortic abscess / intra-abdominal abscess is a valid diagnosis (Please include it in your progress notes)
Para-aortic abscess / intra-abdominal abscess is not a valid diagnosis for this patient
Para-aortic abscess / intra-abdominal abscess is not yet confirmed but remains a suspected condition
Intra-abdominal fluid collection only
Other (please specify)
Use of terms such as suspected, likely, concern for, or probable are acceptable for a diagnosis that is being evaluated, monitored or treated as if it exists and can be coded in the inpatient setting, when documented at the time of discharge.
Thank you,
Liza Sebastian RN BSN CCDS
CDI Specialist
Please contact via tiger text
Please use your independent medical judgment in providing your response.

Initialized on 10/14/25 11:46 - END OF NOTE
Lab Tests:
Imaging:
Progress Notes:
Nurses Notes:
Ancillary Notes:
Other documentation:
Based on the above, could you clarify in the progress notes, the appropriate diagnosis, if significant, that supports the above abnormalities and additional evaluation, monitoring and/or treatment rendered:
Other
Unable to determine
Use of terms such as suspected, likely, concern for, or probable (associated with a specific diagnosis that is being evaluated, monitored, or treated as if it exists) are acceptable and can be coded in the inpatient setting, when documented at the
time of discharge.
Thank you,
Liza Sebastian
CDI Specialist
Please use your independent medical judgment in providing your response.
[2025-10-14] MEDS: FEOSOL 325 MG PO (13:19)
--- NOTE | 2025-10-14 14:44 | W.PN.ID1 ---
Date of Service
Date of Service: October 14, 2025
Today's Communication
- start linezolid, will require frequent outpatient monitoring for possible adverse drug reactions.
- he is aware of risks of neuropathy including of the optic nerve and agranulocytosis
Assessment / Plan
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
endograft placed 12/04/23
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
02/25/25 AVR, MVR, TVRp, articlip
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
H/o Septic arthritis of the Knee 07/2024 due to Enterococcus
- blood cultures x2 in progress no growth to date
- ESR 96 and CRP 160- elevated
- 10/14 aerobic and anaerobic culture x3 from periaortic fluid
- high clinical suspicion for infected endograft given history and progression of the collections around the endograft. Over the last 7 months the rim enhancing fluid around the proximal graft attachment has increased from 1.9 cm to 5.1x6.8 cm,
additionally there is a new collection 2.0x4.2 cm laterally with mild adjacent stranding. Note that E faecalis tends to have indolent progression as we are seeing here. Can proceed with IR guided sampling however even if these cultures are
negative from the ID perspective it would not rule out infected endograft - it could indicate partially effective suppression. Favor resection of the endograft, culture and washout of the collections. reviewed in detail with patient who has
decided that he will follow the IR guided culture results to make the decision. I have been clear that these results could be falsely negative.
- start linezolid, will require frequent outpatient monitoring for possible adverse drug reactions.
- he is aware of risks of neuropathy including of the optic nerve and agranulocytosis
Chief Complaint
-: Other (endograft infection)
Subjective / Review of Systems
afebrile
bp stable
had IR guided drainage of 60 ccs of bloody fluid and drain placement
Vital Signs / Physical Exam
Vital Signs
Vital Signs
Temp Pulse Resp BP Pulse Ox
97.6 F 83 18 111/67 98
10/14/25 11:00 10/14/25 11:00 10/14/25 11:00 10/14/25 11:00 10/14/25 11:00
Physical Exam
Constitutional: No Acute Distress
Cardiovascular: Regular Rate and S1/S2; Negative Murmur or Rub
Pulmonary: Clear and Symmetric; Negative Wheezes or Rales
Gastrointestinal: Soft, Non Tender, Non Distended and Normal Bowel Sounds
Skin: Warm and Dry; Negative Rash or Jaundice
Lines: Other (drain with bloody fluid)
Objective Data
Lab Data
Lab Results
10/12/25 05:38
10/12/25 05:38
ESR 96 mm/hour (0-20) H 10/12/25 11:48
Total Bilirubin 1.5 mg/dl (0.2-1.3) H 10/11/25 09:32
AST 17 U/L (17-59) 10/11/25 09:32
ALT 12 U/L (0-50) 10/11/25 09:32
Alkaline Phosphatase 104 U/L (38-126) 10/11/25 09:32
C-Reactive Protein 163.30 mg/L (0.0-10.00) H 10/12/25 11:48
Most recent labs reviewed.
Micro Results:
10/12/25 12:35 Blood Culture - Preliminary
Blood/Venous No Growth in 48 hours- Final report to follow
10/12/25 11:48 Blood Culture - Preliminary
Blood/Venous No Growth in 48 hours- Final report to follow
10/14/25 09:30 Wound Culture - Pending
Abdomen Gram Stain - Preliminary
10/14/25 09:30 Anaerobic Culture - Pending
Abdomen
[2025-10-14] MEDS: BUMEX 1 MG PO (16:23)
--- NOTE | 2025-10-14 16:52 | CM ---
CM reviewed chart, ADC >48 hours
IR drainage today and pt with jamel drain
ID following for abx, watch for needs
Discharge Disposition- home, watch for abx needs
[2025-10-14] MEDS: SENOKOT-S 2 TABLET PO (21:14)
[2025-10-14] MEDS: LIPITOR 40 MG PO (21:14)
[2025-10-14] MEDS: ZYVOX 600 MG PO (21:17)
[2025-10-14] MEDS: XANAX 0.5 MG PO (21:18)
[2025-10-15 03:16] VITALS: BP 131/68
[2025-10-15] MEDS: SYNTHROID 50 MCG PO (05:38)
[2025-10-15] MEDS: ROXICODONE 5 MG PO ×2 (05:47→19:55)
[2025-10-15 07:40] VITALS: BP 104/61
[2025-10-15] MEDS: MIRALAX 17 GRAMS PO (08:56)
[2025-10-15] MEDS: TOPROL XL 50 MG PO (08:56)
[2025-10-15] MEDS: ZYVOX 600 MG PO ×2 (08:57→19:54)
[2025-10-15] MEDS: SENOKOT-S 2 TABLET PO ×2 (08:57→19:54)
[2025-10-15] MEDS: ZYLOPRIM 100 MG PO (08:57)
[2025-10-15] MEDS: BUMEX 2 MG PO (08:57)
[2025-10-15] MEDS: FARXIGA 10 MG PO (08:57)
[2025-10-15] MEDS: FEOSOL 325 MG PO (08:57)
[2025-10-15] MEDS: HEPARIN 5000 UNITS SC (08:58)
--- NOTE | 2025-10-15 10:09 | W.PN.HOSP.TC ---
Today's Communication/Plan
-
Resume Eliquis
Assessment / Plan
Assessment / Plan
Physical exam:
General: not in distress
HEENT: Normocephalic, Atraumatic and Moist Mucous Membranes
Respiratory: Clear to Auscultation; Negative Wheezes, Rales or Rhonchi
Cardiac: S1/S2
GI: Soft, Tender in both lower quadrant area and Nondistended. Left flank drain.
Musculoskeletal: No Clubbing, No Cyanosis and No Edema
Neuro: Awake, Alert and Oriented, no neurological deficit
Psych: Calm
70 years old male with multiple comorbidities presented to the hospital with abdominal pain and found to have abdominal fluid collection concerning for infected aortic infection or periaortic infection. He is at high risk of increased morbidity and
mortality therefore he will need to be evaluated and monitored and treated accordingly in the hospital.
PLAN:
Abdominal pain associated with intra-abdominal fluid collection:
Concerns for periaortic infection
Resuming Eliquis
No evidence of sepsis but at risk of such. Hemodynamically stable.
Continue his oral suppressive antibiotics with Levaquin but hold on further antibiotics and plan for drainage
ID consult-discussed with ID for further evaluation , s/p successful CT-guided drainage of collection, drain is left on 10/14. Culture is sent out
Per ID: Started linezolid, will require frequent outpatient monitoring for possible adverse drug reactions. Patient is aware of risks of neuropathy including of the optic nerve and agranulocytosis
Vascular surgery already consulted in the ED and appreciated input
Pain control as needed with Tylenol for mild pain, oxycodone for moderate pain, and morphine for severe pain.
Continue bowel regimen
Constipation
s/p enema and Mg citrate.c/w Dulcolax, miralax did not work
Paroxysmal A-fib:
Continue rate control, metoprolol succinate 50 mg p.o. daily
holding Eliquis 5 mg p.o. twice a day until IR procedure
Chronic HFrEF:
Continue oral diuretics, Bumex 2 mg p.o. daily in the morning and 1 mg in the afternoon.
Monitor daily weights and ins and out
Monitor renal function and electrolytes closely
Continue GDMT regimen including beta-blockers, SGL 2 inhibitors for now. 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 Martinez outpatient).
# PMH:
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
H/o Septic arthritis of the Knee 07/2024 due to Enterococcus - completed course of treatment
02/25/25 s/p bio-AVR, bio-MVR, TV repair
Status post vancomycin therapy, suppression with levofloxacin
CAD:
Continue anti-ischemic regimen
Chest pain-free
Hypertension:
Continue current antihypertensives
Hyperlipidemia:
Continue home statin
Hypokalemia
# Mild chronic anemia
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
primary oncologist is Dr Michele.
Anxiety:
Continue benzodiazepines
Gout:
Continue allopurinol
DVT prophylaxis:
Holding Eliquis
Add SQ heparin 10/13
CODE STATUS:
Full code
Total time spent to see the patient, examine the patient, review data and lab results, discuss treatment plan with patient, nursing staff around 55 minutes�
Anticipated Discharge: Within 24 hours
Subjective/Interval History
-
Date of Service: October 15, 2025
No complaints
No chest pain
N SOB
No fevers
Objective Data
-
Vital Signs:
Vital Signs
Temp Pulse Resp BP Pulse Ox
97.9 F 89 16 104/61 100
10/15/25 07:40 10/15/25 07:40 10/15/25 07:40 10/15/25 07:40 10/15/25 07:40
I&O
10/14/25 10/15/25 10/16/25
06:59 06:59 06:59
Intake Total 840 / 840 780 / 780
Output Total 90 / 90
Balance 840 / 840 690 / 690
--- NOTE | 2025-10-15 11:51 | W.PN.ID1 ---
Date of Service
Date of Service: October 15, 2025
Today's Communication
Follow cx.
Continue linezolid.
Assessment / Plan
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
endograft placed 12/04/23
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
02/25/25 AVR, MVR, TVRp, articlip
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
H/o Septic arthritis of the Knee 07/2024 due to Enterococcus
- blood cultures x2 in progress no growth to date
- ESR 96 and CRP 160- elevated
- 10/14 aerobic and anaerobic culture x3 from periaortic fluid
- high clinical suspicion for infected endograft given history and progression of the collections around the endograft. Over the last 7 months the rim enhancing fluid around the proximal graft attachment has increased from 1.9 cm to 5.1x6.8 cm,
additionally there is a new collection 2.0x4.2 cm laterally with mild adjacent stranding. Note that E faecalis tends to have indolent progression as we are seeing here. Can proceed with IR guided sampling however even if these cultures are
negative from the ID perspective it would not rule out infected endograft - it could indicate partially effective suppression. Favor resection of the endograft, culture and washout of the collections. reviewed in detail with patient who has
decided that he will follow the IR guided culture results to make the decision. I have been clear that these results could be falsely negative.
- 10/14 s/p IR drain placement - nonpurulent bloody fluid. Cx's pending.
- Continue linezolid, will require frequent outpatient monitoring for possible adverse drug reactions.
- he is aware of risks of neuropathy including of the optic nerve and agranulocytosis
Chief Complaint
-: Other (endograft infection)
Subjective / Review of Systems
Feels well. Wants to go home tomorrow.
Vital Signs / Physical Exam
Vital Signs
Vital Signs
Temp Pulse Resp BP Pulse Ox
97.9 F 89 16 104/61 100
10/15/25 07:40 10/15/25 07:40 10/15/25 07:40 10/15/25 07:40 10/15/25 07:40
Physical Exam
Constitutional: No Acute Distress
Pulmonary: Clear
Gastrointestinal: Non Tender, Non Distended, Normal Bowel Sounds and Other (REGIS drain: sanguineous fluid)
Neurological: AO x 3
Objective Data
Lab Data
Lab Results
10/12/25 05:38
10/12/25 05:38
ESR 96 mm/hour (0-20) H 10/12/25 11:48
Total Bilirubin 1.5 mg/dl (0.2-1.3) H 10/11/25 09:32
AST 17 U/L (17-59) 10/11/25 09:32
ALT 12 U/L (0-50) 10/11/25 09:32
Alkaline Phosphatase 104 U/L (38-126) 10/11/25 09:32
C-Reactive Protein 163.30 mg/L (0.0-10.00) H 10/12/25 11:48
Most recent labs reviewed.
Micro Results:
10/14/25 09:30 Anaerobic Culture - Preliminary
Abscess Culture pending. Anaerobic cultures are examined after 3
days incubation. Additional information to follow.
10/14/25 09:30 Wound Culture - Preliminary
Abscess Gram Stain - Preliminary
10/14/25 09:30 Anaerobic Culture - Preliminary
Cyst Culture pending. Anaerobic cultures are examined after 3
days incubation. Additional information to follow.
10/14/25 09:30 Wound Culture - Preliminary
Abdomen Gram Stain - Preliminary
10/14/25 09:30 Anaerobic Culture - Preliminary
Abdomen Culture pending. Anaerobic cultures are examined after 3
days incubation. Additional information to follow.
10/14/25 09:30 Wound Culture - Preliminary
Abdomen Gram Stain - Preliminary
10/12/25 12:35 Blood Culture - Preliminary
Blood/Venous No Growth in 48 hours- Final report to follow
10/12/25 11:48 Blood Culture - Preliminary
Blood/Venous No Growth in 48 hours- Final report to follow
[2025-10-15 15:00] VITALS: BP 107/62
[2025-10-15] MEDS: BUMEX 1 MG PO (16:41)
[2025-10-15] MEDS: ELIQUIS 5 MG PO (19:54)
[2025-10-15] MEDS: LIPITOR 40 MG PO (22:03)
[2025-10-15] MEDS: XANAX 0.5 MG PO (22:03)
[2025-10-15 23:06] VITALS: BP 117/70
[2025-10-16] MEDS: SYNTHROID 50 MCG PO (05:20)
[2025-10-16 07:35] VITALS: BP 117/67
[2025-10-16] MEDS: BUMEX 2 MG PO (08:10)
[2025-10-16] MEDS: ZYVOX 600 MG PO (08:11)
[2025-10-16] MEDS: ZYLOPRIM 100 MG PO (08:11)
[2025-10-16] MEDS: TOPROL XL 50 MG PO (08:11)
[2025-10-16] MEDS: FARXIGA 10 MG PO (08:11)
[2025-10-16] MEDS: ELIQUIS 5 MG PO (08:12)
[2025-10-16] MEDS: FEOSOL 325 MG PO (08:12)
[2025-10-16] MEDS: MIRALAX 17 GRAMS PO (08:12)
[2025-10-16] MEDS: SENOKOT-S PO (08:12)
[2025-10-16] MEDS: ROXICODONE 5 MG PO (08:12)
--- NOTE | 2025-10-16 09:16 | W.PN.HOSP.TC ---
Today's Communication/Plan
-
discharge if ok with ID doctor
Assessment / Plan
Assessment / Plan
Physical exam:
General: not in distress
HEENT: Normocephalic, Atraumatic and Moist Mucous Membranes
Respiratory: Clear to Auscultation; Negative Wheezes, Rales or Rhonchi
Cardiac: S1/S2
GI: Soft, Tender in both lower quadrant area and Nondistended. Left flank drain: no swelling or tenderness on exam .
Musculoskeletal: No Clubbing, No Cyanosis and No Edema
Neuro: Awake, Alert and Oriented, no neurological deficit
Psych: Calm
70 years old male with multiple comorbidities presented to the hospital with abdominal pain and found to have abdominal fluid collection concerning for infected aortic infection or periaortic infection. He is at high risk of increased morbidity and
mortality therefore he will need to be evaluated and monitored and treated accordingly in the hospital.
PLAN:
Abdominal pain associated with intra-abdominal fluid collection:
Concerns for periaortic infection
Resuming Eliquis
No evidence of sepsis but at risk of such. Hemodynamically stable.
Continue his oral suppressive antibiotics with Levaquin but hold on further antibiotics and plan for drainage
ID consult-discussed with ID for further evaluation , s/p successful CT-guided drainage of collection, drain is left on 10/14. Culture is sent out
Per ID: Started linezolid, will require frequent outpatient monitoring for possible adverse drug reactions. Patient is aware of risks of neuropathy including of the optic nerve and agranulocytosis
Patient met with vascular surgery to explore the option for surgical explant of his aortic graft. Patient declined.
Vascular surgery already consulted in the ED and appreciated input
Pain control as needed with Tylenol for mild pain, oxycodone for moderate pain, and morphine for severe pain.
Continue bowel regimen
Constipation
s/p enema and Mg citrate.c/w Dulcolax, MiraLAX
Paroxysmal A-fib:
Continue rate control, metoprolol succinate 50 mg p.o. daily
holding Eliquis 5 mg p.o. twice a day until IR procedure
Chronic HFrEF:
Continue oral diuretics, Bumex 2 mg p.o. daily in the morning and 1 mg in the afternoon.
Monitor daily weights and ins and out
Monitor renal function and electrolytes closely
Continue GDMT regimen including beta-blockers, SGL 2 inhibitors for now. 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 Martinez outpatient).
# PMH:
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
H/o Septic arthritis of the Knee 07/2024 due to Enterococcus - completed course of treatment
02/25/25 s/p bio-AVR, bio-MVR, TV repair
Status post vancomycin therapy, suppression with levofloxacin
CAD:
Continue anti-ischemic regimen
Chest pain-free
Hypertension:
Continue current antihypertensives
Hyperlipidemia:
Continue home statin
Hypokalemia
# Mild chronic anemia
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
primary oncologist is Dr Michele.
Anxiety:
Continue benzodiazepines
Gout:
Continue allopurinol
DVT prophylaxis:
Holding Eliquis
Add SQ heparin 10/13
CODE STATUS:
Full code
Total discharge time spent to see the patient, examine the patient, review data and lab results, discuss discharge/ treatment plan with patient, nursing staff around 65 minutes�
Anticipated Discharge: Today
Subjective/Interval History
-
Date of Service: October 16, 2025
No pain in abdomen or chest
No back pain
Some soreness around the drain area but no tenderness
he is requesting to go home
Objective Data
-
Vital Signs:
Vital Signs
Temp Pulse Resp BP Pulse Ox
97.8 F 83 16 117/67 100
10/16/25 07:35 10/16/25 07:35 10/16/25 07:35 10/16/25 07:35 10/16/25 07:35
I&O
10/15/25 10/16/25 10/17/25
06:59 06:59 06:59
Intake Total 780 / 780 1190 / 1190
Output Total 90 / 90 35 / 35
Balance 690 / 690 1155 / 1155
--- NOTE | 2025-10-16 09:37 | W.PN.VS ---
Addendum entered and electronically signed by Mart Alfred III, MD 10/16/25 10:23:
This patient was seen and examined in collaboration with STEFANY Santamaria. I agree with the history and physical exam as well as the assessment and plan. I have the following additions:
I had a long detailed discussion with Mr. Taylor this morning. I detailed the findings on his CT scan and explained our concern for ongoing infection. 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 I
once again reviewed the surgical procedure for aortic stent graft explant and either in situ reconstruction versus extra-anatomic bypass. I explained the technical aspects of the procedures. I explained my concerns regarding the technical
challenges associated with this procedure in the setting of active infection. Explained the supraceliac aortic clamping and the physiologic impact that could have on him in the operating room and postoperatively. The benefits and rationale for
aortic stent graft explant in the setting of infection was explained to him in detail. Operative risks were discussed with him in detail including but not limited to , heart attack, stroke, pneumonia, vent dependent respiratory failure,
infection, wound healing complications, renal failure, dialysis, bowel ischemia, distal embolization, limb ischemia and the need for additional procedures. I also discussed the possible postoperative course both inpatient and outpatient from it
best case and worst-case scenario perspective.
At this point he is mainly focused on maintaining and maximizing his quality of life. Understandably and appropriately he is very concerned that the aortic stent graft explant will disseminate his current quality of life and he will never get back
to that point which he is hoping to avoid. After our conversation he would like to speak with his sister however he is currently favoring no surgical intervention, continued antibiotic suppression and observation. I was clear with him that the
natural history of this process would be that at some point he may developed a more systemic infection which could lead to sepsis and . There is also a possibility for aortic degeneration, rupture and . He very clearly expresses
understanding of this but explained that he would rather go that route and then with surgery.
I provided him with my cell phone so that if his sister, who is a nurse, wants to discuss this further with me directly she can.
Signed:
Mart Alfred III, MD
Vascular Surgery
[facility]
Original Note:
Today's Communication / Plan
-
Patient seen at bedside with Dr. Mart Alfred III, below plan reviewed with attending.
Assessment/Plan
-
Assessment: AAA s/p EVAR, fluid collections nancy-aortic, status post IR with fluid aspiration and drain placement
Plan:
Explained in detail to patient that definitive treatment option is surgical explant of his aortic graft, reviewed in detail all surgical options and nonsurgical. Patient will review with his sister who is a medical professional, prior to making
final decision.
Subjective Data
-
Date of Service: October 16, 2025
Patient seen at bedside with Dr. Mart Alfred III, who reviewed in detail surgical options with all questions and concerns addressed. He endorses continued improvement to almost near resolution of abdominal discomfort.
Objective Data
-
Vital Signs
Temp Pulse Resp BP Pulse Ox
97.8 F 83 16 117/67 100
10/16/25 07:35 10/16/25 07:35 10/16/25 07:35 10/16/25 07:35 10/16/25 07:35
Intake and Output
10/15/25 10/16/25 10/17/25
06:59 06:59 06:59
Intake Total 780 / 780 1190 / 1190
Output Total 90 / 35
Balance 690 / 690 1155 / 1155
Intake:
Oral fluids 720 / 720 1180 / 1180
IV fluids (Total) 50 / 50
NSS 50 / 50
Amount instilled into Drain (
Total)
Left Lower Back Margarito-Carpenter A
Placed in IR
Output:
Drain Output (Total) 90 / 35 / 35
Left Lower Back Margarito-Carpenter A 35
Placed in IR
Other:
Number of approximated MODERATE 5 6
amounts of urine
Number of unmeasured liquid
stools
Rectum 1
Lab Results
10/12/25 05:38
10/12/25 05:38
Calcium 9.1 mg/dl (8.4-10.2) 10/12/25 05:38
Total Bilirubin 1.5 mg/dl (0.2-1.3) H 10/11/25 09:32
AST 17 U/L (17-59) 10/11/25 09:32
ALT 12 U/L (0-50) 10/11/25 09:32
Alkaline Phosphatase 104 U/L (38-126) 10/11/25 09:32
Total Protein 6.6 g/dl (6.3-8.2) 10/11/25 09:32
Albumin 4.1 g/dl (3.5-5.0) 10/11/25 09:32
Physical Exam
-
Afebrile.
He is awake and alert, no acute distress.
Breathing is unlabored.
Abdomen is nondistended
--- NOTE | 2025-10-16 11:00 | W.PN.ID1 ---
Date of Service
Date of Service: October 16, 2025
Today's Communication
- patient would like to go home today, I have asked for a 4 day course of linezolid and will check his cultures early next week to plan next steps.
- when drain output is <15 ccs/day x3 days patient to call IR for an appointment to have it removed; drain output has been low the last two days
- flushing instructions per IR
Assessment / Plan
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
endograft placed 12/04/23
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
02/25/25 AVR, MVR, TVRp, articlip
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
H/o Septic arthritis of the Knee 07/2024 due to Enterococcus
- blood cultures x2 in progress no growth to date
- ESR 96 and CRP 160- elevated
- 10/14 aerobic culture x3 with strep and enterococcus; anaerobic cultures in progress
- note detailed risks/benefits/alternatives discussion between patient and his surgeon Dr Alfred, reviewed the culture results with Mr Taylor. He reports he understands the risks of both surgical and nonsurgical approach and overall hed prefer to
continue medical management with the understanding that it may well fail at some point in the next several months, however he feels the risks of surgery outweigh the benefits.
- 10/14 s/p IR drain placement - nonpurulent bloody fluid. Cx's pending.
- Continue linezolid, pending final ID and sensitivities
- he is aware of risks of neuropathy including of the optic nerve and agranulocytosis
- patient would like to go home today, I have asked for a 4 day course of linezolid and will check his cultures early next week to plan next steps.
- when drain output is <15 ccs/day x3 days patient to call IR for an appointment to have it removed; drain output has been low the last two days
- flushing instructions per IR
Chief Complaint
-: Other (endograft infection)
Subjective / Review of Systems
afebrile
bp stable
no events overnight
reports back/abdominal pain nearly resolved
Vital Signs / Physical Exam
Vital Signs
Vital Signs
Temp Pulse Resp BP Pulse Ox
97.8 F 83 16 117/67 100
10/16/25 07:35 10/16/25 07:35 10/16/25 07:35 10/16/25 07:35 10/16/25 07:35
Physical Exam
Constitutional: No Acute Distress
Cardiovascular: Regular Rate and S1/S2; Negative Murmur or Rub
Pulmonary: Clear and Symmetric; Negative Wheezes or Rales
Gastrointestinal: Soft, Non Tender, Non Distended and Normal Bowel Sounds
Skin: Warm and Dry; Negative Rash or Jaundice
Lines: Other (drain with bloody fluid)
Objective Data
Lab Data
Lab Results
10/12/25 05:38
10/12/25 05:38
ESR 96 mm/hour (0-20) H 10/12/25 11:48
Total Bilirubin 1.5 mg/dl (0.2-1.3) H 10/11/25 09:32
AST 17 U/L (17-59) 10/11/25 09:32
ALT 12 U/L (0-50) 10/11/25 09:32
Alkaline Phosphatase 104 U/L (38-126) 10/11/25 09:32
C-Reactive Protein 163.30 mg/L (0.0-10.00) H 10/12/25 11:48
Most recent labs reviewed.
Micro Results:
10/12/25 12:35 Blood Culture - Preliminary
Blood/Venous No Growth in 72 hours- Final report to follow
10/12/25 11:48 Blood Culture - Preliminary
Blood/Venous No Growth in 72 hours- Final report to follow
10/14/25 09:30 Anaerobic Culture - Preliminary
Abscess Culture pending. Anaerobic cultures are examined after 3
days incubation. Additional information to follow.
10/14/25 09:30 Wound Culture - Preliminary
Abscess Gram Stain - Preliminary
10/14/25 09:30 Anaerobic Culture - Preliminary
Cyst Culture pending. Anaerobic cultures are examined after 3
days incubation. Additional information to follow.
10/14/25 09:30 Wound Culture - Preliminary
Abdomen Gram Stain - Preliminary
10/14/25 09:30 Anaerobic Culture - Preliminary
Abdomen Culture pending. Anaerobic cultures are examined after 3
days incubation. Additional information to follow.
10/14/25 09:30 Wound Culture - Preliminary
Abdomen Gram Stain - Preliminary
--- NOTE | 2025-10-16 11:30 | CM ---
Addendum entered by Jennifer Gracia 10/16/25 15:06:
Received a call from [facility], initially declined pt but are now able to see tomorrow, discharge summary and packet faxed to [phone].
Addendum entered by Jennifer Gracia 10/16/25 13:21:
Pt for discharge today. IMM reviewed and signed, copy left with pt. Requested referral to [facility], referral placed in Care Port.
at bedside, pt has his care here and will drive himself home.
Original Note:
CM reviewed chart, ADC remains >48 hours.
Anticipate discharge home, CM will continue to follow for any discharge planning needs.
--- NOTE | 2025-10-16 14:05 | W.DCSUMMARY ---
Discharge Summary
Discharge Data
Date of Admission: 10/11/25
Date of Discharge: 10/16/25
-
Pending Results: No
Hospital Course
70 years old male presented with abdominal pain. He denied fevers or chills, nausea or vomiting. No urinary problems. No melena or hematochezia. Patient had been on suppressive antibiotic with Levaquin since the summer. In the ER, he had a CT
scan of the abdomen showed some fluid collections around the aorta and also aortobiiliac endograft. Vascular surgery consulted in the ED. He was evaluated by vascular surgery, it seemed that he developed fluid around the endograft with concern
for chronic indolent infection. Dr. 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 Vascular surgery
recommended infectious diseases consultation with interventional radiology for drainage of periaortic collection. Eliquis was held. Patient underwent percutaneous drainage of 60 mL of dark bloody, nonpurulent fluid. Culture of the fluid was
positive with subsequent result to be finalized. ID doctor recommended to change to linezolid treatment until final result of the culture. Patient will follow with ID after discharge. Dr. Alfred saw the patient again and discussed option to do
aortic stent graft explant to avoid complication as disseminated infection, sepsis aortic degeneration/rupture patient. Patient expressed his understanding but he remained reluctant to contemplate surgical option at the present time. Patient
remained hemodynamically stable. He tolerated diet well. He had bowel movement after constipation treatment with laxative. Patient was discharged home in a stable condition.
Discharge Plan
-
Patient Disposition: Home with Home Care
Discharge Diagnosis/Procedures: s/p I& D for Aortobiiliac endograft infection/ left sided drain
You were seen by vascular & ID doctors
Diet: As tolerated
Referrals:
Josefina Nguyen MD [Family Provider, Family Practice]
Saba Prucell MD [Active, Infectious Diseases] - in less than 1 week
Additional Discharge Medication Instructions: Drain care as instructed and follow with IR
Prescriptions:
New
linezolid 600 mg Tablet
600 mg PO BID Qty: 10 0RF
Continued
alprazolam 0.5 mg Tablet
0.5 mg PO HS
glycopyrrolate 1 mg Tablet
1 mg PO BIDPRN PRN (Reason: runny nose)
atorvastatin 40 mg Tablet
40 mg PO HS
cyanocobalamin (vitamin B-12) 1,000 mcg Tablet
1,000 mcg PO DAILY
ferrous sulfate 325 mg (65 mg iron) Tablet
325 mg PO DAILY
cholecalciferol (vitamin D3) [Vitamin D3] 50 mcg (2,000 unit) Tablet
50 mcg PO DAILY
dapagliflozin propanediol 10 mg Tablet
10 mg PO DAILY Qty: 0 0RF
metoprolol succinate 50 mg Capsule,Sprinkle,Er 24hr
50 mg PO DAILY
bumetanide 2 mg tablet
2 mg PO DAILY
bumetanide 2 mg tablet
1 mg PO DAILY@1600
sennosides [senna] 8.6 mg Tablet
8.6 mg PO DAILY
acetaminophen [Tylenol] 325 mg Tablet
650 mg PO Q6HPRN PRN (Reason: mild pain)
allopurinol 100 mg Tablet
100 mg PO DAILY
levothyroxine 50 mcg tablet
50 mcg PO DAILY
docusate sodium 100 mg capsule
100 mg PO BID
Eliquis 5 mg Tablet
5 mg PO BID 30 Days Qty: 60 0RF
Discontinued
levofloxacin 750 mg Tablet
750 mg PO DAILY
Discharge Orders:
Discharge Patient (As Directed); Ordered 10/16/25
Ordered By: Enrico Boateng
Discharge Date and Time
Print Language: PERUVIAN
[2025-10-16 14:16] VITALS: BP 125/78
--- NOTE | 2025-10-18 07:20 | W.PN.UPDATE ---
Update Note
Progress Note Update
Addendum
Received a call from patient on Sunday. He is unable to obtain linezolid from pharmacy due to insurance restriction and needing prior authorization.
Discussed with ID doctor on-call, await further culture results throughout the day.
After reviewing culture later, called in Augmentin for the patient
Will update ID On-call
End
== END 2025-10-16 15:07 | disposition home health service (06) | DRG 315 ==
LOC: 2 NORTH 15:57
PROVIDERS: Radiology Vascular & Interventional Radiology; ADMITTING PHYSICIAN Hospitalist; ATTENDING PHYSICIAN Internal Medicine; CONSULT PHYSICIAN Surgery Vascular Surgery; EMERGENCY PHYSICIAN Emergency Medicine; FAMILY PHYSICIAN Family Medicine; OTHER PHYSICIAN Student in an Organized Health Care Education/Training Program
PROC: 0W9J30Z Drainage of Pelvic Cavity with Drainage Device, Percutaneous Approach (ICD-10-PCS; 2025-10-14)
DX: T82.7XXA Infection and inflammatory reaction due to other cardiac and vascular devices, implants and grafts, initial encounter (principal); I48.21 Permanent atrial fibrillation; I50.22 Chronic systolic (congestive) heart failure; Z87.891 Personal history of nicotine dependence; I71.40 Abdominal aortic aneurysm, without rupture, unspecified; Z79.899 Other long term (current) drug therapy; I11.0 Hypertensive heart disease with heart failure; I25.10 Atherosclerotic heart disease of native coronary artery without angina pectoris; E78.5 Hyperlipidemia, unspecified; F41.9 Anxiety disorder, unspecified; M10.9 Gout, unspecified; K59.00 Constipation, unspecified; E87.6 Hypokalemia; Z85.89 Personal history of malignant neoplasm of other organs and systems; Y84.8 Other medical procedures as the cause of abnormal reaction of the patient, or of later complication, without mention of misadventure at the time of the procedure; Z79.01 Long term (current) use of anticoagulants; Z79.2 Long term (current) use of antibiotics
CPT/HCPCS: 49406; 74177; 80048; 80053; 81003; 81015; 83690; 85025; 85652; 86140; 87040; 87070; 87075; 87077; 87186; 87205; 99152; 99285; Q9967

== ENCOUNTER → 2025-10-20 13:05 | Outpatient (REF) | payer MEDICARE, OTHER, SELFPAY ==
[2025-10-20 13:25] VITALS: BP 146/93; BP_SYST 90
[2025-10-20 14:21] VITALS: BP 154/95; BP_SYST 77
[2025-10-20 14:38] VITALS: BP 154/95
== END ==
LOC: RADI 13:05
PROVIDERS: ATTENDING PHYSICIAN Student in an Organized Health Care Education/Training Program
DX: Z46.82 Encounter for fitting and adjustment of non-vascular catheter (principal)
CPT/HCPCS: 76000